=== PATIENT | female | born 1930 | race Caucasian/White ===

== ENCOUNTER → 2016-08-30 | Outpatient (CLI) | payer OTHER, BC ==
[~2016-08-30] MED LIST: ACET-1047 PO; ALPR1TAB3 PO; AMOX500C3 PO; AMPI500C9 PO; BND25X PO; CEFEPIME CONSULT ACTIVE; CHOL400C7 PO; CHOLTAB3 PO; CIPR-255 PO; CIPR1TAB11; CIPR1TAB11 PO; CYAN3INJ IM; CYCL0.052 OPB; CYNI1000 INJ; DICY10CA55 PO; DXM/4 PO; FRS/40 PO; FURO-85 PO; FURO20TA PO; KCLP20 PO; LEVO75TA5 PO; LIFI5DRO OPB; MAGN400T6 PO; METO-217 PO; METO50TA7 PO; MGNO400 PO; MTHH1 PO; MULT-190 PO; MULTTAB58 PO; NPLATE; NRV5 PO; NXM/40 PO; ONDA4TAB10 SL; ONDA4TAB46 PO; POLY3350 PO; POLY335019 PO; POTA20TA16 PO; RSTOPS OP; SYN50 PO; THIA100T11 PO; TPRSR/50 PO; TPRSR50 PO; TRAM-10 PO; TRIM100T20 PO; TYLOTC500 PO; ivig IV
[2016-08-30 13:53] LABS: URINE APPEARANCE CLOUDY (CLEAR); URINE BILIRUBIN NEG (NEG); URINE COLOR YELLOW; URINE EPITHELIAL CELL AUTO 0-5 /lpf (0-5); URINE NITRITE NEG (NEG); URINE PH 5.5 (4.5-7.5); URINE SPECIFIC GRAVITY 1.016 (1.000-1.030); UROBILINOGEN NEG (NEG)
[2016-08-30 13:57] LABS: MANUAL MICROSCOPIC REQUIRED? NO; REVIEW REQ? NO
== END | disposition home or self-care (01) ==
LOC: C.LAB 12:50
PROVIDERS: ATTEND Family Medicine
DX: N39.0 Urinary tract infection, site not specified (principal); B96.5 Pseudomonas (aeruginosa) (mallei) (pseudomallei) as the cause of diseases classified elsewhere

== ENCOUNTER → 2016-09-10 | Outpatient (CLI) | payer OTHER, BC ==
[~2016-09-10] MED LIST changes: -ACET-1047 PO; -BND25X PO; -CEFEPIME CONSULT ACTIVE; -KCLP20 PO; -METO-217 PO; -TPRSR/50 PO
[2016-09-10 19:07] LABS: URINE APPEARANCE CLEAR (CLEAR); URINE BILIRUBIN NEG (NEG); URINE COLOR YELLOW; URINE EPITHELIAL CELL AUTO 20-30 /lpf (0-5); URINE NITRITE NEG (NEG); URINE SPECIFIC GRAVITY 1.002 (1.000-1.030); UROBILINOGEN NEG (NEG)
[2016-09-10 19:12] LABS: MANUAL MICROSCOPIC REQUIRED? NO; REVIEW REQ? NO
== END | disposition home or self-care (01) ==
LOC: C.LAB 17:34
PROVIDERS: ATTEND Internal Medicine Infectious Disease
DX: R30.0 Dysuria (principal)

== ENCOUNTER → 2016-10-09 | Outpatient (CLI) | payer OTHER, BC ==
[2016-10-09 14:26] LABS: URINE APPEARANCE CLEAR (CLEAR); URINE BILIRUBIN NEG (NEG); URINE COLOR DK YELLOW; URINE EPITHELIAL CELL AUTO 20-30 /lpf (0-5); URINE NITRITE POS (NEG); URINE SPECIFIC GRAVITY 1.016 (1.000-1.030); UROBILINOGEN NEG (NEG); ZZUR CULT IF INDIC CLEAN CATCH YES
[2016-10-09 14:35] LABS: MANUAL MICROSCOPIC REQUIRED? NO; REVIEW REQ? NO
== END | disposition home or self-care (01) ==
LOC: C.LAB1850 11:52
PROVIDERS: ATTEND Internal Medicine Infectious Disease
DX: I49.3 Ventricular premature depolarization (principal); R39.9 Unspecified symptoms and signs involving the genitourinary system

== ENCOUNTER → 2016-10-28 | Outpatient (CLI) | payer OTHER, BC ==
[2016-10-28 19:29] LABS: MANUAL MICROSCOPIC REQUIRED? NO; REVIEW REQ? NO; URINE APPEARANCE TURBID (CLEAR); URINE BILIRUBIN NEG (NEG); URINE COLOR YELLOW; URINE NITRITE POS (NEG); URINE PH 5.5 (4.5-7.5); URINE SPECIFIC GRAVITY 1.009 (1.000-1.030); UROBILINOGEN NEG (NEG)
== END | disposition home or self-care (01) ==
LOC: C.LAB 16:02
PROVIDERS: ATTEND Internal Medicine Infectious Disease
DX: R39.9 Unspecified symptoms and signs involving the genitourinary system (principal)

== ENCOUNTER → 2016-11-19 | Outpatient (CLI) | payer OTHER, BC ==
[~2016-11-19] MED LIST changes: -CIPR-255 PO; +METO-217 PO; -ONDA4TAB46 PO; -RSTOPS OP; +TPRSR/50 PO
[2016-11-19 16:45] LABS: URINE APPEARANCE CLOUDY (CLEAR); URINE BILIRUBIN NEG (NEG); URINE COLOR YELLOW; URINE EPITHELIAL CELL AUTO >30 /lpf (0-5); URINE NITRITE POS (NEG); URINE SPECIFIC GRAVITY 1.012 (1.000-1.030); UROBILINOGEN NEG (NEG)
[2016-11-19 16:51] LABS: MANUAL MICROSCOPIC REQUIRED? NO; REVIEW REQ? NO
== END | disposition home or self-care (01) ==
LOC: C.LABSPEC 15:53
PROVIDERS: ATTEND Physician Assistant
DX: R30.0 Dysuria (principal)

== ENCOUNTER → 2016-12-24 | Outpatient (CLI) | payer OTHER, BC ==
[~2016-12-24] MED LIST changes: +ACET-1047 PO; +BENZ100C7 PO; +BNDL2 PO; +CEFD300C2 PO; +CEFEPIME CONSULT ACTIVE; +CLR10 PO; +CRAN1TAB PO; +DIPH25CA50 PO; +DOCU100C31 PO; +ELTR12.58 PO; +FILG300I4 SQ; +FLUT0.15 INTNAS; +KCLP20 PO; +LEVA45AE NAE; +LEVA45AE PO; +LSX20 PO; +NYSS5 PO; +SODI0.9I55 IV.; +TRIM100T PO; -TRIM100T20 PO
[2016-12-24 18:51] LABS: URINE APPEARANCE CLEAR (CLEAR); URINE BILIRUBIN NEG (NEG); URINE COLOR YELLOW; URINE EPITHELIAL CELL AUTO >30 /lpf (0-5); URINE NITRITE POS (NEG); URINE SPECIFIC GRAVITY 1.011 (1.000-1.030); UROBILINOGEN NEG (NEG)
[2016-12-24 18:55] LABS: MANUAL MICROSCOPIC REQUIRED? NO; REVIEW REQ? NO
== END | disposition home or self-care (01) ==
LOC: C.LAB 17:34
PROVIDERS: ATTEND Physician Assistant
DX: R39.9 Unspecified symptoms and signs involving the genitourinary system (principal)

== ENCOUNTER → 2017-01-02 | Outpatient (CLI) | payer OTHER, BC ==
--- NOTE | 2017-01-02 11:24 | DIAGNOSTIC IMAGING REPORT ---
CHEST 2 VIEWS ROUTINE CLINICAL HISTORY: R91.1 Solitary pulmonary [id number] nodule COMPARISON STUDY: 08/10/2016 FINDINGS: No significant parenchymal nodularity by plain film criteria. The study is negative for significant cardiac enlargement. Diaphragms smooth. Potential focal chronic atelectatic change right midlung. IMPRESSION: Chronic change. No routine film evidence for significant pulmonary nodularity Electronically signed by: Lenny Zapata M.D. 01/02/2017 11:23 AM Dictated Date/Time: 01/02/2017 11:20 AM
== END | disposition home or self-care (01) ==
LOC: C.RAD1850 11:04
PROVIDERS: ATTEND Physician Assistant
DX: R91.1 Solitary pulmonary nodule (principal)

== ENCOUNTER → 2017-02-04 | Outpatient (CLI) | payer OTHER, BC ==
[2017-02-04 19:13] LABS: URINE APPEARANCE CLEAR (CLEAR); URINE BILIRUBIN NEG (NEG); URINE COLOR YELLOW; URINE EPITHELIAL CELL AUTO 0-5 /lpf (0-5); URINE NITRITE NEG (NEG); URINE SPECIFIC GRAVITY 1.008 (1.000-1.030); UROBILINOGEN NEG (NEG)
[2017-02-04 19:14] LABS: MANUAL MICROSCOPIC REQUIRED? NO; REVIEW REQ? NO
== END | disposition home or self-care (01) ==
LOC: C.LABSPEC 17:45
PROVIDERS: ATTEND Family Medicine
DX: N39.0 Urinary tract infection, site not specified (principal)

== ENCOUNTER 2017-02-19 01:54 | Emergency (ER) | payer OTHER, BC ==
[~2017-02-19] VITALS: Ht 162.6 cm; Wt 74.0 kg
[~2017-02-19 01:54] MED LIST changes: -ACET-1047 PO; -AMPI500C9 PO; -BENZ100C7 PO; -BNDL2 PO; -CEFD300C2 PO; -CEFEPIME CONSULT ACTIVE; -CHOL400C7 PO; -CIPR1TAB11; -CIPR1TAB11 PO; -CLR10 PO; -CRAN1TAB PO; -CYCL0.052 OPB; -CYNI1000 INJ; -DICY10CA55 PO; -DIPH25CA50 PO; -DOCU100C31 PO; -ELTR12.58 PO; -FILG300I4 SQ; -FLUT0.15 INTNAS; -FRS/40 PO; -FURO20TA PO; -KCLP20 PO; -LEVA45AE NAE; -LEVA45AE PO; -LEVO75TA5 PO; -LSX20 PO; -MAGN400T6 PO; -METO-217 PO; -METO50TA7 PO; -NRV5 PO; -NYSS5 PO; -ONDA4TAB10 SL; -POLY335019 PO; -SODI0.9I55 IV.; -TPRSR/50 PO; -TYLOTC500 PO; -ivig IV
[2017-02-19 02:01] VITALS: Ht 162.6 cm; Wt 74.0 kg
--- NOTE | 2017-02-19 02:21 | EMERGENCY ROOM VISIT NOTE ---
History Report prepared by Larry: Kaleigh Taylor Under the Supervision of: Dr. Srinivasan Mayer M.D. First contact with patient: 02:09 Chief Complaint: BLEEDING Stated Complaint: EAR BLEEDING Nursing Triage Summary: Patient saw ENT yesterday and got a small lesion in her left ear after he cleaned out a large amount of wax. Patient now noting drainage since getting home. History of Present Illness The patient is a 87 year old female who presents to the Emergency Room with complaints of resolved left ear bleeding starting tonight. Yesterday, the patient's left ear was cleaned out by Dr. Jesus. A laceration was accidentally made in the ear but the patient was discharged home. She was prescribed Afrin and she was told to follow up this morning. Since then, the patient's ear has been draining all day today. A few minutes ago, the patient had some bleeding tonight. The patient also had an appointment with her PCP yesterday and her platelets were 13. She has been receiving Nplate shot for the past few weeks. She has a history of thrombocytopenia and blood transfusions. She received steroids for 4 days last week. She currently complains of a headache. She denies fevers, chills, nosebleed, rectal bleeding, or any other complaints. Source of History: patient Onset: tonight Position: ear (left) Quality: other (bleeding) Timing: resolved Associated Symptoms: + headache, No fevers, No chills Review of Systems See HPI for pertinent positives & negatives. A total of 6 systems reviewed and were otherwise negative. 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 (5) Hypertension Nos (6) Hypothyroidism Nos (7) ITP (idiopathic thrombocytopenic purpura) (8) Myalgia and myositis (9) Osteoporosis Nos (10) Premature atrial contractions (11) Pulmonary nodules Surgical Problems: (1) History of cataract surgery (2) S/P hernia repair (3) S/P hysterectomy (4) S/p repair of cystocele (5) S/P tonsillectomy and adenoidectomy Family History Asthma DAUGHTER Social History Smoking Status: Never Smoker Alcohol Use: none Drug Use: none Marital Status: single Housing Status: lives with family Occupation Status: retired Current/Historical Medications Scheduled Alprazolam (Xanax), 1 MG PO BID Amoxicillin (Amoxil), 500 MG PO UD Cholecalciferol (Vitamin D 400 Iu), 400 INTER.UNIT PO BID Cyanocobalamin (Cyanocobalamin), 1 DOSE INJ MONTHLY Dexamethasone (Decadron), 4 MG PO UD Esomeprazole Magnesium (Nexium), 40 MG PO DAILY Furosemide (Lasix), 20 MG PO DAILY Levothyroxine Sodium (Levothyroxine Sodium), 75 MG PO DAILY Lifitegrast (Xiidra), 1 DROP OPB BID Magnesium Oxide (Magnesium-Oxide), 400 MG PO BID Methenamine Hippurate (Methenamine Hippurate), 1 GM PO BID Metoprolol Succinate (Metoprolol Succinate ER), 50 MG PO BID Multiple Vitamin (Multivitamin), 1 TAB PO DAILY Ocuvite Preservision (Ocuvite Preservision), 1 TAB PO BID Polyethylene Glycol 3350 (Polyethylene Glycol 3350), 17 GM PO DAILY Potassium Ext Rel (Klor-Con), 20 MEQ PO DAILY Thiamine Hcl (Vitamin B-1), 100 MG PO DAILY Tramadol (Ultram), 50 MG PO Q6HR PRN Trimethoprim (Proloprim), 100 MG PO DAILY [Nplate], 1 WK Allergies Coded Allergies: Amoxicillin (Verified Allergy, Intermediate, RASH, 02/19/17) Clavulanic Acid (Verified Allergy, Intermediate, RASH, 02/19/17) Iodinated Diagnostic Agents (Verified Allergy, Intermediate, HIVES WITH IVP DYE, 02/19/17) Rofecoxib (Verified Allergy, Intermediate, PALPITATIONS, 02/19/17) Sulfa Antibiotics (Verified Allergy, Intermediate, RASH, 02/19/17) Codeine (Verified Adverse Reaction, Intermediate, NAUSEA/VOMITING, 02/19/17 ) Morphine (Verified Adverse Reaction, Intermediate, NAUSEA/VOMITING, ) Oxycodone (Verified Adverse Reaction, Intermediate, NAUSEA/VOMITING, ) Physical Exam Vital Signs Date Time Temp Pulse Resp B/P (MAP) Pulse Ox O2 Delivery O2 Flow Rate FiO2 02/19/17 02:31 36.6 58 19 153/59 96 02/19/17 02:01 36.6 58 19 153/59 96 Room Air Physical Exam GENERAL: Patient is well appearing and in no acute distress. HEENT: No acute trauma, normocephalic atraumatic, mucous membranes moist, no nasal congestion, no nosebleed, no scleral icterus. Left TM with blood clot in canal, no active bleeding, no oozing at this time, unable to appreciate laceration nor abrasion, no evidence of infection. No blood in mouth. NECK: No stridor, no adenopathy, no meningismus, trachea is midline. LUNGS: No dyspnea. Clear to auscultation and equal bilaterally. No wheeze, no rhonchi. HEART: Regular rate and rhythm. No murmurs, rubs, gallops appreciated. EXTREMITIES: Normal motion all extremities, no cyanosis, no edema. NEUROLOGIC: Alert and oriented, no acute motor or sensory deficits, no focal weakness, cranial nerves grossly intact. SKIN: No rash, no jaundice, no diaphoresis. Mild bruising of the left leg just below knee. Medical Decision & Procedures ED Course 0209: The patient was evaluated in room A03. A complete history and physical exam was performed. 0231: Reevaluated the patient. Discussed results and discharge instructions: She verbalized understanding and agreement. The patient is ready for discharge. Medical Decision Medication Reconciliation: I attest that I have personally reviewed the patient 's current medication list. Blood Pressure Screening: Patient was found to have a slightly elevated blood pressure due to circumstances. I do not believe that the patient requires hypertension monitoring. Pleasant 87 yr old female with known ITP and very low plts who had left cerumen impaction removed yesterday with some post procedure bleeding. Arrives as there was small amount of sero-sang fluid on pillow. Non-soaking and patient without evidence of hypovolemia at this time. Exam without further bleeding though there is clot within canal. Will continue Afrin in canal with cotton balls. Discussed likelihood of some continued oozing but no clear indication for checking labs at this time as they were just done yesterday and her PCP is aware. Already has appointment with ENT in am for recheck. Daughter and patient comfortable with this plan. Impression Primary Impression: Ear canal abrasion Additional Impression: Thrombocytopenia Scribe Attestation The scribe's documentation has been prepared under my direction and personally reviewed by me in its entirety. I confirm that the note above accurately reflects all work, treatment, procedures, and medical decision making performed by me. Departure Information Dispostion Home / Self-Care Referrals Dionisio Umana M.D. (PCP) Forms HOME CARE DOCUMENTATION FORM, IMPORTANT VISIT INFORMATION Patient Instructions [facility] Additional Instructions This will continue to ooze for the next few days possibly. Continue to follow directions per ENT. Follow up with them in the morning as planned. If heavy bleeding, passing out, other bleeding, return for further evaluation and treatment. Try to sleep on right side as this may decrease oozing some. Replace Cotton Balls if the become saturated (soaked). Problem Qualifiers
[2017-02-19 02:31] VITALS: BP 153/59; PULSE 58; TEMP 36.6; O2SAT 96
[2017-02-19] MEDS ORDERED: LEVO75TA5 PO (02:32)
[2017-02-19] MEDS ORDERED: CHOL400C7 PO (02:35)
[2017-02-19] MEDS ORDERED: CYNI1000 INJ (02:35)
[2017-04-01] MEDS ORDERED: ivig IV (09:20)
[2017-04-07] MEDS ORDERED: CIPR1TAB11 (10:49)
[2017-05-02] MEDS ORDERED: CIPR1TAB11 PO (12:06)
[2017-05-02] MEDS ORDERED: AMPI500C9 PO (12:07)
[2017-05-12] MEDS ORDERED: POLY335019 PO (23:40)
[2017-05-12] MEDS ORDERED: MULTTAB58 PO (23:40)
[2017-05-12] MEDS ORDERED: FURO20TA PO (23:41)
[2017-05-12] MEDS ORDERED: POTA20TA16 PO (23:41)
[2017-05-12] MEDS ORDERED: LEVO75TA5 PO (23:42)
[2017-05-12] MEDS ORDERED: NXM/40 PO (23:42)
[2017-05-12] MEDS ORDERED: ALPR1TAB3 PO (23:42)
[2017-05-12] MEDS ORDERED: DICY10CA55 PO (23:42)
[2017-05-12] MEDS ORDERED: THIA100T11 PO (23:43)
[2017-05-12] MEDS ORDERED: MAGN400T6 PO (23:43)
[2017-05-12] MEDS ORDERED: TRAM-10 PO (23:44)
[2017-05-12] MEDS ORDERED: METO50TA7 PO (23:44)
[2017-05-24] MEDS ORDERED: NRV5 PO (13:25)
[2017-05-24] MEDS ORDERED: FRS/40 PO (13:25)
[2017-06-01] MEDS ORDERED: DIPH25CA50 PO (11:04)
[2017-06-27] MEDS ORDERED: AMPI500C9 PO (10:31)
[2017-07-04] MEDS ORDERED: ELTR12.58 PO (14:53)
[2017-07-07] MEDS ORDERED: CLR10 PO (11:56)
[2017-07-07] MEDS ORDERED: FILG300I4 SQ (11:56)
[2017-07-11] MEDS ORDERED: CRAN1TAB PO (12:35)
[2017-07-11] MEDS ORDERED: LEVA45AE PO (12:35)
[2017-07-11] MEDS ORDERED: FLUT0.15 INTNAS (12:35)
[2017-07-14] MEDS ORDERED: CEFD300C2 PO (17:35)
[2017-07-14] MEDS ORDERED: BENZ100C7 PO (17:36)
[2017-07-14] MEDS ORDERED: NYSS5 PO (17:36)
[2017-07-14] MEDS ORDERED: LSX20 PO (17:36)
== END 2017-02-19 02:32 | disposition home or self-care (01) ==
LOC: C.EDB 01:55 → C.EDA 02:32
DX: S00.412A Abrasion of left ear, initial encounter (principal); D69.6 Thrombocytopenia, unspecified; X58.XXXA Exposure to other specified factors, initial encounter; D64.9 Anemia, unspecified; I48.91 Unspecified atrial fibrillation; J44.9 Chronic obstructive pulmonary disease, unspecified; I10 Essential (primary) hypertension; E03.9 Hypothyroidism, unspecified; D69.3 Immune thrombocytopenic purpura; M81.0 Age-related osteoporosis without current pathological fracture; M79.1 Myalgia; M60.9 Myositis, unspecified; Z82.5 Family history of asthma and other chronic lower respiratory diseases; R39.9 Unspecified symptoms and signs involving the genitourinary system; E86.0 Dehydration; D61.818 Other pancytopenia; N39.0 Urinary tract infection, site not specified

== ENCOUNTER 2017-04-21 09:45 | Emergency (ER) | payer OTHER, BC ==
[~2017-04-21] VITALS: Ht 165.1 cm; Wt 74.0 kg
[~2017-04-21 09:45] MED LIST changes: +CHOL400C7 PO; -CHOLTAB3 PO; -CYAN3INJ IM; +CYNI1000 INJ; +LEVO75TA5 PO; -SYN50 PO; -TRIM100T PO; +TRIM100T20 PO; +ivig IV
[2017-04-21 09:49] VITALS: Ht 165.1 cm; Wt 74.0 kg
[2017-04-21] MEDS ORDERED: CYCL0.052 OPB (10:35)
[2017-04-21] MEDS ORDERED: TYLOTC500 PO (10:36)
--- NOTE | 2017-04-21 11:39 | EMERGENCY ROOM VISIT NOTE ---
History First contact with patient: 09:56 Chief Complaint: NOSE BLEED (MINOR) Stated Complaint: NOSEBLEED History of Present Illness The patient is a 87 year old female who presents to the Emergency Room with complaints of nose bleed for the past 4 hours. She woke up with a sensation of runny nose but was found to be blood. Patient admits there was not enough blood to measure. She has a significant PMH of pancytopenia and ITP, for which she sees Dr. Coulter Patient was meant to be seen at Dr. Coulter's office to get bloodwork done today but was advised to come to the ED if bleeding persisted. This is the first nosebleed the patient has had. Patient also reports history of chronic bladder infections, feels an infection coming on, and requested a UA. Patient receives semi-weekly platelet infusions as needed. Most recent platelet infusion given , 04/17/17 Gets CBC every friday; most recent platelet count was 11 as of 04/17. Patient states she received PRBCs 10 days ago. Patient had Bone Marrow biopsy 3 years ago; no cancer was found but chemotherapy was tried at that time to no avail. Source of History: patient, family Position: nose Symptom Intensity: mild Timing: intermittent Review of Systems See HPI for pertinent positives and negatives. A total of ten systems were reviewed and were otherwise negative. Past Medical/Surgical History Medical Problems: (1) Anemia (2) Atrial fibrillation (3) COPD (chronic obstructive pulmonary disease) (4) Coronary Atherosclerosis Of [place]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 (5) Hypertension Nos (6) Hypothyroidism Nos (7) ITP (idiopathic thrombocytopenic purpura) (8) Myalgia and myositis (9) Osteoporosis Nos (10) Premature atrial contractions (11) Pulmonary nodules Surgical Problems: (1) History of cataract surgery (2) S/P hernia repair (3) S/P hysterectomy (4) S/p repair of cystocele (5) S/P tonsillectomy and adenoidectomy Family History Asthma DAUGHTER Social History Smoking Status: Never Smoker Alcohol Use: none Drug Use: none Marital Status: single Housing Status: lives with family Occupation Status: retired Current/Historical Medications Scheduled Acetaminophen (Tylenol), 500 MG PO TID Alprazolam (Xanax), 1 MG PO BID Cholecalciferol (Vitamin D 400 Iu), 400 INTER.UNIT PO BID Cyclosporine (Ophth) (Restasis), 1 DROP OPB DAILY Esomeprazole Magnesium (Nexium), 40 MG PO DAILY Furosemide (Lasix), 20 MG PO NEEDED Levothyroxine Sodium (Levothyroxine Sodium), 75 MG PO DAILY Magnesium Oxide (Magnesium-Oxide), 400 MG PO BID Metoprolol Succinate (Metoprolol Succinate ER), 50 MG PO BID Multiple Vitamin (Multivitamin), 1 TAB PO DAILY Ocuvite Preservision (Ocuvite Preservision), 1 TAB PO BID Polyethylene Glycol 3350 (Polyethylene Glycol 3350), 17 GM PO DAILY Potassium Ext Rel (Klor-Con), 20 MEQ PO NEEDED Thiamine Hcl (Vitamin B-1), 100 MG PO DAILY Tramadol (Ultram), 50 MG PO TID Physical Exam Vital Signs Date Time Temp Pulse Resp B/P (MAP) Pulse Ox O2 Delivery O2 Flow Rate FiO2 04/21/17 17:54 81 04/21/17 17:45 82 20 215/96 96 Room Air 04/21/17 17:32 79 20 206/89 96 04/21/17 17:30 78 20 206/85 97 Room Air 04/21/17 17:22 36.8 79 20 196/89 98 04/21/17 17:06 37.1 77 18 190/80 97 04/21/17 16:40 70 20 191/66 97 Room Air 04/21/17 16:06 36.8 64 20 177/92 97 0.0 04/21/17 15:40 78 18 197/89 98 Room Air 04/21/17 14:00 129 20 129/60 97 Room Air 04/21/17 13:00 62 20 96 Room Air 04/21/17 11:40 60 20 133/90 96 Room Air 04/21/17 09:49 36.4 52 20 145/55 96 Room Air Physical Exam GENERAL: Awake, alert, well-appearing, in no distress HENT: Crusted over lesions inside left nostril. Minimal bleeding at time of exam. Normocephalic, atraumatic. Oropharynx unremarkable. EYES: Normal conjunctiva. Sclera non-icteric. NECK: Supple. No nuchal rigidity. FROM. No JVD. RESPIRATORY: Clear to auscultation. CARDIAC: Regular rate, irregularly irregular rhythm. Extremities warm and well perfused. Pulses equal. ABDOMEN: Soft, non-distended. No tenderness to palpation. No rebound or guarding. No masses. MUSCULOSKELETAL: Chest examination reveals no tenderness. The back is symmetrical on inspection without obvious abnormality. There is no CVA tenderness to palpation. No joint edema. LOWER EXTREMITIES: Calves are equal size bilaterally and non-tender. No edema. No discoloration. NEURO: Normal sensorium. No sensory or motor deficits noted. SKIN: No rash or jaundice noted. Medical Decision & Procedures Laboratory Results 04/21/17 11:21 Red Blood Count 2.83, Mean Corpuscular Volume 92.9, Mean Corpuscular Hemoglobin 31.4, Mean Corpuscular Hemoglobin Concent 33.8, Neutrophils (%) (Auto) 7.6, Lymphocytes (%) (Auto) 85.5, Monocytes (%) (Auto) 6.2, Eosinophils (%) (Auto) 0.0, Basophils (%) (Auto) 0.0, Neutrophils # (Auto) 0.11, Lymphocytes # (Auto) 1.24, Monocytes # (Auto) 0.09, Eosinophils # (Auto) 0.00, Basophils # (Auto) 0.00 04/21/17 11:21 Test 04/21/17 11:21 04/21/17 13:05 White Blood Count 1.45 K/uL (4.8-10.8) Red Blood Count 2.83 M/uL (4.2-5.4) Hemoglobin 8.9 g/dL (12.0-16.0) Hematocrit 26.3 % (37-47) Mean Corpuscular Volume 92.9 fL (80-100) Mean Corpuscular Hemoglobin 31.4 pg (25-34) Mean Corpuscular Hemoglobin Concent 33.8 g/dl (32-36) Platelet Count 4 K/uL (130-400) Neutrophils (%) (Auto) 7.6 % Lymphocytes (%) (Auto) 85.5 % Monocytes (%) (Auto) 6.2 % Eosinophils (%) (Auto) 0.0 % Basophils (%) (Auto) 0.0 % Neutrophils # (Auto) 0.11 K/uL (1.4-6.5) Lymphocytes # (Auto) 1.24 K/uL (1.2-3.4) Monocytes # (Auto) 0.09 K/uL (0.11-0.59) Eosinophils # (Auto) 0.00 K/uL (0-0.5) Basophils # (Auto) 0.00 K/uL (0-0.2) RDW Standard Deviation 63.0 fL (36.4-46.3) RDW Coefficient of Variation 19.6 % (11.5-14.5) Immature Granulocyte % (Auto) 0.7 % Immature Granulocyte # (Auto) 0.01 K/uL (0.00-0.02) Platelet Estimate SIGNIFIC DECREASED Anisocytosis PRESENT Anion Gap 2.0 mmol/L (3-11) Est Creatinine Clear Calc Drug Dose 58.9 ml/min Estimated GFR () 91.4 Estimated GFR (Non- 78.8 BUN/Creatinine Ratio 32.3 (10-20) Calcium Level 8.3 mg/dl (8.5-10.1) Urine Color YELLOW Urine Appearance CLOUDY (CLEAR) Urine pH 7.0 (4.5-7.5) Urine Specific [place] 1.018 (1.000-1.030) Urine Protein TRACE (NEG) Urine Glucose (UA) NEG (NEG) Urine Ketones NEG (NEG) Urine Occult Blood 1+ (NEG) Urine Nitrite NEG (NEG) Urine Bilirubin NEG (NEG) Urine Urobilinogen NEG (NEG) Urine Leukocyte Esterase SMALL (NEG) Urine WBC (Auto) 10-30 /hpf (0-5) Urine RBC (Auto) 5-10 /hpf (0-4) Urine Hyaline Casts (Auto) 1-5 /lpf (0-5) Urine Epithelial Cells (Auto) 20-30 /lpf (0-5) Urine Bacteria (Auto) 4+ (NEG) Medications Administered Medications (Trade) Dose Ordered Sig/Giuseppe Route Start Time Stop Time Status Last Admin Dose Admin Diphenhydramine HCl (Benadryl Inj) 25 mg ONE PRN IV 04/21/17 13:30 05/21/17 13:29 04/21/17 16:18 25 MG Acetaminophen (Tylenol Tab) 1,000 mg NOW STAT PO 04/21/17 13:20 04/21/17 13:31 DC 04/21/17 16:18 1,000 MG Diphenhydramine HCl (Benadryl Inj) 25 mg NOW STAT IV 04/21/17 17:48 04/21/17 17:49 DC 04/21/17 17:57 25 MG ED Course 0930: patient arrives to ED, bed B03B. 0950: Obtained history and physical from patient and family 1015: Nose clamp applied 1020: Nose clamp removed by patient as it resulted in more bleeding. 1030: Ordered CBC, type and screen and UA at patient's request. 1100: blood obtained from patient 1135: Afrin with lido ordered to help if needed 1200: Nosebleed reportedly stopped 1205: labwork reviewed; platelet count severely decreased at 4 (were 11 last ) 1300: Dr. Coulter reached by phone, has advised 2 units platelets and if no rebleed, can go home with appointment planned for w/ Dr. Coulter 1330: Platelets ordered, will not be available until 1500; ordered 25 mg benadryl and 1000mg tylenol to be given concomitantly at time of infusion. 1400: Nosebleed re-commenced. Administered Afrin and 4% lidocaine spray in left nostril. 1600: Platelet transfusion commenced after obtaining consent from the patient. 1730: patient developed 3 wheals on neck after commencing 2nd bag of platelets; infusion stopped. No other symptoms or angioedema noted or reported. 1745: 2nd dose of benadryl 25 mg ordered. If BP is less than 200 systolic and hives diminish in 30 minutes; clear to DC home. Medical Decision Acute nose bleed: started roughly 3 hours prior to presenting to ED; first nosebleed patient reports ever having despite significant PMH of pancytopenia and ITP. Patient advised by special warfare operator, Dr. Durga Coulter, to present to ED if nosebleed did not stop Nasal clamp made bleeding worse; Afrin and lido application utilized due to persistent on and off epistaxis. CBC, Type and screen, and UA ordered. Platelets reviewed, found to be at level of 4. Decreased from level of [address] case [address] Dr[address] Coulter, who suggested 2 units of platelet infusion and if no rebleed, ok to go home with appointment with Dr. Coulter on . Platelets to be infused at 1500 with benadryl IV and PO tylenol. Platelet infusion started at 1600; patient tolerated 1st bag well, at 1730 during 2nd infusion; patient developed hives/3 wheals on neck without any other evidence of angioedema or other areas of hives on the body Discussed with attending; 2nd infusion of 25 mg benadryl given; ok to discharge home with daughter if systolic BP is <200 and hives are clearing. Consults Time Called: 1230 Consulting Physician: Dr. Durga Coulter Returned Call: 1300 Dr. Coulter recommends infusion of 2 units of platelets and if no rebleed, ok to go home. Follow up with Dr. Coulter on . Impression Primary Impression: Nasal bleeding Additional Impressions: Symptoms of urinary tract infection Pancytopenia Anemia Departure Information Dispostion Home / Self-Care Condition GOOD Referrals Dionisio Umana M.D. (PCP) [facility] Additional Instructions EPISTAXIS (NOSE BLEED) INSTRUCTIONS: Avoid scratching, rubbing, picking, or blowing your nose. The stretcher and drier your nasal passages the more likely they are to bleed. The following two products are available [id number] at most drug stores/pharmacies. [place] nasal spray or similar generic saline spray to keep the nose moist 3 to 4 times a day. Apply [place] gel 2-3 times daily to the nostrils to keep them moist. If bleeding recurs apply direct pressure for an uninterrupted 20 minutes. On and off pressure is much less effective because it will disturb the clots that are forming. If the bleeding is still a problem after 20 minutes or is so heavy despite the pressure return to the emergency department. Continue current medications. Follow-up with your primary care physician in 2 to 3 days for a recheck of your current condition. During this visit, your platelets were found to be at a level 4, which is lower than your level of 11 on 04/17/17. 1.5 units of platelets were infused during your stay. Continue to monitor for signs of allergic reaction such as rash over the body with wheals/hives; tongue swelling and difficulty breathing. If you notice any of these symptoms, return to the ED. Follow up with Dr. Coulter on , 04/24. Resident Tracking Resident Involvement: Resident Care Provided Care Provided: Adult ED Problem Qualifiers Additional Impressions: Anemia Anemia type: unspecified type Qualified Codes: D64.9 - Anemia, unspecified
[2017-04-21 12:08] LABS: HEMATOCRIT 26.3 % (37-47); MEAN CELL VOLUME 92.9 fL (80-100); MEAN CORPUSCULAR HEMOGLOBIN 31.4 pg (25-34); MEAN CORPUSCULAR HGB CONC 33.8 g/dl (32-36); PLATELET COUNT 4 K/uL (130-400); RED BLOOD COUNT 2.83 M/uL (4.2-5.4); WHITE BLOOD COUNT 1.45 K/uL (4.8-10.8)
[2017-04-21 12:09] LABS: ANISOCYTOSIS PRESENT; COMPLETE YES; IG% 0.7 %; LYMPH % 85.5 %; LYMPH ABS # 1.24 K/uL (1.2-3.4); MONO % 6.2 %; NEUT % 7.6 %; PLT ESTIMATE SIGNIFIC DECREASED
[2017-04-21] MEDS: LIDOCAINE 4% W/AFRIN NASAL SOLN 4ML EXT STA ×2 (12:21→14:16)
[2017-04-21 12:28] LABS: BUN/CREATININE RATIO 32.3 (10-20); CALCIUM 8.3 mg/dl (8.5-10.1); CREATININE 0.69 mg/dl (0.60-1.20); POTASSIUM 3.8 mmol/L (3.5-5.1)
[2017-04-21 13:18] LABS: URINE APPEARANCE CLOUDY (CLEAR); URINE BILIRUBIN NEG (NEG); URINE COLOR YELLOW; URINE EPITHELIAL CELL AUTO 20-30 /lpf (0-5); URINE NITRITE NEG (NEG); URINE SPECIFIC GRAVITY 1.018 (1.000-1.030); UROBILINOGEN NEG (NEG)
[2017-04-21] MEDS ORDERED: ACETAMINOPHEN 500 MG TAB PO STA (13:20)
[2017-04-21 13:24] LABS: MANUAL MICROSCOPIC REQUIRED? NO; REVIEW REQ? NO
[2017-04-21] MEDS ORDERED: DiphenhydrAMINE HCL 50 MG/ML VIAL IV PRN (13:30)
[2017-04-21] MEDS ORDERED: LIDOCAINE 4% W/AFRIN NASAL SOLN 4ML ONE ×2 (13:56→13:58)
[2017-04-21 16:06] VITALS: BP 177/92; PULSE 64; TEMP 36.8; O2SAT 97
[2017-04-21] MEDS ORDERED: ACETAMINOPHEN 500 MG TAB PO ONE (16:16)
[2017-04-21 17:06] VITALS: BP 190/80; PULSE 77; TEMP 37.1; O2SAT 97
[2017-04-21 17:22] VITALS: BP 196/89; PULSE 79; TEMP 36.8; O2SAT 98
[2017-04-21 17:32] VITALS: BP 206/89; PULSE 79; O2SAT 96
[2017-04-21] MEDS ORDERED: DiphenhydrAMINE HCL 50 MG/ML VIAL IV STA (17:48)
[2017-04-21] MEDS ORDERED: METOPROLOL SUCC 50MG EXT REL TAB PO STA (18:13)
[2017-04-21 19:09] VITALS: BP 176/86; PULSE 70; O2SAT 96
--- NOTE | 2017-04-21 19:18 | EMERGENCY ROOM VISIT NOTE ---
ED Visit Note Patient is an 87-year-old female who was signed out to me by Dr. montalvo who is being seen in conjunction with the resident. The current plan as she presented for a nosebleed with thrombocytopenia which was discussed per report with hematology/oncology was 2 units of platelets and discharge. During her second transfusion of platelets she started with a small rash on the anterior aspect of her neck which was about 2 inches in diameter. She is given an extra dose of Benadryl 25 mg IV. Symptoms completely abated. No respiratory symptoms. No trouble swallowing. She also missed her nighttime dose of blood pressure medications which were given. Following this her blood pressure trended down to 170/90. She was asymptomatic. She was discharged per her request to follow-up with her PCP.
--- NOTE | 2017-04-22 13:13 | Pharmacy Progress Note ---
ED Pharmacist Culture FollowUp Date of Service: Apr 22, 2017. Called patient regarding abnormal UA with history of multiple UTI at the request of Dr. Nolan. Patient reported a strong suspicion of bladder infection. Patient also reported that usual antibiotic is ciprofloxacin. This seems appropriate, pending culture results. Patient reports that she has a follow-up appointment with Dr. Umana tomorrow but would prefer to start antibiotics now. Prescription for ciprofloxacin 250 mg po BID x3 days, called to [facility] at the patient's request. Case discussed with Dr. Nolan, who is the prescribing provider.
[2017-05-02] MEDS ORDERED: CIPR1TAB11 PO (12:06)
[2017-05-02] MEDS ORDERED: AMPI500C9 PO (12:07)
[2017-05-12] MEDS ORDERED: MULTTAB58 PO (23:40)
[2017-05-12] MEDS ORDERED: POLY335019 PO (23:40)
[2017-05-12] MEDS ORDERED: POTA20TA16 PO (23:41)
[2017-05-12] MEDS ORDERED: FURO20TA PO (23:41)
[2017-05-12] MEDS ORDERED: LEVO75TA5 PO (23:42)
[2017-05-12] MEDS ORDERED: DICY10CA55 PO (23:42)
[2017-05-12] MEDS ORDERED: ALPR1TAB3 PO (23:42)
[2017-05-12] MEDS ORDERED: NXM/40 PO (23:42)
[2017-05-12] MEDS ORDERED: THIA100T11 PO (23:43)
[2017-05-12] MEDS ORDERED: MAGN400T6 PO (23:43)
[2017-05-12] MEDS ORDERED: TRAM-10 PO (23:44)
[2017-05-12] MEDS ORDERED: METO50TA7 PO (23:44)
[2017-05-24] MEDS ORDERED: NRV5 PO (13:25)
[2017-05-24] MEDS ORDERED: FRS/40 PO (13:25)
== END 2017-04-21 19:36 | disposition home or self-care (01) ==
LOC: C.EDB 09:48
DX: R04.0 Epistaxis (principal); D61.818 Other pancytopenia; D69.3 Immune thrombocytopenic purpura; I48.91 Unspecified atrial fibrillation; J44.9 Chronic obstructive pulmonary disease, unspecified; I25.10 Atherosclerotic heart disease of native coronary artery without angina pectoris; I10 Essential (primary) hypertension; E03.9 Hypothyroidism, unspecified; M81.0 Age-related osteoporosis without current pathological fracture; Z90.710 Acquired absence of both cervix and uterus; Z98.49 Cataract extraction status, unspecified eye; Z82.5 Family history of asthma and other chronic lower respiratory diseases; Z79.899 Other long term (current) drug therapy

== ENCOUNTER 2017-05-30 01:41 | Inpatient (IN) | payer OTHER, BC ==
[~2017-05-30] VITALS: Ht 167.6 cm; Wt 70.5 kg
[2017-05-30] VITALS (21 sets, daily range): BP systolic 104–180; BP diastolic 46–96; PULSE 68–89; TEMP 36.3–37.4; O2SAT 92–100; Ht 167.6 cm; Wt 70.5 kg
[~2017-05-30 01:41] MED LIST changes: -AMOX500C3 PO; +CYCL0.052 OPB; -CYNI1000 INJ; +DICY10CA55 PO; -DXM/4 PO; +FRS/40 PO; -FURO-85 PO; -LIFI5DRO OPB; +MAGN400T6 PO; -MTHH1 PO; -NPLATE; +NRV5 PO; +POLY335019 PO; -TRIM100T20 PO; +TYLOTC500 PO; -ivig IV
[2017-05-30] MEDS ORDERED: FRS/40 PO (02:07)
[2017-05-30] MEDS ORDERED: MAGN400T6 PO (02:08)
[2017-05-30] MEDS ORDERED: METO-217 PO (02:10)
[2017-05-30] MEDS ORDERED: METO50TA7 PO (02:11)
[2017-05-30] MEDS ORDERED: TPRSR/50 PO (02:12)
[2017-05-30] MEDS ORDERED: ONDANSETRON INJ 2 MG/ML 2 ML VIAL IV STA ×2 (02:52→07:04)
[2017-05-30] MEDS ORDERED: SODIUM CHLORIDE 0.9% 500ML 500 ML IV STA (02:52)
[2017-05-30] MEDS ORDERED: SODIUM CHLORIDE 0.9% 1000ML 1,000 ML IV STA (02:52)
[2017-05-30] MEDS ORDERED: HYDROmorphone INJ 0.5 MG/0.5 ML SYR IV STA (02:52)
[2017-05-30 03:56] LABS: BUN/CREATININE RATIO 25.4 (10-20); CALCIUM 8.3 mg/dl (8.5-10.1); CREATININE 0.74 mg/dl (0.60-1.20); POTASSIUM 4.1 mmol/L (3.5-5.1)
[2017-05-30 03:59] LABS: ALB/GLOB RATIO 0.9 (0.9-2)
[2017-05-30 04:26] LABS: HEMATOCRIT 17.7 % (37-47); MEAN CELL VOLUME 83.9 fL (80-100); MEAN CORPUSCULAR HEMOGLOBIN 30.3 pg (25-34); MEAN CORPUSCULAR HGB CONC 36.2 g/dl (32-36); MEAN PLATELET VOLUME 9.3 fL (7.4-10.4); PLATELET COUNT 6 K/uL (130-400); RED BLOOD COUNT 2.11 M/uL (4.2-5.4); WHITE BLOOD COUNT 0.82 K/uL (4.8-10.8)
[2017-05-30 04:48] LABS: URINE APPEARANCE CLOUDY (CLEAR); URINE BILIRUBIN NEG (NEG); URINE COLOR DK YELLOW; URINE EPITHELIAL CELL AUTO >30 /lpf (0-5); URINE NITRITE POS (NEG); URINE PH 7.5 (4.5-7.5); URINE SPECIFIC GRAVITY 1.017 (1.000-1.030); UROBILINOGEN NEG (NEG); ZZUR CULT IF INDIC CLEAN CATCH YES
[2017-05-30 04:59] LABS: MANUAL MICROSCOPIC REQUIRED? NO; REVIEW REQ? YES
--- NOTE | 2017-05-30 05:00 | EMERGENCY ROOM VISIT NOTE ---
History Report prepared by Larry: Bridget Bob Under the Supervision of: Dr. Soo Shore D.O. First contact with patient: 02:27 Chief Complaint: ILLNESS Stated Complaint: BACK PAIN History of Present Illness The patient is an 87 year old female who presents to the Emergency Room with complaints of worsening illness starting yesterday evening. The patient was recently in the hospital and has low platelets. She notes that she felt worse after her daughter flushed her line last night. She complains of nausea, fatigue , confusion, weakness, back pain, and abdominal pain. The patient denies vomiting and recent falls. The daughter notes that she is worried about dehydration. The daughter notes she called the nutritional services director doctor and they wanted her to try and wait till Friday. Source of History: patient, family Onset: evening Position: other (global) Quality: other (global) Timing: worsening Modifying Factors (Worsening): other (flushing her line out) Associated Symptoms: + nausea, + abdominal pain, + back pain, + fatigue, + weakness, No vomiting Note: The patient complains of confusion. The patient denies recent falls. Review of Systems See HPI for pertinent positives & negatives. A total of 10 systems reviewed and were otherwise negative. 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 (5) Hypertension Nos (6) Hypothyroidism Nos (7) ITP (idiopathic thrombocytopenic purpura) (8) Myalgia and myositis (9) Osteoporosis Nos (10) Pancytopenia (11) Premature atrial contractions (12) Pulmonary nodules (13) UTI (urinary tract infection) Surgical Problems: (1) History of cataract surgery (2) S/P hernia repair (3) S/P hysterectomy (4) S/p repair of cystocele (5) S/P tonsillectomy and adenoidectomy Family History Asthma DAUGHTER Social History Smoking Status: Unknown if Ever Smoked Alcohol Use: none Drug Use: none Marital Status: single Housing Status: lives with family Occupation Status: retired Current/Historical Medications Scheduled Acetaminophen (Tylenol), 500 MG PO TID Alprazolam (Xanax), 1 MG PO BID Cholecalciferol (Vitamin D 400 Iu), 400 INTER.UNIT PO BID Cyclosporine (Ophth) (Restasis), 1 DROP OPB DAILY Furosemide (Lasix), 40 MG PO DAILY Levothyroxine Sodium (Levothyroxine Sodium), 75 MG PO DAILY Magnesium Oxide (Mag-Ox), 400 MG PO BID Metoprolol Succinate (Metoprolol Succinate ER), 50 MG PO BID Multiple Vitamin (Multivitamin), 1 TAB PO DAILY Ocuvite Preservision (Ocuvite Preservision), 1 TAB PO BID Polyethylene Glycol 3350 (Polyethylene Glycol 3350), 17 GM PO DAILY Potassium Ext Rel (Klor-Con), 20 MEQ PO NEEDED Thiamine Hcl (Vitamin B-1), 100 MG PO DAILY Scheduled PRN Dicyclomine Hcl (Bentyl), 10 MG PO QID PRN for abdominal pain Esomeprazole Magnesium (Nexium), 40 MG PO DAILY PRN for Heartburn Tramadol (Ultram), 50 MG PO Q6 PRN for Pain Allergies Coded Allergies: Amoxicillin (Unverified Allergy, Intermediate, RASH, Zosyn tolerated [id number] ADM, 05/30/17) Clavulanic Acid (Unverified Allergy, Intermediate, RASH, Zosyn tolerated [id number] ADM, 05/30/17) Iodinated Diagnostic Agents (Verified Allergy, Intermediate, HIVES WITH IVP DYE, 05/30/17) Sulfa Antibiotics (Verified Allergy, Intermediate, RASH, 05/30/17) Codeine (Verified Adverse Reaction, Intermediate, NAUSEA/VOMITING, 05/30/17 ) Morphine (Verified Adverse Reaction, Intermediate, NAUSEA/VOMITING, ) Oxycodone (Verified Adverse Reaction, Intermediate, NAUSEA/VOMITING, ) Rofecoxib (Unverified Adverse Reaction, Intermediate, PALPITATIONS, ) Morphine and Related (Unverified Adverse Reaction, Unknown, GI SYMPTOMS, 05/30/17) Physical Exam Vital Signs Date Time Temp Pulse Resp B/P (MAP) Pulse Ox O2 Delivery O2 Flow Rate FiO2 05/30/17 05:01 98 22 149/44 92 Room Air 05/30/17 04:16 92 22 100 05/30/17 03:46 93 23 100 05/30/17 03:16 90 23 05/30/17 03:06 142/89 05/30/17 03:01 142/89 05/30/17 02:46 88 17 96 05/30/17 02:41 91 20 95 05/30/17 02:31 152/74 05/30/17 01:50 89 05/30/17 01:41 37.0 91 17 181/93 97 Room Air Physical Exam HEENT: Head - normocephalic and atraumatic Pupils are equal, round, and reactive to light. Extraocular eye muscles are intact, and sclera are anicteric. Nose - moist nasal mucosa without discharge. Mouth - moist buccal mucosa. Oropharynx is nonerythematous and there is no tonsillar exudate or edema noted. Neck: Supple; no JVD, nuchal rigidity, cervical lymphadenopathy, or auscultated bruits. Heart: Regular rate and rhythm. There is a normal S1 and S2 with no murmurs, clicks, or gallops appreciated. Lungs: Clear to auscultation bilaterally with no wheezes, rales, or rhonchi. Abdomen: Soft, slight diffuse tenderness, Nondistended, with good bowel sounds. There are no palpable pulsatile masses or hepatosplenomegaly. There is no guarding, rigidity, or rebound noted. Back: Reproducible pain over her bilateral PSIS. no obvious skin lesions. Extremities: No evidence of cyanosis, clubbing, or edema. There are easily palpable peripheral pulses. Skin: Pale, warm and dry with good turgor and no rashes. Medical Decision & Procedures Laboratory Results 05/30/17 03:22 Test 05/30/17 03:22 05/30/17 04:35 RDW Standard Deviation 44.1 fL (36.4-46.3) RDW Coefficient of Variation 15.3 % (11.5-14.5) White Blood Count 0.82 K/uL (4.8-10.8) Red Blood Count 2.11 M/uL (4.2-5.4) Hemoglobin 6.4 g/dL (12.0-16.0) Hematocrit 17.7 % (37-47) Mean Corpuscular Volume 83.9 fL (80-100) Mean Corpuscular Hemoglobin 30.3 pg (25-34) Mean Corpuscular Hemoglobin Concent 36.2 g/dl (32-36) Platelet Count 6 K/uL (130-400) Mean Platelet Volume 9.3 fL (7.4-10.4) Neutrophils (%) (Auto) 12.2 % Lymphocytes (%) (Auto) 72.0 % Monocytes (%) (Auto) 7.3 % Eosinophils (%) (Auto) 0.0 % Basophils (%) (Auto) 0.0 % Neutrophils # (Auto) 0.10 K/uL (1.4-6.5) Lymphocytes # (Auto) 0.59 K/uL (1.2-3.4) Monocytes # (Auto) 0.06 K/uL (0.11-0.59) Eosinophils # (Auto) 0.00 K/uL (0-0.5) Basophils # (Auto) 0.00 K/uL (0-0.2) Immature Granulocyte % (Auto) 8.5 % Immature Granulocyte # (Auto) 0.07 K/uL (0.00-0.02) Red Blood Cell Morphology Unremarkable Anion Gap 7.0 mmol/L (3-11) Est Creatinine Clear Calc Drug Dose 52.3 ml/min Estimated GFR () 85.0 Estimated GFR (Non- 73.4 BUN/Creatinine Ratio 25.4 (10-20) Calcium Level 8.3 mg/dl (8.5-10.1) Total Bilirubin 1.4 mg/dl (0.2-1) Aspartate Amino Transf (AST/SGOT) 28 U/L (15-37) Alanine Aminotransferase (ALT/SGPT) 37 U/L (12-78) Alkaline Phosphatase 176 U/L (45-117) Total Protein 6.6 gm/dl (6.4-8.2) Albumin 3.2 gm/dl (3.4-5.0) Globulin 3.4 gm/dl (2.5-4.0) Albumin/Globulin Ratio 0.9 (0.9-2) Urine Color DK YELLOW Urine Appearance CLOUDY (CLEAR) Urine pH 7.5 (4.5-7.5) Urine Specific [place] 1.017 (1.000-1.030) Urine Protein NEG (NEG) Urine Glucose (UA) NEG (NEG) Urine Ketones NEG (NEG) Urine Occult Blood 1+ (NEG) Urine Nitrite POS (NEG) Urine Bilirubin NEG (NEG) Urine Urobilinogen NEG (NEG) Urine Leukocyte Esterase LARGE (NEG) Urine WBC (Auto) 5-10 /hpf (0-5) Urine RBC (Auto) 0-4 /hpf (0-4) Urine Hyaline Casts (Auto) 0 /lpf (0-5) Urine Epithelial Cells (Auto) >30 /lpf (0-5) Urine Bacteria (Auto) 3+ (NEG) Laboratory results per my review. Medications Administered Medications (Trade) Dose Ordered Sig/Giuseppe Route Start Time Stop Time Status Last Admin Dose Admin Sodium Chloride 500 ml @ 999 mls/hr Q31M STAT IV 05/30/17 02:52 05/30/17 03:22 DC 05/30/17 03:05 999 MLS/HR Sodium Chloride 1,000 ml @ 250 mls/hr Q4H STAT IV 05/30/17 02:52 05/30/17 06:51 DC 05/30/17 03:05 250 MLS/HR Ondansetron HCl (Zofran Inj) 4 mg NOW STAT IV 05/30/17 02:52 05/30/17 02:53 DC 05/30/17 03:05 4 MG Hydromorphone HCl (Dilaudid Inj) 0.5 mg NOW STAT IV 05/30/17 02:52 05/30/17 02:53 DC 05/30/17 03:05 0.5 MG Procedure 0252: Ordered Dilaudid Inj 0.5 mg IV, Zofran Inj 4 mg IV, NSS 1000 ml @ 250 mls/ hr IV, NSS 500 ml @ 999 mls/hr IV. ED Course 0244: Past medical records reviewed. The patient was evaluated in room B6. A complete history and physical exam was performed. Her PICC line was accessed. Labs were drawn as above. She was observing the cardiac rehabilitation specialist and pulse oximeter. 0252: Ordered Dilaudid Inj 0.5 mg IV, Zofran Inj 4 mg IV, NSS 1000 ml @ 250 mls/ hr IV, NSS 500 ml @ 999 mls/hr IV. 0350: I reevaluated the patient and she was having much less pain. 0456: Discussed the patient's case with Dr. Zamorano. The patient will be evaluated for further management. Medical Decision This is an 87 year old female patient with a history of pancytopenia who presents to the emergency department with increased fatigue, weakness, mild abdominal pain, and severe low back pain. Differential diagnoses include UTI, lumbar strain, dehydration, anemia. LABS: White blood cell 0.8 Hemoglobin 6.4 Platelet count 6 Neutrophile count 0.10 BUN 19 Creatine 0.7 Glucose 141 Total bilirubin 1.4 Urinalysis has 1+ blood, positive nitrite, large leukocyte esterase, 3 + bacteria and 5-10 white blood cells. The patient has a history of pancytopenia and receives frequent blood transfusions and platelet transfusions. The daughter explains that her hat blocking operator wanted to allow her to rest over the weekend since she has been so fatigued. She describes a history of significant fluid overload with recent transfusions. She became more concerned about the patient's condition when the patient was complaining of such significant low back pain and generalized weakness. The patient's white blood cell count, hemoglobin, and platelet count are critically low. The urine specimen obtained appeared to be contaminated but possibly infected. It was sent for culture. The patient had moderate relief of the discomfort in her back with the above medications. I discussed the case with the [facility] Hospitalist and they will evaluate further management. Medication Reconcilliation Current Medication List: was personally reviewed by me Blood Pressure Screening Patient's blood pressure: Elevated blood pressure Will be further monitored by the hospitalist. Consults Time Called: 044 Consulting Physician: Dr. Zamorano Returned Call: [phone] Discussed the patient's case with Dr. Zamorano. The patient will be evaluated for further management. Impression Primary Impression: Pancytopenia Additional Impression: Low back pain Scribe Attestation The scribe's documentation has been prepared under my direction and personally reviewed by me in its entirety. I confirm that the note above accurately reflects all work, treatment, procedures, and medical decision making performed by me. Departure Information Dispostion Being Evaluated By Hospitalist Dionisio Key M.D. (PCP) Patient Instructions My [facility] Problem Qualifiers Additional Impression: Low back pain Chronicity: acute Back pain laterality: bilateral Sciatica presence: without sciatica Qualified Codes: M54.5 - Low back pain
[2017-05-30 05:03] LABS: SULFASALICYLIC ACID NEG (NEG)
[2017-05-30 05:44] LABS: COMPLETE YES; IG% 8.5 %; LYMPH ABS # 0.59 K/uL (1.2-3.4); MONO % 7.3 %; NEUT % 12.2 %
[2017-05-30] MEDS ORDERED: PIPERACILL/TAZOBAC CONSULT ACTIVE PRN (06:32)
[2017-05-30] MEDS ORDERED: PIPERACILLIN/TAZOBACTAM 4.5 GM/100ML D5W IV STA (06:34)
[2017-05-30] MEDS ORDERED: ACETAMINOPHEN 325 MG TAB PO STA ×2 (06:42→21:47)
[2017-05-30] MEDS ORDERED: FUROSEMIDE 40 MG/4 ML VIAL IV STA (06:43)
[2017-05-30] MEDS ORDERED: ONDANSETRON INJ 2 MG/ML 2 ML VIAL IV PRN (07:15)
[2017-05-30] MEDS ORDERED: PIPERACILL/TAZOBAC IV 4.5 GM in DEXTROSE 5% 100ML IV ONE (08:30)
[2017-05-30] MEDS ORDERED: METOCLOPRAMIDE HCL INJ 5 MG/ML 2 ML VIAL IV STA (08:56)
[2017-05-30] MEDS ORDERED: FUROSEMIDE INJ 20 MG in SYRINGE 0 ML IV SCH (09:00)
[2017-05-30] MEDS ORDERED: DiphenhydrAMINE HCL 50 MG/ML VIAL IV STA (09:15)
[2017-05-30] MEDS: MAGNESIUM OXIDE 400 MG TAB PO SCH ×2 (09:30→20:22)
[2017-05-30] MEDS: CHOLECALCIFEROL 400 INTER.UNIT TAB PO SCH ×2 (09:30→20:10)
[2017-05-30] MEDS ORDERED: ACETAMINOPHEN IV 100 ML IV ONE (09:30)
--- NOTE | 2017-05-30 09:57 | History and Physical ---
History & Physical Date & Time of Service: May 30, 2017 at 09:39 Chief Complaint: Pancytopenia Primary Care Physician: Dionisio Umana M.D. 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 She states that she hasn' t felt well since a couple of days after she was discharged about 7 days ago. She had been admitted for UTI symptoms and was subsequently transfused blood products complication by transfusion-related overload (TACO) requiring diuresis. Her UTI was initially treated with zosyn and then descalated over the 10 days she was admitted. She reports "UTI symptoms" returned but cannot qualify specifically what those are. She continues to go back to how nauseated she is. She denies back pain after receiving 0.5 IV of Dilaudid. In the ER bloodwork revealed neutropenia, severe anemia and a platelet count of 6. She denies any bleeding or bruising. She had received a platelet transfusion the Friday following her Friday discharge (5 days ago) and tolerated the transfusion well. She did receive Filgrastim on 05/12 just prior to her last admission. She otherwise denies any fevers, chills, chest pain, shortness of breath, vomiting, diarrhea or GI bleeding or other bleeding. I contacted her daughter by phone to discuss the plan, confirm code status and ensure medication regimen is accurate. Past Medical/Surgical History Medical Problems: (1) Pancytopenia Status: Chronic (2) Atrial fibrillation Status: Chronic (3) COPD (chronic obstructive pulmonary disease) Status: Chronic (4) Coronary Atherosclerosis Of [place]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 Status: Chronic (5) Hypertension Nos Status: Chronic (6) Hypothyroidism Nos Status: Chronic (7) ITP (idiopathic thrombocytopenic purpura) Status: Chronic (8) Myalgia and myositis Status: Chronic (9) Osteoporosis Nos Status: Chronic (10) Premature atrial contractions Status: Chronic (11) Pulmonary nodules Status: Chronic Surgical Problems: (1) History of cataract surgery Status: Chronic (2) S/P hernia repair Status: Chronic (3) S/P hysterectomy Status: Chronic (4) S/p repair of cystocele Status: Chronic (5) S/P tonsillectomy and adenoidectomy Status: Chronic Family History Asthma DAUGHTER Social History Smoking Status: Never Smoker Smokeless Tobacco Use: No Alcohol Use: none Drug Use: none Marital Status: single Housing status: lives with family (lives with her daughterSola) Occupational Status: retired Immunizations History of Influenza Vaccine: No Influenza Vaccine Date: Jun 04, 2016 History of Tetanus Vaccine?: Yes Tetanus Immunization Date: Feb 08, 2015 History of Pneumococcal: Yes Pneumococcal Date: Jul 20, 1996 History of Hepatitis B Vaccine: No Multi-Drug Resistant Organisms History of MDRO: Yes Type of MDRO: MRSA Allergies Coded Allergies: Amoxicillin (Unverified Allergy, Intermediate, RASH, Zosyn tolerated [id number] ADM, 05/30/17) Clavulanic Acid (Unverified Allergy, Intermediate, RASH, Zosyn tolerated [id number] ADM, 05/30/17) Iodinated Diagnostic Agents (Verified Allergy, Intermediate, HIVES WITH IVP DYE, 05/30/17) Sulfa Antibiotics (Verified Allergy, Intermediate, RASH, 05/30/17) Codeine (Verified Adverse Reaction, Intermediate, NAUSEA/VOMITING, 05/30/17 ) Morphine (Verified Adverse Reaction, Intermediate, NAUSEA/VOMITING, ) Oxycodone (Verified Adverse Reaction, Intermediate, NAUSEA/VOMITING, ) Rofecoxib (Unverified Adverse Reaction, Intermediate, PALPITATIONS, ) Morphine and Related (Unverified Adverse Reaction, Unknown, GI SYMPTOMS, 05/30/17) Home Medications Scheduled Acetaminophen (Tylenol), 500 MG PO TID Alprazolam (Xanax), 1 MG PO BID Cholecalciferol (Vitamin D 400 Iu), 400 INTER.UNIT PO BID Cyclosporine (Ophth) (Restasis), 1 DROP OPB DAILY Furosemide (Lasix), 40 MG PO DAILY Levothyroxine Sodium (Levothyroxine Sodium), 75 MG PO DAILY Magnesium Oxide (Mag-Ox), 400 MG PO BID Metoprolol Succinate (Metoprolol Succinate ER), 50 MG PO BID Multiple Vitamin (Multivitamin), 1 TAB PO DAILY Ocuvite Preservision (Ocuvite Preservision), 1 TAB PO BID Polyethylene Glycol 3350 (Polyethylene Glycol 3350), 17 GM PO DAILY Potassium Ext Rel (Klor-Con), 20 MEQ PO NEEDED Thiamine Hcl (Vitamin B-1), 100 MG PO DAILY Scheduled PRN Dicyclomine Hcl (Bentyl), 10 MG PO QID PRN for abdominal pain Esomeprazole Magnesium (Nexium), 40 MG PO DAILY PRN for Heartburn Tramadol (Ultram), 50 MG PO Q6 PRN for Pain Review of Systems At least ten systems were reviewed and negative except as indicated in HPI. Physical Exam Vital Signs Date Time Temp Pulse Resp B/P (MAP) Pulse Ox O2 Delivery O2 Flow Rate FiO2 05/30/17 08:18 36.7 18 180/53 (95) 94 Room Air 05/30/17 06:40 63 18 143/80 95 05/30/17 05:48 50 05/30/17 05:01 98 22 149/44 92 Room Air 05/30/17 04:16 92 22 100 05/30/17 03:46 93 23 100 05/30/17 03:16 90 23 05/30/17 03:06 142/89 05/30/17 03:01 142/89 05/30/17 02:46 88 17 96 05/30/17 02:41 91 20 95 05/30/17 02:31 152/74 05/30/17 01:50 89 05/30/17 01:41 37.0 91 17 181/93 97 Room Air General Appearance: + mild distress (nausea), + obese Head: normocephalic, atraumatic Eyes: normal inspection, PERRL, sclerae normal ENT: pharynx normal, + pertinent finding (hard of hearing, petechiae noted on hard palate. ) Neck: supple, trachea midline Respiratory/Chest: chest non-tender, lungs clear, normal breath sounds, no respiratory distress, no accessory muscle use Cardiovascular: regular rate, rhythm, no edema, no gallop, no JVD, no murmur, normal peripheral pulses Abdomen/GI: normal bowel sounds, non tender, soft Back: normal inspection, no CVA tenderness, + pertinent finding (no paraspinal tenderness to palpation noted. ) Extremities/Musculoskelatal: normal inspection, no pedal edema Neurologic/Psych: no motor/sensory deficits, normal mood/affect, oriented x 3 Skin: normal color, warm/dry, no rash, + pertinent finding (no notable ecchymosis or areas of bleeding noted. ) Diagnostics Laboratory Results 05/30/17 03:22 Red Blood Count 2.11, Mean Corpuscular Volume 83.9, Mean Corpuscular Hemoglobin 30.3, Mean Corpuscular Hemoglobin Concent 36.2, Mean Platelet Volume 9.3, Neutrophils (%) (Auto) 12.2, Lymphocytes (%) (Auto) 72.0, Monocytes (%) (Auto) 7.3, Eosinophils (%) (Auto) 0.0, Basophils (%) (Auto) 0.0, Neutrophils # (Auto) 0.10, Lymphocytes # (Auto) 0.59, Monocytes # (Auto) 0.06, Eosinophils # (Auto) 0.00, Basophils # (Auto) 0.00 05/30/17 03:22 Test 05/30/17 03:22 05/30/17 04:35 White Blood Count 0.82 K/uL (4.8-10.8) Red Blood Count 2.11 M/uL (4.2-5.4) Hemoglobin 6.4 g/dL (12.0-16.0) Hematocrit 17.7 % (37-47) Mean Corpuscular Volume 83.9 fL (80-100) Mean Corpuscular Hemoglobin 30.3 pg (25-34) Mean Corpuscular Hemoglobin Concent 36.2 g/dl (32-36) Platelet Count 6 K/uL (130-400) Mean Platelet Volume 9.3 fL (7.4-10.4) Neutrophils (%) (Auto) 12.2 % Lymphocytes (%) (Auto) 72.0 % Monocytes (%) (Auto) 7.3 % Eosinophils (%) (Auto) 0.0 % Basophils (%) (Auto) 0.0 % Neutrophils # (Auto) 0.10 K/uL (1.4-6.5) Lymphocytes # (Auto) 0.59 K/uL (1.2-3.4) Monocytes # (Auto) 0.06 K/uL (0.11-0.59) Eosinophils # (Auto) 0.00 K/uL (0-0.5) Basophils # (Auto) 0.00 K/uL (0-0.2) RDW Standard Deviation 44.1 fL (36.4-46.3) RDW Coefficient of Variation 15.3 % (11.5-14.5) Immature Granulocyte % (Auto) 8.5 % Immature Granulocyte # (Auto) 0.07 K/uL (0.00-0.02) Red Blood Cell Morphology Unremarkable Anion Gap 7.0 mmol/L (3-11) Est Creatinine Clear Calc Drug Dose 52.3 ml/min Estimated GFR () 85.0 Estimated GFR (Non- 73.4 BUN/Creatinine Ratio 25.4 (10-20) Calcium Level 8.3 mg/dl (8.5-10.1) Total Bilirubin 1.4 mg/dl (0.2-1) Aspartate Amino Transf (AST/SGOT) 28 U/L (15-37) Alanine Aminotransferase (ALT/SGPT) 37 U/L (12-78) Alkaline Phosphatase 176 U/L (45-117) Total Protein 6.6 gm/dl (6.4-8.2) Albumin 3.2 gm/dl (3.4-5.0) Globulin 3.4 gm/dl (2.5-4.0) Albumin/Globulin Ratio 0.9 (0.9-2) Urine Color DK YELLOW Urine Appearance CLOUDY (CLEAR) Urine pH 7.5 (4.5-7.5) Urine Specific [place] 1.017 (1.000-1.030) Urine Protein NEG (NEG) Urine Glucose (UA) NEG (NEG) Urine Ketones NEG (NEG) Urine Occult Blood 1+ (NEG) Urine Nitrite POS (NEG) Urine Bilirubin NEG (NEG) Urine Urobilinogen NEG (NEG) Urine Leukocyte Esterase LARGE (NEG) Urine WBC (Auto) 5-10 /hpf (0-5) Urine RBC (Auto) 0-4 /hpf (0-4) Urine Hyaline Casts (Auto) 0 /lpf (0-5) Urine Epithelial Cells (Auto) >30 /lpf (0-5) Urine Bacteria (Auto) 3+ (NEG) Date/Time Source Procedure Growth Status 05/30/17 04:35 Urine , Random Urine Culture Pending Received Results Past 24 Hours Test 05/30/17 03:22 05/30/17 04:35 Range/Units White Blood Count 0.82 4.8-10.8 K/uL Red Blood Count 2.11 4.2-5.4 M/uL Hemoglobin 6.4 12.0-16.0 g/dL Hematocrit 17.7 37-47 % Mean Corpuscular Volume 83.9 80-100 fL Mean Corpuscular Hemoglobin 30.3 25-34 pg Mean Corpuscular Hemoglobin Concent 36.2 32-36 g/dl Platelet Count 6 130-400 K/uL Mean Platelet Volume 9.3 7.4-10.4 fL Neutrophils (%) (Auto) 12.2 % Lymphocytes (%) (Auto) 72.0 % Monocytes (%) (Auto) 7.3 % Eosinophils (%) (Auto) 0.0 % Basophils (%) (Auto) 0.0 % Neutrophils # (Auto) 0.10 1.4-6.5 K/uL Lymphocytes # (Auto) 0.59 1.2-3.4 K/uL Monocytes # (Auto) 0.06 0.11-0.59 K/uL Eosinophils # (Auto) 0.00 0-0.5 K/uL Basophils # (Auto) 0.00 0-0.2 K/uL RDW Standard Deviation 44.1 36.4-46.3 fL RDW Coefficient of Variation 15.3 11.5-14.5 % Immature Granulocyte % (Auto) 8.5 % Immature Granulocyte # (Auto) 0.07 0.00-0.02 K/uL Red Blood Cell Morphology Unremarkable Sodium Level 131 136-145 mmol/L Potassium Level 4.1 3.5-5.1 mmol/L Chloride Level 98 98-107 mmol/L Carbon Dioxide Level 26 21-32 mmol/L Anion Gap 7.0 3-11 mmol/L Blood Urea Nitrogen 19 7-18 mg/dl Creatinine 0.74 0.60-1.20 mg/dl Est Creatinine Clear Calc Drug Dose 52.3 ml/min Estimated GFR () 85.0 Estimated GFR (Non- 73.4 BUN/Creatinine Ratio 25.4 10-20 Random Glucose 141 70-99 mg/dl Calcium Level 8.3 8.5-10.1 mg/dl Total Bilirubin 1.4 0.2-1 mg/dl Aspartate Amino Transf (AST/SGOT) 28 15-37 U/L Alanine Aminotransferase (ALT/SGPT) 37 12-78 U/L Alkaline Phosphatase 176 45-117 U/L Total Protein 6.6 6.4-8.2 gm/dl Albumin 3.2 3.4-5.0 gm/dl Globulin 3.4 2.5-4.0 gm/dl Albumin/Globulin Ratio 0.9 0.9-2 Urine Color DK YELLOW Urine Appearance CLOUDY CLEAR Urine pH 7.5 4.5-7.5 Urine Specific [place] 1.017 1.000-1.030 Urine Protein NEG NEG Urine Glucose (UA) NEG NEG Urine Ketones NEG NEG Urine Occult Blood 1+ NEG Urine Nitrite POS NEG Urine Bilirubin NEG NEG Urine Urobilinogen NEG NEG Urine Leukocyte Esterase LARGE NEG Urine WBC (Auto) 5-10 0-5 /hpf Urine RBC (Auto) 0-4 0-4 /hpf Urine Hyaline Casts (Auto) 0 0-5 /lpf Urine Epithelial Cells (Auto) >30 0-5 /lpf Urine Bacteria (Auto) 3+ NEG Microbiology Results 05/30/17 Urine Culture, Received Pending Diagnostic Radiology Abdominal series plain film with CXR -pending. EKG Admission EKG-pending. Impression Assessment and Plan 87 yo F recently admitted with UTI with a return of her symptoms and worsening pancytopenia since discharge despite outpatient platelet transfusion. . 1. Pancytopenia -chronic 2/2 ITP. scheduled to receive 2 Units of pRBCs and 1 pack platelets. Consulted Oncology who follows her closely as outpatient. At this point she is neutropenic but afebrile. Cont neutropenic precautions 2. UTI-acute symptoms with evidence of UTI on lab workup. Started Zosyn based on prior culture results/resistance and plan for deescalation after return of the urine culture. Consider pyridium for bladder spasms. 3. Atrial fibrillation-rate controlled with metoprolol. Anticoagulation is contraindicated. 4. CKD III-at baseline. Avoid nephrotoxic substances and renally dose meds. 5. Anxiety-continue Xanax BID scheduled per daughter who cares for her at home. DVT proph-contraindicated. Full Code-confirmed with daughter on admission Dispo-telemetry DO [facility]in [facility]Los [facility] Center[facility] Level of Care Telemetry Resuscitation Status FULL RESUSCITATION VTE Prophylaxis VTE Risk Assessment Done? Y/N: Yes Risk Level: Moderate Given or contraindicated: Contraindicated
--- NOTE | 2017-05-30 11:42 | DIAGNOSTIC IMAGING REPORT ---
PA CHEST RADIOGRAPH AND UPRIGHT AND SUPINE AP RADIOGRAPHS OF THE ABDOMEN CLINICAL HISTORY: Severe nausea and abdominal discomfort. Pulmonary edema. COMPARISON STUDY: Chest CT May 13, 2017, chest radiograph May 22, [address] of the abdomen and pelvis April 30, 2016. FINDINGS: A moderate right pleural effusion has slightly decreased in size since prior examination. A trace left pleural effusion has improved. There is persistent but improved pulmonary edema. IVC filter and lumbosacral fusion are noted. There is no free air. The bowel gas pattern is normal. IMPRESSION: 1. No free air or evidence of bowel obstruction. 2. Persistent, but improved, pulmonary edema. 3. Moderate right and trace left pleural effusions which have slightly decreased in size since prior exam of May 22, 2017. Electronically signed by: Hernando Frye M.D. 05/30/2017 11:41 AM Dictated Date/Time: 05/30/2017 11:39 AM
[2017-05-30] MEDS: LEVOTHYROXINE 75 MCG TAB PO SCH (13:05)
[2017-05-30] MEDS: PANTOprazole SOD 40 MG TAB PO SCH (13:05)
[2017-05-30] MEDS: METOPROLOL SUCC 50MG EXT REL TAB PO SCH ×2 (13:06→20:22)
[2017-05-30] MEDS: TRAMADOL HCL 50 MG TAB PO PRN ×2 (13:36→20:23)
[2017-05-30] MEDS: ALPRAZOLAM 0.5 MG TAB PO SCH ×2 (13:36→23:25)
[2017-05-30] MEDS: PIPERACILL/TAZOBAC IV 3.375 GM in DEXTROSE 5% 100ML IV SCH ×2 (15:14→20:22)
--- NOTE | 2017-05-30 18:33 | Medical Consult ---
Consultation Date of Consultation: May 30, 2017. Attending Physician: Ziyad Fernández M.D. History of Present Illness 87-year-old female, who is admitted at [facility] today for increasing nausea, back pain, recently she was admitted at [facility] for febrile neutropenia and she was discharged at home about 1 week back. During last hospitalization, she received 7 days of Neupogen at 480 mcg subcutaneously every day, no significant rise noted in the white blood cell count or ANC and so decided discontinue Neupogen therapy. She has pancytopenia, requiring transfusion of the blood and platelet transfusions periodically. In April, she received 17 units of platelets and 5 units of PRBC. During last hospitalization, she had volume overload following blood transfusion. Last platelet transfusion was received on 05/26/2017. She says that her back pain is well under control, she received hydromorphone in the ER, nausea present, no vomiting, no fever at present, feeling weak and tired, no bleeding from any sites, no hematemesis, no hemoptysis, no blood in the stool or urine. Background history and treatment: -She initially presented with isolated thrombocytopenia with platelet count around 7000 in 2010, she was treated with high-dose steroid and had a good response. Subsequently platelet count stayed around 40,000-50,000 for about 4 to 5 years duration. Then noticed to have progressive pancytopenia. Previous treatment: - Rituximab: 07/11/2014- 08/01/2014, no response - Decadron 40 mg daily x 3 days ( 01/2017), no response - Romiplostim weekly : 12/09/2016- 02/26/2017, no response - IVIG 1gm/kg x 2 doses ( 03/17/2017 and ), no response - B12 injections monthly Workup showed no evidence of splenomegaly on the ultrasound of the abdomen, bone marrow examination done in November, showed normal cellular bone marrow with myeloid hypoplasia, no evidence of leukemia noted. PATHOLOGY: 11/25/2016: BM biopsy BONE MARROW ASPIRATE: Bone marrow smears and touch preparations reveal progressive maturation of all lineages with M/E ratio of 0.4 to 1. There is erythroid preponderance. Megakaryocytes are present in adequate numbers. Scattered lymphocytes and plasma cells are present. There is no evidence of eosinophilia or basophilia. IRON STATUS: Iron stores are adequate per the iron stain on aspirate smear ( iron index is 2 to 3/4). BONE MARROW BIOPSY: The decalcified bone marrow biopsy sections and the aspirate clot sections show normocellular marrow with an approximate cellularity of 15% to 20%. All hematopoietic elements are present with erythroid preponderance and myeloid hypoplasia. No sheets of blasts are noted. FLOW CYTOMETRY: The flow data from bone aspirate specimen demonstrates lymphocytes composed of virtually all T cells with very few B cells and no significant extension of NK cells. There are no excess blasts. FISH for MDS: negative Karyotype: Normal Neotype: normal -CT scan of the chest, abdomen and pelvis done on 04/30/2016 showed no enlarged lymph nodes, no organomegaly, no enlarged liver or spleen noted, no mass lesion noted anywhere else -Direct Rocio test--> negative. She is having intermittent UTI, requiring antibiotic treatment, Past medical and surgical history: Hypertension, paroxysmal atrial fibrillation , left bundle-branch block, frequent UTI, chronic back pain, she takes Tramadol on p.r.n. basis, Vitamin B12 deficiency, she is on parenteral Vitamin B12, hypothyroidism. Anxiety present, she is on Xanax. S/P hysterectomy, cystocele , appendectomy in the past Social history: Nonsmoker, denies any ETOH abuse. Family history: Not significant Medications: Please review her chart for detailed list of medications. Allergies: Reported to have allergy to Augmentin, IV dye, morphine derivatives On exam: - Alert and oriented x3, well built woman, not in any distress. - HEENT: no icterus, pallor present, Throat: Normal. - Neck: No palpable cervical lymphadenopathy. - Abdomen: soft, nontender, no hepatomegaly, no splenomegaly. - No focal neuro deficit. - Extremities: no finger clubbing, no leg edema. ASSESSMENT AND PLAN: 87-year-old female, who has progressive pancytopenia for the last few years, significantly low ANC around 100-300, did not respond quite well with the Neupogen therapy given during last hospitalization for 7 days, presently she is not on Neupogen therapy, also significant thrombocytopenia, platelet count has remained less than 10,000, no bleeding complications, requiring blood and platelet transfusions, had received several units of PRBC and platelet transfusion in the last one month, also has frequent UTI, now admitted for nausea, lower back pain, once again she has significant pancytopenia, received 1 unit of PRBC and platelet today. Earlier she had failed several treatment in the form of Decadron, IVIG, Nplate, Neupogen therapy. I do not not think her blood count is likely to improve at any time and unfortunately will have to transfuse her blood and platelet as needed. Will check reticulocyte count, LDH. If she goes home in the next few days, will follow-up her in the office. Will follow up. Dr. Durga Coulter Hem/Onc (This note was completed using the dictation program Fluency Direct. As such, there may be misspellings, word substitutions, or other variations that should not change the essence of the clinical content of this encounter note. If there is need for further clarification, please direct questions to the provider listed above.) Past Medical/Surgical History Medical Problems: (1) Dehydration Status: Acute (2) Ear canal abrasion Status: Acute (3) Influenza A Status: Acute (4) Low back pain Status: Acute (5) Lumbar spine strain Status: Acute (6) Nasal bleeding Status: Acute (7) Pancytopenia Status: Acute (8) Rib contusion Status: Acute (9) Thrombocytopenia Status: Acute (10) Thrombocytopenia Status: Acute Family History Asthma DAUGHTER Social History Smoking Status: Never Smoker Smokeless Tobacco Use: No Alcohol Use: none Drug Use: none Marital Status: single Housing Status: lives with family Occupation Status: retired Allergies Coded Allergies: Amoxicillin (Unverified Allergy, Intermediate, RASH, Zosyn tolerated [id number] ADM, 05/30/17) Clavulanic Acid (Unverified Allergy, Intermediate, RASH, Zosyn tolerated [id number] ADM, 05/30/17) Iodinated Diagnostic Agents (Verified Allergy, Intermediate, HIVES WITH IVP DYE, 05/30/17) Sulfa Antibiotics (Verified Allergy, Intermediate, RASH, 05/30/17) Codeine (Verified Adverse Reaction, Intermediate, NAUSEA/VOMITING, 05/30/17 ) Morphine (Verified Adverse Reaction, Intermediate, NAUSEA/VOMITING, ) Oxycodone (Verified Adverse Reaction, Intermediate, NAUSEA/VOMITING, ) Rofecoxib (Unverified Adverse Reaction, Intermediate, PALPITATIONS, ) Morphine and Related (Unverified Adverse Reaction, Unknown, GI SYMPTOMS, 05/30/17) Current Inpatient Medications Current Inpatient Medications Medications (Trade) Dose Ordered Sig/Giuseppe Route Start Time Stop Time Status Last Admin Dose Admin Piperacillin Sod/ Tazobactam Sod (Consult) 1 ea DAILY PRN N/A 05/30/17 06:32 06/29/17 06:31 Acetaminophen (Tylenol Tab) 650 mg Q4H PRN PO 05/30/17 07:15 06/29/17 07:14 Ondansetron HCl (Zofran Inj) 4 mg Q6H PRN IV 05/30/17 07:15 06/29/17 07:14 Piperacillin Sod/ Tazobactam Sod 3.375 gm/Dextrose 115 ml @ 28.75 mls/ hr Q8H IV 05/30/17 12:00 06/09/17 11:59 05/30/17 15:14 28.75 MLS/HR Alprazolam (Xanax Tab) 1 mg BID PO 05/30/17 09:30 06/29/17 09:29 05/30/17 13:36 1 MG Cholecalciferol (Vitamin D Tab) 400 inter.unit BID PO 05/30/17 09:30 06/29/17 09:29 Levothyroxine Sodium (Synthroid Tab) 75 mcg DAILYBB PO 05/30/17 09:30 06/29/17 09:29 05/30/17 13:05 75 MCG Magnesium Oxide (Mag-Ox Tab) 400 mg BID PO 05/30/17 09:30 06/29/17 09:29 Metoprolol Succinate (Toprol Xl Tab) 50 mg BID PO 05/30/17 09:30 06/29/17 09:29 05/30/17 13:06 50 MG Tramadol HCl (Ultram Tab) 50 mg Q6 PRN PO 05/30/17 09:30 06/29/17 09:29 05/30/17 13:36 50 MG Miscellaneous Information (Order Awaiting Action) 1 ea QS N/A 05/30/17 16:00 06/29/17 15:59 Pantoprazole Sodium (Protonix Tab) 40 mg QAM PO 05/30/17 09:30 06/29/17 09:29 05/30/17 13:05 40 MG Polyethylene (Miralax Powder Packet) 17 gm DAILY PO 05/31/17 09:00 116/17 08:59 Physical Exam Date Time Temp Pulse Resp B/P (MAP) Pulse Ox O2 Delivery O2 Flow Rate FiO2 05/30/17 18:15 36.5 82 18 149/48 97 05/30/17 17:45 36.5 80 16 158/69 97 05/30/17 17:30 36.4 78 18 155/61 98 05/30/17 16:34 36.4 69 18 144/59 (87) 100 Nasal Cannula 2.0 05/30/17 16:00 Room Air 05/30/17 15:01 36.8 69 16 154/54 100 2.0 05/30/17 14:30 36.7 68 18 104/46 94 2.0 05/30/17 14:00 75 120/56 92 05/30/17 13:30 81 18 132/80 95 05/30/17 13:15 36.6 87 18 167/60 95 05/30/17 12:56 36.7 86 14 139/67 96 05/30/17 12:43 36.9 77 16 128/60 (82) 92 Room Air 05/30/17 12:00 Room Air 05/30/17 11:45 36.8 79 16 139/72 94 05/30/17 11:30 36.7 81 16 145/61 96 05/30/17 11:15 36.3 77 18 135/77 95 05/30/17 09:43 36.7 89 18 180/53 94 Room Air 05/30/17 08:18 36.7 18 180/53 (95) 94 Room Air 05/30/17 08:00 Room Air 05/30/17 06:40 63 18 143/80 95 05/30/17 05:48 50 05/30/17 05:01 98 22 149/44 92 Room Air 05/30/17 04:16 92 22 100 05/30/17 03:46 93 23 100 05/30/17 03:16 90 23 05/30/17 03:06 142/89 05/30/17 03:01 142/89 05/30/17 02:46 88 17 96 05/30/17 02:41 91 20 95 05/30/17 02:31 152/74 05/30/17 01:50 89 05/30/17 01:41 37.0 91 17 181/93 97 Room Air Laboratory Results Last 24 Hours Test 05/30/17 03:22 05/30/17 04:35 05/30/17 17:00 White Blood Count 0.82 K/uL Red Blood Count 2.11 M/uL Hemoglobin 6.4 g/dL Hematocrit 17.7 % Mean Corpuscular Volume 83.9 fL Mean Corpuscular Hemoglobin 30.3 pg Mean Corpuscular Hemoglobin Concent 36.2 g/dl Platelet Count 6 K/uL Mean Platelet Volume 9.3 fL Neutrophils (%) (Auto) 12.2 % Lymphocytes (%) (Auto) 72.0 % Monocytes (%) (Auto) 7.3 % Eosinophils (%) (Auto) 0.0 % Basophils (%) (Auto) 0.0 % Neutrophils # (Auto) 0.10 K/uL Lymphocytes # (Auto) 0.59 K/uL Monocytes # (Auto) 0.06 K/uL Eosinophils # (Auto) 0.00 K/uL Basophils # (Auto) 0.00 K/uL RDW Standard Deviation 44.1 fL RDW Coefficient of Variation 15.3 % Immature Granulocyte % (Auto) 8.5 % Immature Granulocyte # (Auto) 0.07 K/uL Red Blood Cell Morphology Unremarkable Sodium Level 131 mmol/L Potassium Level 4.1 mmol/L Chloride Level 98 mmol/L Carbon Dioxide Level 26 mmol/L Anion Gap 7.0 mmol/L Blood Urea Nitrogen 19 mg/dl Creatinine 0.74 mg/dl Est Creatinine Clear Calc Drug Dose 52.3 ml/min Estimated GFR () 85.0 Estimated GFR (Non- 73.4 BUN/Creatinine Ratio 25.4 Random Glucose 141 mg/dl Calcium Level 8.3 mg/dl Total Bilirubin 1.4 mg/dl Aspartate Amino Transf (AST/SGOT) 28 U/L Alanine Aminotransferase (ALT/SGPT) 37 U/L Alkaline Phosphatase 176 U/L Total Protein 6.6 gm/dl Albumin 3.2 gm/dl Globulin 3.4 gm/dl Albumin/Globulin Ratio 0.9 Urine Color DK YELLOW Urine Appearance CLOUDY Urine pH 7.5 Urine Specific Moon 1.017 Urine Protein NEG Urine Glucose (UA) NEG Urine Ketones NEG Urine Occult Blood 1+ Urine Nitrite POS Urine Bilirubin NEG Urine Urobilinogen NEG Urine Leukocyte Esterase LARGE Urine WBC (Auto) 5-10 /hpf Urine RBC (Auto) 0-4 /hpf Urine Hyaline Casts (Auto) 0 /lpf Urine Epithelial Cells (Auto) >30 /lpf Urine Bacteria (Auto) 3+
[2017-05-30 21:03] LABS: HEMATOCRIT 24.1 % (37-47); MEAN CELL VOLUME 84.6 fL (80-100); MEAN CORPUSCULAR HEMOGLOBIN 30.9 pg (25-34); MEAN CORPUSCULAR HGB CONC 36.5 g/dl (32-36); PLATELET COUNT 1 K/uL (130-400); RED BLOOD COUNT 2.85 M/uL (4.2-5.4); WHITE BLOOD COUNT 0.61 K/uL (4.8-10.8)
[2017-05-30 21:23] LABS: COMPLETE YES; DOHLE BODIES 2+; IPF 17.6 % (0.9-8.3); LYMPH % 80.3 %; LYMPH ABS # 0.49 K/uL (1.2-3.4); MONO % 6.6 %; NEUT % 13.1 %; PLT ESTIMATE SIGNIFIC DECREASED
[2017-05-31] VITALS (17 sets, daily range): BP systolic 117–190; BP diastolic 48–105; PULSE 54–110; TEMP 36.4–37.4; O2SAT 91–100
[2017-05-31] MEDS ORDERED: HydrALAZINE 10 MG TAB PO STA (00:34)
[2017-05-31] MEDS: PIPERACILL/TAZOBAC IV 3.375 GM in DEXTROSE 5% 100ML IV SCH ×3 (04:37→19:45)
[2017-05-31] MEDS: LEVOTHYROXINE 75 MCG TAB PO SCH (05:59)
[2017-05-31 06:29] LABS: HEMATOCRIT 23.7 % (37-47); MEAN CELL VOLUME 84.3 fL (80-100); MEAN CORPUSCULAR HEMOGLOBIN 29.9 pg (25-34); MEAN CORPUSCULAR HGB CONC 35.4 g/dl (32-36); MEAN PLATELET VOLUME 8.9 fL (7.4-10.4); PLATELET COUNT 15 K/uL (130-400); RED BLOOD COUNT 2.81 M/uL (4.2-5.4); WHITE BLOOD COUNT 0.78 K/uL (4.8-10.8)
[2017-05-31 06:34] LABS: BUN/CREATININE RATIO 22.2 (10-20); CALCIUM 8.4 mg/dl (8.5-10.1); CREATININE 0.76 mg/dl (0.60-1.20); POTASSIUM 3.7 mmol/L (3.5-5.1)
[2017-05-31 06:45] LABS: ANISOCYTOSIS PRESENT; COMPLETE YES; LYMPH % 88.5 %; LYMPH ABS # 0.69 K/uL (1.2-3.4); MONO % 6.4 %; NEUT % 5.1 %; POLYCHROMASIA 1+
[2017-05-31] MEDS: FUROSEMIDE 40 MG TAB PO SCH (08:49)
[2017-05-31] MEDS: MAGNESIUM OXIDE 400 MG TAB PO SCH ×2 (08:50→19:46)
[2017-05-31] MEDS: CHOLECALCIFEROL 400 INTER.UNIT TAB PO SCH ×2 (08:51→19:47)
[2017-05-31] MEDS: METOPROLOL SUCC 50MG EXT REL TAB PO SCH ×2 (08:51→19:46)
[2017-05-31] MEDS: PANTOprazole SOD 40 MG TAB PO SCH (08:51)
--- NOTE | 2017-05-31 08:52 | Progress Note ---
Internal Med Progress Note Date of Service: May 31, 2017. Provider Documentation: SUBJECTIVE: On this admission to date, patient has received 2 units PRBC and 3 units of platelets with moderate improvement in blood counts. Patient is hard of hearing. She denies shortness of breath from the blood transfusions. Has been urinating. Last bowel movement yesterday. Denies blood in the stool OBJECTIVE: General- comfortable, eating breakfast at the bedside Eyes- EOMI ENT: no bleeding from mouth or nose Neck - no JVD, trachea midline Lungs- generally clear to auscultation with minimally reduced lungs sound over right lung field Heart- regular rate Abdomen- nontender, + bowel sounds Extremities-no bleeding from extremities, motor strength without impairments Neuro- awake, alert, no focal deficits ASSESSMENT & PLAN: 87 yo F recently admitted with UTI with a return of her symptoms and worsening pancytopenia since discharge despite outpatient platelet transfusion. . 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 Coulter has been following patient's care as inpatient. will likely need specific recommendations on the target of an acceptable platelet count since patient already has multiple platelets transfused. -Hemoglobin stable around 8 after admission lab of 6.4 -because of neutropenia, patient has received antibiotics with concern for neutropenic infection. admitting hospitalist physician had started Zosyn based on prior culture results/resistance for potential urinary tract infection, her urine this AM is somewhat orange and patient has not received pyridium, will resend UA Atrial fibrillation-rate controlled with metoprolol. Anticoagulation is contraindicated as patient anemia CKD III-at baseline. Avoid nephrotoxic substances and renally dose meds. Anxiety-continue Xanax BID scheduled per daughter who cares for her at home. Thyroid: on Levothyroxine DVT proph-contraindicated. Full Code Dispo- telemetry. Patient Have been admitted by Dr. Zamorano with hospital follow up by Dr. Fernández. At the request of the patient's daughter, will transfer care to service of Dr. Koko Soto who has more prior experience with patient's medical history. Vital Signs: Date Time Temp Pulse Resp B/P (MAP) Pulse Ox O2 Delivery O2 Flow Rate FiO2 05/31/17 07:59 37.2 73 20 168/64 (98) 99 2.0 05/31/17 04:25 36.9 75 18 159/87 (111) 100 Nasal Cannula 2.0 05/31/17 04:00 Nasal Cannula 2.0 05/31/17 01:52 156/75 (102) 05/31/17 00:37 Room Air 05/31/17 00:21 110 180/100 (126) 05/31/17 00:04 36.8 88 18 146/71 99 2.0 05/30/17 23:59 Nasal Cannula 2.0 05/30/17 23:45 36.8 89 18 156/68 97 2.0 05/30/17 23:21 36.6 88 18 157/96 95 2.0 05/30/17 23:03 37.4 89 18 151/67 94 2.0 05/30/17 20:00 Nasal Cannula 2.0 05/30/17 19:59 37.4 77 16 142/56 (84) 96 Room Air 05/30/17 18:45 75 15 176/59 94 05/30/17 18:15 36.5 82 18 149/48 97 05/30/17 17:45 36.5 80 16 158/69 97 05/30/17 17:30 36.4 78 18 155/61 98 05/30/17 16:34 36.4 69 18 144/59 (87) 100 Nasal Cannula 2.0 05/30/17 16:00 Room Air 05/30/17 15:01 36.8 69 16 154/54 100 2.0 05/30/17 14:30 36.7 68 18 104/46 94 2.0 05/30/17 14:00 75 120/56 92 05/30/17 13:30 81 18 132/80 95 05/30/17 13:15 36.6 87 18 167/60 95 05/30/17 12:56 36.7 86 14 139/67 96 05/30/17 12:43 36.9 77 16 128/60 (82) 92 Room Air 05/30/17 12:00 Room Air 05/30/17 11:45 36.8 79 16 139/72 94 05/30/17 11:30 36.7 81 16 145/61 96 05/30/17 11:15 36.3 77 18 135/77 95 05/30/17 09:43 36.7 89 18 180/53 94 Room Air Lab Results: Results Past 24 Hours Test 05/30/17 20:11 05/31/17 05:30 Range/Units White Blood Count 0.61 0.78 4.8-10.8 K/uL Red Blood Count 2.85 2.81 4.2-5.4 M/uL Hemoglobin 8.8 8.4 12.0-16.0 g/dL Hematocrit 24.1 23.7 37-47 % Mean Corpuscular Volume 84.6 84.3 80-100 fL Mean Corpuscular Hemoglobin 30.9 29.9 25-34 pg Mean Corpuscular Hemoglobin Concent 36.5 35.4 32-36 g/dl Platelet Count 1 15 130-400 K/uL Neutrophils (%) (Auto) 13.1 5.1 % Lymphocytes (%) (Auto) 80.3 88.5 % Monocytes (%) (Auto) 6.6 6.4 % Eosinophils (%) (Auto) 0.0 0.0 % Basophils (%) (Auto) 0.0 0.0 % Neutrophils # (Auto) 0.08 0.04 1.4-6.5 K/uL Lymphocytes # (Auto) 0.49 0.69 1.2-3.4 K/uL Monocytes # (Auto) 0.04 0.05 0.11-0.59 K/uL Eosinophils # (Auto) 0.00 0.00 0-0.5 K/uL Basophils # (Auto) 0.00 0.00 0-0.2 K/uL RDW Standard Deviation 43.6 43.1 36.4-46.3 fL RDW Coefficient of Variation 14.6 14.4 11.5-14.5 % Immature Granulocyte % (Auto) 0.0 0.0 % Immature Granulocyte # (Auto) 0.00 0.00 0.00-0.02 K/uL Blood Smear Review Dohle Bodies 2+ Platelet Estimate SIGNIFIC DECREASED Immature Platelet Fraction 17.6 0.9-8.3 % Absolute Reticulocyte Count 0.02 0.02-0.10 10^6/uL Percent Reticulocyte Count 0.6 0.5-2.0 % Lactate Dehydrogenase 276 84-246 U/L Mean Platelet Volume 8.9 7.4-10.4 fL Polychromasia 1+ Anisocytosis PRESENT Sodium Level 136 136-145 mmol/L Potassium Level 3.7 3.5-5.1 mmol/L Chloride Level 98 98-107 mmol/L Carbon Dioxide Level 32 21-32 mmol/L Anion Gap 6.0 3-11 mmol/L Blood Urea Nitrogen 17 7-18 mg/dl Creatinine 0.76 0.60-1.20 mg/dl Est Creatinine Clear Calc Drug Dose 54.1 ml/min Estimated GFR () 82.3 Estimated GFR (Non- 71.0 BUN/Creatinine Ratio 22.2 10-20 Random Glucose 122 70-99 mg/dl Calcium Level 8.4 8.5-10.1 mg/dl
[2017-05-31] MEDS: ALPRAZOLAM 0.5 MG TAB PO SCH ×2 (08:56→21:36)
[2017-05-31] MEDS: TRAMADOL HCL 50 MG TAB PO PRN ×2 (09:05→19:45)
[2017-05-31] MEDS: POLYETHYLENE (MIRALAX) 17 GM PACK PO SCH (09:12)
[2017-05-31 12:13] LABS: URINE APPEARANCE CLEAR (CLEAR); URINE BILIRUBIN NEG (NEG); URINE COLOR YELLOW; URINE EPITHELIAL CELL AUTO 0-5 /lpf (0-5); URINE NITRITE POS (NEG); URINE SPECIFIC GRAVITY 1.014 (1.000-1.030); UROBILINOGEN NEG (NEG)
[2017-05-31 12:14] LABS: MANUAL MICROSCOPIC REQUIRED? NO; REVIEW REQ? NO
[2017-05-31] MEDS ORDERED: POTASSIUM CHLORIDE PWD 20 MEQ PACK PO ONE (13:05)
[2017-05-31 14:48] LABS: COMPLETE YES; LYMPH % 85.2 %; LYMPH ABS # 0.92 K/uL (1.2-3.4); MEAN CELL VOLUME 83.6 fL (80-100); MEAN CORPUSCULAR HEMOGLOBIN 30.5 pg (25-34); MEAN CORPUSCULAR HGB CONC 36.5 g/dl (32-36); MONO % 7.4 %; NEUT % 7.4 %; PLATELET COUNT 2 K/uL (130-400); PLT ESTIMATE SIGNIFIC DECREASED; RED BLOOD COUNT 2.75 M/uL (4.2-5.4); WHITE BLOOD COUNT 1.08 K/uL (4.8-10.8)
[2017-05-31] MEDS: ACETAMINOPHEN 325 MG TAB PO PRN (15:54)
[2017-05-31] MEDS ORDERED: NURSING VERBAL MED ORDER ONE (17:30)
[2017-05-31] MEDS ORDERED: FUROSEMIDE INJ 20 MG in SYRINGE 0 ML IV SCH ×2 (17:45)
--- NOTE | 2017-05-31 18:13 | Progress Note ---
Progress Note Date of Service May 31, 2017. Progress Note At the request of Dr. Metzger, hospitalist, and Dr. Coulter, hemoncology, in regards for patient to be possibly transferred to [facility] in [place] for further treatment and care. I spoke with a Dr. Lawson a hemoncology doctor at [facility] in [place] through the transfer center telephone line [phone]. Dr. Lawson is willing to accept the patient to his service. He prefers to have patient come in on 06/01/17 in the AM when there is more staff available as opposed to the middle of the night although he did also agree to take the patient at any time of the day or night if need be. He also reports that for when patient comes to his service he most likely will be able to perform bone biopsy on Friday06/02/17 in attempt to diagnose causes of patient's pancytopenia. I called Dr. Coulter on the urgency of the transfer. Dr. Coulter reports that if patient is not actively bleeding and if platelets are at 10,000 then it would be possible to hold the transfer until tomorrow morning. I spoke with Dr. Metzger in regards to the above information. He will decide when the patient requires the transfer to [place] or not.
[2017-06-01] VITALS (10 sets, daily range): BP systolic 146–164; BP diastolic 61–72; PULSE 68–83; TEMP 36.4–37.3; O2SAT 91–100
[2017-06-01] MEDS: PIPERACILL/TAZOBAC IV 3.375 GM in DEXTROSE 5% 100ML IV SCH (04:15)
[2017-06-01] MEDS: LEVOTHYROXINE 75 MCG TAB PO SCH (06:27)
[2017-06-01 06:29] LABS: BUN/CREATININE RATIO 21.9 (10-20); CALCIUM 8.6 mg/dl (8.5-10.1); CREATININE 0.78 mg/dl (0.60-1.20); POTASSIUM 3.1 mmol/L (3.5-5.1)
[2017-06-01 06:53] LABS: HEMATOCRIT 21.5 % (37-47); MEAN CELL VOLUME 83.7 fL (80-100); MEAN CORPUSCULAR HEMOGLOBIN 29.6 pg (25-34); MEAN CORPUSCULAR HGB CONC 35.3 g/dl (32-36); MEAN PLATELET VOLUME 10.1 fL (7.4-10.4); PLATELET COUNT 43 K/uL (130-400); RED BLOOD COUNT 2.57 M/uL (4.2-5.4)
[2017-06-01 06:54] LABS: BASO % 1.1 %; BASO ABS # 0.01 K/uL (0-0.2); COMPLETE YES; IG% 1.1 %; LYMPH % 86.7 %; LYMPH ABS # 0.78 K/uL (1.2-3.4); MONO % 6.7 %; NEUT % 4.4 %; PLT ESTIMATE DECREASED
[2017-06-01] MEDS ORDERED: CEFEPIME CONSULT ACTIVE PRN ×2 (07:46)
[2017-06-01] MEDS ORDERED: CEFEPIME IV 2000 MG in DEXTROSE 5% 100ML IV SCH (08:00)
[2017-06-01] MEDS ORDERED: POTASSIUM CHLORIDE PWD 20 MEQ PACK PO SCH ×2 (08:00→09:00)
[2017-06-01] MEDS: CHOLECALCIFEROL 400 INTER.UNIT TAB PO SCH (08:01)
[2017-06-01] MEDS: POLYETHYLENE (MIRALAX) 17 GM PACK PO SCH (08:01)
[2017-06-01] MEDS: FUROSEMIDE 40 MG TAB PO SCH (08:01)
[2017-06-01] MEDS: PANTOprazole SOD 40 MG TAB PO SCH (08:01)
[2017-06-01] MEDS: MAGNESIUM OXIDE 400 MG TAB PO SCH (08:01)
[2017-06-01] MEDS: METOPROLOL SUCC 50MG EXT REL TAB PO SCH (08:01)
[2017-06-01] MEDS: ALPRAZOLAM 0.5 MG TAB PO SCH (08:05)
[2017-06-01] MEDS: TRAMADOL HCL 50 MG TAB PO PRN (08:06)
[2017-06-01] MEDS: ACETAMINOPHEN 325 MG TAB PO PRN (08:59)
--- NOTE | 2017-06-01 10:25 | Progress Note ---
Medicine Progress Note Date & Time of Visit: Jun 01, 2017 at 10:06. Subjective patient seen resting in bed, comfortable, not in distress pRBC transfusion in progress states she feels fine overall denies shortness of breath, chest pain, dizziness, nausea/vomiting had some upset stomach after taking potassium supplement, no nausea denies signs of bleeding, headache no other symptoms Objective Last 8 Hrs Date Time Temp Pulse Resp B/P (MAP) Pulse Ox O2 Delivery O2 Flow Rate FiO2 06/01/17 09:46 36.9 68 21 155/61 (92) 100 06/01/17 09:31 37.0 75 22 146/72 (96) 92 06/01/17 09:22 76 23 148/70 (96) 93 06/01/17 09:15 36.4 78 18 148/70 94 06/01/17 08:00 Room Air 06/01/17 07:58 36.8 83 20 164/64 (97) 91 Room Air 06/01/17 04:00 37.3 77 18 161/61 (94) 97 Oxymask 2.0 06/01/17 04:00 Oxymask 2.0 Physical Exam: General- oriented x 3, not in distress, speaks in sentences Head- atraumatic Eyes- EOMI, anicteric ENT- oropharynx clear Neck- supple, no JVD Lungs- clear to auscultation bilaterally, no rales/wheezes Heart- regular rhythm; no murmur, normal rate Abdomen- normal bowel sounds, soft, nontender Extremities- no pretibial edema, no calf tenderness Neuro- alert, oriented x 3; no gross focal deficits Skin- warm & dry Laboratory Results: Last 24 Hours Test 05/31/17 11:35 05/31/17 13:55 06/01/17 05:27 Urine Color YELLOW Urine Appearance CLEAR Urine pH 6.0 Urine Specific [place] 1.014 Urine Protein 1+ Urine Glucose (UA) NEG Urine Ketones NEG Urine Occult Blood 3+ Urine Nitrite POS Urine Bilirubin NEG Urine Urobilinogen NEG Urine Leukocyte Esterase LARGE Urine WBC (Auto) >30 /hpf Urine RBC (Auto) >30 /hpf Urine Hyaline Casts (Auto) 0 /lpf Urine Epithelial Cells (Auto) 0-5 /lpf Urine Bacteria (Auto) NEG White Blood Count 1.08 K/uL 0.90 K/uL Red Blood Count 2.75 M/uL 2.57 M/uL Hemoglobin 8.4 g/dL 7.6 g/dL Hematocrit 23.0 % 21.5 % Mean Corpuscular Volume 83.6 fL 83.7 fL Mean Corpuscular Hemoglobin 30.5 pg 29.6 pg Mean Corpuscular Hemoglobin Concent 36.5 g/dl 35.3 g/dl Platelet Count 2 K/uL 43 K/uL Neutrophils (%) (Auto) 7.4 % 4.4 % Lymphocytes (%) (Auto) 85.2 % 86.7 % Monocytes (%) (Auto) 7.4 % 6.7 % Eosinophils (%) (Auto) 0.0 % 0.0 % Basophils (%) (Auto) 0.0 % 1.1 % Neutrophils # (Auto) 0.08 K/uL 0.04 K/uL Lymphocytes # (Auto) 0.92 K/uL 0.78 K/uL Monocytes # (Auto) 0.08 K/uL 0.06 K/uL Eosinophils # (Auto) 0.00 K/uL 0.00 K/uL Basophils # (Auto) 0.00 K/uL 0.01 K/uL RDW Standard Deviation 42.5 fL 42.6 fL RDW Coefficient of Variation 14.4 % 14.4 % Immature Granulocyte % (Auto) 0.0 % 1.1 % Immature Granulocyte # (Auto) 0.00 K/uL 0.01 K/uL Platelet Estimate SIGNIFIC DECREASED DECREASED Red Blood Cell Morphology Unremarkable Mean Platelet Volume 10.1 fL Sodium Level 134 mmol/L Potassium Level 3.1 mmol/L Chloride Level 95 mmol/L Carbon Dioxide Level 31 mmol/L Anion Gap 8.0 mmol/L Blood Urea Nitrogen 17 mg/dl Creatinine 0.78 mg/dl Est Creatinine Clear Calc Drug Dose 48.4 ml/min Estimated GFR () 79.8 Estimated GFR (Non- 68.8 BUN/Creatinine Ratio 21.9 Random Glucose 124 mg/dl Calcium Level 8.6 mg/dl Assessment & Plan 87 yo F recently admitted with UTI with a return of her symptoms and worsening pancytopenia since discharge despite outpatient platelet transfusion. . 87 year old female with history of pancytopenia, myeloid hypoplasia, HTN, A fib presenting with fever at home. 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 - admitted for 10 days last month for pancytopenia, Citrobacter UTI and possible pulmonary aspergillosis received multiple transfusions of platelets and PRBC, Neupogen x 7 days, Zosyn IV and Voriconazole during that admission complicated by pulmonary edema, resolved with additional Lasix - readmitted 05/30/17 for pancytopenia, weakness has required 5 units of plt and 2 units of PRBC so far WBC 1.09, Hg 7.6, Plt 43 1 unit of pRBC ordered today - Urine culture: (+) again for Citrobacter, resistant to Ceftri, Cipro, Levaquin , Bactrim receiving Zosyn x 2 days, changed to Cefepime - has been accepted to [facility] for further evaluation and treatment discussed with patient and her daughter at length re: medical condition and plan of care they are understanding, agreeable and comfortable with plan of care PULMONARY NODULES - found during last admission CT chest: increased pulmonary nodules, possible aspergillosis? serum studies for aspergillosis: negative - increasing compared to previous imaging - Pulm consulted during last admission, cannot do Bronch due to patient's thrombocytopenia needs to ff up with Pulm as outpatient HTN - on Metoprolol - monitor PAROXYSMAL A FIB - off anticoagulation due to bleeding - on Metoprolol, rate controlled - follows with [facility] CKD 3 - at baseline HYPOKALEMIA - likely from Lasix - PO K ordered monitor DVT Prophylaxis: SCDs only due to profound thrombocytopenia Disposition transfer to [facility] CKD III-at baseline. Avoid nephrotoxic substances and renally dose meds. Anxiety-continue Xanax BID scheduled per daughter who cares for her at home. Thyroid: on Levothyroxine DVT proph-contraindicated. Full Code Dispo- telemetry. Patient Have been admitted by Dr. Zamorano with hospital follow up by Dr. Fernández. At the request of the patient's daughter, will transfer care to service of Dr. Koko Soto who has more prior experience with patient's medical history. Current Inpatient Medications: Current Inpatient Medications Medications (Trade) Dose Ordered Sig/Giuseppe Route Start Time Stop Time Status Last Admin Dose Admin Acetaminophen (Tylenol Tab) 650 mg Q4H PRN PO 05/30/17 07:15 06/29/17 07:14 06/01/17 08:59 650 MG Ondansetron HCl (Zofran Inj) 4 mg Q6H PRN IV 10/6/17 07:15 06/29/17 07:14 06/01/17 09:02 4 MG Alprazolam (Xanax Tab) 1 mg BID PO 05/30/17 09:30 06/29/17 09:29 06/01/17 08:05 1 MG Cholecalciferol (Vitamin D Tab) 400 inter.unit BID PO 05/30/17 09:30 06/29/17 09:29 06/01/17 08:01 400 INTER.UNIT Levothyroxine Sodium (Synthroid Tab) 75 mcg DAILYBB PO 05/30/17 09:30 06/29/17 09:29 06/01/17 06:27 75 MCG Magnesium Oxide (Mag-Ox Tab) 400 mg BID PO 05/30/17 09:30 06/29/17 09:29 06/01/17 08:01 400 MG Metoprolol Succinate (Toprol Xl Tab) 50 mg BID PO 05/30/17 09:30 06/29/17 09:29 06/01/17 08:01 50 MG Tramadol HCl (Ultram Tab) 50 mg Q6 PRN PO 05/30/17 09:30 06/29/17 09:29 06/01/17 08:06 50 MG Miscellaneous Information (Order Awaiting Action) 1 ea QS N/A 05/30/17 16:00 06/29/17 15:59 Pantoprazole Sodium (Protonix Tab) 40 mg QAM PO 05/30/17 09:30 06/29/17 09:29 06/01/17 08:01 40 MG Polyethylene (Miralax Powder Packet) 17 gm DAILY PO 05/31/17 09:00 06/30/17 08:59 06/01/17 08:01 17 GM Furosemide (Lasix Tab) 40 mg DAILY PO 05/31/17 09:00 06/30/17 08:59 06/01/17 08:01 40 MG Heparin Sodium (Porcine) (Heparin 10 Unit/ ml 5 ml Flush) 5 ml PRN PRN FLUSH 05/31/17 01:15 06/30/17 01:14 Potassium Chloride (Klor-Con Pwd) 20 meq QAM PO 06/01/17 09:00 07/01/17 08:59 06/01/17 08:22 20 MEQ Diphenhydramine HCl (Benadryl Cap) 25 mg DAILY PRN PO 05/31/17 15:00 06/30/17 14:59 06/01/17 08:58 25 MG Cefepime HCl (Consult) 1 ea UD PRN N/A 06/01/17 07:46 07/01/17 07:45 Cefepime HCl 2000 mg/Dextrose 112.5 ml @ 225 mls/hr DAILY@0800 IV 06/01/17 08:00 06/11/17 07:59 06/01/17 08:22 225 MLS/HR
[2017-06-01] MEDS ORDERED: CEFEPIME CONSULT ACTIVE (11:04)
[2017-06-01] MEDS ORDERED: KCLP20 PO (11:04)
[2017-06-01] MEDS ORDERED: ACET-1047 PO (11:04)
[2017-06-01] MEDS ORDERED: BND25X PO (11:04)
--- NOTE | 2017-06-01 11:25 | Discharge Instructions ---
Discharge Instructions Date of Service Jun 01, 2017. Admission Reason for Admission: Pancytopenia Discharge Discharge Diagnosis / Problem: PANCYTOPENIA Discharge Goals Goal(s): Diagnostic testing, Therapeutic intervention Activity Recommendations Activity Level: Assistance Required . Additional Information Patient informed of condition: Yes Advance Directives: No (UNKNOWN) DNR: No (PATIENT IS FULL CODE FOR NOW- DISCUSS FURTHER WITH PATIENT AND DAUGHTER) Level of Care: Other ([facility]) Communicable Disease: No Prognosis: Other (GUARDED) Oxygen at (LPM): 2 LITERS [place] Instructions / Follow-Up Instructions / Follow-Up PLEASE REFER TO HOSPITAL DISCHARGE SUMMARY. Current Hospital Diet Patient's current hospital diet: AHA Diet (Heart Healthy) Discharge Diet Recommended Diet: AHA Diet (Heart Healthy) Procedures Procedures Performed: PLATELET AND PRBC TRANSFUSION Pending Studies Studies pending at discharge: yes List of pending studies: FURTHER EVALUATION AND MANAGEMENT PER [facility] Physician Orders On Transfer Special Precautions: NEUTROPENIC PRECAUTIONS, CONTACT ISOLATION Medical Emergencies . Who to Call and When: Medical Emergencies: If at any time you feel your situation is an emergency, please call 911 immediately. . Non-Emergent Contact Non-Emergency issues call your: Primary Care Provider Call Non-Emergent contact if: you have a fever, you have any medication questions . . "Provider Documentation" section prepared by Koko Metzger. . Core Measure Problem Core Measures: None
--- NOTE | 2017-06-01 11:25 | Discharge Summary ---
Discharge Summary Date of Service Jun 01, 2017. 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 Procedures: PA CHEST RADIOGRAPH AND UPRIGHT AND SUPINE AP RADIOGRAPHS OF THE ABDOMEN CLINICAL HISTORY: Severe nausea and abdominal discomfort. Pulmonary edema. COMPARISON STUDY: Chest CT May 13, 2017, chest radiograph May 22, [address] of the abdomen and pelvis April 30, 2016. FINDINGS: A moderate right pleural effusion has slightly decreased in size since prior examination. A trace left pleural effusion has improved. There is persistent but improved pulmonary edema. IVC filter and lumbosacral fusion are noted. There is no free air. The bowel gas pattern is normal. IMPRESSION: 1. No free air or evidence of bowel obstruction. 2. Persistent, but improved, pulmonary edema. 3. Moderate right and trace left pleural effusions which have slightly decreased in size since prior exam of May 22, 2017. Consultations: Hematology Dr. Coulter Pending Studies/Follow-Up: Please refer to hospital course below. Medication Reconciliation New Medications: Acetaminophen (Mapap) 325 Mg Tab 650 MG PO Q4H PRN for Pain or Fever for 10 Days, #80 TAB Diphenhydramine HCl (Diphenhydramine HCl) 25 Mg Cap 25 MG PO DAILY PRN for PRIOR TO PLATELET TRANSUFUSION for 10 Days, #10 CAP Potassium Chloride (Klor-Con) 20 Meq Pow 20 MEQ PO QAM for 10 Days [Cefepime Consult Active] () 1 EA MISC 1 EA N/A UD PRN for Consult for 10 Days Continued Medications: Alprazolam (Xanax) 1 Mg Tab 1 MG PO BID Cholecalciferol (Vitamin D 400 Iu) 400 Unit Cap 400 INTER.UNIT PO BID, CAP Cyclosporine (Ophth) (Restasis) 0.05 % Emu 1 DROP OPB DAILY, #60 Dicyclomine Hcl (Bentyl) 10 Mg Cap 10 MG PO QID PRN for abdominal pain, CAP Esomeprazole Magnesium (Nexium) 40 Mg Capcr 40 MG PO DAILY PRN for Heartburn Furosemide (Lasix) 40 Mg Tab 40 MG PO DAILY, TAB Levothyroxine Sodium (Levothyroxine Sodium) 75 Mcg Tab 75 MG PO DAILY Magnesium Oxide (Mag-Ox) 400 Mg Tab 400 MG PO BID, TAB Metoprolol Succinate (Metoprolol Succinate ER) 50 Mg Tabcr 50 MG PO BID Multiple Vitamin (Multivitamin) 1 Tab Tab 1 TAB PO DAILY, TAB Ocuvite Preservision (Ocuvite Preservision) 1 Tab Tab 1 TAB PO BID, 0 Refills Polyethylene Glycol 3350 (Polyethylene Glycol 3350) 1 Pow Pow 17 GM PO DAILY DISSOLVE IN 8 OZ LIQUID DAILY. 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 She states that she hasn' t felt well since a couple of days after she was discharged about 7 days ago. She had been admitted for UTI symptoms and was subsequently transfused blood products complication by transfusion-related overload (TACO) requiring diuresis. Her UTI was initially treated with zosyn and then descalated over the 10 days she was admitted. She reports "UTI symptoms" returned but cannot qualify specifically what those are. She continues to go back to how nauseated she is. She denies back pain after receiving 0.5 IV of Dilaudid. In the ER bloodwork revealed neutropenia, severe anemia and a platelet count of 6. She denies any bleeding or bruising. She had received a platelet transfusion the Friday following her Friday discharge (5 days ago) and tolerated the transfusion well. She did receive Filgrastim on 05/12 just prior to her last admission. She otherwise denies any fevers, chills, chest pain, shortness of breath, vomiting, diarrhea or GI bleeding or other bleeding. I contacted her daughter by phone to discuss the plan, confirm code status and ensure medication regimen is accurate. Physical Exam (per Admitting): General Appearance: + mild distress (nausea), + obese Head: normocephalic, atraumatic Eyes: normal inspection, PERRL, sclerae normal ENT: pharynx normal, + pertinent finding (hard of hearing, petechiae noted on hard palate. ) Neck: supple, trachea midline Respiratory/Chest: chest non-tender, lungs clear, normal breath sounds, no respiratory distress, no accessory muscle use Cardiovascular: regular rate, rhythm, no edema, no gallop, no JVD, no murmur , normal peripheral pulses Abdomen/GI: normal bowel sounds, non tender, soft Back: normal inspection, no CVA tenderness, + pertinent finding (no paraspinal tenderness to palpation noted. ) Extremities/Musculoskelatal: normal inspection, no pedal edema Neurologic/Psych: no motor/sensory deficits, normal mood/affect, oriented x 3 Skin: normal color, warm/dry, no rash, + pertinent finding (no notable ecchymosis or areas of bleeding noted. ) Hospital Course 87 yo F recently admitted with UTI with a return of her symptoms and worsening pancytopenia since discharge despite outpatient platelet transfusion. . 87 year old female with history of pancytopenia, myeloid hypoplasia, HTN, A fib presenting with fever at home. 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 - requiring frequent transfusions - admitted for 10 days last month for pancytopenia, Citrobacter UTI and possible pulmonary aspergillosis received multiple transfusions of platelets and PRBC, Neupogen x 7 days, Zosyn IV and Voriconazole during that admission complicated by pulmonary edema, resolved with additional Lasix - readmitted 05/30/17 for pancytopenia, weakness has required 5 units of plt and 2 units of PRBC so far WBC 1.09, Hg 7.6, Plt 43 1 unit of pRBC ordered today - Urine culture: (+) again for Citrobacter, resistant to Ceftri, Cipro, Levaquin , Bactrim receiving Zosyn x 2 days, changed to Cefepime - has been accepted to [facility] for further evaluation and treatment discussed with patient and her daughter at length re: medical condition and plan of care they are understanding, agreeable and comfortable with plan of care PULMONARY NODULES - found during last admission CT chest: increased pulmonary nodules, possible aspergillosis? serum studies for aspergillosis: negative - increasing compared to previous imaging - Pulm consulted during last admission, cannot do Bronch due to patient's thrombocytopenia needs to ff up with Pulm as outpatient HTN - on Metoprolol - monitor PAROXYSMAL A FIB - off anticoagulation due to bleeding - on Metoprolol, rate controlled - follows with [facility] CKD 3 - at baseline HYPOKALEMIA - likely from Lasix - PO K ordered monitor DVT Prophylaxis: SCDs only due to profound thrombocytopenia Disposition transfer to [facility] CKD III-at baseline. Avoid nephrotoxic substances and renally dose meds. Anxiety-continue Xanax BID scheduled per daughter who cares for her at home. Thyroid: on Levothyroxine DVT proph-contraindicated. Full Code Dispo- telemetry. Patient Have been admitted by Dr. Zamorano with hospital follow up by Dr. Fernández. At the request of the patient's daughter, will transfer care to service of Dr. Koko Soto who has more prior experience with patient's medical history. Total time spent on discharge = 60 MINUTES This includes examination of the patient, discharge planning, medication reconciliation, and communication with other providers. Discharge Instructions Discharge Instructions Date of Service Jun 01, 2017. Admission Reason for Admission: Pancytopenia Discharge Discharge Diagnosis / Problem: PANCYTOPENIA Discharge Goals Goal(s): Diagnostic testing, Therapeutic intervention Activity Recommendations Activity Level: Assistance Required . Additional Information Patient informed of condition: Yes Advance Directives: No (UNKNOWN) DNR: No (PATIENT IS FULL CODE FOR NOW- DISCUSS FURTHER WITH PATIENT AND DAUGHTER) Level of Care: Other ([facility]) Communicable Disease: No Prognosis: Other (GUARDED) Oxygen at (LPM): 2 LITERS [place] Instructions / Follow-Up Instructions / Follow-Up PLEASE REFER TO HOSPITAL DISCHARGE SUMMARY. Current Hospital Diet Patient's current hospital diet: AHA Diet (Heart Healthy) Discharge Diet Recommended Diet: AHA Diet (Heart Healthy) Procedures Procedures Performed: PLATELET AND PRBC TRANSFUSION Pending Studies Studies pending at discharge: yes List of pending studies: FURTHER EVALUATION AND MANAGEMENT PER [facility] Physician Orders On Transfer Special Precautions: NEUTROPENIC PRECAUTIONS, CONTACT ISOLATION
== END 2017-06-01 12:07 | disposition short-term general hospital (02) | DRG 809 ==
LOC: EDBD 01:41 → C.EDB 01:43 → C.2E 05:43 → ENRESERV 05:54
PROVIDERS: ADMIT Hospitalist; ATTEND Hospitalist
DX: D61.9 Aplastic anemia, unspecified (principal); D69.3 Immune thrombocytopenic purpura; N39.0 Urinary tract infection, site not specified; B96.89 Other specified bacterial agents as the cause of diseases classified elsewhere; E87.6 Hypokalemia; R91.8 Other nonspecific abnormal finding of lung field; G89.29 Other chronic pain; M54.9 Dorsalgia, unspecified; I12.9 Hypertensive chronic kidney disease with stage 1 through stage 4 chronic kidney disease, or unspecified chronic kidney disease; N18.3 Chronic kidney disease, stage 3 (moderate); I48.0 Paroxysmal atrial fibrillation; E53.8 Deficiency of other specified B group vitamins; E07.9 Disorder of thyroid, unspecified; F41.9 Anxiety disorder, unspecified; Z79.891 Long term (current) use of opiate analgesic; Z79.899 Other long term (current) drug therapy; Z86.14 Personal history of Methicillin resistant Staphylococcus aureus infection

== ENCOUNTER 2017-07-11 21:24 | Inpatient (IN) | payer OTHER, BC ==
[~2017-07-11] VITALS: Ht 162.6 cm; Wt 70.7 kg
[~2017-07-11 21:24] MED LIST changes: +ACET-1047 PO; +CEFEPIME CONSULT ACTIVE; +CLR10 PO; +CRAN1TAB PO; +DIPH25CA50 PO; +ELTR12.58 PO; +FILG300I4 SQ; +FLUT0.15 INTNAS; +KCLP20 PO; +LEVA45AE PO; -MGNO400 PO; -NRV5 PO; -POLY335019 PO; -POTA20TA16 PO; +TPRSR/50 PO; -TPRSR50 PO; -TYLOTC500 PO
[2017-07-11] MEDS ORDERED: POTA20TA16 PO (21:52)
--- NOTE | 2017-07-11 22:11 | DIAGNOSTIC IMAGING REPORT ---
CHEST ONE VIEW PORTABLE CLINICAL HISTORY: Sepsis. COMPARISON STUDY: Chest CT May 13, 2017 and chest radiograph May 30, 2017. FINDINGS: There is no pneumothorax. Pulmonary vascularity is normal. Cardiomediastinal silhouette is stable. A moderate size right pleural effusion with associated airspace opacity is similar to exam of May 30, 2017. A left sided PICC is in place. IMPRESSION: 1. No significant change in a moderate size right pleural effusion with associated right basilar opacity. 2. No evidence of pulmonary edema. Electronically signed by: Hernando Frye M.D. 07/11/2017 10:10 PM Dictated Date/Time: 07/11/2017 10:04 PM
[2017-07-11 22:28] LABS: INR 1.1 (0.9-1.1)
[2017-07-11 22:37] LABS: HEMATOCRIT 23.5 % (37-47); MEAN CORPUSCULAR HEMOGLOBIN 27.9 pg (25-34); MEAN CORPUSCULAR HGB CONC 34.5 g/dl (32-36); MEAN PLATELET VOLUME 7.9 fL (7.4-10.4); PLATELET COUNT 32 K/uL (130-400); WHITE BLOOD COUNT 0.68 K/uL (4.8-10.8)
[2017-07-11 22:41] LABS: BUN/CREATININE RATIO 36.7 (10-20); CALCIUM 8.5 mg/dl (8.5-10.1); CREATININE 0.68 mg/dl (0.60-1.20); POTASSIUM 3.4 mmol/L (3.5-5.1)
[2017-07-11 22:44] LABS: ALB/GLOB RATIO 0.8 (0.9-2)
[2017-07-11] MEDS ORDERED: CEFEPIME IV 2,000 MG in DEXTROSE 5% 100ML 100 ML IV STA (23:05)
[2017-07-11] MEDS ORDERED: POTASSIUM CHLORIDE 10 MEQ TABCR PO STA (23:25)
[2017-07-11 23:40] LABS: COMPLETE YES; LYMPH ABS # 0.57 K/uL (1.2-3.4); LYMPHOCYTE % 84.4 %; META ABS # 0.01 K/uL (0-0); METAMYELOCYTE % 0.9 %; NEUTROPHILS % 10.4 %
[2017-07-12 00:03] LABS: MAGNESIUM 1.7 mg/dl (1.8-2.4)
--- NOTE | 2017-07-12 00:35 | EMERGENCY ROOM VISIT NOTE ---
History Report prepared by Larry: Sapna Ocasio Under the Supervision of: Dr. Bebeto Self M.D. First contact with patient: 21:33 Chief Complaint: ILLNESS Stated Complaint: NAUSEA, CHILLS, FEVER History of Present Illness The patient is an 87 year old female who presents to the Emergency Room with complaints of persistent illness starting earlier today. The patient presents to the ED by EMS. She received packed red blood cells and platelets this afternoon as an outpatient. Upon arriving home, she started feeling sick. She has had chills and nausea. She has been dry heaving. She had a temperature of 100. She currently complains of nausea, stomachache, headache, and scratchy throat. Her daughter states that the patient lost a lot of fluid today. She was given 40 mg of Lasix at 1200 before the transfusions. She has not been drinking a lot of fluids. The patient has a history of aplastic anemia and neutropenia. She recently started Promacta. The patient has a bladder infection for which she was started on Cipro today. She has not had a reaction to transfusion before. She has chronic body aches due to her arthritis. Source of History: patient, family Onset: earlier today Position: other (global) Quality: other (illness) Timing: other (persistent) Associated Symptoms: + fevers, + chills, + headache, + sorethroat, + nausea , + abdominal pain Review of Systems See HPI for pertinent positives & negatives. A total of 10 systems reviewed and were otherwise negative. Past Medical & Surgical Medical Problems: (1) Anemia (2) Atrial fibrillation (3) Complicated UTI (urinary tract infection) (4) COPD (chronic obstructive pulmonary disease) (5) Coronary Atherosclerosis Of [place]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 (6) Hypertension Nos (7) Hypothyroidism Nos (8) ITP (idiopathic thrombocytopenic purpura) (9) Myalgia and myositis (10) Osteoporosis Nos (11) Pancytopenia (12) Premature atrial contractions (13) Pulmonary nodules (14) UTI (urinary tract infection) Surgical Problems: (1) History of cataract surgery (2) S/P hernia repair (3) S/P hysterectomy (4) S/p repair of cystocele (5) S/P tonsillectomy and adenoidectomy Family History Asthma DAUGHTER Social History Smoking Status: Never Smoker Alcohol Use: none Drug Use: none Marital Status: single Housing Status: lives with family Occupation Status: retired Current/Historical Medications Scheduled Alprazolam (Xanax), 1 MG PO BID Cholecalciferol (Vitamin D 400 Iu), 400 INTER.UNIT PO BID Cranberry (Vaccinium Macrocarp (Cranberry), 1 TAB PO DAILY Cyclosporine (Ophth) (Restasis), 1 DROP OPB DAILY Eltrombopag Olamine (Promacta), 75 MG PO DAILY Filgrastim (Neupogen), 400 MCG SQ 2XWK Fluticasone Propionate (Nasal) (Flonase Allergy Relief), 2 SPRAYS INTNAS DAILY Furosemide (Lasix), 40 MG PO DAILY Levalbuterol Tartrate (Levalbuterol Tartrate Hfa), 1 PUFF PO BID Levothyroxine Sodium (Levothyroxine Sodium), 75 MCG PO DAILY Loratadine (Claritin), 10 MG PO 2XWK Magnesium Oxide (Mag-Ox), 400 MG PO DAILY Metoprolol Succinate (Metoprolol Succinate ER), 50 MG PO BID Multiple Vitamin (Multivitamin), 1 TAB PO DAILY Ocuvite Preservision (Ocuvite Preservision), 1 TAB PO BID Polyethylene Glycol 3350 (Polyethylene Glycol 3350), 17 GM PO DAILY Potassium Ext Rel (Klor-Con), 20 MEQ PO DAILY Thiamine Hcl (Vitamin B-1), 100 MG PO DAILY Scheduled PRN Acetaminophen (Mapap), 650 MG PO Q4H PRN for Pain or Fever Dicyclomine Hcl (Bentyl), 10 MG PO QID PRN for abdominal pain Diphenhydramine HCl (Diphenhydramine HCl), 25 MG PO DAILY PRN for PRIOR TO PLATELET TRANSUFUSION Esomeprazole Magnesium (Nexium), 40 MG PO DAILY PRN for Heartburn Tramadol (Ultram), 50 MG PO Q6 PRN for Pain [Cefepime Consult Active], 1 EA N/A UD PRN for Consult Allergies Coded Allergies: Iodinated Diagnostic Agents (Verified Allergy, Intermediate, HIVES WITH IVP DYE, 07/11/17) Sulfa Antibiotics (Verified Allergy, Intermediate, RASH, 07/11/17) Amoxicillin (Verified Allergy, Mild, RASH, Zosyn tolerated [id number] ADM, 07/11/17) Clavulanic Acid (Verified Allergy, Mild, RASH, Zosyn tolerated [id number] ADM, 07/11/17) Codeine (Verified Adverse Reaction, Intermediate, NAUSEA/VOMITING, ) Morphine (Verified Adverse Reaction, Intermediate, NAUSEA/VOMITING, ) Oxycodone (Verified Adverse Reaction, Intermediate, NAUSEA/VOMITING, 07/11) Rofecoxib (Verified Adverse Reaction, Intermediate, PALPITATIONS, 07/11/17 ) Morphine and Related (Verified Adverse Reaction, Mild, GI SYMPTOMS, ) Physical Exam Vital Signs Date Time Temp Pulse Resp B/P (MAP) Pulse Ox O2 Delivery O2 Flow Rate FiO2 07/11/17 23:38 86 16 155/60 93 Room Air 07/11/17 22:29 87 16 163/82 89 Room Air 07/11/17 21:54 93 Room Air 07/11/17 21:45 92 07/11/17 21:24 37.1 96 26 174/67 93 Room Air Physical Exam Constitutional: Vital signs reviewed. Eyes: Pupils are equal round reactive to light. Conjunctiva are noninjected. ENT: Pharynx is clear without erythema or exudate. Mucous membranes are moist. Neck supple without meningeal signs. Respiratory: Clear to auscultation bilaterally. Breath sounds are equal bilaterally. Cardiovascular: Regular rate and rhythm. No rubs or gallops. GI: Soft, nondistended and nontender. Bowel sounds are present. Musculoskeletal: No peripheral edema. No lower extremity tenderness. Integumentary: Pale. No cyanosis. Neurological: The patient is awake and alert. No focal deficits. Psychiatric: Normal affect. Medical Decision & Procedures ER Provider Diagnostic Interpretation: X-ray results as stated below per interpretation by me and the radiologist: CHEST ONE VIEW PORTABLE CLINICAL HISTORY: Sepsis. COMPARISON STUDY: Chest CT May 13, 2017 and chest radiograph May 30, 2017. FINDINGS: There is no pneumothorax. Pulmonary vascularity is normal. Cardiomediastinal silhouette is stable. A moderate size right pleural effusion with associated airspace opacity is similar to exam of May 30, 2017. A left sided PICC is in place. IMPRESSION: 1. No significant change in a moderate size right pleural effusion with associated right basilar opacity. 2. No evidence of pulmonary edema. Electronically signed by: Hernando Frye M.D. 07/11/2017 10:10 PM Dictated Date/Time: 07/11/2017 10:04 PM Laboratory Results 07/11/17 21:45 Red Blood Count 2.90, Mean Corpuscular Volume 81.0, Mean Corpuscular Hemoglobin 27.9, Mean Corpuscular Hemoglobin Concent 34.5, Mean Platelet Volume 7.9 07/11/17 21:45 Test 07/11/17 21:45 07/11/17 21:55 White Blood Count 0.68 K/uL (4.8-10.8) Red Blood Count 2.90 M/uL (4.2-5.4) Hemoglobin 8.1 g/dL (12.0-16.0) Hematocrit 23.5 % (37-47) Mean Corpuscular Volume 81.0 fL (80-100) Mean Corpuscular Hemoglobin 27.9 pg (25-34) Mean Corpuscular Hemoglobin Concent 34.5 g/dl (32-36) Platelet Count 32 K/uL (130-400) Mean Platelet Volume 7.9 fL (7.4-10.4) RDW Standard Deviation 38.8 fL (36.4-46.3) RDW Coefficient of Variation 13.3 % (11.5-14.5) Neutrophils % (Manual) 10.4 % Lymphocytes % (Manual) 84.4 % Monocytes % (Manual) 4.3 % Metamyelocytes % 0.9 % Neutrophils # (Manual) 0.07 K/uL (1.4-6.5) Total Absolute Neutrophils 0.07 K/uL (1.4-6.5) Lymphocytes # (Manual) 0.57 K/uL (1.2-3.4) Total Absolute Lymphocytes 0.57 K/uL (1.2-3.4) Monocytes # (Manual) 0.03 K/uL (0.11-0.59) Metamyelocytes # 0.01 K/uL (0-0) Red Blood Cell Morphology Unremarkable Prothrombin Time 12.0 SECONDS (9.0-12.0) Prothromb Time International Ratio 1.1 (0.9-1.1) Activated Partial Thromboplast Time 26.3 SECONDS (21.0-31.0) Partial Thromboplastin Ratio 1.0 Anion Gap 8.0 mmol/L (3-11) Est Creatinine Clear Calc Drug Dose 57.3 ml/min Estimated GFR () 91.8 Estimated GFR (Non- 79.2 BUN/Creatinine Ratio 36.7 (10-20) Calcium Level 8.5 mg/dl (8.5-10.1) Magnesium Level 1.7 mg/dl (1.8-2.4) Total Bilirubin 2.4 mg/dl (0.2-1) Aspartate Amino Transf (AST/SGOT) 40 U/L (15-37) Alanine Aminotransferase (ALT/SGPT) 58 U/L (12-78) Alkaline Phosphatase 330 U/L (45-117) Total Protein 7.4 gm/dl (6.4-8.2) Albumin 3.2 gm/dl (3.4-5.0) Globulin 4.2 gm/dl (2.5-4.0) Albumin/Globulin Ratio 0.8 (0.9-2) Lipase 110 U/L (73-393) Bedside Lactic Acid Venous 0.95 mmol/L (0.90-1.70) Laboratory results as reviewed by me. Medications Administered Medications (Trade) Dose Ordered Sig/Giuseppe Route Start Time Stop Time Status Last Admin Dose Admin Cefepime HCl 2000 mg/Dextrose 122 ml @ 200 mls/hr NOW STAT IV 07/11/17 23:05 07/11/17 23:41 DC 07/11/17 23:39 200 MLS/HR Potassium Chloride (Klor-Con M10) 40 meq NOW STAT PO 07/11/17 23:25 07/11/17 23:37 DC 07/12/17 00:02 40 MEQ ECG Indication: weakness Rate (beats per minute): 93 Rhythm: normal sinus Findings: LBBB, no ectopy ED Course 7: The patient was evaluated in room C10. A complete history and physical exam was performed. 2218: The patient is refusing a catheter because they are concerned about bleeding since her platelets are low. 2305: Cefepime HCl 2000 mg/Dextrose 122 ml @ 200 mls/hr IV. 2312: [facility] We discussed the patient and her results. The patient will be further evaluated by him. 2313: I reevaluated the patient. She is stable. I discussed the results with her and her daughter. They verbalized agreement of the treatment plan. She will be evaluated for further management. Medical Decision This is an 87-year-old female who presents with illness. Differential diagnosis includes neutropenic fever, pneumonia, UTI, sepsis, transfusion reaction, bacteremia. I did perform a limited focused review of portions of the patient's old chart on the electronic medical record. The patient was admitted in May for pancytopenia. She was transferred to [place]. Urine culture was positive for Citrobacter, resistant to Cipro among other drugs. I did evaluate the patient as noted above. Patient is presenting with a fever and generalized illness. She just received the transfusion. She also was recently diagnosed with a UTI. It is unclear whether she has neutropenic fever or a transfusion reaction. She has never had a transfusion reaction in the past. IV access was established. The patient was placed on a continuous wash driller. I did order and personally review the patient's chest x-ray as described above. She has a persistent effusion and basilar opacity. She was unable to urinate for us and refused a catheter. They did state that the [facility] people that just check her urine and it did show an infection. I did order and review the patient's blood work as noted in the electronic medical record. She is neutropenic. Direct Rocio testing is negative. I did treat her with cefepime IV. I did discuss case with the hospitalist and case technician. I did discuss the test results with the patient and her daughter. Medication Reconcilliation Current Medication List: was personally reviewed by me Blood Pressure Screening Patient's blood pressure: Elevated blood pressure Blood pressure disposition: Referred to PCP Consults Time Called: 2303 Consulting Physician: Dr. Carrera, [facility] Returned Call: [phone] [facility] We discussed the patient and her results. The patient will be further evaluated by him. Impression Primary Impression: Neutropenic fever Additional Impressions: UTI (urinary tract infection) Pancytopenia Scribe Attestation The scribe's documentation has been prepared under my direct and personally reviewed by me in its entirety. I confirm that the note above accurately reflects all work, treatment, procedures, and medical decision making performed by me. Departure Information Dispostion Being Evaluated By Hospitalist Referrals Dionisio Umana M.D. (PCP) Patient Instructions My [facility] Problem Qualifiers Additional Impressions: UTI (urinary tract infection) Urinary tract infection type: site unspecified Hematuria presence: without hematuria Qualified Codes: N39.0 - Urinary tract infection, site not specified
[2017-07-12] MEDS ORDERED: PANTOprazole SOD 40 MG TAB PO PRN (00:45)
[2017-07-12] MEDS ORDERED: PROCHLORPERAZINE INJ 5 MG in SYRINGE 4 ML IV PRN (00:45)
[2017-07-12] MEDS ORDERED: TRAMADOL HCL 50 MG TAB PO PRN ×2 (00:45→01:15)
[2017-07-12] MEDS ORDERED: ALBUT/IPRATROP 3MG/0.5MG NEB 3 ML VIAL INH PRN (00:45)
[2017-07-12 01:41] VITALS: BP 183/76; PULSE 94; TEMP 36.7; O2SAT 94; Ht 162.6 cm; Wt 70.7 kg
[2017-07-12] MEDS ORDERED: MAGNESIUM SULFATE 1GM / D5W 1 GM in PREMIXED IN D5W 100 ML IV STA (01:44)
[2017-07-12] MEDS ORDERED: CEFEPIME IV 2,000 MG in SYRINGE 7.5 ML IV SCH ×2 (02:00→11:00)
--- NOTE | 2017-07-12 03:30 | HISTORY & PHYSICAL EXAMINATION ---
DATE OF ADMISSION: 07/12/2017 PRIMARY CARE DOCTOR: Dionisio Umana MD. CHIEF COMPLAINT: Chills. HISTORY OF PRESENT ILLNESS: History obtained from patient, patient's daughter, and records. Medical history significant for chronic pancytopenia secondary to aplastic anemia, hypertension, PAF off anticoagulation, chronic left bundle block, history IBS, peripheral vascular disease, history of MRSA, hx incomplete bladder emptying as per records. Recent [facility] confinement from 05/30/2017 to 06/01/2017 for pancytopenia. Patient subsequently transferred to [facility]. Admitted at [facility] [place] [place] from 06/01/2017 to 06/11/2017. Citrobacter UTI treated with Ertapenem. She had a bone marrow biopsy consistent with aplastic anemia. Outpatient followup with her [facility] [place] [place] Intertype Operator about 2 weeks ago. Started on Promacta daily for aplastic anemia. As per note, she may be candidate for antithymocyte globulin, chemotherapy - Promacta to be done first in consideration off patient age, comorbidities, and frailty. Twice weekly CBC and as needed transfusions as per local instructional developer's office. Last few days, patient noted bladder discomfort. No hematuria. No flank pain. Seen at PCP's office. She started on Cipro. Initial urine growing gram negative rods, lactose fermenting, Patient compliant with antibiotic prescription. A few hours ago around dinnertime last night, patient noted to have chills, scratchy throat, temperature was 100.2 at home, minimal abdominal discomfort, achy. Some nausea. No vomiting. No chest pain, no shortness of breath, no cough symptoms. Patient sent by [facility] instructional developer program consultant to the ER for further evaluation. Patient brought to the Emergency Room. Given IV cefepime in the ER. MEDICAL HISTORY: As above. SURGERIES: She has had cataract surgery, hernia surgery, hysterectomy, cystocele, tonsillectomy, adenectomy, appendectomy, pilonidal cyst removal. HOME MEDICATIONS: Include Xanax, vitamin D, cranberry, Bentyl, Promacta, Nexium, Neupogen, Flonase, Lasix, levothyroxine, Claritin, multivitamins, mag oxide, metoprolol, Ocuvite, Klor-Con, tramadol, vitamin B1. ALLERGIES: AMOXICILLIN, CODEINE, MORPHINE, OXYCODONE, CLAVULANIC ACID, SULFA, DYE, MORPHINE. FAMILY HISTORY: Asthma. PERSONAL AND SOCIAL HISTORY: Nonsmoker. No chronic intake of alcohol. 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 REVIEW OF SYSTEMS: As per HPI. All 10 were reviewed, all other ROS negative. PHYSICAL EXAMINATION: VITAL SIGNS: Blood pressure noted to be 140/67, pulse rate 92, RR 16, temperature 37.1, sats 98 on room air. GENERAL: Noted to be slightly anxious, no respiratory distress. SKIN: Pallor, warm. HEENT: Pale palpebral conjunctivae. No ptosis. Dry buccal mucosa. NECK: Short neck. No tenderness. LUNGS: Decreased breath sounds. No tenderness. CV: Regular rate and rhythm. Palpable LE pulses. ABDOMEN: Some distention, nontender. EXTREMITIES: Minimal LE edema, no tenderness. No gross deformities. NEUROLOGIC: Coherent. No gross focality. LABORATORY DATA: Hemoglobin was noted to be 8.1, hematocrit 30.5, white cells 8.68, platelets 232. Sodium 133, potassium 3.4, chloride 96, CO2 29, BUN 25, creatinine 0.6, glucose 148. Chest x-ray showed moderate sized right pleural effusion with opacity. No pulmonary edema. EKG, left bundle branch block. ASSESSMENT: 1. Complicated urinary tract infection Lactose fermenting GNR on preliminary outpatient CS results hx of quinolone resistant Citrobacter Failed outpatient treatment no sepsis 2. Aplastic anemia, currently on Promacta. 3. Hypertension, slightly elevated. 4. Hypokalemia secondary to diuretics . 5. PAF, px NSR off anticoagulation because of thrombocytopenia 6. Chronic left bundle branch block. 7. Peripheral vascular disease as per records. 8. Hx MRSA. PLAN: GMF Follow final outpatient urine CS results IV Cefepime for now. Replace potassium. Check mag. Hold home diuretics for now Hematology consult RE neutropenia in the setting of infection. ? need for Neupogen. DVT prophylaxis, SCDs. RE Thrombocytopenia, Code status : Level 3. (Okay with CPR. No intubation.) Patient's daughter requesting for updates from providers, Ms. Sola Hammer at [phone]. Case discussed with Dr. Louis (instructional developer program consultant). Hold off on Neupogen for now. MTDD
[2017-07-12] MEDS: PROMACTA PO SCH ×2 (05:00→22:55)
[2017-07-12 07:20] VITALS: BP 160/77; PULSE 72; TEMP 36.8; O2SAT 92
[2017-07-12] MEDS ORDERED: THIAMINE HCL 100 MG TAB PO SCH (08:00)
[2017-07-12] MEDS ORDERED: CEROVITE ADV FORMULA TAB PO SCH (08:00)
[2017-07-12] MEDS: RESTASIS~ORDER AWAITING ACTION SCH ×3 (08:00→23:11)
[2017-07-12] MEDS: LEValbuterol HFA 15GM INHALER INH SCH ×2 (08:00→19:36)
[2017-07-12] MEDS: FLUTICASONE PROPIONATE NA SPR 16 GM BTL SCH (08:00)
[2017-07-12] MEDS ORDERED: CEFEPIME CONSULT ACTIVE PRN ×2 (08:00)
[2017-07-12] MEDS ORDERED: MULTIVITAMIN TAB PO SCH (08:00)
[2017-07-12 08:10] LABS: HEMATOCRIT 21.7 % (37-47); MEAN CORPUSCULAR HEMOGLOBIN 28.4 pg (25-34); PLATELET COUNT 26 K/uL (130-400); RED BLOOD COUNT 2.68 M/uL (4.2-5.4); WHITE BLOOD COUNT 1.06 K/uL (4.8-10.8)
[2017-07-12 08:17] LABS: BUN/CREATININE RATIO 44.9 (10-20); CALCIUM 8.4 mg/dl (8.5-10.1); CREATININE 0.54 mg/dl (0.60-1.20); MAGNESIUM 2.3 mg/dl (1.8-2.4); POTASSIUM 4.2 mmol/L (3.5-5.1)
[2017-07-12] MEDS: POLYETHYLENE (MIRALAX) 17 GM PACK PO SCH (08:36)
[2017-07-12] MEDS: POTASSIUM CHLORIDE 20 MEQ TABCR PO SCH (08:36)
[2017-07-12] MEDS: METOPROLOL SUCC 50MG EXT REL TAB PO SCH ×2 (08:36→19:38)
[2017-07-12] MEDS: ALPRAZOLAM 0.5 MG TAB PO SCH ×2 (08:46→19:37)
[2017-07-12 09:14] LABS: DOHLE BODIES 1+; MICROCYTOSIS PRESENT; PLT ESTIMATE SIGNIFIC DECREASED
[2017-07-12 09:19] LABS: COMPLETE YES; VARIANT LYM ABS # 0.13 K/uL
[2017-07-12 10:04] VITALS: O2SAT 92
[2017-07-12] MEDS ORDERED: FUROSEMIDE 40 MG TAB PO ONE (10:52)
--- NOTE | 2017-07-12 11:39 | Progress Note ---
Medicine Progress Note Date & Time of Visit: Jul 12, 2017 at 11:33. Subjective patient seen resting in bed, comfortable states she feels improved compared to yesterday has some abdominal discomfort, attributes to having no BM yet denies urinary symptoms, fever/chills, nausea denies headache, dizziness, dyspnea, palpitations no other symptoms Objective Last 8 Hrs Date Time Temp Pulse Resp B/P (MAP) Pulse Ox O2 Delivery O2 Flow Rate FiO2 07/12/17 10:04 92 Room Air 07/12/17 07:20 36.8 72 18 160/77 (104) 92 Room Air Physical Exam: General- oriented x 3, not in distress, speaks in sentences with no effort Head- atraumatic Eyes- PERRL, EOMI, anicteric ENT- oropharynx clear Neck- supple, no JVD, no adenopathy, no thyromegaly Lungs- clear to auscultation b/l Heart- regular rhythm; no murmur, normal rate Abdomen- normal bowel sounds, soft, nontender Extremities- no pretibial edema, no calf tenderness; peripheral pulses intact Neuro- alert, oriented x 3; hard of hearing, otherwise , no gross focal deficits Skin- warm & dry Laboratory Results: Last 24 Hours Test 07/11/17 21:45 07/11/17 21:55 07/12/17 06:59 White Blood Count 0.68 K/uL 1.06 K/uL Red Blood Count 2.90 M/uL 2.68 M/uL Hemoglobin 8.1 g/dL 7.6 g/dL Hematocrit 23.5 % 21.7 % Mean Corpuscular Volume 81.0 fL 81.0 fL Mean Corpuscular Hemoglobin 27.9 pg 28.4 pg Mean Corpuscular Hemoglobin Concent 34.5 g/dl 35.0 g/dl Platelet Count 32 K/uL 26 K/uL Mean Platelet Volume 7.9 fL 8.0 fL RDW Standard Deviation 38.8 fL 39.1 fL RDW Coefficient of Variation 13.3 % 13.4 % Neutrophils % (Manual) 10.4 % 21.0 % Lymphocytes % (Manual) 84.4 % 66.0 % Monocytes % (Manual) 4.3 % 1.0 % Metamyelocytes % 0.9 % Neutrophils # (Manual) 0.07 K/uL 0.22 K/uL Total Absolute Neutrophils 0.07 K/uL 0.22 K/uL Lymphocytes # (Manual) 0.57 K/uL 0.70 K/uL Total Absolute Lymphocytes 0.57 K/uL 0.83 K/uL Monocytes # (Manual) 0.03 K/uL 0.01 K/uL Metamyelocytes # 0.01 K/uL Red Blood Cell Morphology Unremarkable Prothrombin Time 12.0 SECONDS Prothromb Time International Ratio 1.1 Activated Partial Thromboplast Time 26.3 SECONDS Partial Thromboplastin Ratio 1.0 Sodium Level 133 mmol/L 136 mmol/L Potassium Level 3.4 mmol/L 4.2 mmol/L Chloride Level 96 mmol/L 100 mmol/L Carbon Dioxide Level 29 mmol/L 29 mmol/L Anion Gap 8.0 mmol/L 7.0 mmol/L Blood Urea Nitrogen 25 mg/dl 24 mg/dl Creatinine 0.68 mg/dl 0.54 mg/dl Est Creatinine Clear Calc Drug Dose 57.3 ml/min 72.2 ml/min Estimated GFR () 91.8 99.0 Estimated GFR (Non- 79.2 85.4 BUN/Creatinine Ratio 36.7 44.9 Random Glucose 148 mg/dl 125 mg/dl Calcium Level 8.5 mg/dl 8.4 mg/dl Magnesium Level 1.7 mg/dl 2.3 mg/dl Total Bilirubin 2.4 mg/dl Aspartate Amino Transf (AST/SGOT) 40 U/L Alanine Aminotransferase (ALT/SGPT) 58 U/L Alkaline Phosphatase 330 U/L Total Protein 7.4 gm/dl Albumin 3.2 gm/dl Globulin 4.2 gm/dl Albumin/Globulin Ratio 0.8 Lipase 110 U/L Bedside Lactic Acid Venous 0.95 mmol/L Variant Lymphocytes % (manual) 12.0 % Absolute Variant Lymphocytes 0.13 K/uL Dohle Bodies 1+ Platelet Estimate SIGNIFIC DECREASED Microcytosis PRESENT Date/Time Source Procedure Growth Status 07/11/17 22:10 Blood Blood Culture Pending Received 07/11/17 21:45 Blood Blood Culture Pending Received Assessment & Plan ASSESSMENT: 1. Complicated urinary tract infection History of Recurrent UTI- Citrobacter -- Lactose fermenting GNR on preliminary outpatient CS results -- Failed outpatient treatment with Cipro no sepsis -- afebrile WBC increased to 1.06 -- clinically improving -- outpatient urine culture: pending blood cultures:pending -- on Cefepime Day 2 monitor 2. Aplastic anemia, currently on Promacta. -- discussed with Dr. Louis recommend to continue Promacta -- WBC 1.06 Hg 7.6 Plt 26 -- asymptomatic per Dr. Louis, hold off on Neupogen, pRBC, Plt 3. Hypertension, slightly elevated. -- continue Metoprolol -- monitor 5. Hypokalemia secondary to diuretics . -- resolved 6. PAF, px NSR off anticoagulation because of thrombocytopenia continue Metoprolol 7. History of CHF Diastolic Hold off on Lasix as patient seems to be on the dry side DVT prophylaxis, SCDs. RE Thrombocytopenia, Code status : Level 3. (Okay with CPR. No intubation.) Dispo: anticipate d/c home when medically stable Current Inpatient Medications: Current Inpatient Medications Medications (Trade) Dose Ordered Sig/Giuseppe Route Start Time Stop Time Status Last Admin Dose Admin Acetaminophen (Tylenol Tab) 650 mg Q4H PRN PO 07/12/17 00:45 08/11/17 00:44 Prochlorperazine Edisylate 5 mg/ Syringe 5 ml @ 5 mls/min Q6H PRN IV 07/12/17 00:45 08/11/17 00:44 Alprazolam (Xanax Tab) 1 mg BID PO 07/12/17 08:00 08/11/17 08:59 07/12/17 08:46 1 MG Diphenhydramine HCl (Benadryl Cap) 25 mg DAILY PRN PO 07/12/17 00:45 08/11/17 00:44 Fluticasone Propionate (Flonase Nasal [place]) 2 sprays DAILY NA 07/12/17 08:00 08/11/17 08:59 Levalbuterol (Xopenex Hfa Inhaler) 1 puffs BID INH 07/12/17 08:00 08/11/17 08:59 Levothyroxine Sodium (Synthroid Tab) 75 mcg QD@16 PO 07/12/17 16:00 08/11/17 15:59 Metoprolol Succinate (Toprol Xl Tab) 50 mg BID PO 07/12/17 08:00 08/11/17 08:59 07/12/17 08:36 50 MG Potassium Chloride (Klor-Con Tab) 20 meq DAILY PO 07/12/17 08:00 12/18/17 08:59 07/12/17 08:36 20 MEQ Miscellaneous Information (Order Awaiting Action) 1 ea QS N/A 07/12/17 08:00 08/11/17 07:59 Pantoprazole Sodium (Protonix Tab) 40 mg DAILY PRN PO 07/12/17 00:45 08/11/17 00:44 Polyethylene (Miralax Powder Packet) 17 gm DAILY PO 07/12/17 08:00 08/11/17 08:59 07/12/17 08:36 17 GM Non-Formulary Medication (Non-Formulary Patient'S Own Med) 1 ea DAILY@0500 PO 07/12/17 05:00 08/11/17 04:59 07/12/17 05:00 1 EA Cefepime HCl (Consult) 1 ea DAILY PRN N/A 07/12/17 08:00 08/11/17 08:59 Albuterol/ Ipratropium (Duoneb) 3 ml Q2H PRN INH 07/12/17 00:45 08/11/17 00:44 Tramadol HCl (Ultram Tab) not relieved by tylenol @ Q6H PRN PO 07/12/17 01:15 08/11/17 00:44 07/12/17 08:46 50 MG Cefepime HCl 2000 mg/Syringe 20 ml @ 5 mls/min UD IV 07/12/17 02:00 07/20/17 02:03 Multivitamins (Multivitamin Tab) 1 tab TODAY@1200 PO 07/12/17 12:00 08/11/17 07:59 Multivitamins/ Minerals (Multivitamin W/ Minerals Tab) 1 tab TODAY@1200,2000 PO 07/12/17 12:00 08/11/17 07:59 Thiamine HCl (Vitamin B-1 Tab) 100 mg TODAY@1200 PO 07/12/17 12:00 08/11/17 07:59 Dicyclomine HCl (Bentyl Cap) 10 mg QID PRN PO 07/12/17 11:00 08/11/17 10:59 Furosemide (Lasix Tab) 40 mg DAILY PO 07/13/17 08:00 08/12/17 07:59 Magnesium Oxide (Mag-Ox Tab) 400 mg DAILY PO 07/13/17 08:00 08/12/17 07:59
[2017-07-12] MEDS: MULTIVITAMIN TAB PO SCH (12:00)
[2017-07-12] MEDS: CEROVITE ADV FORMULA TAB PO SCH ×2 (12:00→19:38)
[2017-07-12] MEDS: THIAMINE HCL 100 MG TAB PO SCH (12:00)
[2017-07-12] MEDS: DICYCLOMINE HCL 10 MG CAP PO PRN ×2 (12:33→17:13)
[2017-07-12 15:15] VITALS: BP 136/55; PULSE 70; TEMP 36.5; O2SAT 94
[2017-07-12 16:00] VITALS: O2SAT 94
[2017-07-12] MEDS: LEVOTHYROXINE 75 MCG TAB PO SCH (16:09)
--- NOTE | 2017-07-12 16:53 | Progress Note ---
Progress Note Date of Service Jul 12, 2017. Progress Note Urine culture report from [facility] noted (07/09/17) (+) Citrobacter > 100k Sens: Cefepime Ceftri Nitrofurantoin I: Levofloxacin R: Cipro, Genta, Tobra, Bactrim (+) Klebsiella Sens: Cefepime, Ceftri, Cipro, Genta Nitrofurantoin Bactrim I: Ampi/Sul R: Ampicillin, Will consult ID Koko Metzger MD
[2017-07-12] MEDS: ACETAMINOPHEN 325 MG TAB PO PRN (17:13)
[2017-07-12] MEDS: SODIUM CHLORIDE 0.9% 1000ML 1,000 ML IV SCH (19:34)
[2017-07-12 20:14] LABS: URINE APPEARANCE CLOUDY (CLEAR); URINE BILIRUBIN NEG (NEG); URINE COLOR YELLOW; URINE EPITHELIAL CELL AUTO >30 /lpf (0-5); URINE NITRITE POS (NEG); URINE PH 6.5 (4.5-7.5); URINE SPECIFIC GRAVITY 1.015 (1.000-1.030); UROBILINOGEN NEG (NEG); ZZUR CULT IF INDIC CLEAN CATCH YES
[2017-07-12 20:15] LABS: MANUAL MICROSCOPIC REQUIRED? NO; REVIEW REQ? YES
[2017-07-12] MEDS: CEFEPIME IV 2,000 MG in SYRINGE 7.5 ML IV SCH (21:34)
[2017-07-13] VITALS (12 sets, daily range): BP systolic 112–186; BP diastolic 60–95; PULSE 64–82; TEMP 36.4–37; O2SAT 92–98
[2017-07-13] MEDS: PROMACTA PO SCH (04:59)
[2017-07-13 06:35] LABS: HEMATOCRIT 20.3 % (37-47); MEAN CELL VOLUME 81.9 fL (80-100); MEAN CORPUSCULAR HEMOGLOBIN 28.6 pg (25-34); MEAN PLATELET VOLUME 7.6 fL (7.4-10.4); PLATELET COUNT 14 K/uL (130-400); RED BLOOD COUNT 2.48 M/uL (4.2-5.4); WHITE BLOOD COUNT 0.81 K/uL (4.8-10.8)
[2017-07-13] MEDS ORDERED: MAGNESIUM OXIDE 400 MG TAB PO SCH (08:00)
[2017-07-13] MEDS ORDERED: FUROSEMIDE 40 MG TAB PO SCH (08:00)
[2017-07-13] MEDS: RESTASIS~ORDER AWAITING ACTION SCH ×3 (08:00→23:35)
[2017-07-13] MEDS: FLUTICASONE PROPIONATE NA SPR 16 GM BTL SCH (08:00)
[2017-07-13 08:01] LABS: COMPLETE YES; LYMPH % 82.7 %; LYMPH ABS # 0.67 K/uL (1.2-3.4); MONO % 2.5 %; NEUT % 14.8 %
[2017-07-13] MEDS: METOPROLOL SUCC 50MG EXT REL TAB PO SCH ×2 (09:03→19:39)
[2017-07-13] MEDS: LEValbuterol HFA 15GM INHALER INH SCH ×2 (09:04→19:38)
[2017-07-13] MEDS: POTASSIUM CHLORIDE 20 MEQ TABCR PO SCH (09:04)
[2017-07-13] MEDS: POLYETHYLENE (MIRALAX) 17 GM PACK PO SCH (09:04)
[2017-07-13] MEDS: ALPRAZOLAM 0.5 MG TAB PO SCH ×2 (09:07→19:39)
--- NOTE | 2017-07-13 10:12 | Progress Note ---
Medicine Progress Note Date & Time of Visit: Jul 13, 2017 at 10:06. Subjective seen resting in bed, comfortable states abdominal discomfort has resolved, tolerated diet well this AM denies fever/chills, nausea no bleeding no weakness, dyspnea, chest pain ,palpitations, dizziness no other symptoms Objective Last 8 Hrs Date Time Temp Pulse Resp B/P (MAP) Pulse Ox O2 Delivery O2 Flow Rate FiO2 07/13/17 09:52 98 Room Air 07/13/17 06:51 36.6 77 18 186/77 (113) 92 Room Air Physical Exam: General- oriented x 3, not in distress, speaks in sentences with no effort Eyes- EOMI, anicteric ENT- oropharynx clear Neck- supple, no JVD Lungs- clear breath sounds bilaterally, no rales/wheezes Heart- regular rhythm; no murmur, normal rate Abdomen- normal bowel sounds, non distended, soft, nontender Extremities- no pretibial edema, no calf tenderness; peripheral pulses intact Neuro- alert, oriented x 3; hard of hearing, otherwise , no gross focal deficits Skin- warm & dry Laboratory Results: Last 24 Hours Test 07/13/17 06:01 White Blood Count 0.81 K/uL Red Blood Count 2.48 M/uL Hemoglobin 7.1 g/dL Hematocrit 20.3 % Mean Corpuscular Volume 81.9 fL Mean Corpuscular Hemoglobin 28.6 pg Mean Corpuscular Hemoglobin Concent 35.0 g/dl Platelet Count 14 K/uL Mean Platelet Volume 7.6 fL Neutrophils (%) (Auto) 14.8 % Lymphocytes (%) (Auto) 82.7 % Monocytes (%) (Auto) 2.5 % Eosinophils (%) (Auto) 0.0 % Basophils (%) (Auto) 0.0 % Neutrophils # (Auto) 0.12 K/uL Lymphocytes # (Auto) 0.67 K/uL Monocytes # (Auto) 0.02 K/uL Eosinophils # (Auto) 0.00 K/uL Basophils # (Auto) 0.00 K/uL RDW Standard Deviation 40.0 fL RDW Coefficient of Variation 13.5 % Immature Granulocyte % (Auto) 0.0 % Immature Granulocyte # (Auto) 0.00 K/uL Assessment & Plan 1. Recurrent UTIs Neutropenia -- History of Recurrent UTI- Citrobacter -- Outpatient Urine Cx: Urine culture from [facility] (07/09/17) (+) Citrobacter > 100k Sens: Cefepime Ceftri Nitrofurantoin I: Levofloxacin R: Cipro, Genta, Tobra, Bactrim (+) Klebsiella > 100k Sens: Cefepime, Ceftri, Cipro, Genta Nitrofurantoin Bactrim I: Ampi/Sul R: Ampicillin, -- Failed outpatient treatment with Cipro no sepsis -- afebrile WBC 1.06--> 0.8 -- clinically improving -- repeat urine culture: pending blood cultures: no growth so far -- on Cefepime Day [address] Hill 2. 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 -- discussed with Dr. Louis recommend to continue Promacta -- WBC 1.06 --> 0.8 Hg 7.6 --> 7.1 Plt 26 --> 14 -- will transfuse 1 unit pRBC today repeat CBC tomorrow continue Promacyta discussed with Dr. Louis 3. Hypertension, slightly elevated. -- continue Metoprolol -- monitor 5. Hypokalemia secondary to diuretics . -- resolved 6. PAF, px NSR off anticoagulation because of thrombocytopenia continue Metoprolol 7. History of CHF Diastolic Hold off on Lasix as patient seems to be on the dry side -- gentle IV fluids today monitor DVT prophylaxis, SCDs. RE Thrombocytopenia, Code status : Level 3. (Okay with CPR. No intubation.) Dispo: anticipate d/c home when medically stable Current Inpatient Medications: Current Inpatient Medications Medications (Trade) Dose Ordered Sig/Giuseppe Route Start Time Stop Time Status Last Admin Dose Admin Acetaminophen (Tylenol Tab) 650 mg Q4H PRN PO 07/12/17 00:45 08/11/17 00:44 07/12/17 17:13 650 MG Prochlorperazine Edisylate 5 mg/ Syringe 5 ml @ 5 mls/min Q6H PRN IV 07/12/17 00:45 08/11/17 00:44 07/12/17 17:06 5 MLS/MIN Alprazolam (Xanax Tab) 1 mg BID PO 07/12/17 08:00 08/11/17 08:59 07/13/17 09:07 1 MG Diphenhydramine HCl (Benadryl Cap) 25 mg DAILY PRN PO 07/12/17 00:45 08/11/17 00:44 Fluticasone Propionate (Flonase Nasal [place]) 2 sprays DAILY NA 07/12/17 08:00 08/11/17 08:59 Levalbuterol (Xopenex Hfa Inhaler) 1 puffs BID INH 07/12/17 08:00 08/11/17 08:59 07/13/17 09:04 1 PUFFS Levothyroxine Sodium (Synthroid Tab) 75 mcg QD@16 PO 07/12/17 16:00 08/11/17 15:59 07/12/17 16:09 75 MCG Metoprolol Succinate (Toprol Xl Tab) 50 mg BID PO 07/12/17 08:00 08/11/17 08:59 07/13/17 09:03 50 MG Potassium Chloride (Klor-Con Tab) 20 meq DAILY PO 07/12/17 08:00 08/11/17 08:59 07/13/17 09:04 20 MEQ Miscellaneous Information (Order Awaiting Action) 1 ea QS N/A 07/12/17 08:00 08/11/17 07:59 Pantoprazole Sodium (Protonix Tab) 40 mg DAILY PRN PO 07/12/17 00:45 08/11/17 00:44 Polyethylene (Miralax Powder Packet) 17 gm DAILY PO 07/12/17 08:00 08/11/17 08:59 07/13/17 09:04 17 GM Non-Formulary Medication (Non-Formulary Patient'S Own Med) 1 ea DAILY@0500 PO 07/12/17 05:00 08/11/17 04:59 07/13/17 04:59 1 EA Cefepime HCl (Consult) 1 ea DAILY PRN N/A 07/12/17 08:00 08/11/17 08:59 Albuterol/ Ipratropium (Duoneb) 3 ml Q2H PRN INH 07/12/17 00:45 08/11/17 00:44 Tramadol HCl (Ultram Tab) not relieved by tylenol @ Q6H PRN PO 07/12/17 01:15 08/11/17 00:44 07/12/17 08:46 50 MG Multivitamins (Multivitamin Tab) 1 tab TODAY@1200 PO 07/12/17 12:00 08/11/17 07:59 Multivitamins/ Minerals (Multivitamin W/ Minerals Tab) 1 tab TODAY@1200,2000 PO 07/12/17 12:00 08/11/17 07:59 07/12/17 19:38 1 TAB Thiamine HCl (Vitamin B-1 Tab) 100 mg TODAY@1200 PO 07/12/17 12:00 08/11/17 07:59 Dicyclomine HCl (Bentyl Cap) 10 mg QID PRN PO 07/12/17 11:00 08/11/17 10:59 07/12/17 17:13 10 MG Cefepime HCl 2000 mg/Syringe 20 ml @ 5 mls/min Q24H IV 07/12/17 22:00 07/20/17 22:03 07/12/17 21:34 5 MLS/MIN Sodium Chloride 1,000 ml @ 60 mls/hr [id number] IV 07/12/17 18:45 08/11/17 18:44 07/12/17 19:34 60 MLS/HR Heparin Sodium (Porcine) (Heparin 10 Unit/ ml 5 ml Flush) 5 ml PRN PRN FLUSH 07/12/17 23:45 08/11/17 23:44 07/13/17 05:57 5 ML
[2017-07-13] MEDS: SODIUM CHLORIDE 0.9% 1000ML 1,000 ML IV SCH (11:25)
[2017-07-13 11:29] LABS: CALCIUM 8.3 mg/dl (8.5-10.1); CREATININE 0.4 mg/dl (0.60-1.20); POTASSIUM 4.4 mmol/L (3.5-5.1)
[2017-07-13] MEDS: DiphenhydrAMINE HCL 12.5MG/5 ML UDC PO PRN (12:40)
[2017-07-13] MEDS: ACETAMINOPHEN 325 MG TAB PO PRN (12:40)
[2017-07-13] MEDS: MULTIVITAMIN TAB PO SCH (12:43)
[2017-07-13] MEDS: THIAMINE HCL 100 MG TAB PO SCH (12:43)
[2017-07-13] MEDS: CEROVITE ADV FORMULA TAB PO SCH ×2 (12:43→19:39)
[2017-07-13] MEDS ORDERED: NURSING VERBAL MED ORDER ONE (14:30)
[2017-07-13] MEDS: LEVOTHYROXINE 75 MCG TAB PO SCH (16:06)
--- NOTE | 2017-07-13 16:46 | Medical Consult ---
Consultation Date of Consultation: Jul 13, 2017. 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 Patient with chronic neutropenia. Now found to have positive cultures for Citrobacter and Klebsiella. Currently being treated with IV cefepime with decrease in temperature and improvement in mental status. Denies any flank or abdominal pain currently. Tolerating antibiotic without apparent difficulty. follow-up blood and urine cultures are pending. Past Medical/Surgical History Medical Problems: (1) Dehydration Status: Acute (2) Ear canal abrasion Status: Acute (3) Influenza A Status: Acute (4) Low back pain Status: Acute (5) Lumbar spine strain Status: Acute (6) Nasal bleeding Status: Acute (7) Neutropenic fever Status: Acute (8) Pancytopenia Status: Acute (9) Rib contusion Status: Acute (10) Thrombocytopenia Status: Acute (11) Thrombocytopenia Status: Acute Medical Problems: (1) Anemia (2) Atrial fibrillation (3) Complicated UTI (urinary tract infection) (4) COPD (chronic obstructive pulmonary disease) (5) Coronary Atherosclerosis Of [place]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 (6) Hypertension Nos (7) Hypothyroidism Nos (8) ITP (idiopathic thrombocytopenic purpura) (9) Myalgia and myositis (10) Osteoporosis Nos (11) Pancytopenia (12) Premature atrial contractions (13) Pulmonary nodules (14) UTI (urinary tract infection) Surgical Problems: (1) History of cataract surgery (2) S/P hernia repair (3) S/P hysterectomy (4) S/p repair of cystocele (5) S/P tonsillectomy and adenoidectomy Family History Asthma DAUGHTER Social History Smoking Status: Never Smoker Drug Use: none Marital Status: single Housing Status: lives with family Occupation Status: retired Allergies Coded Allergies: Iodinated Diagnostic Agents (Verified Allergy, Intermediate, HIVES WITH IVP DYE, 07/11/17) Sulfa Antibiotics (Verified Allergy, Intermediate, RASH, 07/11/17) Amoxicillin (Verified Allergy, Mild, RASH, Zosyn tolerated [id number] ADM, 07/11/17) Clavulanic Acid (Verified Allergy, Mild, RASH, Zosyn tolerated [id number] ADM, 07/11/17) Codeine (Verified Adverse Reaction, Intermediate, NAUSEA/VOMITING, ) Morphine (Verified Adverse Reaction, Intermediate, NAUSEA/VOMITING, ) Oxycodone (Verified Adverse Reaction, Intermediate, NAUSEA/VOMITING, 07/11) Rofecoxib (Verified Adverse Reaction, Intermediate, PALPITATIONS, 07/11/17 ) Morphine and Related (Verified Adverse Reaction, Mild, GI SYMPTOMS, ) Current Inpatient Medications Current Inpatient Medications Medications (Trade) Dose Ordered Sig/Giuseppe Route Start Time Stop Time Status Last Admin Dose Admin Acetaminophen (Tylenol Tab) 650 mg Q4H PRN PO 07/12/17 00:45 08/11/17 00:44 07/13/17 12:40 650 MG Prochlorperazine Edisylate 5 mg/ Syringe 5 ml @ 5 mls/min Q6H PRN IV 07/12/17 00:45 08/11/17 00:44 07/12/17 17:06 5 MLS/MIN Alprazolam (Xanax Tab) 1 mg BID PO 07/12/17 08:00 08/11/17 08:59 07/13/17 09:07 1 MG Fluticasone Propionate (Flonase Nasal [place]) 2 sprays DAILY NA 07/12/17 08:00 08/11/17 08:59 Levalbuterol (Xopenex Hfa Inhaler) 1 puffs BID INH 07/12/17 08:00 08/11/17 08:59 07/13/17 09:04 1 PUFFS Levothyroxine Sodium (Synthroid Tab) 75 mcg QD@16 PO 07/12/17 16:00 08/11/17 15:59 07/13/17 16:06 75 MCG Metoprolol Succinate (Toprol Xl Tab) 50 mg BID PO 07/12/17 08:00 08/11/17 08:59 07/13/17 09:03 50 MG Potassium Chloride (Klor-Con Tab) 20 meq DAILY PO 07/12/17 08:00 08/11/17 08:59 07/13/17 09:04 20 MEQ Miscellaneous Information (Order Awaiting Action) 1 ea QS N/A 07/12/17 08:00 08/11/17 07:59 Pantoprazole Sodium (Protonix Tab) 40 mg DAILY PRN PO 07/12/17 00:45 08/11/17 00:44 Polyethylene (Miralax Powder Packet) 17 gm DAILY PO 07/12/17 08:00 08/11/17 08:59 07/13/17 09:04 17 GM Non-Formulary Medication (Non-Formulary Patient'S Own Med) 1 ea DAILY@0500 PO 07/12/17 05:00 08/11/17 04:59 07/13/17 04:59 1 EA Cefepime HCl (Consult) 1 ea DAILY PRN N/A 07/12/17 08:00 08/11/17 08:59 Albuterol/ Ipratropium (Duoneb) 3 ml Q2H PRN INH 07/12/17 00:45 08/11/17 00:44 Tramadol HCl (Ultram Tab) not relieved by tylenol @ Q6H PRN PO 07/12/17 01:15 08/11/17 00:44 07/12/17 08:46 50 MG Multivitamins (Multivitamin Tab) 1 tab TODAY@1200 PO 07/12/17 12:00 08/11/17 07:59 07/13/17 12:43 1 TAB Multivitamins/ Minerals (Multivitamin W/ Minerals Tab) 1 tab TODAY@1200,2000 PO 07/12/17 12:00 08/11/17 07:59 07/13/17 12:43 1 TAB Thiamine HCl (Vitamin B-1 Tab) 100 mg TODAY@1200 PO 07/12/17 12:00 08/11/17 07:59 07/13/17 12:43 100 MG Dicyclomine HCl (Bentyl Cap) 10 mg QID PRN PO 07/12/17 11:00 08/11/17 10:59 07/12/17 17:13 10 MG Cefepime HCl 2000 mg/Syringe 20 ml @ 5 mls/min Q24H IV 07/12/17 22:00 07/20/17 22:03 07/12/17 21:34 5 MLS/MIN Heparin Sodium (Porcine) (Heparin 10 Unit/ ml 5 ml Flush) 5 ml PRN PRN FLUSH 07/12/17 23:45 08/11/17 23:44 07/13/17 05:57 5 ML Diphenhydramine HCl (Benadryl Syrup) 12.5 mg DAILY PRN PO 07/13/17 11:00 08/12/17 10:59 07/13/17 12:40 12.5 MG Review of Systems Systems were reviewed and are negative except as per HPI Physical Exam Date Time Temp Pulse Resp B/P (MAP) Pulse Ox O2 Delivery O2 Flow Rate FiO2 07/13/17 16:00 95 Room Air 07/13/17 15:18 36.6 74 18 153/71 (98) 95 Room Air 07/13/17 14:15 36.7 75 18 145/70 07/13/17 13:44 37.0 73 20 146/72 07/13/17 13:15 36.7 77 20 157/83 07/13/17 13:01 36.6 76 20 145/74 07/13/17 13:00 36.6 76 20 145/74 07/13/17 12:46 36.8 82 20 161/95 07/13/17 09:52 98 Room Air 07/13/17 06:51 36.6 77 18 186/77 (113) 92 Room Air 07/13/17 00:15 Room Air 07/13/17 00:11 36.4 64 18 112/60 (77) 93 Room Air General Appearance: WD/WN, no apparent distress Head: normocephalic, atraumatic Eyes: normal inspection, EOMI, sclerae normal ENT: normal ENT inspection, pharynx normal Neck: supple, no adenopathy, thyroid normal, trachea midline Respiratory/Chest: chest non-tender, lungs clear, normal breath sounds, no respiratory distress Cardiovascular: regular rate, rhythm, no gallop, no murmur Abdomen/GI: normal bowel sounds, non tender, soft, no organomegaly Back: normal inspection, no CVA tenderness Extremities/Musculoskelatal: no calf tenderness, non-tender Neurologic/Psych: alert, oriented x 3 Skin: normal color, warm/dry, no rash Lymphatic: no adenopathy Laboratory Results RUN DATE: 07/13/17 [facility] LAB PAGE 1 RUN TIME: 1252 Specimen Inquiry PATIENT: KARAN BARBER LOC: [id number] U # : [id number] AGE/SX: 87/F ROOM: [facility] REG : 07/12/[address]: Koko Metzger MD : [id number] BED: 2 DIS : STATUS: ADM IN TLOC: SPEC #: [id number] LIZBETH: 07/12/17-UNK STATUS: RES REQ #: [id number] RECD: 07/12/17-[address]: Archie Carrera M.D. SOURCE: UR, CC ENTR: 07/12/17-[address]: Shashank Hill MD [facility] [place]: Harvey Louis MD Oesterling, Brett, M.D. Panlilio, Robin A., MD Pathak, Priyanka M.D. ORDERED: CULTURE URCLEAN Procedure Result Verified Site URINE CULTURE Preliminary 07/13/17-1252 PIN-POINT GROWTH PRESENT, REINCUBATING. Last 24 Hours Test 07/13/17 06:01 07/13/17 10:42 White Blood Count 0.81 K/uL Red Blood Count 2.48 M/uL Hemoglobin 7.1 g/dL Hematocrit 20.3 % Mean Corpuscular Volume 81.9 fL Mean Corpuscular Hemoglobin 28.6 pg Mean Corpuscular Hemoglobin Concent 35.0 g/dl Platelet Count 14 K/uL Mean Platelet Volume 7.6 fL Neutrophils (%) (Auto) 14.8 % Lymphocytes (%) (Auto) 82.7 % Monocytes (%) (Auto) 2.5 % Eosinophils (%) (Auto) 0.0 % Basophils (%) (Auto) 0.0 % Neutrophils # (Auto) 0.12 K/uL Lymphocytes # (Auto) 0.67 K/uL Monocytes # (Auto) 0.02 K/uL Eosinophils # (Auto) 0.00 K/uL Basophils # (Auto) 0.00 K/uL RDW Standard Deviation 40.0 fL RDW Coefficient of Variation 13.5 % Immature Granulocyte % (Auto) 0.0 % Immature Granulocyte # (Auto) 0.00 K/uL Sodium Level 134 mmol/L Potassium Level 4.4 mmol/L Chloride Level 101 mmol/L Carbon Dioxide Level 29 mmol/L Anion Gap 4.0 mmol/L Blood Urea Nitrogen 18 mg/dl Creatinine 0.40 mg/dl Est Creatinine Clear Calc Drug Dose 97.4 ml/min Estimated GFR () 109.3 Estimated GFR (Non- 94.3 BUN/Creatinine Ratio 46.0 Random Glucose 139 mg/dl Calcium Level 8.3 mg/dl Magnesium Level 2.0 mg/dl [~ rep ct add3]] CHEST ONE VIEW PORTABLE CLINICAL HISTORY: Sepsis. COMPARISON STUDY: Chest CT May 13, 2017 and chest radiograph May 30, 2017. FINDINGS: There is no pneumothorax. Pulmonary vascularity is normal. Cardiomediastinal silhouette is stable. A moderate size right pleural effusion with associated airspace opacity is similar to exam of May 30, 2017. A left sided PICC is in place. IMPRESSION: 1. No significant change in a moderate size right pleural effusion with associated right basilar opacity. 2. No evidence of pulmonary edema. Electronically signed by: Hernando Frye M.D. 07/11/2017 10:10 PM Dictated Date/Time: 07/11/2017 10:04 PM Assessment & Plan 87-year-old female with aplastic anemia, significant neutropenia, on chemotherapy, now presents with recurrent urinary tract infection with Klebsiella and Citrobacter. Current treatment with IV cefepime should provide adequate coverage, hopefully can transition to oral antibiotic therapy, likely was cefdinir, in near future depending on clinical response. Will follow.
[2017-07-13 18:20] LABS: HEMATOCRIT 26.5 % (37-47); MEAN CORPUSCULAR HEMOGLOBIN 28.8 pg (25-34); MEAN CORPUSCULAR HGB CONC 35.1 g/dl (32-36); MEAN PLATELET VOLUME 8.5 fL (7.4-10.4); PLATELET COUNT 13 K/uL (130-400); RED BLOOD COUNT 3.23 M/uL (4.2-5.4); WHITE BLOOD COUNT 0.93 K/uL (4.8-10.8)
[2017-07-13 19:07] LABS: TOXIC GRANULATION 1+
[2017-07-13 19:08] LABS: COMPLETE YES; LYMPH ABS # 0.81 K/uL (1.2-3.4); LYMPHOCYTE % 87.2 %; METAMYELOCYTE % 0.4 %
[2017-07-13] MEDS: CEFEPIME IV 2,000 MG in SYRINGE 7.5 ML IV SCH (21:32)
[2017-07-14] VITALS (9 sets, daily range): BP systolic 150–190; BP diastolic 60–96; PULSE 65–90; TEMP 36.4–37.1; O2SAT 93–97
[2017-07-14] MEDS: PROMACTA PO SCH (05:00)
[2017-07-14] MEDS: RESTASIS~ORDER AWAITING ACTION SCH ×2 (08:00→15:36)
[2017-07-14 08:32] LABS: HEMATOCRIT 24.8 % (37-47); MEAN CELL VOLUME 81.3 fL (80-100); MEAN CORPUSCULAR HEMOGLOBIN 28.5 pg (25-34); MEAN CORPUSCULAR HGB CONC 35.1 g/dl (32-36); MEAN PLATELET VOLUME 7.5 fL (7.4-10.4); PLATELET COUNT 7 K/uL (130-400); RED BLOOD COUNT 3.05 M/uL (4.2-5.4); WHITE BLOOD COUNT 0.85 K/uL (4.8-10.8)
[2017-07-14 08:33] LABS: BUN/CREATININE RATIO 36.9 (10-20); CALCIUM 8.7 mg/dl (8.5-10.1); CREATININE 0.4 mg/dl (0.60-1.20); MAGNESIUM 1.9 mg/dl (1.8-2.4)
[2017-07-14 08:38] LABS: DOHLE BODIES 1+; PLT ESTIMATE SIGNIFIC DECREASED
[2017-07-14 08:40] LABS: COMPLETE YES; LYMPHOCYTE % 59.3 %; NEUTROPHILS % 12.4 %; VARIANT LYM ABS # 0.24 K/uL; VARIANT LYMPHOCYTE % 28.3 %
[2017-07-14] MEDS: METOPROLOL SUCC 50MG EXT REL TAB PO SCH (08:54)
[2017-07-14] MEDS: LEValbuterol HFA 15GM INHALER INH SCH (08:55)
[2017-07-14] MEDS: FLUTICASONE PROPIONATE NA SPR 16 GM BTL SCH (08:57)
[2017-07-14] MEDS: POTASSIUM CHLORIDE 20 MEQ TABCR PO SCH (08:58)
[2017-07-14] MEDS: POLYETHYLENE (MIRALAX) 17 GM PACK PO SCH (08:59)
[2017-07-14] MEDS: ALPRAZOLAM 0.5 MG TAB PO SCH (09:01)
[2017-07-14] MEDS: DiphenhydrAMINE HCL 12.5MG/5 ML UDC PO PRN (09:03)
[2017-07-14] MEDS: ACETAMINOPHEN 325 MG TAB PO PRN (09:05)
[2017-07-14] MEDS ORDERED: CEFEPIME IV 2,000 MG in SYRINGE 7.5 ML IV SCH (11:30)
[2017-07-14] MEDS: CEROVITE ADV FORMULA TAB PO SCH (12:19)
[2017-07-14] MEDS: MULTIVITAMIN TAB PO SCH (12:19)
[2017-07-14] MEDS ORDERED: BENZONATATE 100MG CAP PO ONE (12:44)
[2017-07-14] MEDS ORDERED: FUROSEMIDE 20 MG TAB PO SCH (12:45)
[2017-07-14] MEDS ORDERED: BENZONATATE 100MG CAP PO PRN (12:45)
[2017-07-14] MEDS ORDERED: NYSTATIN SUSP 500,000 U/5 ML UDC PO SCH (13:00)
[2017-07-14] MEDS: THIAMINE HCL 100 MG TAB PO SCH (13:23)
[2017-07-14] MEDS: NYSTATIN SUSP 500,000 U/5 ML UDC PO SCH ×2 (14:39→17:18)
[2017-07-14] MEDS: LEVOTHYROXINE 75 MCG TAB PO SCH (16:05)
--- NOTE | 2017-07-14 17:23 | Progress Note ---
Medicine Progress Note Date & Time of Visit: Jul 14, 2017 at 17:15. Subjective patient seen sitting up in bed, comfortable states she feels much better denies abdominal pain, nausea, problems with urination, fever/chills denies shortness of breath, chest pain, dizziness ambulating with no problems no bleeding has dry cough, occasional no other symptoms states she is ready and would like to be discharged today Objective Last 8 Hrs Date Time Temp Pulse Resp B/P (MAP) Pulse Ox O2 Delivery O2 Flow Rate FiO2 07/14/17 17:02 36.6 86 18 97 Room Air 07/14/17 10:47 36.6 86 168/81 07/14/17 10:34 37.0 65 18 160/60 07/14/17 10:15 37.1 73 20 162/73 07/14/17 09:50 36.4 81 20 159/68 07/14/17 09:35 36.5 90 18 187/96 97 Physical Exam: General- oriented x 3, not in distress, speaks in sentences with no effort Eyes- anicteric ENT- (+) oral thrush Neck- no JVD Lungs- clear breath sounds bilaterally, no rales, no wheezing Heart- regular rhythm; no murmur, normal rate Abdomen- normal bowel sounds, non distended, soft, nontender Extremities- no pretibial edema, no calf tenderness Neuro- alert, oriented x 3; hard of hearing, otherwise , no gross focal deficits Skin- warm & dry Laboratory Results: Last 24 Hours Test 07/13/17 17:36 07/14/17 07:57 White Blood Count 0.93 K/uL 0.85 K/uL Red Blood Count 3.23 M/uL 3.05 M/uL Hemoglobin 9.3 g/dL 8.7 g/dL Hematocrit 26.5 % 24.8 % Mean Corpuscular Volume 82.0 fL 81.3 fL Mean Corpuscular Hemoglobin 28.8 pg 28.5 pg Mean Corpuscular Hemoglobin Concent 35.1 g/dl 35.1 g/dl Platelet Count 13 K/uL 7 K/uL Mean Platelet Volume 8.5 fL 7.5 fL RDW Standard Deviation 39.8 fL 39.2 fL RDW Coefficient of Variation 13.2 % 13.3 % Neutrophils % (Manual) 8.0 % 12.4 % Lymphocytes % (Manual) 87.2 % 59.3 % Monocytes % (Manual) 4.4 % Metamyelocytes % 0.4 % Neutrophils # (Manual) 0.07 K/uL 0.11 K/uL Total Absolute Neutrophils 0.07 K/uL 0.11 K/uL Lymphocytes # (Manual) 0.81 K/uL 0.50 K/uL Total Absolute Lymphocytes 0.81 K/uL 0.74 K/uL Monocytes # (Manual) 0.04 K/uL Metamyelocytes # 0.00 K/uL Toxic Granulation 1+ Variant Lymphocytes % (manual) 28.3 % Absolute Variant Lymphocytes 0.24 K/uL Dohle Bodies 1+ Platelet Estimate SIGNIFIC DECREASED Sodium Level 136 mmol/L Potassium Level 4.0 mmol/L Chloride Level 101 mmol/L Carbon Dioxide Level 28 mmol/L Anion Gap 7.0 mmol/L Blood Urea Nitrogen 15 mg/dl Creatinine 0.40 mg/dl Est Creatinine Clear Calc Drug Dose 97.4 ml/min Estimated GFR () 109.3 Estimated GFR (Non- 94.3 BUN/Creatinine Ratio 36.9 Random Glucose 134 mg/dl Calcium Level 8.7 mg/dl Magnesium Level 1.9 mg/dl Assessment & Plan Recurrent UTI Neutropenia -- History of Recurrent UTI- Citrobacter -- Outpatient Urine Cx: Urine culture from [facility] (07/09/17) (+) Citrobacter > 100k Sens: Cefepime Ceftri Nitrofurantoin I: Levofloxacin R: Cipro, Genta, Tobra, Bactrim (+) Klebsiella > 100k Sens: Cefepime, Ceftri, Cipro, Genta Nitrofurantoin Bactrim I: Ampi/Sul R: Ampicillin, -- Failed outpatient treatment with Cipro no sepsis -- afebrile WBC 1.06--> 0.8 -- clinically improving -- repeat urine culture: no growth blood cultures: no growth so far -- given Cefepime x [address] Hill- recommend to transition to Cefnidir BID x 10 more days, then daily ff up with Dr. Hill in 1-2 weeks 2. 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 -- discussed with Dr. Louis recommend to continue Promacta -- WBC 1.06 --> 0.8 Hg 7.6 --> 7.1--> given 1 unit pRBC --> 0.87 Plt 26 --> 14--> 7--> given 2 units plt -- repeat CBC on Friday c/o Hem/Onc Clinic continue Promacta, Neupogen 3. Hypertension -- continue Metoprolol -- monitor 5. Hypokalemia secondary to diuretics . -- resolved 6. PAF, px NSR off anticoagulation because of thrombocytopenia continue Metoprolol 7. History of CHF Diastolic -- Held off on Lasix as patient seemed to be on the dry side -- decrease Lasix to 20mg every other day monitor as outpatient 8. Oral Thrush -- Nystatin DVT prophylaxis, SCDs. RE Thrombocytopenia, Code status : Level 3. (Okay with CPR. No intubation.) Dispo: d/c home ff up with PCP in 1 week ff up with ID Dr. Hill in 1-2 weeks ff up with Hem/Onc as scheduled Current Inpatient Medications: Current Inpatient Medications Medications (Trade) Dose Ordered Sig/Giuseppe Route Start Time Stop Time Status Last Admin Dose Admin Acetaminophen (Tylenol Tab) 650 mg Q4H PRN PO 07/12/17 00:45 08/11/17 00:44 07/14/17 09:05 650 MG Prochlorperazine Edisylate 5 mg/ Syringe 5 ml @ 5 mls/min Q6H PRN IV 07/12/17 00:45 08/11/17 00:44 07/12/17 17:06 5 MLS/MIN Alprazolam (Xanax Tab) 1 mg BID PO 07/12/17 08:00 08/11/17 08:59 07/14/17 09:01 1 MG Fluticasone Propionate (Flonase Nasal [place]) 2 sprays DAILY NA 07/12/17 08:00 08/11/17 08:59 07/14/17 08:57 2 SPRAYS Levalbuterol (Xopenex Hfa Inhaler) 1 puffs BID INH 07/12/17 08:00 08/11/17 08:59 07/14/17 08:55 1 PUFFS Levothyroxine Sodium (Synthroid Tab) 75 mcg QD@16 PO 07/12/17 16:00 08/11/17 15:59 07/14/17 16:05 75 MCG Metoprolol Succinate (Toprol Xl Tab) 50 mg BID PO 07/12/17 08:00 08/11/17 08:59 07/14/17 08:54 50 MG Potassium Chloride (Klor-Con Tab) 20 meq DAILY PO 07/12/17 08:00 08/11/17 08:59 07/14/17 08:58 20 MEQ Miscellaneous Information (Order Awaiting Action) 1 ea QS N/A 07/12/17 08:00 08/11/17 07:59 Pantoprazole Sodium (Protonix Tab) 40 mg DAILY PRN PO 07/12/17 00:45 08/11/17 00:44 07/13/17 17:14 40 MG Polyethylene (Miralax Powder Packet) 17 gm DAILY PO 07/12/17 08:00 08/11/17 08:59 07/14/17 08:59 17 GM Non-Formulary Medication (Non-Formulary Patient'S Own Med) 1 ea DAILY@0500 PO 07/12/17 05:00 08/11/17 04:59 07/14/17 05:00 1 EA Cefepime HCl (Consult) 1 ea DAILY PRN N/A 07/12/17 08:00 08/11/17 08:59 Albuterol/ Ipratropium (Duoneb) 3 ml Q2H PRN INH 07/12/17 00:45 08/11/17 00:44 Tramadol HCl (Ultram Tab) not relieved by tylenol @ Q6H PRN PO 07/12/17 01:15 08/11/17 00:44 07/12/17 08:46 50 MG Multivitamins (Multivitamin Tab) 1 tab TODAY@1200 PO 07/12/17 12:00 08/11/17 07:59 07/14/17 12:19 1 TAB Multivitamins/ Minerals (Multivitamin W/ Minerals Tab) 1 tab TODAY@1200,2000 PO 07/12/17 12:00 08/11/17 07:59 07/14/17 12:19 1 TAB Thiamine HCl (Vitamin B-1 Tab) 100 mg TODAY@1200 PO 07/12/17 12:00 08/11/17 07:59 07/14/17 13:23 100 MG Dicyclomine HCl (Bentyl Cap) 10 mg QID PRN PO 07/12/17 11:00 12/18/17 10:59 07/12/17 17:13 10 MG Heparin Sodium (Porcine) (Heparin 10 Unit/ ml 5 ml Flush) 5 ml PRN PRN FLUSH 07/12/17 23:45 08/11/17 23:44 07/14/17 07:58 5 ML Diphenhydramine HCl (Benadryl Syrup) 12.5 mg DAILY PRN PO 07/13/17 11:00 08/12/17 10:59 07/14/17 09:03 12.5 MG Cefepime HCl 2000 mg/Syringe 20 ml @ 5 mls/min Q12@1000,2200 IV 07/14/17 11:30 07/20/17 11:29 07/14/17 12:19 5 MLS/MIN Benzonatate (Tessalon Perles Cap) 100 mg TID PRN PO 07/14/17 12:45 08/13/17 12:44 Furosemide (Lasix Tab) 20 mg Q2D@0900 PO 07/14/17 12:45 08/13/17 12:44 07/14/17 14:40 20 MG Nystatin (Mycostatin Susp) 5 ml QID PO 07/14/17 13:00 07/24/17 12:59 07/14/17 14:39 5 ML Non-Formulary Medication (Filgrastim (Neupogen)) 400 mcg 2XWK SQ 07/14/17 16:45 08/13/17 16:44 UNV
[2017-07-14] MEDS ORDERED: FILGRASTIM 480 MCG/1.6 ML VIAL SQ SCH (17:30)
[2017-07-14] MEDS ORDERED: FILGRASTIM SQ SCH (17:30)
[2017-07-14] MEDS ORDERED: CEFD300C2 PO (17:35)
[2017-07-14] MEDS ORDERED: BENZ100C7 PO (17:36)
[2017-07-14] MEDS ORDERED: LSX20 PO (17:36)
[2017-07-14] MEDS ORDERED: NYSS5 PO (17:36)
--- NOTE | 2017-07-14 17:45 | Discharge Instructions ---
Discharge Instructions Date of Service Jul 14, 2017. Admission Reason for Admission: Complicated [place] Discharge Discharge Diagnosis / Problem: RECURRENT URINARY TRACT INFECTION Discharge Goals Goal(s): Diagnostic testing, Therapeutic intervention Activity Recommendations Activity Limitations: as noted below (RESUME ACTIVITY GRADUALLY TOLERATED) . Instructions / Follow-Up Instructions / Follow-Up PLEASE REVIEW YOUR NEW MEDICATION LIST AND FOLLOW INSTRUCTIONS CAREFULLY. TAKE YOGURT OR A PROBIOTIC DAILY TO PREVENT DIARRHEA WHILE ON ANTIBIOTICS. CALL YOUR PRIMARY CARE PHYSICIAN OR RETURN TO THE ER IMMEDIATELY IF WITH RECURRENCE OF SYMPTOMS, FEVER/CHILLS, WEAKNESS, NAUSEA, ABDOMINAL PAIN, SHORTNESS OF BREATH, INCREASING COUGH, LEG SWELLING. FOLLOW UP WITH DR. AGUILERA IN 1 WEEK (CLINIC TO CALL PATIENT WITH APPOINTMENT ). FOLLOW UP WITH INFECTIOUS DISEASE SPECIALIST DR. SPEAR IN 1-2 WEEKS.TEL. NO. [phone] BLANCAS SCHEDULED. Current Hospital Diet Patient's current hospital diet: AHA Diet (Heart Healthy) Discharge Diet Recommended Diet: AHA Diet (Heart Healthy) Fluid Restriction: 2000 ml (8 cups) Procedures Procedures Performed: CHES XRAY Pending Studies Studies pending at discharge: no Medical Emergencies . Who to Call and When: Medical Emergencies: If at any time you feel your situation is an emergency, please call 911 immediately. . Non-Emergent Contact Non-Emergency issues call your: Primary Care Provider, Specialist (SHORE WORKING SUPERVISOR ) Call Non-Emergent contact if: you have a fever, you have any medication questions . . "Provider Documentation" section prepared by Koko Metzger. . VTE Core Measure Inpt VTE Proph given/why not?: SCD's
--- NOTE | 2017-07-14 17:52 | Discharge Summary ---
Discharge Summary Date of Service Jul 14, 2017. Discharge Summary Admission Date: Jul 12, 2017 at 00:19 Discharge Date: Jul 14, 2017 Discharge Disposition: Home Principal Diagnosis: Recurrent UTI in the setting of Neutropenia Secondary Diagnoses/Problems: Please refer to hospital course below. Procedures: pRBC transfusion x 1; platelet transfusion x 2 Consultations: Hem/Onc Dr. Louis; ID Pending Studies/Follow-Up: Please refer to hospital course below. Medication Reconciliation New Medications: Cefdinir (Omnicef) 300 Mg Cap 1 CAP PO UD for 20 Days, #30 CAP 1 Refill take 1 cap po BID x 10 days, then take 1 cap po daily Benzonatate (Benzonatate) 100 Mg Cap 100 MG PO TID PRN for Cough for 7 Days, #21 CAP 0 Refills Furosemide (Furosemide) 20 Mg Tab 20 MG PO Q2D@0900 for 30 Days, #15 TAB 1 Refill Nystatin (Nystatin) 5 Ml Susp 5 ML PO QID for 7 Days, #140 ML 1 Refill Continued Medications: Acetaminophen (Mapap) 325 Mg Tab 650 MG PO Q4H PRN for Pain or Fever for 10 Days, #80 TAB Alprazolam (Xanax) 1 Mg Tab 1 MG PO BID Cholecalciferol (Vitamin D 400 Iu) 400 Unit Cap 400 INTER.UNIT PO BID, CAP Cranberry (Vaccinium Macrocarp (Cranberry) 125 Mg Tab 1 TAB PO DAILY Cyclosporine (Ophth) (Restasis) 0.05 % Emu 1 DROP OPB DAILY, #60 Dicyclomine Hcl (Bentyl) 10 Mg Cap 10 MG PO QID PRN for abdominal pain, CAP Diphenhydramine HCl (Diphenhydramine HCl) 25 Mg Cap 25 MG PO DAILY PRN for PRIOR TO PLATELET TRANSUFUSION for 10 Days, #10 CAP Eltrombopag Olamine (Promacta) 12.5 Mg Tab 75 MG PO DAILY Esomeprazole Magnesium (Nexium) 40 Mg Capcr 40 MG PO DAILY PRN for Heartburn Filgrastim (Neupogen) Unknown Strength Inj 400 MCG SQ 2XWK Levalbuterol Tartrate (Levalbuterol Tartrate Hfa) 45 Mcg/Act Aer 1 PUFF PO BID Levothyroxine Sodium (Levothyroxine Sodium) 75 Mcg Tab 75 MCG PO DAILY Loratadine (Claritin) 10 Mg Tab 10 MG PO 2XWK, TAB Magnesium Oxide (Mag-Ox) 400 Mg Tab 400 MG PO DAILY, TAB Metoprolol Succinate (Metoprolol Succinate ER) 50 Mg Tabcr 50 MG PO BID Multiple Vitamin (Multivitamin) 1 Tab Tab 1 TAB PO DAILY, TAB Ocuvite Preservision (Ocuvite Preservision) 1 Tab Tab 1 TAB PO BID, 0 Refills Polyethylene Glycol 3350 (Polyethylene Glycol 3350) 1 Pow Pow 17 GM PO DAILY DISSOLVE IN 8 OZ LIQUID DAILY. Potassium Ext Rel (Klor-Con) 20 Meq Tabcr 20 MEQ PO DAILY, TAB Thiamine Hcl (Vitamin B-1) 100 Mg Tab 100 MG PO DAILY, TAB Tramadol (Ultram) 50 Mg Tab 50 MG PO Q6 PRN for Pain, TAB Discontinued Medications: Fluticasone Propionate (Nasal) (Flonase Allergy Relief) 50 Mcg/Act Spr 2 SPRAYS INTNAS DAILY Furosemide (Lasix) 40 Mg Tab 40 MG PO DAILY, TAB [Cefepime Consult Active] () 1 EA MISC 1 EA N/A UD PRN for Consult for 10 Days Admission Information HPI (per Admitting provider): CHIEF COMPLAINT: Chills. HISTORY OF PRESENT ILLNESS: History obtained from patient, patient's daughter, and records. Medical history significant for chronic pancytopenia secondary to aplastic anemia, hypertension, PAF off anticoagulation, chronic left bundle block, history IBS, peripheral vascular disease, history of MRSA, hx incomplete bladder emptying as per records. Recent [facility] confinement from 05/30/2017 to 06/01/2017 for pancytopenia. Patient subsequently transferred to [facility]. Admitted at [facility] from 06/01/2017 to 06/11/2017. Citrobacter UTI treated with Ertapenem. She had a bone marrow biopsy consistent with aplastic anemia. Outpatient followup with her [facility] Plate Take Out Worker about 2 weeks ago. Started on Promacta daily for aplastic anemia. As per note, she may be candidate for antithymocyte globulin, chemotherapy - Promacta to be done first in consideration off patient age, comorbidities, and frailty. Twice weekly CBC and as needed transfusions as per local keypunch operators supervisor's office. Last few days, patient noted bladder discomfort. No hematuria. No flank pain. Seen at PCP's office. She started on Cipro. Initial urine growing gram negative rods, lactose fermenting, Patient compliant with antibiotic prescription. A few hours ago around dinnertime last night, patient noted to have chills, scratchy throat, temperature was 100.2 at home, minimal abdominal discomfort, achy. Some nausea. No vomiting. No chest pain, no shortness of breath, no cough symptoms. Patient sent [place] [facility] keypunch operators supervisor staff weapons officer to the ER for further evaluation. Patient brought to the Emergency Room. Given IV cefepime in the ER. Physical Exam (per Admitting): VITAL SIGNS: Blood pressure noted to be 140/67, pulse rate 92, RR 16, temperature 37.1, sats 98 on room air. GENERAL: Noted to be slightly anxious, no respiratory distress. SKIN: Pallor, warm. HEENT: Pale palpebral conjunctivae. No ptosis. Dry buccal mucosa. NECK: Short neck. No tenderness. LUNGS: Decreased breath sounds. No tenderness. CV: Regular rate and rhythm. Palpable LE pulses. ABDOMEN: Some distention, nontender. EXTREMITIES: Minimal LE edema, no tenderness. No gross deformities. NEUROLOGIC: Coherent. No gross focality. Hospital Course Recurrent UTI Neutropenia -- History of Recurrent UTI- Citrobacter -- Outpatient Urine Cx: Urine culture from [facility] (07/09/17) (+) Citrobacter > 100k Sens: Cefepime Ceftri Nitrofurantoin I: Levofloxacin R: Cipro, Genta, Tobra, Bactrim (+) Klebsiella > 100k Sens: Cefepime, Ceftri, Cipro, Genta Nitrofurantoin Bactrim I: Ampi/Sul R: Ampicillin, -- Failed outpatient treatment with Cipro no sepsis -- afebrile WBC 1.06--> 0.8 -- clinically improved overall -- repeat urine culture: no growth blood cultures: no growth so far -- given Cefepime x [address] Hill- recommend to transition to Cefnidir BID x 10 more days, then daily for suppressive therapy ff up with Dr. Hill in 1-2 weeks 2. 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 -- discussed with Dr. Louis recommend to continue Promacta -- WBC 1.06 --> 0.8 Hg 7.6 --> 7.1--> given 1 unit pRBC --> 8.7 Plt 26 --> 14--> 7--> given 2 units plt -- repeat CBC on Friday c/o Hem/Onc Clinic continue Promacta, Neupogen 3. Hypertension -- continue Metoprolol -- monitor 5. Hypokalemia secondary to diuretics . -- resolved 6. PAF, px NSR off anticoagulation because of thrombocytopenia continue Metoprolol 7. History of CHF Diastolic -- Held off on Lasix as patient seemed to be on the dry side -- decrease Lasix to 20mg every other day monitor as outpatient 8. Oral Thrush -- Nystatin DVT prophylaxis, SCDs. RE Thrombocytopenia, Code status : Level 3. (Okay with CPR. No intubation.) Dispo: d/c home ff up with PCP in 1 week ff up with ID Dr. Hill in 1-2 weeks ff up with Hem/Onc as scheduled Total time spent on discharge = 50 minutes This includes examination of the patient, discharge planning, medication reconciliation, and communication with other providers. Discharge Instructions Discharge Instructions Date of Service Jul 14, 2017. Admission Reason for Admission: Complicated Utui Discharge Discharge Diagnosis / Problem: RECURRENT URINARY TRACT INFECTION Discharge Goals Goal(s): Diagnostic testing, Therapeutic intervention Activity Recommendations Activity Limitations: as noted below (RESUME ACTIVITY GRADUALLY TOLERATED) . Instructions / Follow-Up Instructions / Follow-Up PLEASE REVIEW YOUR NEW MEDICATION LIST AND FOLLOW INSTRUCTIONS CAREFULLY. TAKE YOGURT OR A PROBIOTIC DAILY TO PREVENT DIARRHEA WHILE ON ANTIBIOTICS. CALL YOUR PRIMARY CARE PHYSICIAN OR RETURN TO THE ER IMMEDIATELY IF WITH RECURRENCE OF SYMPTOMS, FEVER/CHILLS, WEAKNESS, NAUSEA, ABDOMINAL PAIN, SHORTNESS OF BREATH, INCREASING COUGH, LEG SWELLING. FOLLOW UP WITH DR. AGUILERA IN 1 WEEK (CLINIC TO CALL PATIENT WITH APPOINTMENT ). FOLLOW UP WITH INFECTIOUS DISEASE SPECIALIST DR. HILL IN 1-2 WEEKS.TEL. NO. [phone] BLANCAS SCHEDULED. Current Hospital Diet Patient's current hospital diet: AHA Diet (Heart Healthy) Discharge Diet Recommended Diet: AHA Diet (Heart Healthy) Fluid Restriction: 2000 ml (8 cups) Procedures Procedures Performed: [facility] XRAY Pending Studies Studies pending at discharge: no Medical Emergencies . Who to Call and When: Medical Emergencies: If at any time you feel your situation is an emergency, please call 911 immediately. . Non-Emergent Contact Non-Emergency issues call your: Primary Care Provider, Specialist (SILK SCREEN PAINTER ) Call Non-Emergent contact if: you have a fever, you have any medication questions . . "Provider Documentation" section prepared by Koko Metzger. . VTE Core Measure Inpt VTE Proph given/why not?: SCD's
== END 2017-07-14 18:22 | disposition home or self-care (01) | DRG 690 ==
LOC: EDBD 21:24 → C.EDC 21:27 → C.MS4W 07-12 00:19 → ENRESERV 07-12 00:56
PROVIDERS: ADMIT Internal Medicine; ATTEND Internal Medicine
DX: N39.0 Urinary tract infection, site not specified (principal); D61.9 Aplastic anemia, unspecified; I50.32 Chronic diastolic (congestive) heart failure; B37.0 Candidal stomatitis; I25.10 Atherosclerotic heart disease of native coronary artery without angina pectoris; I11.0 Hypertensive heart disease with heart failure; E03.9 Hypothyroidism, unspecified; M81.0 Age-related osteoporosis without current pathological fracture; D70.9 Neutropenia, unspecified; E87.6 Hypokalemia; T50.2X5A Adverse effect of carbonic-anhydrase inhibitors, benzothiadiazides and other diuretics, initial encounter; I48.0 Paroxysmal atrial fibrillation; I44.7 Left bundle-branch block, unspecified; I73.9 Peripheral vascular disease, unspecified; Z90.710 Acquired absence of both cervix and uterus

== ENCOUNTER 2017-07-24 20:18 | Inpatient (IN) | payer OTHER, BC ==
[~2017-07-24] VITALS: Ht 162.6 cm; Wt 67.8 kg
[~2017-07-24 20:18] MED LIST changes: +BENZ100C7 PO; +CEFD300C2 PO; -CEFEPIME CONSULT ACTIVE; -FLUT0.15 INTNAS; -FRS/40 PO; -KCLP20 PO; +LSX20 PO; +NYSS5 PO; +POTA-639 PO; +THIA100T10 PO; -THIA100T11 PO
[2017-07-24] MEDS ORDERED: TYLOTC500 PO (20:44)
[2017-07-24] MEDS ORDERED: DOCU100C31 PO (20:50)
[2017-07-24] MEDS ORDERED: LEVA45AE NAE (20:56)
[2017-07-24] MEDS ORDERED: BNDL2 PO (21:02)
[2017-07-24] MEDS ORDERED: CEFEPIME IV 2,000 MG in DEXTROSE 5% 100ML 100 ML IV STA (21:08)
[2017-07-24] MEDS ORDERED: ONDANSETRON INJ 2 MG/ML 2 ML VIAL ONE (21:32)
[2017-07-24 21:33] LABS: PLATELET COUNT 24 K/uL (130-400)
[2017-07-24] MEDS ORDERED: CEFEPIME IV 2,000 MG in SYRINGE 7.5 ML IV STA (21:35)
[2017-07-24 21:38] LABS: ALBUMIN 3.5 gm/dl (3.4-5.0); ALT/SGPT 149 U/L (12-78); AST/SGOT 118 U/L (15-37); BLOOD UREA NITROGEN 16 mg/dl (7-18); CALCIUM 8.8 mg/dl (8.5-10.1); CARBON DIOXIDE 26 mmol/L (21-32); CREATININE 0.65 mg/dl (0.60-1.20); GLUCOSE 147 mg/dl (70-99); POTASSIUM 4.5 mmol/L (3.5-5.1); SODIUM 132 mmol/L (136-145)
[2017-07-24 21:40] LABS: ALKALINE PHOSPHATASE 400 U/L (45-117); TOTAL PROTEIN 7.6 gm/dl (6.4-8.2)
[2017-07-24] MEDS ORDERED: SODI0.9I55 IV. (21:40)
--- NOTE | 2017-07-24 21:54 | DIAGNOSTIC IMAGING REPORT ---
CHEST ONE VIEW PORTABLE HISTORY: Fever. Short of breath. COMPARISON: Chest 07/11/2017. FINDINGS: No change in the moderate right pleural effusion and right basilar densities. The heart is stable in size. No pneumothorax. Left PICC terminates in the SVC. Mild interstitial thickening at the left lung base also persists. IMPRESSION: No change in the moderate right pleural effusion with associated right basilar opacity. Electronically signed by: Kyree Simmons M.D. 07/24/2017 9:53 PM Dictated Date/Time: 07/24/2017 9:51 PM
[2017-07-24 22:30] LABS: HEMATOCRIT 19.3 % (37-47); HEMOGLOBIN 6.7 g/dL (12.0-16.0); MEAN CELL VOLUME 81.1 fL (80-100); MEAN CORPUSCULAR HEMOGLOBIN 28.2 pg (25-34); MEAN CORPUSCULAR HGB CONC 34.7 g/dl (32-36); MEAN PLATELET VOLUME 10.2 fL (7.4-10.4); RED CELL DISTRIBUTION WIDTH CV 13.5 % (11.5-14.5); RED CELL DISTRIBUTION WIDTH SD 39.9 fL (36.4-46.3)
[2017-07-24 22:34] LABS: LYMPH % 78.9 %; LYMPH ABS # 0.71 K/uL (1.2-3.4); MONO % 8.9 %; MONO ABS # 0.08 K/uL (0.11-0.59); NEUT % 12.2 %; NEUT ABS # 0.11 K/uL (1.4-6.5)
[2017-07-24 23:40] VITALS: BP 147/74; PULSE 81; TEMP 36.7; O2SAT 98; Ht 162.6 cm; Wt 67.8 kg
[2017-07-24] MEDS ORDERED: PANTOprazole SOD 40 MG TAB PO PRN (23:45)
[2017-07-24] MEDS ORDERED: TRAMADOL HCL 50 MG TAB PO PRN (23:45)
[2017-07-24] MEDS ORDERED: HYDROmorphone INJ 0.5 MG/0.5 ML SYR IV PRN (23:45)
[2017-07-24] MEDS ORDERED: ALPRAZOLAM 0.5 MG TAB PO STA (23:51)
[2017-07-25] VITALS (14 sets, daily range): BP systolic 101–189; BP diastolic 58–88; PULSE 65–81; TEMP 36.5–37.2; O2SAT 89–100
[2017-07-25] MEDS ORDERED: FLUCONAZOLE 100 MG TAB PO STA
[2017-07-25] MEDS ORDERED: LORATADINE 10 MG TAB PO SCH
--- NOTE | 2017-07-25 | NUR ---
Admission: Pt. admitted from ED to W453-2 at approx. 23:35. Daughter, Sherry, accompanied patient. Pt. A+Ox4. Ambulated with minimal assistance and walker from stretcher to bedside. VSS on 3 L NC. Lungs clear and diminished. Reports 3/10 pain to lower abdomen, declines pain medication at this time. No edema noted. Double lumen PICC line intact to RUE. Daughter reported to RN that patient had taken HS xanax at home previously. Daughter gave home medication Promacta to RN, RN tubed to pharmacy for labeling. Per daughter, patient to take Promacta at 0500. Pt. arrived with glasses and walker. Pt. oriented to room, call alas, and fall risk agreement. Code word and fall risk agreement paperwork signed with daughter and patient. Pt. currently resting in bed. Pt. to receive 2 units pRBCs per MD order. Will continue to monitor.
--- NOTE | 2017-07-25 00:28 | EMERGENCY ROOM VISIT NOTE ---
History Report prepared by Larry: Jeancarlos Contreras Under the Supervision of: Dr. Bebeto Self M.D. First contact with patient: 20:59 Chief Complaint: FEVER Stated Complaint: FEVER History of Present Illness The patient is a 87 year old female who presents to the Emergency Room with complaints of a constant fever that started at 1600. She rates her discomfort as a 4/10 in severity. The patient states that she has a history of aplastic anemia and had a platelet transfusion today with no problems after. She states that she started to experience a fever around 1600, which she took Tylenol for around 1745. The patient also states that she has been experiencing generalized achiness, weakness, and fatigue. She states that she has also been experiencing abdominal pain and nausea. The patient states that she currently has a headache. She admits that she was recently put on Omnicef for her history of a UTI and neutropenia. The patient is accompanied by her daughter who states that the patient had low potassium this morning, which caused her to give the patient potassium. The patient reports that she is supposed to have a red blood cell transfusion tomorrow morning. Source of History: patient, family Onset: 1600 Position: other (global) Symptom Intensity: 4/10 Quality: other (global) Timing: constant Modifying Factors (Relieving): tylenol Associated Symptoms: + headache, + nausea, + abdominal pain, + fatigue, + weakness Review of Systems See HPI for pertinent positives & negatives. A total of 10 systems reviewed and were otherwise negative. Past Medical & Surgical Medical Problems: (1) Anemia (2) Atrial fibrillation (3) Complicated UTI (urinary tract infection) (4) COPD (chronic obstructive pulmonary disease) (5) Coronary Atherosclerosis Of [place]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 (6) Hypertension Nos (7) Hypothyroidism Nos (8) ITP (idiopathic thrombocytopenic purpura) (9) Myalgia and myositis (10) Osteoporosis Nos (11) Pancytopenia (12) Premature atrial contractions (13) Pulmonary nodules (14) Sepsis (15) UTI (urinary tract infection) Surgical Problems: (1) History of cataract surgery (2) S/P hernia repair (3) S/P hysterectomy (4) S/p repair of cystocele (5) S/P tonsillectomy and adenoidectomy Family History Asthma DAUGHTER Social History Smoking Status: Never Smoker Alcohol Use: none Drug Use: none Marital Status: single Housing Status: lives with family Occupation Status: retired Current/Historical Medications Scheduled Alprazolam (Xanax), 1 MG PO BID Cefdinir (Omnicef), 1 CAP PO UD Cholecalciferol (Vitamin D 400 Iu), 400 INTER.UNIT PO DAILY Cranberry (Vaccinium Macrocarp (Cranberry), 1 TAB PO DAILY Cyclosporine (Ophth) (Restasis), 1 DROP OPB DAILY Docusate Sodium (Docusate Sodium), 100 MG PO BID Eltrombopag Olamine (Promacta), 75 MG PO DAILY Filgrastim (Neupogen), 400 MCG SQ 2XWK Furosemide (Furosemide), 20 MG PO Q2D@0900 Levalbuterol Tartrate (Levalbuterol Tartrate Hfa), 1 PUFF PO BID Levothyroxine Sodium (Levothyroxine Sodium), 75 MCG PO QPM Loratadine (Claritin), 10 MG PO 2XWK Magnesium Oxide (Mag-Ox), 400 MG PO DAILY Metoprolol Succinate (Metoprolol Succinate ER), 50 MG PO BID Multiple Vitamin (Multivitamin), 1 TAB PO DAILY Nystatin (Nystatin), 5 ML PO QID Ocuvite Preservision (Ocuvite Preservision), 1 TAB PO BID Polyethylene Glycol 3350 (Polyethylene Glycol 3350), 17 GM PO DAILY Potassium Ext Rel (Klor-Con), 20 MEQ PO DAILY Sodium Chloride Flush (Normal Saline Flush), 10 ML IV. TID Thiamine Hcl (Vitamin B-1), 100 MG PO DAILY Tramadol (Ultram), 50 MG PO TID Scheduled PRN Acetaminophen (Tylenol), 500-1,000 MG PO DAILY PRN for Pain or Fever Dicyclomine Hcl (Bentyl), 10 MG PO QID PRN for abdominal pain Diphenhydramine Hcl (Benadryl Syrup), 15 ML PO DAILY PRN for PRN Esomeprazole Magnesium (Nexium), 40 MG PO DAILY PRN for Heartburn Allergies Coded Allergies: Iodinated Diagnostic Agents (Verified Allergy, Intermediate, HIVES WITH IVP DYE, 07/24/17) Sulfa Antibiotics (Verified Allergy, Intermediate, RASH, 07/24/17) Amoxicillin (Verified Allergy, Mild, RASH, Zosyn tolerated [id number] ADM, 07/24/17) Clavulanic Acid (Verified Allergy, Mild, RASH, Zosyn tolerated [id number] ADM, 07/24/17) Codeine (Verified Adverse Reaction, Intermediate, NAUSEA/VOMITING, ) Morphine (Verified Adverse Reaction, Intermediate, NAUSEA/VOMITING, ) Oxycodone (Verified Adverse Reaction, Intermediate, NAUSEA/VOMITING, 07/24) Rofecoxib (Verified Adverse Reaction, Intermediate, PALPITATIONS, 07/24/17 ) Morphine and Related (Verified Adverse Reaction, Mild, GI SYMPTOMS, ) Physical Exam Vital Signs Date Time Temp Pulse Resp B/P (MAP) Pulse Ox O2 Delivery O2 Flow Rate FiO2 07/24/17 22:10 98 22 147/65 96 Nasal Cannula 2.0 07/24/17 20:39 109 07/24/17 20:30 98 Nasal Cannula 2.0 07/24/17 20:20 38.0 108 22 196/93 91 Room Air Physical Exam Constitutional: Vital signs reviewed. Eyes: Pupils are equal round reactive to light. Conjunctiva are noninjected. ENT: Pharynx is clear without erythema or exudate. Mucous membranes are moist. Neck supple without meningeal signs. Respiratory: Clear to auscultation bilaterally. Breath sounds are equal bilaterally. Cardiovascular: Tachycardic with a heart rate of 108. Regular rhythm. No rubs or gallops. GI: Soft, nondistended and nontender. Bowel sounds are present. Musculoskeletal: No lower extremity tenderness. Integumentary: No cyanosis. Neurological: The patient is awake and alert. No focal deficits. Psychiatric: Normal affect. Medical Decision & Procedures ER Provider Diagnostic Interpretation: X-ray results as stated below per interpretation by me and the radiologist: CHEST ONE VIEW PORTABLE HISTORY: Fever. Short of breath. COMPARISON: Chest 07/11/2017. FINDINGS: No change in the moderate right pleural effusion and right basilar densities. The heart is stable in size. No pneumothorax. Left PICC terminates in the SVC. Mild interstitial thickening at the left lung base also persists. IMPRESSION: No change in the moderate right pleural effusion with associated right basilar opacity. Electronically signed by: Kyree Simmons M.D. 07/24/2017 9:53 PM Dictated Date/Time: 07/24/2017 9:51 PM Laboratory Results 07/24/17 20:30 Red Blood Count 2.38, Mean Corpuscular Volume 81.1, Mean Corpuscular Hemoglobin 28.2, Mean Corpuscular Hemoglobin Concent 34.7, Mean Platelet Volume 10.2, Neutrophils (%) (Auto) 12.2, Lymphocytes (%) (Auto) 78.9, Monocytes (%) (Auto) 8.9, Eosinophils (%) (Auto) 0.0, Basophils (%) (Auto) 0.0, Neutrophils # (Auto) 0.11, Lymphocytes # (Auto) 0.71, Monocytes # (Auto) 0.08, Eosinophils # (Auto) 0.00, Basophils # (Auto) 0.00 Test 07/24/17 20:30 07/24/17 20:41 07/24/17 22:05 White Blood Count 0.90 K/uL (4.8-10.8) Red Blood Count 2.38 M/uL (4.2-5.4) Hemoglobin 6.7 g/dL (12.0-16.0) Hematocrit 19.3 % (37-47) Mean Corpuscular Volume 81.1 fL (80-100) Mean Corpuscular Hemoglobin 28.2 pg (25-34) Mean Corpuscular Hemoglobin Concent 34.7 g/dl (32-36) Platelet Count 24 K/uL (130-400) Mean Platelet Volume 10.2 fL (7.4-10.4) Neutrophils (%) (Auto) 12.2 % Lymphocytes (%) (Auto) 78.9 % Monocytes (%) (Auto) 8.9 % Eosinophils (%) (Auto) 0.0 % Basophils (%) (Auto) 0.0 % Neutrophils # (Auto) 0.11 K/uL (1.4-6.5) Lymphocytes # (Auto) 0.71 K/uL (1.2-3.4) Monocytes # (Auto) 0.08 K/uL (0.11-0.59) Eosinophils # (Auto) 0.00 K/uL (0-0.5) Basophils # (Auto) 0.00 K/uL (0-0.2) RDW Standard Deviation 39.9 fL (36.4-46.3) RDW Coefficient of Variation 13.5 % (11.5-14.5) Immature Granulocyte % (Auto) 0.0 % Immature Granulocyte # (Auto) 0.00 K/uL (0.00-0.02) Dohle Bodies 1+ Est Creatinine Clear Calc Drug Dose 59.7 ml/min Magnesium Level 1.8 mg/dl (1.8-2.4) Total Bilirubin 1.9 mg/dl (0.2-1) Aspartate Amino Transf (AST/SGOT) 118 U/L (15-37) Alanine Aminotransferase (ALT/SGPT) 149 U/L (12-78) Alkaline Phosphatase 400 U/L (45-117) Troponin I < 0.015 ng/ml (0-0.045) Total Protein 7.6 gm/dl (6.4-8.2) Albumin 3.5 gm/dl (3.4-5.0) Globulin 4.1 gm/dl (2.5-4.0) Albumin/Globulin Ratio 0.9 (0.9-2) Bedside Lactic Acid Venous 1.25 mmol/L (0.90-1.70) Urine Color YELLOW Urine Appearance CLEAR (CLEAR) Urine pH 6.0 (4.5-7.5) Urine Specific [place] 1.015 (1.000-1.030) Urine Protein 1+ (NEG) Urine Glucose (UA) NEG (NEG) Urine Ketones NEG (NEG) Urine Occult Blood TRACE (NEG) Urine Nitrite NEG (NEG) Urine Bilirubin NEG (NEG) Urine Urobilinogen NEG (NEG) Urine Leukocyte Esterase LARGE (NEG) Urine WBC (Auto) >30 /hpf (0-5) Urine RBC (Auto) 0-4 /hpf (0-4) Urine Hyaline Casts (Auto) 5-10 /lpf (0-5) Urine Epithelial Cells (Auto) 5-10 /lpf (0-5) Urine Bacteria (Auto) 4+ (NEG) Laboratory results as reviewed by me. Medications Administered Medications (Trade) Dose Ordered Sig/Giuseppe Route Start Time Stop Time Status Last Admin Dose Admin Ondansetron HCl (Zofran Inj) 4 mg STK-MED ONCE .ROUTE 07/24/17 21:32 07/24/17 21:33 DC 07/24/17 21:34 4 MG Cefepime HCl 2000 mg/Syringe 20 ml @ 5 mls/min NOW STAT IV 07/24/17 21:35 07/24/17 21:38 DC 07/24/17 22:08 5 MLS/MIN ECG Indication: weakness Rate (beats per minute): 108 Rhythm: sinus tachycardia Findings: LBBB, no ectopy ED Course 2101: The patient was evaluated in room B04B. A complete history and physical exam was performed. 2131: Ordered Zofran Injection 4 mg IV. 2134: Ordered Cefepime HCl 2000 mg/ Syringe 20 ml @ 5 mls/min IV. 2157: I discussed the patient's case with Dr. Carrera [facility] Hospitalist. He understands the patient's condition and agrees to accept the patient. The patient will be further evaluated. Medical Decision This is an 87-year-old female presents with generalized malaise and fever. Differential diagnosis includes neutropenia fever, sepsis, SIRS, UTI, pneumonia. I did perform a limited focused review of portions of the patient's old chart on the electronic medical record. The patient was admitted July 12 with a recurrent UTI in the setting of neutropenia. Her last urine culture was negative. I did evaluate the patient as noted above. Gladys michael is currently on Omnicef for a UTI. She is presenting with fever and neutropenia. Neutropenic precautions were observed. IV access was established. The patient was placed on a continuous cloth sponger. I did order and personally review the patient's urine analysis and chest x-ray as described above. Cultures were obtained. I did order and review the patient's blood work as noted in the electronic medical record. She does have severe neutropenia. She has pancytopenia. Lactic acid was not elevated. I did treat patient with IV cefepime. I did discuss case with the hospitalist and porter sample case. Medication Reconcilliation Current Medication List: was personally reviewed by me Blood Pressure Screening Patient's blood pressure: Elevated blood pressure Blood pressure disposition: Referred to PCP Consults Time Called: 2157 Consulting Physician: Dr. Carrera [facility] Hospitalist Returned Call: [phone] I discussed the patient's case with Dr. Carrera [facility] Hospitalist. He understands the patient's condition and agrees to accept the patient. The patient will be further evaluated. Impression Primary Impression: Neutropenic fever Additional Impressions: Pancytopenia Abnormal LFTs UTI (urinary tract infection) Hyponatremia Scribe Attestation The scribe's documentation has been prepared under my direct and personally reviewed by me in its entirety. I confirm that the note above accurately reflects all work, treatment, procedures, and medical decision making performed by me. Departure Information Dispostion Being Evaluated By Hospitalist Dionisio Key M.D. (PCP) Patient Instructions My [facility] Problem Qualifiers Additional Impressions: UTI (urinary tract infection) Urinary tract infection type: site unspecified Hematuria presence: without hematuria Qualified Codes: N39.0 - Urinary tract infection, site not specified
[2017-07-25 01:12] LABS: CALCIUM 8.1 mg/dl (8.5-10.1); CREATININE 0.52 mg/dl (0.60-1.20); POTASSIUM 4.9 mmol/L (3.5-5.1)
[2017-07-25] MEDS ORDERED: FUROSEMIDE INJ 20 MG in SYRINGE 0 ML IV ONE (02:30)
[2017-07-25] MEDS ORDERED: PROMACTA PO SCH (05:00)
[2017-07-25] MEDS ORDERED: CEFEPIME IV 2,000 MG in SYRINGE 7.5 ML IV SCH (06:00)
[2017-07-25] MEDS: TRAMADOL HCL 50 MG TAB PO PRN (06:05)
[2017-07-25] MEDS: METOPROLOL SUCC 50MG EXT REL TAB PO SCH ×2 (06:31→19:32)
--- NOTE | 2017-07-25 06:37 | NUR ---
A: Pt. tolerated 1st unit of pRBCs well, VSS on 3 L NC. Denies any pain, SOB, or symptoms of transfusion reaction. IV lasix administered following end of 1st unit per MD order. Prior to administration of 2nd unit of pRBCs, pt's BP noted to be elevated at 189/75 and 182/84 manually. pRBCs returned to blood bank. Notified MD Debi. Received telephone verbal order to hold 2nd unit of pRBCs until BP stabilizes and administer AM metoprolol early. Administered 0800 metoprolol per orders. Pt. currently resting in bed, call alas within reach, and bed exit alarm on. Report to be given to oncoming shift.
--- NOTE | 2017-07-25 06:42 | DIAGNOSTIC IMAGING REPORT ---
ABD/PELVIS NO IV OR ORAL CONT CT DOSE: 420.46 mGy.cm HISTORY: Pain abd pain TECHNIQUE: Multiaxial CT images of the abdomen and pelvis were performed without contrast. A dose lowering technique was utilized adhering to the principles of ALARA. COMPARISON STUDY: [id number] FINDINGS: Development of a large right pleural effusion. Atelectasis right lower lobe. Minimal atelectasis left base. Several gallstones within the gallbladder lumen. Fatty replacement of the pancreas. Liver spleen and kidneys are unremarkable. Kidneys are specifically negative for hydronephrosis. Inferior vena caval filter is in position. Stable postoperative changes to the lower lumbar spine. Bowel pattern overall is nonobstructive. Mild bladder wall thickening. Trace amount of pericardial pericystic infiltrative change suggesting potential cystitis. Small air bubble transaxial image 64 most likely representing an air bubble within a small diverticulum. No free fluid within the pelvic cul-de-sac. Small fat-containing ventral hernia. Bowel pattern again is nonobstructive. IMPRESSION: 1. Gallstones. 2. Interval development of a large right pleural effusion and right lower lobe atelectatic change. 3. Nonobstructive bowel pattern. 4. Probable mild cystitis. 5. Osteopenia, degenerative change of the osseous structures, stable postoperative changes low lumbar spine. The above report was generated using voice recognition software. It may contain grammatical, syntax or spelling errors. Electronically signed by: Lenny Zapata M.D. 07/25/2017 6:41 AM Dictated Date/Time: 07/25/2017 6:37 AM
[2017-07-25] MEDS: POLYETHYLENE (MIRALAX) 17 GM PACK PO SCH (07:50)
[2017-07-25] MEDS: DOCUSATE SODIUM 100 MG CAP PO SCH ×2 (07:51→19:32)
[2017-07-25] MEDS: MULTIVITAMIN TAB PO SCH (07:51)
[2017-07-25] MEDS: LEValbuterol HFA 15GM INHALER INH SCH ×2 (07:51→19:32)
[2017-07-25] MEDS: CEROVITE ADV FORMULA TAB PO SCH ×2 (07:52→19:32)
[2017-07-25] MEDS: ALPRAZOLAM 0.5 MG TAB PO SCH ×2 (07:52→19:32)
[2017-07-25] MEDS: NYSTATIN SUSP 500,000 U/5 ML UDC PO SCH ×4 (07:52→19:32)
[2017-07-25] MEDS: THIAMINE HCL 100 MG TAB PO SCH (07:52)
[2017-07-25] MEDS ORDERED: NON-FORMULARY MEDICATION (Cranberry (Vaccinium Macrocarp (Cranberry) 1 TAB) PO SCH (08:00)
[2017-07-25] MEDS ORDERED: CEFEPIME CONSULT ACTIVE PRN (08:00)
--- NOTE | 2017-07-25 08:33 | NUR ---
ID: PT A&OX3;FORGETFULNESS NOTED. FALL/NEUTROPENIC/CONTACT PRECAUTIONS. DENIED PAIN. LEFT DOUBLE PICC INTACT. 2L N.C. BLOOD PRESSURE CONTINUES TO BE HIGH;WAITING FOR STABILIZATION BEFORE GIVING SECOND UNIT OF BLOOD;MD BEING PAGED. STRESS INCONTINENCES NOTED. PT OOB WITH SUPERVISION WITH WALKER. D/C UNCERTAIN AT THIS TIME. PT ENCOURAGED TO RING FOR ASSISTANCE. WILL CONTINUE TO MONITOR.
[2017-07-25 09:28] LABS: ALBUMIN 3.4 gm/dl (3.4-5.0); CALCIUM 8.8 mg/dl (8.5-10.1); CREATININE 0.69 mg/dl (0.60-1.20); POTASSIUM 4.1 mmol/L (3.5-5.1)
[2017-07-25 09:29] LABS: HEMATOCRIT 24.8 % (37-47); HEMOGLOBIN 8.7 g/dL (12.0-16.0); MEAN CELL VOLUME 82.1 fL (80-100); MEAN CORPUSCULAR HEMOGLOBIN 28.8 pg (25-34); MEAN CORPUSCULAR HGB CONC 35.1 g/dl (32-36); MEAN PLATELET VOLUME 9.9 fL (7.4-10.4); PLATELET COUNT 16 K/uL (130-400); RED CELL DISTRIBUTION WIDTH CV 13.2 % (11.5-14.5); RED CELL DISTRIBUTION WIDTH SD 39.7 fL (36.4-46.3); WHITE BLOOD COUNT 1.17 K/uL (4.8-10.8)
[2017-07-25 09:31] LABS: TOTAL PROTEIN 7.9 gm/dl (6.4-8.2)
[2017-07-25 09:32] LABS: HEMOGLOBIN A1C 6.2 % (4.5-5.6)
[2017-07-25 09:57] LABS: IG# 0.03 K/uL (0.00-0.02); LYMPH % 80.3 %; LYMPH ABS # 0.94 K/uL (1.2-3.4); MONO % 7.7 %; MONO ABS # 0.09 K/uL (0.11-0.59); NEUT % 9.4 %; NEUT ABS # 0.11 K/uL (1.4-6.5)
[2017-07-25] MEDS: CLONIDINE HCL 0.1 MG TAB PO PRN (09:57)
[2017-07-25] MEDS: ACETAMINOPHEN 325 MG TAB PO PRN (09:58)
--- NOTE | 2017-07-25 10:02 | HISTORY & PHYSICAL EXAMINATION ---
DATE OF ADMISSION: 07/24/2017 PRIMARY CARE DOCTOR: Dr. Umana CHIEF COMPLAINT: Fever, dysuria. HISTORY OF PRESENT ILLNESS: History obtained from patient, daughter, and records. Medical history significant for a aplastic anemia on Promacta, Chronic anemia ( baseline 8), hypertension, chronic diastolic heart failure, hx CAD/PVD, HTN, MRSA, recurrent UTIs, Chronic right pleural effusion, history of incomplete bladder emptying as per records. Recent confinement 2 weeks ago for neutropenic fever secondary to complicated UTI. Outpatient cultures had grown Klebsiella and citrobacter. Repeat inpatient cultures, multiple ben. Initial Cefepime use during confinement later switch to Cefdinir, as per ID recommendation. Patient went home, was comfortable initially. In the last few days, patient noted dysuria, fever, chills, central achy abdominal pain, some nausea, poor appetite. Patient brought to the Emergency Room. Given cefepime for UTI. Patient getting sicker, especially with Benadryl given prior to outpatient transfusions. Developed oral thrush and vaginal thrush. Has not been able to get outpatient Fluconazole Rx prescribed by PCP. Patient complaining of shortness of breath on exertion, weakness, poor appetite. Denies black bloody stools. MEDICAL HISTORY: As above. SURGERIES: Cataracts, hernia, hysterectomy, cystocele, tonsillectomy and adenoidectomy, appendectomy, pilonidal cyst removal. HOME MEDICATIONS: Include Claritin, multivitamins, mag oxide, metoprolol, Ocuvite, polyethylene glycol, Klor-Con, normal saline, vitamin and Ultram. ALLERGIES: AMOXICILLIN, CODEINE, MORPHINE, OXYCODONE, SULFA MORPHINE. FAMILY HISTORY: Asthma. PERSONAL SOCIAL HISTORY: Nonsmoker, no chronic intake of alcoholic beverages. 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 Lives with daughter. REVIEW OF SYSTEMS: As per HPI. All 10 systems, all other ROS negative. PHYSICAL EXAMINATION: VITAL SIGNS: Blood pressure was noted to be 169/90, pulse rate 108 , RR 22, temperature 38, sats 91% on room air. GENERAL: Noted to be slightly uncomfortable, anxious, no respiratory distress. HEENT: Pale palpebral conjuctivae. Dry mucosa. No ptosis. SKIN: Pallor. Warm. NECK: Short. No tenderness. CHEST: Decreased effort. No tenderness. HEART: Tachycardic, palpable LE pulses. ABDOMEN: Soft, minimal hypogastric tenderness. EXTREMITIES: Minimal LE edema, no tenderness. No gross deformities NEUROLOGIC: Coherent. No gross focality hard of hearing. LABS: Hemoglobin was noted to be 6.7, hematocrit 19.3, white cell count is 0.9, platelets 25 Sodium 131, potassium 4.9, chloride 101, CO2 28, BUN 70, creatinine 0.5, glucose was noted to be 154. AST 118, ALT 149, alkaline phosphatase 400. UA - trace occult blood, wbc esterase positive. IMAGING DATA: Chest x-ray showed no change in moderate right pleural effusion with right basilar opacity. CT abdomen and pelvis - gallstones, cystitis, osteopenia. ASSESSMENT: 1. Sepsis secondary to complicated urinary tract infection History of Citrobacter on outpatient urine cultures Repeat urine cultures during recent confinement showed multiple ben failed outpatient Cefdinir treatment. 2. Aplastic anemia, currently on Promacta. 3. Symptomatic anemia hemoglobin drop from baseline 4. Hypertension. slightly elevated 5. PAF, off anticoagulation because of thrombocytopenia, 6. Abnormal LFTs ? secondary to Promacta 7. Chronic diastolic heart failure as per records Patient on the dry side 8. hx CAD/PVD as per records 9. Chronic R pleural effusion 10. Hyperglycemia rule out DM 11. hx MRSA 12. Oral/vaginal candidiasis PLAN: GMF. Follow cultures. ID consult. RE recurrent UT (Patient known to Dr. Hill.) May need inpatient Hematology consult for pancytopenia. (RE transfusion parameters for thrombocytopenia, timing of Neupogen injections) Transfuse packed RBC to maintain hemoglobin greater than 8. (hx CAD, PVD as per records) follow LFTs. 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 PT, OT eval. DVT prophylaxis, SCDs RE thrombocytopenia Code status level 3 (OK with CPR/no intubation) MTDD
--- NOTE | 2017-07-25 12:00 | NUR ---
Case Management- Consult for discharge planning, pt is also a 30 day readmission. Pt was discharged to home 07/14 with [facility]. Pt lives with her daughter Sola in a home with 1st floor set up, 3 stairs to enter. She uses a rollator to ambulate and daughter reports pt is otherwise independent with ADLs. Sola denies any issues or barriers at home after last discharge, they would like for pt to return home with [facility] services once medically stable. Referral information provided to [facility] liaison. Will continue to follow.
--- NOTE | 2017-07-25 13:41 | Progress Note ---
Medicine Progress Note Date & Time of Visit: Jul 25, 2017 at 13:41. Subjective seen resting in bed, appears weak but alert states she feels about the same as yesterday abdominal pain improving, no problems with urination denies chest pain, dyspnea, palpitations, dizziness no other symptoms Objective Last 8 Hrs Date Time Temp Pulse Resp B/P (MAP) Pulse Ox O2 Delivery O2 Flow Rate FiO2 07/25/17 13:00 91 07/25/17 11:15 130/70 (90) 07/25/17 09:20 177/71 (106) 07/25/17 08:00 Nasal Cannula 2.0 07/25/17 07:20 37.0 73 16 160/76 (104) 100 2.0 07/25/17 06:26 76 182/84 (116) 98 Nasal Cannula 2.0 07/25/17 06:07 37.0 81 16 189/75 89 Physical Exam: General- oriented x 2, Head- atraumatic Eyes- PERRL, EOMI, anicteric ENT- oropharynx clear Neck- supple, no JVD, no adenopathy, no thyromegaly; carotids +2/2, no bruits appreciated Lungs- clear to auscultation and percussion Heart- regular rhythm; no murmur, no gallop, no rub appreciated Abdomen- normal bowel sounds, soft, mild suprapubic tenderness Extremities- no pretibial edema, no calf tenderness; peripheral pulses intact Neuro- alert, oriented x 3; PERRL, EOMI; no facial palsy; no dysarthria; motor 5 /5 bilaterally; no cogwheel rigidity; sensation 100% Skin- warm & dry Laboratory Results: Last 24 Hours Test 07/24/17 20:30 07/24/17 20:41 07/24/17 22:05 07/25/17 00:27 White Blood Count 0.90 K/uL Red Blood Count 2.38 M/uL Hemoglobin 6.7 g/dL Hematocrit 19.3 % Mean Corpuscular Volume 81.1 fL Mean Corpuscular Hemoglobin 28.2 pg Mean Corpuscular Hemoglobin Concent 34.7 g/dl Platelet Count 24 K/uL Mean Platelet Volume 10.2 fL Neutrophils (%) (Auto) 12.2 % Lymphocytes (%) (Auto) 78.9 % Monocytes (%) (Auto) 8.9 % Eosinophils (%) (Auto) 0.0 % Basophils (%) (Auto) 0.0 % Neutrophils # (Auto) 0.11 K/uL Lymphocytes # (Auto) 0.71 K/uL Monocytes # (Auto) 0.08 K/uL Eosinophils # (Auto) 0.00 K/uL Basophils # (Auto) 0.00 K/uL RDW Standard Deviation 39.9 fL RDW Coefficient of Variation 13.5 % Immature Granulocyte % (Auto) 0.0 % Immature Granulocyte # (Auto) 0.00 K/uL Dohle Bodies 1+ Sodium Level 132 mmol/L 131 mmol/L Potassium Level 4.5 mmol/L 4.9 mmol/L Chloride Level 98 mmol/L 101 mmol/L Carbon Dioxide Level 26 mmol/L 28 mmol/L Anion Gap 9.0 mmol/L 2.0 mmol/L Blood Urea Nitrogen 16 mg/dl 17 mg/dl Creatinine 0.65 mg/dl 0.52 mg/dl Est Creatinine Clear Calc Drug Dose 59.7 ml/min 74.6 ml/min Estimated GFR () 93.2 100.3 Estimated GFR (Non- 80.4 86.5 BUN/Creatinine Ratio 24.4 33.7 Random Glucose 147 mg/dl 154 mg/dl Calcium Level 8.8 mg/dl 8.1 mg/dl Magnesium Level 1.8 mg/dl Total Bilirubin 1.9 mg/dl Aspartate Amino Transf (AST/SGOT) 118 U/L Alanine Aminotransferase (ALT/SGPT) 149 U/L Alkaline Phosphatase 400 U/L Troponin I < 0.015 ng/ml Total Protein 7.6 gm/dl Albumin 3.5 gm/dl Globulin 4.1 gm/dl Albumin/Globulin Ratio 0.9 Bedside Lactic Acid Venous 1.25 mmol/L Urine Color YELLOW Urine Appearance CLEAR Urine pH 6.0 Urine Specific Watts 1.015 Urine Protein 1+ Urine Glucose (UA) NEG Urine Ketones NEG Urine Occult Blood TRACE Urine Nitrite NEG Urine Bilirubin NEG Urine Urobilinogen NEG Urine Leukocyte Esterase LARGE Urine WBC (Auto) >30 /hpf Urine RBC (Auto) 0-4 /hpf Urine Hyaline Casts (Auto) 5-10 /lpf Urine Epithelial Cells (Auto) 5-10 /lpf Urine Bacteria (Auto) 4+ Test 07/25/17 07:59 White Blood Count 1.17 K/uL Red Blood Count 3.02 M/uL Hemoglobin 8.7 g/dL Hematocrit 24.8 % Mean Corpuscular Volume 82.1 fL Mean Corpuscular Hemoglobin 28.8 pg Mean Corpuscular Hemoglobin Concent 35.1 g/dl Platelet Count 16 K/uL Mean Platelet Volume 9.9 fL Neutrophils (%) (Auto) 9.4 % Lymphocytes (%) (Auto) 80.3 % Monocytes (%) (Auto) 7.7 % Eosinophils (%) (Auto) 0.0 % Basophils (%) (Auto) 0.0 % Neutrophils # (Auto) 0.11 K/uL Lymphocytes # (Auto) 0.94 K/uL Monocytes # (Auto) 0.09 K/uL Eosinophils # (Auto) 0.00 K/uL Basophils # (Auto) 0.00 K/uL RDW Standard Deviation 39.7 fL RDW Coefficient of Variation 13.2 % Immature Granulocyte % (Auto) 2.6 % Immature Granulocyte # (Auto) 0.03 K/uL Hypogranular Neutrophils 1+ Dohle Bodies 1+ Sodium Level 130 mmol/L Potassium Level 4.1 mmol/L Chloride Level 95 mmol/L Carbon Dioxide Level 27 mmol/L Anion Gap 8.0 mmol/L Blood Urea Nitrogen 17 mg/dl Creatinine 0.69 mg/dl Est Creatinine Clear Calc Drug Dose 55.4 ml/min Estimated GFR () 91.4 Estimated GFR (Non- 78.8 BUN/Creatinine Ratio 25.0 Random Glucose 141 mg/dl Estimated Average Glucose 131 mg/dl Hemoglobin A1c 6.2 % Calcium Level 8.8 mg/dl Total Bilirubin 2.5 mg/dl Direct Bilirubin 0.7 mg/dl Aspartate Amino Transf (AST/SGOT) 72 U/L Alanine Aminotransferase (ALT/SGPT) 128 U/L Alkaline Phosphatase 378 U/L Total Protein 7.9 gm/dl Albumin 3.4 gm/dl Date/Time Source Procedure Growth Status 07/24/17 20:30 Blood Blood Culture Pending Received 07/24/17 20:30 Blood Blood Culture Pending Received 07/24/17 22:05 Urine , Clean Catch Urine Culture Pending Received Assessment & Plan Fever, possible Recurrence of UTI Neutropenia -- History of Recurrent UTI- Citrobacter -- cultures pending -- on Cefepime IV ID consulted -- monitor 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 Miles, [employer] in [place] advised to hold Promacta Hypertension -- continue Metoprolol -- monitor PAF, px NSR off anticoagulation because of thrombocytopenia continue Metoprolol History of CHF Diastolic -- received IV Lasix 20mg -- monitor DVT prophylaxis, SCDs. RE Thrombocytopenia, Code status : Level 3. (Okay with CPR. No intubation.) Current Inpatient Medications: Current Inpatient Medications Medications (Trade) Dose Ordered Sig/Giuseppe Route Start Time Stop Time Status Last Admin Dose Admin Acetaminophen (Tylenol Tab) 325 mg Q6H PRN PO 07/24/17 23:45 08/23/17 23:44 07/25/17 09:58 325 MG Cefepime HCl (Consult) 1 ea DAILY PRN N/A 07/25/17 08:00 08/24/17 08:59 Hydromorphone HCl (Dilaudid Inj) 0.5 mg Q3H PRN IV 07/24/17 23:45 08/07/17 23:44 Prochlorperazine Edisylate 5 mg/ Syringe 5 ml @ 5 mls/min Q6H PRN IV 07/24/17 23:45 08/23/17 23:44 Alprazolam (Xanax Tab) 1 mg BID PO 07/25/17 08:00 08/24/17 08:59 07/25/17 07:52 1 MG Dicyclomine HCl (Bentyl Cap) 10 mg QID PRN PO 07/24/17 23:45 08/23/17 23:44 Docusate Sodium (coLACE CAP) 100 mg BID PO 07/25/17 08:00 08/24/17 08:59 07/25/17 07:51 100 MG Levalbuterol (Xopenex Hfa Inhaler) 1 puffs BID INH 07/25/17 08:00 08/24/17 08:59 07/25/17 07:51 1 PUFFS Levothyroxine Sodium (Synthroid Tab) 75 mcg QD@16 PO 07/25/17 16:00 08/24/17 15:59 Metoprolol Succinate (Toprol Xl Tab) 50 mg BID PO 07/25/17 08:00 08/24/17 08:59 07/25/17 06:31 50 MG Multivitamins (Multivitamin Tab) 1 tab DAILY PO 07/25/17 08:00 08/24/17 08:59 07/25/17 07:51 1 TAB Nystatin (Mycostatin Susp) 5 ml QID PO 07/25/17 08:00 08/04/17 08:59 07/25/17 12:27 5 ML Multivitamins/ Minerals (Multivitamin W/ Minerals Tab) 1 tab BID PO 07/25/17 08:00 08/24/17 08:59 07/25/17 07:52 1 TAB Thiamine HCl (Vitamin B-1 Tab) 100 mg DAILY PO 07/25/17 08:00 08/24/17 08:59 07/25/17 07:52 100 MG Pantoprazole Sodium (Protonix Tab) 40 mg DAILY PRN PO 07/24/17 23:45 08/23/17 23:44 Polyethylene (Miralax Powder Packet) 17 gm DAILY PO 07/25/17 08:00 08/24/17 08:59 Non-Formulary Medication (Non-Formulary Patient'S Own Med) 1 ea DAILY@0500 PO 07/25/17 05:00 08/24/17 04:59 Future Hold Tramadol HCl (Ultram Tab) not relieved by tylenol @ Q6H PRN PO 07/25/17 02:15 08/23/17 23:44 07/25/17 06:05 25 MG Clonidine HCl (Catapres Tab) 0.1 mg Q6H PRN PO 07/25/17 09:30 08/24/17 09:29 07/25/17 09:57 0.1 MG Cefepime HCl 2000 mg/Syringe 20 ml @ 5 mls/min Q12H IV 07/25/17 18:00 08/04/17 17:59
--- NOTE | 2017-07-25 14:23 | Progress Note ---
Progress Note Date of Service Jul 25, 2017. Progress Note ID Consult Dictated #[id number] A/P: 1. UTI -continue cefepime, follow cultures -thank you
--- NOTE | 2017-07-25 14:59 | INFECT. DISEASE CONSULTATION ---
DATE OF CONSULTATION: 07/25/2017 REQUESTING PHYSICIAN: Dr. Metzger. HISTORY OF PRESENT ILLNESS: This is an 87-year-old female who was recently admitted to the hospital and was receiving antibiotics with Omnicef for cultures growing Klebsiella and citrobacter. She did have increased dysuria prior to admission along with subjective fevers and chills and abdominal pain. For this reason, she was brought to the Emergency Room and was started initially on cefepime. On my examination today, she is comfortable and does not offer any complaints. She was started on empiric antibiotics and appears to be tolerating these well. She has been afebrile since admission to the hospital with the exception of an elevated temperature of 38 degrees in the Emergency Room. She currently is on cefepime and appears to be tolerating this well. Her white blood cell count was low yesterday at 0.9 and is somewhat increased today at 1.1. She is also found to be anemic on arrival to the hospital with a hemoglobin of 6.7, which has improved to 8.7. Her urinalysis in the ER had large leukocyte esterase and 4+ bacteria. Her creatinine has been stable. Her glucose has been elevated. Her LFTs are also elevated with an AST of 72 and an ALT of 128, today these have improved from admission when her AST was 118 and ALT was 149. Blood and urine cultures have been obtained and are pending. She did have a chest x-ray in the Emergency Room which showed a right pleural effusion. CAT scan of the abdomen and pelvis showed probable mild cystitis and again showed effusion. Review of old micro reveals a urine culture dated May 30 with citrobacter. This was sensitive to amikacin, cefepime, ertapenem, imipenem, and nitrofurantoin only. Her most recent urine culture from the was considered a contaminated specimen. She has been pancytopenic recently. However, her most recent LFTs on the 05 of July revealed an AST of 40 and an ALT of 58. Her alkaline phosphatase was elevated as well at that time. PAST MEDICAL HISTORY: Significant for hypertension, irritable bowel syndrome, peripheral vascular disease, neutropenic fever, and history of recurrent urinary tract infection. PAST SURGICAL HISTORY: Significant for cataract surgery, hernia repair, hysterectomy, cystocele repair, tonsillectomy, adenoidectomy, appendectomy, and bilateral cyst removal. FAMILY HISTORY: Noncontributory. ALLERGIES: SHE HAS A STATED ALLERGY TO AMOXICILLIN, CODEINE, MORPHINE, OXYCODONE, SULFA AND MORPHINE. SOCIAL HISTORY: Negative for tobacco use, alcohol use or drug use. CURRENT MEDICATIONS: Include cefepime, Synthroid, clonidine, Xanax, Colace, Xopenex, Toprol-XL, multivitamins, nystatin, thiamine, MiraLax, Ultram, Tylenol, Dilaudid, Bentyl and Protonix. PHYSICAL EXAMINATION: VITAL SIGNS: She is afebrile, pulse 73, respiratory rate 16, blood pressure 130/70, oxygen saturation is 100% on 2 liters. GENERAL: She is comfortable but lethargic on my examination. HEENT: Mucous membranes are dry. HEART: Regular. LUNGS: Clear with decreased breath sounds. ABDOMEN: Soft. SKIN: Without rash. LABORATORY STUDIES: Chemistry panel reveals sodium of 132, potassium 4.5, chloride 98, bicarbonate 26, BUN 16, creatinine 0.6, glucose is 147. LFTs are as above. CBC reveals a white blood cell count of 11.1, hemoglobin 8.7 and platelets are 16. Urinalysis again had large leukocyte esterase and +4 bacteria. Cultures are pending. IMAGING DATA: As above. ASSESSMENT AND PLAN: Urinary tract infection. I would continue her empirically on cefepime pending the results of her blood and urine cultures. Thank you for this consultation.
[2017-07-25] MEDS: LEVOTHYROXINE 75 MCG TAB PO SCH (15:31)
[2017-07-25] MEDS: CEFEPIME IV 2,000 MG in SYRINGE 7.5 ML IV SCH (17:16)
[2017-07-26] VITALS (13 sets, daily range): BP systolic 95–159; BP diastolic 50–79; PULSE 71–89; TEMP 36.2–37; O2SAT 90–95
[2017-07-26] MEDS: CEFEPIME IV 2,000 MG in SYRINGE 7.5 ML IV SCH ×2 (05:32→18:25)
[2017-07-26 06:36] LABS: HEMATOCRIT 21.5 % (37-47); HEMOGLOBIN 7.4 g/dL (12.0-16.0); MEAN CELL VOLUME 81.4 fL (80-100); MEAN CORPUSCULAR HGB CONC 34.4 g/dl (32-36); MEAN PLATELET VOLUME 9.7 fL (7.4-10.4); PLATELET COUNT 10 K/uL (130-400); RED CELL DISTRIBUTION WIDTH CV 13.2 % (11.5-14.5); RED CELL DISTRIBUTION WIDTH SD 39.1 fL (36.4-46.3); WHITE BLOOD COUNT 0.75 K/uL (4.8-10.8)
[2017-07-26 06:55] LABS: ALBUMIN 2.7 gm/dl (3.4-5.0); CALCIUM 8.3 mg/dl (8.5-10.1); CREATININE 0.72 mg/dl (0.60-1.20); POTASSIUM 4.1 mmol/L (3.5-5.1); TOTAL PROTEIN 6.9 gm/dl (6.4-8.2)
[2017-07-26 07:09] LABS: IG# 0.04 K/uL (0.00-0.02); LYMPH % 85.3 %; LYMPH ABS # 0.64 K/uL (1.2-3.4); MONO % 5.3 %; MONO ABS # 0.04 K/uL (0.11-0.59); NEUT % 4.1 %; NEUT ABS # 0.03 K/uL (1.4-6.5)
[2017-07-26] MEDS: POLYETHYLENE (MIRALAX) 17 GM PACK PO SCH (07:42)
[2017-07-26] MEDS: LEValbuterol HFA 15GM INHALER INH SCH ×2 (07:42→21:09)
[2017-07-26] MEDS: METOPROLOL SUCC 50MG EXT REL TAB PO SCH ×2 (07:43→21:11)
[2017-07-26] MEDS: THIAMINE HCL 100 MG TAB PO SCH (07:44)
[2017-07-26] MEDS: MULTIVITAMIN TAB PO SCH (07:44)
[2017-07-26] MEDS: DOCUSATE SODIUM 100 MG CAP PO SCH ×2 (07:44→21:10)
[2017-07-26] MEDS: NYSTATIN SUSP 500,000 U/5 ML UDC PO SCH ×4 (07:44→21:12)
[2017-07-26] MEDS: ALPRAZOLAM 0.5 MG TAB PO SCH ×2 (07:44→21:12)
[2017-07-26] MEDS: CEROVITE ADV FORMULA TAB PO SCH ×2 (07:44→21:11)
--- NOTE | 2017-07-26 09:21 | NUR ---
ID: PT A&OX4;HARD OF HEARING NOTED. FALL/NEUTROPENIC/CONTACT PRECAUTIONS. DENIED PAIN. LEFT DOUBLE PICC INTACT. R.A. H&H AND PLATES LOW; WROTE ORDERS TO TRANSFUSE. STRESS INCONTINENCES NOTED. PT OOB WITH SUPERVISION WITH WALKER. D/C UNCERTAIN AT THIS TIME. PT ENCOURAGED TO RING FOR ASSISTANCE. WILL CONTINUE TO MONITOR.
[2017-07-26] MEDS: LORATADINE 10 MG TAB PO PRN (09:39)
[2017-07-26] MEDS: ACETAMINOPHEN 325 MG TAB PO PRN (09:39)
--- NOTE | 2017-07-26 12:45 | NUR ---
A: BLOOD TRANSFUSIONS STARTED AT 1145 WITH BLOOD PRESSURE 113/61. THE 1245 BLOOD PRESSURE WENT UP TO 159/79. DAUGHTER STATES "THIS HAPPENS EVERY TIME MOM GETS BLOOD". PAGED AND RECEIVED ORDERS TO CONTINUE BLOOD TRANSFUSION LONG PT TO BE ASYMPTOMATIC. 1315 BLOOD PRESSURE 126/68;PT RESTING IN CHAIR COMFORTABLY. WILL CONTINUE TO MONITOR.
[2017-07-26] MEDS ORDERED: FUROSEMIDE 20 MG TAB PO ONE (13:30)
--- NOTE | 2017-07-26 16:53 | Progress Note ---
Medicine Progress Note Date & Time of Visit: Jul 26, 2017 at 16:48. Subjective seen resting in bedside chair more alert, bright, not in distress seems anxious states she feels slightly better denies abdominal pain, urinary symptoms denies chest pain, dyspnea, palpitations, dizziness no other symptoms Objective Last 8 Hrs Date Time Temp Pulse Resp B/P (MAP) Pulse Ox O2 Delivery O2 Flow Rate FiO2 07/26/17 15:57 36.3 83 18 151/69 (96) 95 Room Air 07/26/17 14:15 36.5 84 16 134/62 07/26/17 13:15 36.2 89 16 126/68 95 07/26/17 12:45 36.4 72 18 159/79 07/26/17 12:17 36.5 72 16 120/62 93 07/26/17 12:00 36.6 73 16 126/67 92 07/26/17 11:48 36.7 77 18 113/61 07/26/17 11:25 36.6 72 16 113/61 93 07/26/17 10:55 37.0 71 16 108/60 92 07/26/17 10:42 36.6 71 16 107/61 93 07/26/17 10:27 36.5 73 18 106/50 Physical Exam: General- oriented x 2, Eyes- EOMI, anicteric Neck- supple, no JVD Lungs- clear breath sounds bilaterally, decreased at the right base Heart- regular rhythm; no murmur, normal rate Abdomen- normal bowel sounds, soft,no tenderness Extremities- no pretibial edema, no calf tenderness Neuro- alert, oriented x 3; no gross focal deficits Skin- warm & dry Laboratory Results: Last 24 Hours Test 07/26/17 05:41 07/26/17 05:44 Sodium Level 129 mmol/L Potassium Level 4.1 mmol/L Chloride Level 97 mmol/L Carbon Dioxide Level 28 mmol/L Anion Gap 4.0 mmol/L Blood Urea Nitrogen 26 mg/dl Creatinine 0.72 mg/dl Est Creatinine Clear Calc Drug Dose 53.1 ml/min Estimated GFR () 87.9 Estimated GFR (Non- 75.8 BUN/Creatinine Ratio 35.7 Random Glucose 134 mg/dl Calcium Level 8.3 mg/dl Total Bilirubin 1.7 mg/dl Direct Bilirubin 0.4 mg/dl Aspartate Amino Transf (AST/SGOT) 46 U/L Alanine Aminotransferase (ALT/SGPT) 103 U/L Alkaline Phosphatase 314 U/L Total Protein 6.9 gm/dl Albumin 2.7 gm/dl White Blood Count 0.75 K/uL Red Blood Count 2.64 M/uL Hemoglobin 7.4 g/dL Hematocrit 21.5 % Mean Corpuscular Volume 81.4 fL Mean Corpuscular Hemoglobin 28.0 pg Mean Corpuscular Hemoglobin Concent 34.4 g/dl Platelet Count 10 K/uL Mean Platelet Volume 9.7 fL Neutrophils (%) (Auto) 4.1 % Lymphocytes (%) (Auto) 85.3 % Monocytes (%) (Auto) 5.3 % Eosinophils (%) (Auto) 0.0 % Basophils (%) (Auto) 0.0 % Neutrophils # (Auto) 0.03 K/uL Lymphocytes # (Auto) 0.64 K/uL Monocytes # (Auto) 0.04 K/uL Eosinophils # (Auto) 0.00 K/uL Basophils # (Auto) 0.00 K/uL RDW Standard Deviation 39.1 fL RDW Coefficient of Variation 13.2 % Immature Granulocyte % (Auto) 5.3 % Immature Granulocyte # (Auto) 0.04 K/uL Red Blood Cell Morphology Unremarkable Assessment & Plan Fever, possible Recurrence of UTI Neutropenia -- History of Recurrent UTI- Citrobacter -- culture: Urine: (+) Pseudomonas, Strep Blood: pending -- on Cefepime IV Day 2 ID consulted, appreciate the input -- afebrile, clinically improved today but will monitor closely 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 Miles from [facility], recommend Neupogen 480mcg daily -- LFTs elevated discussed with Dr. Miles, Parts Salesman in [place] advised to hold Promacta LFTs improving Hypertension -- continue Metoprolol PRN Clonidine -- monitor PAF, px NSR off anticoagulation because of thrombocytopenia continue Metoprolol History of CHF Diastolic -- Lasix 20mg po ordered today with blood transfusion DVT prophylaxis SCDs. RE Thrombocytopenia, Code status : Level 3. (Okay with CPR. No intubation.) Current Inpatient Medications: Current Inpatient Medications Medications (Trade) Dose Ordered Sig/Giuseppe Route Start Time Stop Time Status Last Admin Dose Admin Acetaminophen (Tylenol Tab) 325 mg Q6H PRN PO 07/24/17 23:45 08/23/17 23:44 07/26/17 09:39 325 MG Cefepime HCl (Consult) 1 ea DAILY PRN N/A 07/25/17 08:00 08/24/17 08:59 Hydromorphone HCl (Dilaudid Inj) 0.5 mg Q3H PRN IV 07/24/17 23:45 08/07/17 23:44 Prochlorperazine Edisylate 5 mg/ Syringe 5 ml @ 5 mls/min Q6H PRN IV 07/24/17 23:45 08/23/17 23:44 Alprazolam (Xanax Tab) 1 mg BID PO 07/25/17 08:00 08/24/17 08:59 07/26/17 07:44 1 MG Dicyclomine HCl (Bentyl Cap) 10 mg QID PRN PO 07/24/17 23:45 08/23/17 23:44 Docusate Sodium (coLACE CAP) 100 mg BID PO 07/25/17 08:00 08/24/17 08:59 07/26/17 07:44 100 MG Levalbuterol (Xopenex Hfa Inhaler) 1 puffs BID INH 07/25/17 08:00 08/24/17 08:59 07/25/17 19:32 1 PUFFS Levothyroxine Sodium (Synthroid Tab) 75 mcg QD@16 PO 07/25/17 16:00 08/24/17 15:59 07/25/17 15:31 75 MCG Metoprolol Succinate (Toprol Xl Tab) 50 mg BID PO 07/25/17 08:00 08/24/17 08:59 07/25/17 19:32 50 MG Multivitamins (Multivitamin Tab) 1 tab DAILY PO 07/25/17 08:00 08/24/17 08:59 07/26/17 07:44 1 TAB Nystatin (Mycostatin Susp) 5 ml QID PO 07/25/17 08:00 08/04/17 08:59 07/26/17 11:32 5 ML Multivitamins/ Minerals (Multivitamin W/ Minerals Tab) 1 tab BID PO 07/25/17 08:00 08/24/17 08:59 07/26/17 07:44 1 TAB Thiamine HCl (Vitamin B-1 Tab) 100 mg DAILY PO 07/25/17 08:00 08/24/17 08:59 07/26/17 07:44 100 MG Pantoprazole Sodium (Protonix Tab) 40 mg DAILY PRN PO 07/24/17 23:45 08/23/17 23:44 Polyethylene (Miralax Powder Packet) 17 gm DAILY PO 07/25/17 08:00 08/24/17 08:59 Non-Formulary Medication (Non-Formulary Patient'S Own Med) 1 ea DAILY@0500 PO 07/25/17 05:00 08/24/17 04:59 Future Hold Tramadol HCl (Ultram Tab) not relieved by tylenol @ Q6H PRN PO 07/25/17 02:15 08/23/17 23:44 07/25/17 06:05 25 MG Clonidine HCl (Catapres Tab) 0.1 mg Q6H PRN PO 07/25/17 09:30 08/24/17 09:29 07/25/17 09:57 0.1 MG Cefepime HCl 2000 mg/Syringe 20 ml @ 5 mls/min Q12H IV 07/25/17 18:00 08/04/17 17:59 07/26/17 05:32 5 MLS/MIN Loratadine (Claritin Tab) 5 mg DAILY PRN PO 07/26/17 09:15 08/25/17 09:14 07/26/17 09:39 5 MG
[2017-07-26] MEDS: LEVOTHYROXINE 75 MCG TAB PO SCH (17:15)
[2017-07-26] MEDS: TRAMADOL HCL 50 MG TAB PO PRN (17:17)
[2017-07-26] MEDS ORDERED: FILGRASTIM 480 MCG/1.6 ML VIAL SC ONE (17:30)
[2017-07-27] MEDS: CEFEPIME IV 2,000 MG in SYRINGE 7.5 ML IV SCH ×2 (05:25→18:27)
[2017-07-27 05:28] VITALS: O2SAT 91
[2017-07-27 07:01] LABS: HEMATOCRIT 23.5 % (37-47); HEMOGLOBIN 8.4 g/dL (12.0-16.0); MEAN CELL VOLUME 82.5 fL (80-100); MEAN CORPUSCULAR HEMOGLOBIN 29.5 pg (25-34); MEAN CORPUSCULAR HGB CONC 35.7 g/dl (32-36); MEAN PLATELET VOLUME 8.5 fL (7.4-10.4); PLATELET COUNT 22 K/uL (130-400); RED CELL DISTRIBUTION WIDTH CV 13.2 % (11.5-14.5); RED CELL DISTRIBUTION WIDTH SD 40.3 fL (36.4-46.3); WHITE BLOOD COUNT 0.93 K/uL (4.8-10.8)
[2017-07-27 07:16] VITALS: BP 131/62; PULSE 72; TEMP 37; O2SAT 92
[2017-07-27 07:18] LABS: ALBUMIN 2.7 gm/dl (3.4-5.0); CALCIUM 8.6 mg/dl (8.5-10.1); CREATININE 0.43 mg/dl (0.60-1.20); POTASSIUM 4.2 mmol/L (3.5-5.1); TOTAL PROTEIN 6.9 gm/dl (6.4-8.2)
[2017-07-27 07:55] LABS: LYMPH % 78.5 %; LYMPH ABS # 0.73 K/uL (1.2-3.4); MONO % 5.4 %; MONO ABS # 0.05 K/uL (0.11-0.59); NEUT % 16.1 %; NEUT ABS # 0.15 K/uL (1.4-6.5)
[2017-07-27] MEDS: LEValbuterol HFA 15GM INHALER INH SCH ×2 (07:58→20:04)
[2017-07-27] MEDS: POLYETHYLENE (MIRALAX) 17 GM PACK PO SCH (07:58)
[2017-07-27] MEDS: CEROVITE ADV FORMULA TAB PO SCH ×2 (08:00→20:46)
[2017-07-27] MEDS: METOPROLOL SUCC 50MG EXT REL TAB PO SCH ×2 (08:00→20:47)
[2017-07-27] MEDS: MULTIVITAMIN TAB PO SCH (08:00)
[2017-07-27] MEDS: NYSTATIN SUSP 500,000 U/5 ML UDC PO SCH ×4 (08:00→20:47)
[2017-07-27] MEDS: THIAMINE HCL 100 MG TAB PO SCH (08:00)
[2017-07-27] MEDS: DOCUSATE SODIUM 100 MG CAP PO SCH ×2 (08:00→20:46)
[2017-07-27] MEDS: ALPRAZOLAM 0.5 MG TAB PO SCH ×2 (08:00→20:47)
[2017-07-27] MEDS: FILGRASTIM 480 MCG/1.6 ML VIAL SC SCH (08:01)
--- NOTE | 2017-07-27 08:49 | NUR ---
ID: PT A&OX4;HARD OF HEARING NOTED. FALL/NEUTROPENIC/CONTACT PRECAUTIONS. DENIED PAIN. LEFT DOUBLE PICC INTACT. R.A. WBC, PLATES AND NEUTROPHILS LOW;MD AWARE. STRESS INCONTINENCES NOTED. PT OOB WITH SUPERVISION WITH WALKER. D/C UNCERTAIN AT THIS TIME. PT ENCOURAGED TO RING FOR ASSISTANCE. WILL CONTINUE TO MONITOR.
[2017-07-27 15:49] VITALS: BP 152/74; PULSE 83; TEMP 36.4; O2SAT 96
[2017-07-27] MEDS: LEVOTHYROXINE 75 MCG TAB PO SCH (16:26)
[2017-07-27] MEDS: TRAMADOL HCL 50 MG TAB PO PRN (16:30)
--- NOTE | 2017-07-27 19:24 | Progress Note ---
Medicine Progress Note Date & Time of Visit: Jul 27, 2017 at 19:21. Subjective resting in chair, comfortable states she feels improved today less tired no dyspnea, chest pain, abdominal pain denies problems urinating no bleeding no other symptoms Objective Last 8 Hrs Date Time Temp Pulse Resp B/P (MAP) Pulse Ox O2 Delivery O2 Flow Rate FiO2 07/27/17 16:00 Room Air 07/27/17 15:49 36.4 83 16 152/74 (100) 96 Room Air Physical Exam: General- oriented x 2, Eyes- anicteric Neck- supple, no JVD Lungs- clear breath sounds bilaterally, no rales/wheezes Heart- regular rhythm; no murmur, normal rate Abdomen- normal bowel sounds, soft,no tenderness Extremities- no pretibial edema, no calf tenderness Neuro- alert, oriented x 3; no gross focal deficits Skin- warm & dry Laboratory Results: Last 24 Hours Test 07/27/17 05:46 White Blood Count 0.93 K/uL Red Blood Count 2.85 M/uL Hemoglobin 8.4 g/dL Hematocrit 23.5 % Mean Corpuscular Volume 82.5 fL Mean Corpuscular Hemoglobin 29.5 pg Mean Corpuscular Hemoglobin Concent 35.7 g/dl Platelet Count 22 K/uL Mean Platelet Volume 8.5 fL Neutrophils (%) (Auto) 16.1 % Lymphocytes (%) (Auto) 78.5 % Monocytes (%) (Auto) 5.4 % Eosinophils (%) (Auto) 0.0 % Basophils (%) (Auto) 0.0 % Neutrophils # (Auto) 0.15 K/uL Lymphocytes # (Auto) 0.73 K/uL Monocytes # (Auto) 0.05 K/uL Eosinophils # (Auto) 0.00 K/uL Basophils # (Auto) 0.00 K/uL RDW Standard Deviation 40.3 fL RDW Coefficient of Variation 13.2 % Immature Granulocyte % (Auto) 0.0 % Immature Granulocyte # (Auto) 0.00 K/uL Red Blood Cell Morphology Unremarkable Sodium Level 131 mmol/L Potassium Level 4.2 mmol/L Chloride Level 98 mmol/L Carbon Dioxide Level 30 mmol/L Anion Gap 3.0 mmol/L Blood Urea Nitrogen 22 mg/dl Creatinine 0.43 mg/dl Est Creatinine Clear Calc Drug Dose 88.9 ml/min Estimated GFR () 106.7 Estimated GFR (Non- 92.1 BUN/Creatinine Ratio 50.9 Random Glucose 128 mg/dl Calcium Level 8.6 mg/dl Total Bilirubin 1.7 mg/dl Direct Bilirubin 0.4 mg/dl Aspartate Amino Transf (AST/SGOT) 34 U/L Alanine Aminotransferase (ALT/SGPT) 84 U/L Alkaline Phosphatase 294 U/L Total Protein 6.9 gm/dl Albumin 2.7 gm/dl Assessment & Plan Fever, Pseudomonas and Enterococcus faecium UTI Neutropenia -- History of Recurrent UTI- Citrobacter -- culture: Urine: (+) Pseudomonas, Enterococcus faecium Blood: negative -- on Cefepime IV Day 3 ID consulted, appreciate the input -- afebrile, clinically improving awaiting ID recommendations re: antibiotics on discharge 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 Miles from [facility], recommend Neupogen 480mcg daily--> 0.8 -- LFTs elevated discussed with Dr. Miles, Hotel Operations Manager in [place] advised to hold Promacta LFTs improving Hypertension -- continue Metoprolol PRN Clonidine -- monitor PAF, px NSR off anticoagulation because of thrombocytopenia continue Metoprolol History of CHF Diastolic -- Lasix 20mg po q2d on hold will monitor in AM DVT prophylaxis SCDs. RE Thrombocytopenia, Code status : Level 3. (Okay with CPR. No intubation.) Disposition possible d/c tomorrow may need IV or PO antibiotics per ID no other symptoms Current Inpatient Medications: Current Inpatient Medications Medications (Trade) Dose Ordered Sig/Giuseppe Route Start Time Stop Time Status Last Admin Dose Admin Acetaminophen (Tylenol Tab) 325 mg Q6H PRN PO 07/24/17 23:45 08/23/17 23:44 07/26/17 09:39 325 MG Cefepime HCl (Consult) 1 ea DAILY PRN N/A 07/25/17 08:00 08/24/17 08:59 Hydromorphone HCl (Dilaudid Inj) 0.5 mg Q3H PRN IV 07/24/17 23:45 08/07/17 23:44 Prochlorperazine Edisylate 5 mg/ Syringe 5 ml @ 5 mls/min Q6H PRN IV 07/24/17 23:45 08/23/17 23:44 Alprazolam (Xanax Tab) 1 mg BID PO 07/25/17 08:00 08/24/17 08:59 07/27/17 08:00 1 MG Dicyclomine HCl (Bentyl Cap) 10 mg QID PRN PO 07/24/17 23:45 08/23/17 23:44 Docusate Sodium (coLACE CAP) 100 mg BID PO 07/25/17 08:00 08/24/17 08:59 07/27/17 08:00 100 MG Levalbuterol (Xopenex Hfa Inhaler) 1 puffs BID INH 07/25/17 08:00 08/24/17 08:59 07/26/17 21:09 1 PUFFS Levothyroxine Sodium (Synthroid Tab) 75 mcg QD@16 PO 07/25/17 16:00 08/24/17 15:59 07/27/17 16:26 75 MCG Metoprolol Succinate (Toprol Xl Tab) 50 mg BID PO 07/25/17 08:00 08/24/17 08:59 07/27/17 08:00 50 MG Multivitamins (Multivitamin Tab) 1 tab DAILY PO 07/25/17 08:00 08/24/17 08:59 07/27/17 08:00 1 TAB Nystatin (Mycostatin Susp) 5 ml QID PO 07/25/17 08:00 08/04/17 08:59 07/27/17 16:26 5 ML Multivitamins/ Minerals (Multivitamin W/ Minerals Tab) 1 tab BID PO 07/25/17 08:00 08/24/17 08:59 07/27/17 08:00 1 TAB Thiamine HCl (Vitamin B-1 Tab) 100 mg DAILY PO 07/25/17 08:00 08/24/17 08:59 07/27/17 08:00 100 MG Pantoprazole Sodium (Protonix Tab) 40 mg DAILY PRN PO 07/24/17 23:45 08/23/17 23:44 Polyethylene (Miralax Powder Packet) 17 gm DAILY PO 07/25/17 08:00 08/24/17 08:59 Non-Formulary Medication (Non-Formulary Patient'S Own Med) 1 ea DAILY@0500 PO 07/25/17 05:00 08/24/17 04:59 Future Hold Tramadol HCl (Ultram Tab) not relieved by tylenol @ Q6H PRN PO 07/25/17 02:15 08/23/17 23:44 07/27/17 16:30 50 MG Clonidine HCl (Catapres Tab) 0.1 mg Q6H PRN PO 07/25/17 09:30 08/24/17 09:29 07/25/17 09:57 0.1 MG Cefepime HCl 2000 mg/Syringe 20 ml @ 5 mls/min Q12H IV 07/25/17 18:00 08/04/17 17:59 07/27/17 18:27 5 MLS/MIN Loratadine (Claritin Tab) 5 mg DAILY PRN PO 07/26/17 09:15 08/25/17 09:14 07/26/17 09:39 5 MG Filgrastim (Neupogen Sq) 480 mcg DAILY SC 07/27/17 08:00 08/26/17 07:59 07/27/17 08:01 480 MCG
[2017-07-27 22:40] VITALS: BP 130/71; PULSE 88; TEMP 36.7; O2SAT 92
[2017-07-28] MEDS: CEFEPIME IV 2,000 MG in SYRINGE 7.5 ML IV SCH ×2 (05:21→19:24)
[2017-07-28 06:13] LABS: HEMATOCRIT 23.4 % (37-47); HEMOGLOBIN 8.3 g/dL (12.0-16.0); MEAN CELL VOLUME 82.4 fL (80-100); MEAN CORPUSCULAR HEMOGLOBIN 29.2 pg (25-34); MEAN CORPUSCULAR HGB CONC 35.5 g/dl (32-36); MEAN PLATELET VOLUME 8.8 fL (7.4-10.4); PLATELET COUNT 11 K/uL (130-400); RED CELL DISTRIBUTION WIDTH CV 13.4 % (11.5-14.5); RED CELL DISTRIBUTION WIDTH SD 40.7 fL (36.4-46.3); WHITE BLOOD COUNT 0.93 K/uL (4.8-10.8)
[2017-07-28 06:15] LABS: ALBUMIN 2.8 gm/dl (3.4-5.0); CALCIUM 8.3 mg/dl (8.5-10.1); CREATININE 0.47 mg/dl (0.60-1.20)
--- NOTE | 2017-07-28 06:31 | Clinical Documentation Query ---
CLINICAL DOCUMENTATION QUERY H&P states patient presented with Sepsis 2/2 complicated UTI. Since that time this documentation has fallen from the record. On presentation patient was febrile, leukopenic, tachycardic, and hypoxic. In your clinical opinion is this patient being managed for: ( ) Sepsis treated and resolved due to UTI ( ) Not Agree Please clarify and document your clinical opinion in the progress notes and discharge summary. Terms such as "probable", "suspected", "likely", "questionable", "possible", or "still to be ruled out" are acceptable. IF IN AGREEMENT, YOU MUST DOCUMENT ABOVE DIAGNOSTIC STATEMENT IN DAILY PROGRESS NOTES AND DISCHARGE SUMMARY. This document is not part of the patient's record. Thank You, Gentry Larsen RN [phone]
[2017-07-28 07:16] VITALS: BP 147/72; PULSE 73; TEMP 36.8; O2SAT 95
[2017-07-28] MEDS: ACETAMINOPHEN 325 MG TAB PO PRN ×2 (07:44→23:29)
[2017-07-28] MEDS: LORATADINE 10 MG TAB PO PRN (07:45)
[2017-07-28 07:48] VITALS: BP 151/82; PULSE 78; TEMP 36.2
[2017-07-28 07:51] LABS: IG# 0.02 K/uL (0.00-0.02); LYMPH % 83.9 %; LYMPH ABS # 0.78 K/uL (1.2-3.4); MONO % 7.5 %; MONO ABS # 0.07 K/uL (0.11-0.59); NEUT % 6.4 %; NEUT ABS # 0.06 K/uL (1.4-6.5)
[2017-07-28] MEDS: LEValbuterol HFA 15GM INHALER INH SCH ×2 (08:00→20:36)
[2017-07-28] MEDS: POLYETHYLENE (MIRALAX) 17 GM PACK PO SCH (08:00)
[2017-07-28] MEDS: METOPROLOL SUCC 50MG EXT REL TAB PO SCH ×2 (08:04→20:37)
[2017-07-28] MEDS: ALPRAZOLAM 0.5 MG TAB PO SCH ×2 (08:04→20:37)
[2017-07-28] MEDS: THIAMINE HCL 100 MG TAB PO SCH (08:04)
[2017-07-28] MEDS: CEROVITE ADV FORMULA TAB PO SCH ×2 (08:04→20:37)
[2017-07-28] MEDS: FILGRASTIM 480 MCG/1.6 ML VIAL SC SCH (08:04)
[2017-07-28] MEDS: DOCUSATE SODIUM 100 MG CAP PO SCH ×2 (08:04→20:37)
[2017-07-28] MEDS: MULTIVITAMIN TAB PO SCH (08:04)
[2017-07-28] MEDS: NYSTATIN SUSP 500,000 U/5 ML UDC PO SCH ×4 (08:04→20:37)
[2017-07-28 08:09] VITALS: BP 167/75; PULSE 78; TEMP 36.8; O2SAT 95
[2017-07-28 08:25] VITALS: BP 161/67; PULSE 80; TEMP 36.2
[2017-07-28 08:50] VITALS: BP 137/75; PULSE 80; TEMP 36.6
--- NOTE | 2017-07-28 09:17 | NUR ---
ID: PT A&OX4;HARD OF HEARING NOTED. FALL/NEUTROPENIC/CONTACT PRECAUTIONS. DENIED PAIN. LEFT DOUBLE PICC INTACT. R.A. WBC, PLT AND NEUTROPHILS LOW; AWARE;1 UNIT OF PLTS BEING INFUSED. STRESS INCONTINENCES NOTED. PT OOB WITH SUPERVISION WITH WALKER. D/C UNCERTAIN AT THIS TIME. PT ENCOURAGED TO RING FOR ASSISTANCE. WILL CONTINUE TO MONITOR.
--- NOTE | 2017-07-28 10:43 | NUR ---
Case Management- Pt plans to return home with daughter and [facility] at time of discharge. Will continue to follow.
--- NOTE | 2017-07-28 11:04 | Progress Note ---
Subjective Date of Service: Jul 28, 2017. Subjective Pt evaluation today including: conversation w/ patient, physical exam, chart review, lab review much improved, up in chair, states some abd pain, episode of diarrhea this am. no n/v. tolerating abx. culture with pseudomonas nad E. faecium. remains on cefepime, now on g csf as well. blood cultures negative, afebrile. LFTS improved. remains pancytopenic. all remaining ros reviewed and are negative. Problem List Medical Problems: (1) Abnormal LFTs Status: Acute (2) Dehydration Status: Acute (3) Ear canal abrasion Status: Acute (4) Hyponatremia Status: Acute (5) Influenza A Status: Acute (6) Low back pain Status: Acute (7) Lumbar spine strain Status: Acute (8) Nasal bleeding Status: Acute (9) Neutropenic fever Status: Acute (10) Neutropenic fever Status: Acute (11) Pancytopenia Status: Acute (12) Rib contusion Status: Acute (13) Thrombocytopenia Status: Acute (14) Thrombocytopenia Status: Acute Objective Vital Signs Date Time Temp Pulse Resp B/P (MAP) Pulse Ox O2 Delivery O2 Flow Rate FiO2 07/28/17 08:50 36.6 80 18 137/75 07/28/17 08:25 36.2 80 18 161/67 07/28/17 08:09 36.8 78 16 167/75 95 07/28/17 08:00 Room Air 07/28/17 07:48 36.2 78 17 151/82 07/28/17 07:16 36.8 73 16 147/72 (97) 95 07/27/17 23:38 Room Air 07/27/17 22:40 36.7 88 18 130/71 (90) 92 Room Air 07/27/17 16:00 Room Air 07/27/17 15:49 36.4 83 16 152/74 (100) 96 Room Air Physical Exam General Appearance: WD/WN, no apparent distress Eyes: normal inspection, EOMI Neck: supple Respiratory/Chest: lungs clear, normal breath sounds, no respiratory distress, + decreased breath sounds Cardiovascular: regular rate, rhythm, no edema Abdomen: non tender, soft Extremities: non-tender, no pedal edema Neurologic/Psychiatric: alert, oriented x 3 Skin: normal color, no rash Laboratory Results Item Value Date Time Urine Culture - Final Complete 07/24/172204 Urine , Clean Catch Pseudomonas Aeruginosa Blood Culture - Preliminary Resulted 07/24/172029 Blood NO GROWTH TO DATE. Blood Culture - Preliminary Resulted 07/24/172029 Blood NO GROWTH TO DATE. Last 24 Hours Test 07/28/17 05:32 White Blood Count 0.93 K/uL Red Blood Count 2.84 M/uL Hemoglobin 8.3 g/dL Hematocrit 23.4 % Mean Corpuscular Volume 82.4 fL Mean Corpuscular Hemoglobin 29.2 pg Mean Corpuscular Hemoglobin Concent 35.5 g/dl Platelet Count 11 K/uL Mean Platelet Volume 8.8 fL Neutrophils (%) (Auto) 6.4 % Lymphocytes (%) (Auto) 83.9 % Monocytes (%) (Auto) 7.5 % Eosinophils (%) (Auto) 0.0 % Basophils (%) (Auto) 0.0 % Neutrophils # (Auto) 0.06 K/uL Lymphocytes # (Auto) 0.78 K/uL Monocytes # (Auto) 0.07 K/uL Eosinophils # (Auto) 0.00 K/uL Basophils # (Auto) 0.00 K/uL RDW Standard Deviation 40.7 fL RDW Coefficient of Variation 13.4 % Immature Granulocyte % (Auto) 2.2 % Immature Granulocyte # (Auto) 0.02 K/uL Dohle Bodies 1+ Platelet Estimate SIGNIFIC DECREASED Sodium Level 133 mmol/L Potassium Level 4.0 mmol/L Chloride Level 99 mmol/L Carbon Dioxide Level 30 mmol/L Anion Gap 4.0 mmol/L Blood Urea Nitrogen 19 mg/dl Creatinine 0.47 mg/dl Est Creatinine Clear Calc Drug Dose 81.3 ml/min Estimated GFR () 103.7 Estimated GFR (Non- 89.4 BUN/Creatinine Ratio 40.5 Random Glucose 143 mg/dl Calcium Level 8.3 mg/dl Total Bilirubin 1.5 mg/dl Direct Bilirubin 0.4 mg/dl Aspartate Amino Transf (AST/SGOT) 32 U/L Alanine Aminotransferase (ALT/SGPT) 77 U/L Alkaline Phosphatase 292 U/L Total Protein 7.0 gm/dl Albumin 2.8 gm/dl Assessment and Plan (1) UTI (urinary tract infection) Assessment & Plan: will add vanco for E. faecium and continue cefepime (day 4/7 ), would avoid zyvox as platelets low. Problem Qualifiers (1) UTI (urinary tract infection): Urinary tract infection type: site unspecified Hematuria presence: without hematuria Qualified Codes: N39.0 - Urinary tract infection, site not specified
[2017-07-28] MEDS ORDERED: VANCOMYCIN CONSULT ACTIVE PRN (11:30)
[2017-07-28] MEDS ORDERED: VANCOMYCIN IV 1,500 MG in SODIUM CHLORIDE 0.9% 500ML 500 ML IV SCH (11:45)
--- NOTE | 2017-07-28 12:48 | Pharmacy Progress Note ---
Pharmacy Antibiotic Consult Date of Service: Jul 28, 2017. Pharmacy Dosing Scope Pharmacy is consulted to initiate Vancomycin and Cefepime IV dosing therapy, order appropriate labs and adjust drug dose/frequency. Subjective The patient is a 87 year old female admitted on Jul 24, 2017 at 22:29. Objective Height (Feet): 5 Height (Inches): 4.00 Weight (Kilograms): 67.800 Lab Results (24hrs): Test 07/28/17 05:32 White Blood Count 0.93 K/uL (4.8-10.8) Red Blood Count 2.84 M/uL (4.2-5.4) Hemoglobin 8.3 g/dL (12.0-16.0) Hematocrit 23.4 % (37-47) Mean Corpuscular Volume 82.4 fL (80-100) Mean Corpuscular Hemoglobin 29.2 pg (25-34) Mean Corpuscular Hemoglobin Concent 35.5 g/dl (32-36) Platelet Count 11 K/uL (130-400) Mean Platelet Volume 8.8 fL (7.4-10.4) Neutrophils (%) (Auto) 6.4 % Lymphocytes (%) (Auto) 83.9 % Monocytes (%) (Auto) 7.5 % Eosinophils (%) (Auto) 0.0 % Basophils (%) (Auto) 0.0 % Neutrophils # (Auto) 0.06 K/uL (1.4-6.5) Lymphocytes # (Auto) 0.78 K/uL (1.2-3.4) Monocytes # (Auto) 0.07 K/uL (0.11-0.59) Eosinophils # (Auto) 0.00 K/uL (0-0.5) Basophils # (Auto) 0.00 K/uL (0-0.2) RDW Standard Deviation 40.7 fL (36.4-46.3) RDW Coefficient of Variation 13.4 % (11.5-14.5) Immature Granulocyte % (Auto) 2.2 % Immature Granulocyte # (Auto) 0.02 K/uL (0.00-0.02) Dohle Bodies 1+ Platelet Estimate SIGNIFIC DECREASED Sodium Level 133 mmol/L (136-145) Potassium Level 4.0 mmol/L (3.5-5.1) Chloride Level 99 mmol/L (98-107) Carbon Dioxide Level 30 mmol/L (21-32) Anion Gap 4.0 mmol/L (3-11) Blood Urea Nitrogen 19 mg/dl (7-18) Creatinine 0.47 mg/dl (0.60-1.20) Est Creatinine Clear Calc Drug Dose 81.3 ml/min Estimated GFR () 103.7 Estimated GFR (Non- 89.4 BUN/Creatinine Ratio 40.5 (10-20) Random Glucose 143 mg/dl (70-99) Calcium Level 8.3 mg/dl (8.5-10.1) Total Bilirubin 1.5 mg/dl (0.2-1) Direct Bilirubin 0.4 mg/dl (0-0.2) Aspartate Amino Transf (AST/SGOT) 32 U/L (15-37) Alanine Aminotransferase (ALT/SGPT) 77 U/L (12-78) Alkaline Phosphatase 292 U/L (45-117) Total Protein 7.0 gm/dl (6.4-8.2) Albumin 2.8 gm/dl (3.4-5.0) Assessment & Plan Assessment 87 year old female being treated for UTI with Vancomycin and Cefepime. Cefepime was initiated 07/24. 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 Item Value Date Time Urine Culture - Final Complete 07/24/17 2205 Urine , Clean Catch Pseudomonas Aeruginosa E faecium Estimated pk parameters: ke=0.072 Vd=0.7 T1/2=9.6hrs Vancomycin Sensitivity for E faecium: vanco LE=1 Will aim for a higher Goal trough of 15-20 mcg/mL as le=1. Pseudomonas is sensitive to Cefepime. Plan Vancomycin * Loading dose: 1500 mg (22mg/kg) IV X 1 dose then 750mg ( 11mg/kg) IV every 12 hours. * Trough level has been ordered for: 07/30 @0730 prior to the fourth maintenance dose. Cefepime * Continue 2 gm IV q 12 hours Pharmacy will continue to follow and will adjust dose/frequency as necessary. Thank you
[2017-07-28 15:18] VITALS: BP 156/71; PULSE 87; TEMP 36.6; O2SAT 96
[2017-07-28] MEDS: LEVOTHYROXINE 75 MCG TAB PO SCH (16:53)
[2017-07-28] MEDS: TRAMADOL HCL 50 MG TAB PO PRN (17:17)
[2017-07-28] MEDS: PROCHLORPERAZINE INJ 5 MG in SYRINGE 4 ML IV PRN (19:23)
--- NOTE | 2017-07-28 19:24 | DIAGNOSTIC IMAGING REPORT ---
KUB CLINICAL HISTORY: Nausea. COMPARISON STUDY: 05/30/2017 FINDINGS: There are postsurgical changes present within the lumbar spine. Spinal electrodes are again evident. There is an IVC filter present. There is a right pleural effusion. There are gas-filled small bowel loops the upper limits of normal in size. There is no evidence of a high-grade bowel obstruction. IMPRESSION: 1. No conventional radiographic evidence of a high-grade bowel obstruction 2. Right pleural effusion Electronically signed by: Claudio Carreon M.D. 07/28/2017 7:23 PM Dictated Date/Time: 07/28/2017 7:22 PM
[2017-07-28] MEDS ORDERED: VANCOMYCIN IV 750 MG in SODIUM CHLORIDE 0.9% 250ML 250 ML IV SCH (20:00)
--- NOTE | 2017-07-28 20:13 | Progress Note ---
Medicine Progress Note Date & Time of Visit: Jul 28, 2017 at 20:02. Subjective patient seen resting states she has some vague abdominal discomfort, dyspepsia otherwise feels ok today denies chest pain, dyspnea, dizziness, palpitations no bleeding no other symptoms Objective Last 8 Hrs Date Time Temp Pulse Resp B/P (MAP) Pulse Ox O2 Delivery O2 Flow Rate FiO2 07/28/17 15:18 36.6 87 16 156/71 (99) 96 Physical Exam: General- oriented x 2, not in distress Eyes- anicteric Neck- no JVD Lungs- clear BS bilaterally, no rales/wheezes Heart- regular rhythm; no murmur, normal rate Abdomen- normal bowel sounds, non distended, soft,no tenderness Extremities- no pretibial edema, no calf tenderness Neuro- alert, oriented x 3; no gross focal deficits Skin- warm & dry Laboratory Results: Last 24 Hours Test 07/28/17 05:32 White Blood Count 0.93 K/uL Red Blood Count 2.84 M/uL Hemoglobin 8.3 g/dL Hematocrit 23.4 % Mean Corpuscular Volume 82.4 fL Mean Corpuscular Hemoglobin 29.2 pg Mean Corpuscular Hemoglobin Concent 35.5 g/dl Platelet Count 11 K/uL Mean Platelet Volume 8.8 fL Neutrophils (%) (Auto) 6.4 % Lymphocytes (%) (Auto) 83.9 % Monocytes (%) (Auto) 7.5 % Eosinophils (%) (Auto) 0.0 % Basophils (%) (Auto) 0.0 % Neutrophils # (Auto) 0.06 K/uL Lymphocytes # (Auto) 0.78 K/uL Monocytes # (Auto) 0.07 K/uL Eosinophils # (Auto) 0.00 K/uL Basophils # (Auto) 0.00 K/uL RDW Standard Deviation 40.7 fL RDW Coefficient of Variation 13.4 % Immature Granulocyte % (Auto) 2.2 % Immature Granulocyte # (Auto) 0.02 K/uL Dohle Bodies 1+ Platelet Estimate SIGNIFIC DECREASED Sodium Level 133 mmol/L Potassium Level 4.0 mmol/L Chloride Level 99 mmol/L Carbon Dioxide Level 30 mmol/L Anion Gap 4.0 mmol/L Blood Urea Nitrogen 19 mg/dl Creatinine 0.47 mg/dl Est Creatinine Clear Calc Drug Dose 81.3 ml/min Estimated GFR () 103.7 Estimated GFR (Non- 89.4 BUN/Creatinine Ratio 40.5 Random Glucose 143 mg/dl Calcium Level 8.3 mg/dl Total Bilirubin 1.5 mg/dl Direct Bilirubin 0.4 mg/dl Aspartate Amino Transf (AST/SGOT) 32 U/L Alanine Aminotransferase (ALT/SGPT) 77 U/L Alkaline Phosphatase 292 U/L Total Protein 7.0 gm/dl Albumin 2.8 gm/dl Assessment & Plan Fever, Pseudomonas and Enterococcus faecium UTI Neutropenia -- History of Recurrent UTI- Citrobacter -- culture: Urine: (+) Pseudomonas, Enterococcus faecium Blood: negative -- on Cefepime IV Day 4 Vancomycin added today in the evening, patient reports nausea and feeling ill after the Vancomycin Vancomycin held for now, will discuss with ID ID consulted, appreciate the input awaiting ID recommendations re: antibiotics on discharge 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 Miles from [facility], recommend Neupogen 480mcg daily--> 0.8--> 0.8 (patient need pre treatment with tylenol and claritin prior to transfusion, and Lasix 20mg po after) -- LFTs elevated discussed with Dr. Miles, [employer] in [place] advised to hold Promacta for now and restart Neupogen LFTs improving daily Hypertension -- continue Metoprolol PRN Clonidine -- monitor PAF, px NSR off anticoagulation because of thrombocytopenia continue Metoprolol History of CHF Diastolic -- Lasix 20mg po q2d on hold patient on the dry side, monitor only being given lasix 20mg po on transfusions DVT prophylaxis SCDs. RE Thrombocytopenia, Code status : Level 3. (Okay with CPR. No intubation.) Disposition d/c when medically stable- cleared by ID, may need IV or PO antibiotics per ID lives at home with daughter follows with Dr. Miles [employer] in [place] cell no. [phone] Current Inpatient Medications: Current Inpatient Medications Medications (Trade) Dose Ordered Sig/Giuseppe Route Start Time Stop Time Status Last Admin Dose Admin Acetaminophen (Tylenol Tab) 325 mg Q6H PRN PO 07/24/17 23:45 08/23/17 23:44 07/28/17 07:44 325 MG Cefepime HCl (Consult) 1 ea DAILY PRN N/A 07/25/17 08:00 08/24/17 08:59 Hydromorphone HCl (Dilaudid Inj) 0.5 mg Q3H PRN IV 07/24/17 23:45 08/07/17 23:44 Prochlorperazine Edisylate 5 mg/ Syringe 5 ml @ 5 mls/min Q6H PRN IV 07/24/17 23:45 08/23/17 23:44 07/28/17 19:23 5 MLS/MIN Alprazolam (Xanax Tab) 1 mg BID PO 07/25/17 08:00 08/24/17 08:59 07/28/17 08:04 1 MG Dicyclomine HCl (Bentyl Cap) 10 mg QID PRN PO 07/24/17 23:45 08/23/17 23:44 Docusate Sodium (coLACE CAP) 100 mg BID PO 07/25/17 08:00 08/24/17 08:59 07/28/17 08:04 100 MG Levalbuterol (Xopenex Hfa Inhaler) 1 puffs BID INH 07/25/17 08:00 08/24/17 08:59 07/27/17 20:04 1 PUFFS Levothyroxine Sodium (Synthroid Tab) 75 mcg QD@16 PO 07/25/17 16:00 08/24/17 15:59 07/28/17 16:53 75 MCG Metoprolol Succinate (Toprol Xl Tab) 50 mg BID PO 07/25/17 08:00 08/24/17 08:59 07/28/17 08:04 50 MG Multivitamins (Multivitamin Tab) 1 tab DAILY PO 07/25/17 08:00 08/24/17 08:59 07/28/17 08:04 1 TAB Nystatin (Mycostatin Susp) 5 ml QID PO 07/25/17 08:00 08/04/17 08:59 07/28/17 17:17 5 ML Multivitamins/ Minerals (Multivitamin W/ Minerals Tab) 1 tab BID PO 07/25/17 08:00 08/24/17 08:59 07/28/17 08:04 1 TAB Thiamine HCl (Vitamin B-1 Tab) 100 mg DAILY PO 07/25/17 08:00 08/24/17 08:59 07/28/17 08:04 100 MG Pantoprazole Sodium (Protonix Tab) 40 mg DAILY PRN PO 07/24/17 23:45 08/23/17 23:44 Polyethylene (Miralax Powder Packet) 17 gm DAILY PO 07/25/17 08:00 08/24/17 08:59 Non-Formulary Medication (Non-Formulary Patient'S Own Med) 1 ea DAILY@0500 PO 07/25/17 05:00 08/24/17 04:59 Future Hold Tramadol HCl (Ultram Tab) not relieved by tylenol @ Q6H PRN PO 07/25/17 02:15 08/23/17 23:44 07/28/17 17:17 50 MG Clonidine HCl (Catapres Tab) 0.1 mg Q6H PRN PO 07/25/17 09:30 08/24/17 09:29 07/25/17 09:57 0.1 MG Cefepime HCl 2000 mg/Syringe 20 ml @ 5 mls/min Q12H IV 07/25/17 18:00 08/04/17 17:59 07/28/17 19:24 5 MLS/MIN Loratadine (Claritin Tab) 5 mg DAILY PRN PO 07/26/17 09:15 08/25/17 09:14 07/28/17 07:45 5 MG Filgrastim (Neupogen Sq) 480 mcg DAILY SC 07/27/17 08:00 08/26/17 07:59 07/28/17 08:04 480 MCG Vancomycin HCl (Consult) 1 ea UD PRN N/A 07/28/17 11:30 08/27/17 11:29 Vancomycin HCl 750 mg/Sodium Chloride 265 ml @ 125 mls/hr Q12H IV 07/28/17 20:00 08/07/17 11:59
[2017-07-28] MEDS ORDERED: ALUMINUM/MAGNESIUM SUSP 30 ML UDC PO PRN (21:00)
[2017-07-29 00:01] VITALS: BP 150/71; PULSE 88; TEMP 37.9; O2SAT 92
[2017-07-29 00:57] VITALS: TEMP 37.3
[2017-07-29 04:46] VITALS: TEMP 36.2
[2017-07-29 05:34] LABS: ALBUMIN 2.7 gm/dl (3.4-5.0); CALCIUM 8.4 mg/dl (8.5-10.1); CREATININE 0.37 mg/dl (0.60-1.20); POTASSIUM 4.1 mmol/L (3.5-5.1)
[2017-07-29 05:36] LABS: TOTAL PROTEIN 6.5 gm/dl (6.4-8.2)
[2017-07-29] MEDS: CEFEPIME IV 2,000 MG in SYRINGE 7.5 ML IV SCH ×2 (06:06→18:30)
[2017-07-29 06:08] LABS: HEMATOCRIT 22.3 % (37-47); HEMOGLOBIN 7.9 g/dL (12.0-16.0); MEAN CELL VOLUME 82.3 fL (80-100); MEAN CORPUSCULAR HEMOGLOBIN 29.2 pg (25-34); MEAN CORPUSCULAR HGB CONC 35.4 g/dl (32-36); MEAN PLATELET VOLUME 10.3 fL (7.4-10.4); PLATELET COUNT 25 K/uL (130-400); RED CELL DISTRIBUTION WIDTH CV 13.5 % (11.5-14.5); RED CELL DISTRIBUTION WIDTH SD 40.6 fL (36.4-46.3); WHITE BLOOD COUNT 0.96 K/uL (4.8-10.8)
[2017-07-29 06:11] LABS: LYMPH % 82.3 %; LYMPH ABS # 0.79 K/uL (1.2-3.4); MONO % 4.2 %; MONO ABS # 0.04 K/uL (0.11-0.59); NEUT % 13.5 %
[2017-07-29 08:16] VITALS: BP 157/78; PULSE 74; TEMP 36.8; O2SAT 92
[2017-07-29] MEDS: LEValbuterol HFA 15GM INHALER INH SCH ×2 (08:24→21:24)
[2017-07-29] MEDS: ALPRAZOLAM 0.5 MG TAB PO SCH ×2 (08:24→21:26)
[2017-07-29] MEDS: CEROVITE ADV FORMULA TAB PO SCH ×2 (08:24→21:25)
[2017-07-29] MEDS: DOCUSATE SODIUM 100 MG CAP PO SCH ×2 (08:25→21:24)
[2017-07-29] MEDS: METOPROLOL SUCC 50MG EXT REL TAB PO SCH ×2 (08:25→21:25)
[2017-07-29] MEDS: THIAMINE HCL 100 MG TAB PO SCH (08:25)
[2017-07-29] MEDS: NYSTATIN SUSP 500,000 U/5 ML UDC PO SCH ×4 (08:25→21:25)
[2017-07-29] MEDS: MULTIVITAMIN TAB PO SCH (08:25)
[2017-07-29] MEDS: POLYETHYLENE (MIRALAX) 17 GM PACK PO SCH (08:26)
[2017-07-29] MEDS: FILGRASTIM 480 MCG/1.6 ML VIAL SC SCH (08:42)
[2017-07-29] MEDS: TRAMADOL HCL 50 MG TAB PO PRN (11:19)
--- NOTE | 2017-07-29 14:29 | Pharmacy Progress Note ---
Pharmacy Abx Dose Short Note Date of Service Jul 29, 2017. Assessment & Plan Assessment 87 year old female receiving Vancomycin and Cefepime for treatment of UTI. Pt has E. faecium in the urine. Vanc FERNY=1 Day # 2 of antimicrobial therapy. Pt received loading dose of vanc yesterday, then subsequent doses were held due to nausea. Spoke with Dr. Kunz who re-started vanco today. Plan Vancomycin * Re-ordered loading dose of vanco 1.5gm x 1, then vanco 750mg iv q 12 hours. * Trough level ordered for 07/31 @0930 * Goal trough 15 mcg/mL Cefepime * Continue 2 gm iv q 12 hours Pharmacy will continue to follow and will adjust dose/frequency as necessary. Thank you.
[2017-07-29] MEDS ORDERED: VANCOMYCIN IV 1,500 MG in SODIUM CHLORIDE 0.9% 500ML 500 ML IV ONE (14:30)
--- NOTE | 2017-07-29 14:47 | Progress Note ---
Subjective Date of Service: Jul 29, 2017. Subjective Pt evaluation today including: conversation w/ patient, physical exam, chart review, lab review pt with gi upset yesterday, nailao held. remains on pseudomonas 12/29. no f/c no overnight events. denies abd pain. no n/v/d today. all remaining ros reviewed and are negative. Problem List Medical Problems: (1) Abnormal LFTs Status: Acute (2) Dehydration Status: Acute (3) Ear canal abrasion Status: Acute (4) Hyponatremia Status: Acute (5) Influenza A Status: Acute (6) Low back pain Status: Acute (7) Lumbar spine strain Status: Acute (8) Nasal bleeding Status: Acute (9) Neutropenic fever Status: Acute (10) Neutropenic fever Status: Acute (11) Pancytopenia Status: Acute (12) Rib contusion Status: Acute (13) Thrombocytopenia Status: Acute (14) Thrombocytopenia Status: Acute Objective Vital Signs Date Time Temp Pulse Resp B/P (MAP) Pulse Ox O2 Delivery O2 Flow Rate FiO2 07/29/17 08:20 Room Air 07/29/17 08:16 36.8 74 20 157/78 (104) 92 Room Air 07/29/17 04:46 36.2 07/29/17 00:57 37.3 07/29/17 00:01 37.9 88 20 150/71 (97) 92 Room Air 07/28/17 23:25 Room Air 07/28/17 16:00 Room Air 07/28/17 15:18 36.6 87 16 156/71 (99) 96 Physical Exam General Appearance: WD/WN, no apparent distress Eyes: normal inspection, EOMI Neck: supple Respiratory/Chest: lungs clear, normal breath sounds, no respiratory distress Cardiovascular: regular rate, rhythm, no edema Abdomen: non tender, soft Extremities: non-tender, no pedal edema Neurologic/Psychiatric: alert, oriented x 3 Skin: normal color, no rash Laboratory Results Item Value Date Time Urine Culture - Final Complete 07/24/172204 Urine , Clean Catch Pseudomonas Aeruginosa Blood Culture - Preliminary Resulted 07/24/172029 Blood NO GROWTH TO DATE. Blood Culture - Preliminary Resulted 07/24/172029 Blood NO GROWTH TO DATE. Last 24 Hours Test 07/29/17 04:40 White Blood Count 0.96 K/uL Red Blood Count 2.71 M/uL Hemoglobin 7.9 g/dL Hematocrit 22.3 % Mean Corpuscular Volume 82.3 fL Mean Corpuscular Hemoglobin 29.2 pg Mean Corpuscular Hemoglobin Concent 35.4 g/dl Platelet Count 25 K/uL Mean Platelet Volume 10.3 fL Neutrophils (%) (Auto) 13.5 % Lymphocytes (%) (Auto) 82.3 % Monocytes (%) (Auto) 4.2 % Eosinophils (%) (Auto) 0.0 % Basophils (%) (Auto) 0.0 % Neutrophils # (Auto) 0.13 K/uL Lymphocytes # (Auto) 0.79 K/uL Monocytes # (Auto) 0.04 K/uL Eosinophils # (Auto) 0.00 K/uL Basophils # (Auto) 0.00 K/uL RDW Standard Deviation 40.6 fL RDW Coefficient of Variation 13.5 % Immature Granulocyte % (Auto) 0.0 % Immature Granulocyte # (Auto) 0.00 K/uL Dohle Bodies 1+ Sodium Level 132 mmol/L Potassium Level 4.1 mmol/L Chloride Level 100 mmol/L Carbon Dioxide Level 32 mmol/L Anion Gap 0.0 mmol/L Blood Urea Nitrogen 16 mg/dl Creatinine 0.37 mg/dl Est Creatinine Clear Calc Drug Dose 103.3 ml/min Estimated GFR () 112.2 Estimated GFR (Non- 96.8 BUN/Creatinine Ratio 44.2 Random Glucose 121 mg/dl Calcium Level 8.4 mg/dl Total Bilirubin 1.3 mg/dl Direct Bilirubin 0.4 mg/dl Aspartate Amino Transf (AST/SGOT) 28 U/L Alanine Aminotransferase (ALT/SGPT) 63 U/L Alkaline Phosphatase 285 U/L Total Protein 6.5 gm/dl Albumin 2.7 gm/dl Assessment and Plan (1) UTI (urinary tract infection) Assessment & Plan: vanco stopped, can begin dapto for E. faecium alternative would be zyvox po but with has low platelets, will need 3 days. and continue cefepime (day 5/7), Problem Qualifiers (1) UTI (urinary tract infection): Urinary tract infection type: site unspecified Hematuria presence: without hematuria Qualified Codes: N39.0 - Urinary tract infection, site not specified
[2017-07-29 15:06] LABS: NEUT ABS # 0.13 K/uL (1.4-6.5)
--- NOTE | 2017-07-29 15:14 | Progress Note ---
Medicine Progress Note Date & Time of Visit: Jul 29, 2017 at 14:40. Subjective Pt was seen and examined Sitting in bed with no distress Pt said that she feeling much better today She said that she had nausea yesterday few hours after she had nausea She said that she walked today in the hallway with her daughter Denies any chest pain, palpitation, dizziness and SOB Objective Last 8 Hrs Date Time Temp Pulse Resp B/P (MAP) Pulse Ox O2 Delivery O2 Flow Rate FiO2 07/29/17 08:20 Room Air 07/29/17 08:16 36.8 74 20 157/78 (104) 92 Room Air Physical Exam: General- no acute distress Head- atraumatic Eyes- PERRL, EOMI ENT- oropharynx clear Neck- supple, no JVD Lungs- clear to auscultation Heart- regular rhythm Abdomen- normal bowel sounds, soft Extremities- no pretibial edema, no calf tenderness Neuro- alert, oriented x 3; PERRL, EOMI; no facial palsy Skin- warm & dry Laboratory Results: Last 24 Hours Test 07/29/17 04:40 White Blood Count 0.96 K/uL Red Blood Count 2.71 M/uL Hemoglobin 7.9 g/dL Hematocrit 22.3 % Mean Corpuscular Volume 82.3 fL Mean Corpuscular Hemoglobin 29.2 pg Mean Corpuscular Hemoglobin Concent 35.4 g/dl Platelet Count 25 K/uL Mean Platelet Volume 10.3 fL Neutrophils (%) (Auto) 13.5 % Lymphocytes (%) (Auto) 82.3 % Monocytes (%) (Auto) 4.2 % Eosinophils (%) (Auto) 0.0 % Basophils (%) (Auto) 0.0 % Neutrophils # (Auto) 0.13 K/uL Lymphocytes # (Auto) 0.79 K/uL Monocytes # (Auto) 0.04 K/uL Eosinophils # (Auto) 0.00 K/uL Basophils # (Auto) 0.00 K/uL RDW Standard Deviation 40.6 fL RDW Coefficient of Variation 13.5 % Immature Granulocyte % (Auto) 0.0 % Immature Granulocyte # (Auto) 0.00 K/uL Dohle Bodies 1+ Sodium Level 132 mmol/L Potassium Level 4.1 mmol/L Chloride Level 100 mmol/L Carbon Dioxide Level 32 mmol/L Anion Gap 0.0 mmol/L Blood Urea Nitrogen 16 mg/dl Creatinine 0.37 mg/dl Est Creatinine Clear Calc Drug Dose 103.3 ml/min Estimated GFR () 112.2 Estimated GFR (Non- 96.8 BUN/Creatinine Ratio 44.2 Random Glucose 121 mg/dl Calcium Level 8.4 mg/dl Total Bilirubin 1.3 mg/dl Direct Bilirubin 0.4 mg/dl Aspartate Amino Transf (AST/SGOT) 28 U/L Alanine Aminotransferase (ALT/SGPT) 63 U/L Alkaline Phosphatase 285 U/L Total Protein 6.5 gm/dl Albumin 2.7 gm/dl Assessment & Plan UTI Present on admission with fever and neutropenia Hx of recurrent UTI Urine cx growth pseudomonas and Enterococcus faecium Blood cx no growth On Cefepime day 4 Vanco added yesterday, developed Nausea few hours after the vanco that resolved with Zofran Will try the vanco again with zofran ID on board Will discussed with ID about abx on discharge 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 Miles from [facility] by the previous hospitalist Recommended Neupogen 480mcg daily I tried to call Dr. Miles today with no answer (Patient need pre treatment with tylenol and claritin prior to transfusion, and Lasix 20mg po after) Will monitor Hbg and transfuse if drops further Elevated liver enzymes Promacta has been on hold Liver enzymes wnl Stable Hypertension BP elevated Continue Metoprolol and PRN Clonidine Continue monitor BP P AFIB Rate control Normal sinus rhythm No anticoagulation due to thrombocytopenia continue Metoprolol History of CHF Diastolic On Lasix 20mg po q2d on hold Lasix 20mg given after transfusion Large Pleural Effusion CT abd/pelvis showed Interval development of a large right pleural effusion CXR showed No change in the moderate right pleural effusion with associated right basilar opacity. Saturated well Clinically stable DVT px SCDs. RE Thrombocytopenia, Code status : Level 3. (Okay with CPR. No intubation.) Disposition Follows with Dr. Miles [employer] in [place] cell no. [phone] Consultants: ID Current Inpatient Medications: Current Inpatient Medications Medications (Trade) Dose Ordered Sig/Giuseppe Route Start Time Stop Time Status Last Admin Dose Admin Acetaminophen (Tylenol Tab) 325 mg Q6H PRN PO 07/24/17 23:45 08/23/17 23:44 07/28/17 23:29 325 MG Cefepime HCl (Consult) 1 ea DAILY PRN N/A 07/25/17 08:00 08/24/17 08:59 Hydromorphone HCl (Dilaudid Inj) 0.5 mg Q3H PRN IV 07/24/17 23:45 08/07/17 23:44 Prochlorperazine Edisylate 5 mg/ Syringe 5 ml @ 5 mls/min Q6H PRN IV 07/24/17 23:45 08/23/17 23:44 07/28/17 19:23 5 MLS/MIN Alprazolam (Xanax Tab) 1 mg BID PO 07/25/17 08:00 08/24/17 08:59 07/29/17 08:24 1 MG Dicyclomine HCl (Bentyl Cap) 10 mg QID PRN PO 07/24/17 23:45 08/23/17 23:44 Docusate Sodium (coLACE CAP) 100 mg BID PO 07/25/17 08:00 08/24/17 08:59 07/29/17 08:25 100 MG Levalbuterol (Xopenex Hfa Inhaler) 1 puffs BID INH 07/25/17 08:00 08/24/17 08:59 07/29/17 08:24 1 PUFFS Levothyroxine Sodium (Synthroid Tab) 75 mcg QD@16 PO 07/25/17 16:00 08/24/17 15:59 07/28/17 16:53 75 MCG Metoprolol Succinate (Toprol Xl Tab) 50 mg BID PO 07/25/17 08:00 08/24/17 08:59 07/29/17 08:25 50 MG Multivitamins (Multivitamin Tab) 1 tab DAILY PO 07/25/17 08:00 08/24/17 08:59 07/29/17 08:25 1 TAB Nystatin (Mycostatin Susp) 5 ml QID PO 07/25/17 08:00 08/04/17 08:59 07/29/17 11:48 5 ML Multivitamins/ Minerals (Multivitamin W/ Minerals Tab) 1 tab BID PO 07/25/17 08:00 08/24/17 08:59 07/29/17 08:24 1 TAB Thiamine HCl (Vitamin B-1 Tab) 100 mg DAILY PO 07/25/17 08:00 08/24/17 08:59 07/29/17 08:25 100 MG Pantoprazole Sodium (Protonix Tab) 40 mg DAILY PRN PO 07/24/17 23:45 08/23/17 23:44 Polyethylene (Miralax Powder Packet) 17 gm DAILY PO 07/25/17 08:00 08/24/17 08:59 07/29/17 08:26 17 GM Non-Formulary Medication (Non-Formulary Patient'S Own Med) 1 ea DAILY@0500 PO 07/25/17 05:00 08/24/17 04:59 Future Hold Tramadol HCl (Ultram Tab) not relieved by tylenol @ Q6H PRN PO 07/25/17 02:15 08/23/17 23:44 07/29/17 11:19 50 MG Clonidine HCl (Catapres Tab) 0.1 mg Q6H PRN PO 07/25/17 09:30 08/24/17 09:29 07/25/17 09:57 0.1 MG Cefepime HCl 2000 mg/Syringe 20 ml @ 5 mls/min Q12H IV 07/25/17 18:00 08/04/17 17:59 07/29/17 06:06 5 MLS/MIN Loratadine (Claritin Tab) 5 mg DAILY PRN PO 07/26/17 09:15 08/25/17 09:14 07/28/17 07:45 5 MG Filgrastim (Neupogen Sq) 480 mcg DAILY SC 07/27/17 08:00 08/26/17 07:59 07/29/17 08:42 480 MCG Vancomycin HCl (Consult) 1 ea UD PRN N/A 07/28/17 11:30 08/27/17 11:29 Future hold Al Hydroxide/Mg Hydroxide (Maalox Susp) 30 ml Q6H PRN PO 07/28/17 21:00 08/27/17 20:59 Vancomycin HCl 1500 mg/Sodium Chloride 530 ml @ 200 mls/hr TODAY@1430 ONCE IV 07/29/17 14:30 07/29/17 17:08 Vancomycin HCl 750 mg/Sodium Chloride 265 ml @ 125 mls/hr Q12H IV 07/29/17 22:00 08/08/17 14:29
[2017-07-29 15:54] VITALS: BP 152/83; PULSE 89; TEMP 36.5; O2SAT 96
[2017-07-29] MEDS: PROCHLORPERAZINE INJ 5 MG in SYRINGE 4 ML IV PRN (15:55)
[2017-07-29 16:00] VITALS: O2SAT 96
[2017-07-29] MEDS: LEVOTHYROXINE 75 MCG TAB PO SCH (16:01)
[2017-07-29] MEDS ORDERED: NURSING DECISION MEDICATION ORDER SCH (20:00)
[2017-07-29] MEDS ORDERED: NURSING VERBAL MED ORDER ONE (20:45)
[2017-07-29] MEDS ORDERED: WATER, STERILE FOR INJ 10 ML VIAL IV ONE (21:00)
[2017-07-29] MEDS ORDERED: ALTEPLASE, RECOMBINANT 1 MG/ML 2 ML VIAL IV ONE (21:00)
--- NOTE | 2017-07-29 21:00 | NUR ---
A: Cath Kings on Purple PICC given give IV team.
[2017-07-29] MEDS: DICYCLOMINE HCL 10 MG CAP PO PRN (22:05)
[2017-07-29] MEDS: VANCOMYCIN IV 750 MG in SODIUM CHLORIDE 0.9% 250ML 250 ML IV SCH (22:15)
[2017-07-30] VITALS (16 sets, daily range): BP systolic 132–189; BP diastolic 58–89; PULSE 81–95; TEMP 36.3–36.7; O2SAT 91–96
[2017-07-30] MEDS: CEFEPIME IV 2,000 MG in SYRINGE 7.5 ML IV SCH ×2 (05:06→18:26)
[2017-07-30 06:30] LABS: ALBUMIN 2.7 gm/dl (3.4-5.0); CALCIUM 8.3 mg/dl (8.5-10.1); CREATININE 0.36 mg/dl (0.60-1.20)
[2017-07-30 06:32] LABS: TOTAL PROTEIN 6.7 gm/dl (6.4-8.2)
[2017-07-30] MEDS ORDERED: VANCOMYCIN TROUGH ONE (07:30)
[2017-07-30] MEDS: DOCUSATE SODIUM 100 MG CAP PO SCH ×2 (07:43→20:42)
[2017-07-30] MEDS: ALPRAZOLAM 0.5 MG TAB PO SCH ×2 (07:43→20:42)
[2017-07-30] MEDS: METOPROLOL SUCC 50MG EXT REL TAB PO SCH ×2 (07:43→20:43)
[2017-07-30] MEDS: POLYETHYLENE (MIRALAX) 17 GM PACK PO SCH (07:44)
[2017-07-30] MEDS: TRAMADOL HCL 50 MG TAB PO PRN (07:45)
[2017-07-30 08:18] LABS: HEMATOCRIT 21.2 % (37-47); HEMOGLOBIN 7.6 g/dL (12.0-16.0); MEAN CELL VOLUME 82.5 fL (80-100); MEAN CORPUSCULAR HEMOGLOBIN 29.6 pg (25-34); MEAN CORPUSCULAR HGB CONC 35.8 g/dl (32-36); MEAN PLATELET VOLUME 10.3 fL (7.4-10.4); PLATELET COUNT 14 K/uL (130-400); RED CELL DISTRIBUTION WIDTH CV 13.7 % (11.5-14.5); RED CELL DISTRIBUTION WIDTH SD 41.7 fL (36.4-46.3); WHITE BLOOD COUNT 0.86 K/uL (4.8-10.8)
[2017-07-30 08:19] LABS: LYMPH % 81.4 %; MONO % 8.1 %; MONO ABS # 0.07 K/uL (0.11-0.59); NEUT % 10.5 %; NEUT ABS # 0.09 K/uL (1.4-6.5)
[2017-07-30] MEDS: VANCOMYCIN IV 750 MG in SODIUM CHLORIDE 0.9% 250ML 250 ML IV SCH ×3 (09:50→22:02)
[2017-07-30] MEDS: THIAMINE HCL 100 MG TAB PO SCH (10:53)
[2017-07-30] MEDS: FILGRASTIM 480 MCG/1.6 ML VIAL SC SCH (10:53)
[2017-07-30] MEDS: PROCHLORPERAZINE INJ 5 MG in SYRINGE 4 ML IV PRN ×2 (10:53→22:24)
[2017-07-30] MEDS: NYSTATIN SUSP 500,000 U/5 ML UDC PO SCH ×4 (10:53→20:42)
[2017-07-30] MEDS: LEValbuterol HFA 15GM INHALER INH SCH ×2 (10:54→20:43)
[2017-07-30] MEDS: CEROVITE ADV FORMULA TAB PO SCH ×2 (10:54→20:42)
[2017-07-30] MEDS: MULTIVITAMIN TAB PO SCH (10:54)
--- NOTE | 2017-07-30 13:18 | NUR ---
JYOTHI screened pt for length of stay, at risk nutrition screen completed. Addendum: 07/30/17 at [address] Amended: Links added.
--- NOTE | 2017-07-30 14:19 | Progress Note ---
Subjective Date of Service: Jul 30, 2017. Subjective Pt evaluation today including: conversation w/ patient, physical exam, chart review, lab review pt resting comfortably, has been ambulating in halls, tolerating abx. vanco restarted with zofran, tolerating. afebrile overnight. counts remain low. remaining negative. Problem List Medical Problems: (1) Abnormal LFTs Status: Acute (2) Dehydration Status: Acute (3) Ear canal abrasion Status: Acute (4) Hyponatremia Status: Acute (5) Influenza A Status: Acute (6) Low back pain Status: Acute (7) Lumbar spine strain Status: Acute (8) Nasal bleeding Status: Acute (9) Neutropenic fever Status: Acute (10) Neutropenic fever Status: Acute (11) Pancytopenia Status: Acute (12) Rib contusion Status: Acute (13) Thrombocytopenia Status: Acute (14) Thrombocytopenia Status: Acute Objective Vital Signs Date Time Temp Pulse Resp B/P (MAP) Pulse Ox O2 Delivery O2 Flow Rate FiO2 07/30/17 11:15 84 142/78 (99) 07/30/17 08:23 36.6 85 18 189/73 (111) 93 Room Air 07/30/17 08:00 Room Air 07/30/17 00:04 36.6 88 20 149/72 (97) 93 Room Air 07/29/17 23:45 Room Air 07/29/17 16:00 96 Room Air 07/29/17 15:54 36.5 89 20 152/83 (106) 96 Room Air Physical Exam General Appearance: WD/WN, no apparent distress Eyes: normal inspection Neck: supple Respiratory/Chest: lungs clear, normal breath sounds, no respiratory distress Cardiovascular: regular rate, rhythm, no edema Extremities: non-tender, no pedal edema Neurologic/Psychiatric: alert Skin: normal color, no rash Laboratory Results Item Value Date Time Urine Culture - Final Complete 07/24/172204 Urine , Clean Catch Pseudomonas Aeruginosa Blood Culture - Final Complete 07/24/172029 Blood NO GROWTH Blood Culture - Final Complete 07/24/17 2030 Blood NO GROWTH Last 24 Hours Test 07/30/17 05:31 White Blood Count 0.86 K/uL Red Blood Count 2.57 M/uL Hemoglobin 7.6 g/dL Hematocrit 21.2 % Mean Corpuscular Volume 82.5 fL Mean Corpuscular Hemoglobin 29.6 pg Mean Corpuscular Hemoglobin Concent 35.8 g/dl Platelet Count 14 K/uL Mean Platelet Volume 10.3 fL Neutrophils (%) (Auto) 10.5 % Lymphocytes (%) (Auto) 81.4 % Monocytes (%) (Auto) 8.1 % Eosinophils (%) (Auto) 0.0 % Basophils (%) (Auto) 0.0 % Neutrophils # (Auto) 0.09 K/uL Lymphocytes # (Auto) 0.70 K/uL Monocytes # (Auto) 0.07 K/uL Eosinophils # (Auto) 0.00 K/uL Basophils # (Auto) 0.00 K/uL RDW Standard Deviation 41.7 fL RDW Coefficient of Variation 13.7 % Immature Granulocyte % (Auto) 0.0 % Immature Granulocyte # (Auto) 0.00 K/uL Platelet Estimate SIGNIFIC DECREASED Hypochromasia PRESENT Sodium Level 132 mmol/L Potassium Level 4.0 mmol/L Chloride Level 100 mmol/L Carbon Dioxide Level 30 mmol/L Anion Gap 2.0 mmol/L Blood Urea Nitrogen 16 mg/dl Creatinine 0.36 mg/dl Est Creatinine Clear Calc Drug Dose 106.2 ml/min Estimated GFR () 113.2 Estimated GFR (Non- 97.6 BUN/Creatinine Ratio 43.6 Random Glucose 133 mg/dl Calcium Level 8.3 mg/dl Total Bilirubin 1.3 mg/dl Direct Bilirubin 0.4 mg/dl Aspartate Amino Transf (AST/SGOT) 32 U/L Alanine Aminotransferase (ALT/SGPT) 64 U/L Alkaline Phosphatase 298 U/L Total Protein 6.7 gm/dl Albumin 2.7 gm/dl Assessment and Plan (1) UTI (urinary tract infection) Assessment & Plan: vanco restarted, tolerating with zofran, day 2/3 and continue cefepime (day 6/7), can stop all abx after dose tomorrow, no new ID recs. Problem Qualifiers (1) UTI (urinary tract infection): Urinary tract infection type: site unspecified Hematuria presence: without hematuria Qualified Codes: N39.0 - Urinary tract infection, site not specified
--- NOTE | 2017-07-30 14:42 | NUR ---
Case Management- Pt plans to return home with support from [facility] and [facility] services. Will continue to follow.
[2017-07-30] MEDS: ACETAMINOPHEN 325 MG TAB PO PRN (15:19)
[2017-07-30] MEDS: CLONIDINE HCL 0.1 MG TAB PO PRN (16:12)
[2017-07-30] MEDS: LEVOTHYROXINE 75 MCG TAB PO SCH (16:16)
[2017-07-30] MEDS: LORATADINE 10 MG TAB PO PRN (17:00)
--- NOTE | 2017-07-30 18:43 | Progress Note ---
Medicine Progress Note Date & Time of Visit: Jul 30, 2017 at 18:36. Subjective Pt was seen and examined Lying in bed with no distress Denies any chest pain, palpitation, dizziness, nausea and SOB Objective Last 8 Hrs Date Time Temp Pulse Resp B/P (MAP) Pulse Ox O2 Delivery O2 Flow Rate FiO2 07/30/17 18:15 36.7 82 18 145/71 (95) 95 Room Air 07/30/17 17:52 36.6 85 18 161/89 (113) 95 Room Air 07/30/17 17:20 36.7 81 18 145/81 91 07/30/17 17:05 36.5 90 18 167/68 07/30/17 16:00 96 Room Air 07/30/17 15:22 89 18 180/69 (106) 96 Room Air 07/30/17 15:10 36.3 95 18 183/84 (117) 95 Room Air 07/30/17 11:15 84 142/78 (99) Physical Exam: General- no acute distress Head- atraumatic Eyes- PERRL, EOMI ENT- oropharynx clear Neck- supple, no JVD Lungs- clear to auscultation Heart- regular rhythm Abdomen- normal bowel sounds, soft Extremities- no pretibial edema, no calf tenderness Neuro- alert, oriented x 3; PERRL, EOMI; no facial palsy Skin- warm & dry Laboratory Results: Last 24 Hours Test 07/30/17 05:31 White Blood Count 0.86 K/uL Red Blood Count 2.57 M/uL Hemoglobin 7.6 g/dL Hematocrit 21.2 % Mean Corpuscular Volume 82.5 fL Mean Corpuscular Hemoglobin 29.6 pg Mean Corpuscular Hemoglobin Concent 35.8 g/dl Platelet Count 14 K/uL Mean Platelet Volume 10.3 fL Neutrophils (%) (Auto) 10.5 % Lymphocytes (%) (Auto) 81.4 % Monocytes (%) (Auto) 8.1 % Eosinophils (%) (Auto) 0.0 % Basophils (%) (Auto) 0.0 % Neutrophils # (Auto) 0.09 K/uL Lymphocytes # (Auto) 0.70 K/uL Monocytes # (Auto) 0.07 K/uL Eosinophils # (Auto) 0.00 K/uL Basophils # (Auto) 0.00 K/uL RDW Standard Deviation 41.7 fL RDW Coefficient of Variation 13.7 % Immature Granulocyte % (Auto) 0.0 % Immature Granulocyte # (Auto) 0.00 K/uL Platelet Estimate SIGNIFIC DECREASED Hypochromasia PRESENT Sodium Level 132 mmol/L Potassium Level 4.0 mmol/L Chloride Level 100 mmol/L Carbon Dioxide Level 30 mmol/L Anion Gap 2.0 mmol/L Blood Urea Nitrogen 16 mg/dl Creatinine 0.36 mg/dl Est Creatinine Clear Calc Drug Dose 106.2 ml/min Estimated GFR () 113.2 Estimated GFR (Non- 97.6 BUN/Creatinine Ratio 43.6 Random Glucose 133 mg/dl Calcium Level 8.3 mg/dl Total Bilirubin 1.3 mg/dl Direct Bilirubin 0.4 mg/dl Aspartate Amino Transf (AST/SGOT) 32 U/L Alanine Aminotransferase (ALT/SGPT) 64 U/L Alkaline Phosphatase 298 U/L Total Protein 6.7 gm/dl Albumin 2.7 gm/dl Assessment & Plan UTI Present on admission with fever and neutropenia Hx of recurrent UTI Urine cx growth pseudomonas and Enterococcus faecium Blood cx no growth On Cefepime day 6/7 On Vanco IV 2/3 seems to tolerated with the Zofran ID on board Recommended no further abx treatment after tomorrow dose Will stop abx after tomorrow dose 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 Miles from [facility] today Recommended to D/C Neupogen Will give 1 unit PRBC and 1 unit Platelet (received 3 units platelet and PRBC during this admission (Patient need pre treatment with tylenol and claritin prior to transfusion, and Lasix 20mg po after) Will monitor Hbg and transfuse if drops further Elevated liver enzymes Promacta has been on hold Liver enzymes wnl Stable Hypertension Continue Metoprolol and PRN Clonidine Continue monitor BP P AFIB Rate control Normal sinus rhythm No anticoagulation due to thrombocytopenia continue Metoprolol History of CHF Diastolic On Lasix 20mg po q2d on hold Lasix 20mg given after transfusion Large Pleural Effusion CT abd/pelvis showed Interval development of a large right pleural effusion CXR showed No change in the moderate right pleural effusion with associated right basilar opacity. Saturated well Clinically stable DVT px SCDs. RE Thrombocytopenia, Code status : Level 3. (Okay with CPR. No intubation.) Disposition Follows with Dr. 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 [phone] Will discharge tomorrow Consultants: ID Current Inpatient Medications: Current Inpatient Medications Medications (Trade) Dose Ordered Sig/Giuseppe Route Start Time Stop Time Status Last Admin Dose Admin Acetaminophen (Tylenol Tab) 325 mg Q6H PRN PO 07/24/17 23:45 08/23/17 23:44 07/30/17 15:19 325 MG Cefepime HCl (Consult) 1 ea DAILY PRN N/A 07/25/17 08:00 08/24/17 08:59 Hydromorphone HCl (Dilaudid Inj) 0.5 mg Q3H PRN IV 07/24/17 23:45 08/07/17 23:44 Prochlorperazine Edisylate 5 mg/ Syringe 5 ml @ 5 mls/min Q6H PRN IV 07/24/17 23:45 08/23/17 23:44 07/30/17 10:53 5 MLS/MIN Alprazolam (Xanax Tab) 1 mg BID PO 07/25/17 08:00 08/24/17 08:59 07/30/17 07:43 1 MG Dicyclomine HCl (Bentyl Cap) 10 mg QID PRN PO 07/24/17 23:45 08/23/17 23:44 07/29/17 22:05 10 MG Docusate Sodium (coLACE CAP) 100 mg BID PO 07/25/17 08:00 08/24/17 08:59 07/29/17 21:24 100 MG Levalbuterol (Xopenex Hfa Inhaler) 1 puffs BID INH 07/25/17 08:00 08/24/17 08:59 07/30/17 10:54 1 PUFFS Levothyroxine Sodium (Synthroid Tab) 75 mcg QD@16 PO 07/25/17 16:00 08/24/17 15:59 07/30/17 16:16 75 MCG Metoprolol Succinate (Toprol Xl Tab) 50 mg BID PO 07/25/17 08:00 08/24/17 08:59 07/30/17 07:43 50 MG Multivitamins (Multivitamin Tab) 1 tab DAILY PO 07/25/17 08:00 08/24/17 08:59 07/29/17 08:25 1 TAB Nystatin (Mycostatin Susp) 5 ml QID PO 07/25/17 08:00 08/04/17 08:59 07/30/17 17:30 5 ML Multivitamins/ Minerals (Multivitamin W/ Minerals Tab) 1 tab BID PO 07/25/17 08:00 08/24/17 08:59 07/29/17 21:25 1 TAB Thiamine HCl (Vitamin B-1 Tab) 100 mg DAILY PO 07/25/17 08:00 08/24/17 08:59 07/29/17 08:25 100 MG Pantoprazole Sodium (Protonix Tab) 40 mg DAILY PRN PO 07/24/17 23:45 08/23/17 23:44 07/30/17 07:42 40 MG Polyethylene (Miralax Powder Packet) 17 gm DAILY PO 07/25/17 08:00 08/24/17 08:59 07/29/17 08:26 17 GM Non-Formulary Medication (Non-Formulary Patient'S Own Med) 1 ea DAILY@0500 PO 07/25/17 05:00 08/24/17 04:59 Future Hold Tramadol HCl (Ultram Tab) not relieved by tylenol @ Q6H PRN PO 07/25/17 02:15 08/23/17 23:44 07/30/17 07:45 50 MG Clonidine HCl (Catapres Tab) 0.1 mg Q6H PRN PO 07/25/17 09:30 08/24/17 09:29 07/30/17 16:12 0.1 MG Cefepime HCl 2000 mg/Syringe 20 ml @ 5 mls/min Q12H IV 07/25/17 18:00 08/04/17 17:59 07/30/17 18:26 5 MLS/MIN Loratadine (Claritin Tab) 5 mg DAILY PRN PO 07/26/17 09:15 08/25/17 09:14 07/30/17 17:00 5 MG Vancomycin HCl (Consult) 1 ea UD PRN N/A 07/28/17 11:30 08/27/17 11:29 Future hold Al Hydroxide/Mg Hydroxide (Maalox Susp) 30 ml Q6H PRN PO 07/28/17 21:00 08/27/17 20:59 Vancomycin HCl 750 mg/Sodium Chloride 265 ml @ 125 mls/hr Q12H IV 07/29/17 22:00 08/08/17 14:29 07/30/17 10:54 125 MLS/HR
[2017-07-30] MEDS ORDERED: FUROSEMIDE 20 MG TAB PO SCH (19:00)
--- NOTE | 2017-07-30 22:32 | NUR ---
RN refused to clear the IV pump and record results when asked. Addendum: 07/30/17 at 2233 by Aishwarya DUNN Amended: Links added.
[2017-07-31] VITALS (7 sets, daily range): BP systolic 146–174; BP diastolic 69–85; PULSE 74–80; TEMP 36.2–36.8; O2SAT 93–94
[2017-07-31] MEDS: CLONIDINE HCL 0.1 MG TAB PO PRN (01:23)
[2017-07-31] MEDS: PROCHLORPERAZINE INJ 5 MG in SYRINGE 4 ML IV PRN (05:41)
[2017-07-31] MEDS: CEFEPIME IV 2,000 MG in SYRINGE 7.5 ML IV SCH (05:43)
[2017-07-31 06:10] LABS: HEMATOCRIT 24.3 % (37-47); HEMOGLOBIN 8.6 g/dL (12.0-16.0); MEAN CELL VOLUME 81.3 fL (80-100); MEAN CORPUSCULAR HEMOGLOBIN 28.8 pg (25-34); MEAN CORPUSCULAR HGB CONC 35.4 g/dl (32-36); PLATELET COUNT 24 K/uL (130-400); RED CELL DISTRIBUTION WIDTH SD 41.5 fL (36.4-46.3); WHITE BLOOD COUNT 0.85 K/uL (4.8-10.8)
[2017-07-31 06:32] LABS: CALCIUM 8.6 mg/dl (8.5-10.1); CREATININE 0.44 mg/dl (0.60-1.20); POTASSIUM 3.7 mmol/L (3.5-5.1)
[2017-07-31 06:43] LABS: IG# 0.01 K/uL (0.00-0.02); LYMPH % 78.8 %; LYMPH ABS # 0.67 K/uL (1.2-3.4); MONO % 8.2 %; MONO ABS # 0.07 K/uL (0.11-0.59); NEUT % 11.8 %
[2017-07-31] MEDS: METOPROLOL SUCC 50MG EXT REL TAB PO SCH (08:49)
[2017-07-31] MEDS: DOCUSATE SODIUM 100 MG CAP PO SCH (08:49)
[2017-07-31] MEDS: THIAMINE HCL 100 MG TAB PO SCH (08:50)
[2017-07-31] MEDS: CEROVITE ADV FORMULA TAB PO SCH (08:50)
[2017-07-31] MEDS: MULTIVITAMIN TAB PO SCH (08:50)
[2017-07-31] MEDS: NYSTATIN SUSP 500,000 U/5 ML UDC PO SCH ×2 (08:50→11:33)
[2017-07-31] MEDS: POLYETHYLENE (MIRALAX) 17 GM PACK PO SCH (08:51)
[2017-07-31] MEDS: ALPRAZOLAM 0.5 MG TAB PO SCH (08:51)
[2017-07-31] MEDS: LEValbuterol HFA 15GM INHALER INH SCH (08:51)
[2017-07-31] MEDS: TRAMADOL HCL 50 MG TAB PO PRN (08:52)
[2017-07-31] MEDS: DICYCLOMINE HCL 10 MG CAP PO PRN (09:27)
--- NOTE | 2017-07-31 10:36 | Pharmacy Progress Note ---
Pharmacy Abx Dose Short Note Date of Service Jul 31, 2017. Assessment & Plan Assessment 87 year old female receiving vanc/cefepime for treatment of UTI. Per ID's note yesterday, will expect vanc and cefepime to be discontinued after last doses today. Day # 4 of antimicrobial therapy. Plan Vancomycin * Trough level of 17.4 mcg/mL is therapeutic * Continue dose of 750 mg IV every 12 hours * Trough or random level ordered as clinically indicated if therapy continues Pharmacy will continue to follow and will adjust dose/frequency as necessary. Thank you.
[2017-07-31] MEDS: VANCOMYCIN IV 750 MG in SODIUM CHLORIDE 0.9% 250ML 250 ML IV SCH (11:33)
--- NOTE | 2017-07-31 14:00 | Progress Note ---
Subjective Date of Service: Jul 31, 2017. Subjective pt tolerating abx, for d/c after dose today, blood cultures negative and final, remains afebrile. no overnight events. remains pancytopenic. Problem List Medical Problems: (1) Abnormal LFTs Status: Acute (2) Dehydration Status: Acute (3) Ear canal abrasion Status: Acute (4) Hyponatremia Status: Acute (5) Influenza A Status: Acute (6) Low back pain Status: Acute (7) Lumbar spine strain Status: Acute (8) Nasal bleeding Status: Acute (9) Neutropenic fever Status: Acute (10) Neutropenic fever Status: Acute (11) Pancytopenia Status: Acute (12) Rib contusion Status: Acute (13) Thrombocytopenia Status: Acute (14) Thrombocytopenia Status: Acute Objective Vital Signs Date Time Temp Pulse Resp B/P (MAP) Pulse Ox O2 Delivery O2 Flow Rate FiO2 07/31/17 13:50 78 146/72 (96) 07/31/17 13:17 36.5 74 20 93 Room Air 07/31/17 06:54 36.5 74 20 174/85 (114) 93 Room Air 07/31/17 05:46 161/72 (101) 07/31/17 04:42 36.8 07/31/17 00:53 79 170/69 (102) 07/31/17 00:15 36.2 80 18 165/77 (106) 94 Room Air 07/30/17 20:56 36.4 87 17 152/66 (94) 95 Room Air 07/30/17 20:07 36.5 87 19 151/67 (95) 95 Room Air 07/30/17 19:35 36.4 83 17 138/74 (95) 94 Room Air 07/30/17 19:09 36.5 87 18 132/71 (91) 96 Room Air 07/30/17 18:51 36.7 89 18 147/73 (97) 95 Room Air 07/30/17 18:31 36.3 88 18 141/58 95 07/30/17 18:15 36.7 82 18 145/71 (95) 95 Room Air 07/30/17 17:52 36.6 85 18 161/89 (113) 95 Room Air 07/30/17 17:20 36.7 81 18 145/81 91 12/6/17 17:05 36.5 90 18 167/68 07/30/17 16:00 96 Room Air 07/30/17 15:22 89 18 180/69 (106) 96 Room Air 07/30/17 15:10 36.3 95 18 183/84 (117) 95 Room Air Laboratory Results Item Value Date Time Urine Culture - Final Complete 07/24/175 Urine , Clean Catch Pseudomonas Aeruginosa Blood Culture - Final Complete 07/24/172029 Blood NO GROWTH Blood Culture - Final Complete 07/24/172029 Blood NO GROWTH Last 24 Hours Test 07/31/17 05:34 07/31/17 09:38 White Blood Count 0.85 K/uL Red Blood Count 2.99 M/uL Hemoglobin 8.6 g/dL Hematocrit 24.3 % Mean Corpuscular Volume 81.3 fL Mean Corpuscular Hemoglobin 28.8 pg Mean Corpuscular Hemoglobin Concent 35.4 g/dl Platelet Count 24 K/uL Mean Platelet Volume 9.0 fL Neutrophils (%) (Auto) 11.8 % Lymphocytes (%) (Auto) 78.8 % Monocytes (%) (Auto) 8.2 % Eosinophils (%) (Auto) 0.0 % Basophils (%) (Auto) 0.0 % Neutrophils # (Auto) 0.10 K/uL Lymphocytes # (Auto) 0.67 K/uL Monocytes # (Auto) 0.07 K/uL Eosinophils # (Auto) 0.00 K/uL Basophils # (Auto) 0.00 K/uL RDW Standard Deviation 41.5 fL RDW Coefficient of Variation 14.0 % Immature Granulocyte % (Auto) 1.2 % Immature Granulocyte # (Auto) 0.01 K/uL Anisocytosis PRESENT Sodium Level 135 mmol/L Potassium Level 3.7 mmol/L Chloride Level 101 mmol/L Carbon Dioxide Level 29 mmol/L Anion Gap 5.0 mmol/L Blood Urea Nitrogen 16 mg/dl Creatinine 0.44 mg/dl Est Creatinine Clear Calc Drug Dose 86.9 ml/min Estimated GFR () 105.9 Estimated GFR (Non- 91.4 BUN/Creatinine Ratio 36.6 Random Glucose 151 mg/dl Calcium Level 8.6 mg/dl Vancomycin Level Trough 17.4 mcg/ml Assessment and Plan (1) UTI (urinary tract infection) Assessment & Plan: vanco restarted, tolerating with zofran, day 3/3 and continue cefepime (day 7/7), can stop all abx after dose no new ID recs. Problem Qualifiers (1) UTI (urinary tract infection): Urinary tract infection type: site unspecified Hematuria presence: without hematuria Qualified Codes: N39.0 - Urinary tract infection, site not specified
--- NOTE | 2017-07-31 14:01 | Progress Note ---
Medicine Progress Note Date & Time of Visit: Jul 31, 2017 at 13:40. Subjective Pt was seen and examined Sitting in chair with no distress with daughter present Pt said that she feels ok Denies any chest pain, palpitation, dizziness and SOB Objective Last 8 Hrs Date Time Temp Pulse Resp B/P (MAP) Pulse Ox O2 Delivery O2 Flow Rate FiO2 07/31/17 13:17 36.5 74 20 93 Room Air 07/31/17 06:54 36.5 74 20 174/85 (114) 93 Room Air 07/31/17 05:46 161/72 (101) Physical Exam: General- no acute distress Head- atraumatic Eyes- PERRL, EOMI ENT- oropharynx clear Neck- supple, no JVD Lungs- clear to auscultation Heart- regular rhythm Abdomen- normal bowel sounds, soft Extremities- no pretibial edema, no calf tenderness Neuro- alert, oriented x 3; PERRL, EOMI; no facial palsy Skin- warm & dry Laboratory Results: Last 24 Hours Test 07/31/17 05:34 07/31/17 09:38 White Blood Count 0.85 K/uL Red Blood Count 2.99 M/uL Hemoglobin 8.6 g/dL Hematocrit 24.3 % Mean Corpuscular Volume 81.3 fL Mean Corpuscular Hemoglobin 28.8 pg Mean Corpuscular Hemoglobin Concent 35.4 g/dl Platelet Count 24 K/uL Mean Platelet Volume 9.0 fL Neutrophils (%) (Auto) 11.8 % Lymphocytes (%) (Auto) 78.8 % Monocytes (%) (Auto) 8.2 % Eosinophils (%) (Auto) 0.0 % Basophils (%) (Auto) 0.0 % Neutrophils # (Auto) 0.10 K/uL Lymphocytes # (Auto) 0.67 K/uL Monocytes # (Auto) 0.07 K/uL Eosinophils # (Auto) 0.00 K/uL Basophils # (Auto) 0.00 K/uL RDW Standard Deviation 41.5 fL RDW Coefficient of Variation 14.0 % Immature Granulocyte % (Auto) 1.2 % Immature Granulocyte # (Auto) 0.01 K/uL Anisocytosis PRESENT Sodium Level 135 mmol/L Potassium Level 3.7 mmol/L Chloride Level 101 mmol/L Carbon Dioxide Level 29 mmol/L Anion Gap 5.0 mmol/L Blood Urea Nitrogen 16 mg/dl Creatinine 0.44 mg/dl Est Creatinine Clear Calc Drug Dose 86.9 ml/min Estimated GFR () 105.9 Estimated GFR (Non- 91.4 BUN/Creatinine Ratio 36.6 Random Glucose 151 mg/dl Calcium Level 8.6 mg/dl Vancomycin Level Trough 17.4 mcg/ml Date/Time Source Procedure Growth Status 07/31/17 09:15 Nasal MRSA DNA Surveillance Screen - Final Specimen Negative for MRSA by DNA Probe Complete Assessment & Plan UTI Present on admission with fever and neutropenia Hx of recurrent UTI Urine cx growth pseudomonas and Enterococcus faecium Blood cx no growth Completed 7 days course of Cefepime and received 3 days of IV Vanco ID on board Recommended no further abx treatment after today dose Denies any urinary symptoms 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 Miles from [facility] yesterday Recommended to D/C Neupogen Received 1 unit PRBC and 1 unit Platelet yesterday (received 3 units platelet and PRBC during this admission) (Patient need pre treatment with tylenol and claritin prior to transfusion, and Lasix 20mg po after) Continue monitor CBC as an outpatient Elevated liver enzymes Promacta has been on hold Liver enzymes back to normal Will let Dr. Miles to decide if she wants her to restart it after the next lab result for this coming Friday Stable Hypertension BP elevated Continue Metoprolol and PRN Clonidine Consider to add a low dose amlodipine if BP stays elevated Continue monitor BP P AFIB Rate control Normal sinus rhythm No anticoagulation due to thrombocytopenia continue Metoprolol History of CHF Diastolic On Lasix 20mg po q2d on hold Lasix 20mg given after transfusion No signs of fluid overload Large Pleural Effusion CT abd/pelvis showed Interval development of a large right pleural effusion CXR showed No change in the moderate right pleural effusion with associated right basilar opacity. unable to do thoracentesis due to very low platelet Saturated well Clinically stable DVT px SCDs. RE Thrombocytopenia, Code status : Level 3. (Okay with CPR. No intubation.) Disposition Follows with Dr. Miles Respiratory Coordinator in [place] cell no. [phone] Follow up with your primary care provider Dr. Umana on 08/04 @ 1:45 PM Continue monitor CBC Consultants: ID Current Inpatient Medications: Current Inpatient Medications Medications (Trade) Dose Ordered Sig/Giuseppe Route Start Time Stop Time Status Last Admin Dose Admin Acetaminophen (Tylenol Tab) 325 mg Q6H PRN PO 07/24/17 23:45 08/23/17 23:44 07/30/17 15:19 325 MG Cefepime HCl (Consult) 1 ea DAILY PRN N/A 07/25/17 08:00 08/24/17 08:59 Hydromorphone HCl (Dilaudid Inj) 0.5 mg Q3H PRN IV 07/24/17 23:45 08/07/17 23:44 Prochlorperazine Edisylate 5 mg/ Syringe 5 ml @ 5 mls/min Q6H PRN IV 07/24/17 23:45 08/23/17 23:44 07/31/17 05:41 5 MLS/MIN Alprazolam (Xanax Tab) 1 mg BID PO 07/25/17 08:00 08/24/17 08:59 07/31/17 08:51 1 MG Dicyclomine HCl (Bentyl Cap) 10 mg QID PRN PO 07/24/17 23:45 08/23/17 23:44 07/31/17 09:27 10 MG Docusate Sodium (coLACE CAP) 100 mg BID PO 07/25/17 08:00 08/24/17 08:59 07/31/17 08:49 100 MG Levalbuterol (Xopenex Hfa Inhaler) 1 puffs BID INH 07/25/17 08:00 08/24/17 08:59 07/31/17 08:51 1 PUFFS Levothyroxine Sodium (Synthroid Tab) 75 mcg QD@16 PO 07/25/17 16:00 08/24/17 15:59 07/30/17 16:16 75 MCG Metoprolol Succinate (Toprol Xl Tab) 50 mg BID PO 07/25/17 08:00 08/24/17 08:59 07/31/17 08:49 50 MG Multivitamins (Multivitamin Tab) 1 tab DAILY PO 07/25/17 08:00 08/24/17 08:59 07/31/17 08:50 1 TAB Nystatin (Mycostatin Susp) 5 ml QID PO 07/25/17 08:00 08/04/17 08:59 07/31/17 11:33 5 ML Multivitamins/ Minerals (Multivitamin W/ Minerals Tab) 1 tab BID PO 07/25/17 08:00 08/24/17 08:59 07/31/17 08:50 1 TAB Thiamine HCl (Vitamin B-1 Tab) 100 mg DAILY PO 07/25/17 08:00 08/24/17 08:59 07/31/17 08:50 100 MG Pantoprazole Sodium (Protonix Tab) 40 mg DAILY PRN PO 07/24/17 23:45 08/23/17 23:44 07/30/17 07:42 40 MG Polyethylene (Miralax Powder Packet) 17 gm DAILY PO 07/25/17 08:00 08/24/17 08:59 07/31/17 08:51 17 GM Non-Formulary Medication (Non-Formulary Patient'S Own Med) 1 ea DAILY@0500 PO 07/25/17 05:00 08/24/17 04:59 Future Hold Tramadol HCl (Ultram Tab) not relieved by tylenol @ Q6H PRN PO 07/25/17 02:15 08/23/17 23:44 07/31/17 08:52 50 MG Clonidine HCl (Catapres Tab) 0.1 mg Q6H PRN PO 07/25/17 09:30 08/24/17 09:29 07/31/17 01:23 0.1 MG Cefepime HCl 2000 mg/Syringe 20 ml @ 5 mls/min Q12H IV 07/25/17 18:00 08/04/17 17:59 07/31/17 05:43 5 MLS/MIN Loratadine (Claritin Tab) 5 mg DAILY PRN PO 07/26/17 09:15 08/25/17 09:14 07/30/17 17:00 5 MG Vancomycin HCl (Consult) 1 ea UD PRN N/A 07/28/17 11:30 08/27/17 11:29 Future hold Al Hydroxide/Mg Hydroxide (Maalox Susp) 30 ml Q6H PRN PO 07/28/17 21:00 08/27/17 20:59 Vancomycin HCl 750 mg/Sodium Chloride 265 ml @ 125 mls/hr Q12H IV 07/29/17 22:00 08/08/17 14:29 07/31/17 11:33 125 MLS/HR
--- NOTE | 2017-07-31 14:21 | Discharge Instructions ---
Discharge Instructions Date of Service Jul 31, 2017. Admission Reason for Admission: Sepsis Discharge Discharge Diagnosis / Problem: Recurrent UTI, Pancytopenia, Elevated liver enzymes, P. Afib Discharge Goals Goal(s): Decrease discomfort, Improve function, Improve disease control Activity Recommendations Activity Limitations: resume your previous activity (as tolerated) . Instructions / Follow-Up Instructions / Follow-Up Follows with Dr. Miles Instrument Maker Apprentice in [place] Follow up with your primary care provider Dr. Umana on 08/04 @ 1:45 PM Avoid any NSAIDs such as Motrin, Naproxen, Aleve, Ibuprofen, Aspirin due to risk of bleeding Current Hospital Diet Patient's current hospital diet: AHA Diet (Heart Healthy) Discharge Diet Recommended Diet: AHA Diet (Heart Healthy) Pending Studies Studies pending at discharge: no Laboratory Results Hemoglobin A1c Test 07/25/17 07:59 Range/Units Estimated Average Glucose 131 mg/dl Hemoglobin A1c 6.2 H 4.5-5.6 % Medical Emergencies . Who to Call and When: Medical Emergencies: If at any time you feel your situation is an emergency, please call 911 immediately. . Non-Emergent Contact Non-Emergency issues call your: Primary Care Provider Call Non-Emergent contact if: temperature is above 100.5, you have any medication questions . . "Provider Documentation" section prepared by Citlalli Kunz. . VTE Core Measure Inpt VTE Proph given/why not?: SCD's
--- NOTE | 2017-07-31 15:13 | NUR ---
a: discussed in length the discharge instructions with Ghada and her daughter Sherry. both verbalize understanding. Double PICC line will remain intact. volunteer called to transport pt to exit.
--- NOTE | 2017-07-31 15:18 | NUR ---
Case Management- Discharge instructions provided to PREETI Angel.
--- NOTE | 2017-08-02 07:58 | Discharge Summary ---
Discharge Summary Date of Service Aug 02, 2017. Discharge Summary Admission Date: Jul 24, 2017 at 22:29 Discharge Date: Jul 31, 2017 Discharge Disposition: Home with services Principal Diagnosis: Recurrent UTI Secondary Diagnoses/Problems: Pancytopenia Elevated liver enzymes P. Afib Procedures: ABD/PELVIS NO IV OR ORAL CONT CT DOSE: 420.46 mGy.cm HISTORY: Pain abd pain TECHNIQUE: Multiaxial CT images of the abdomen and pelvis were performed without contrast. A dose lowering technique was utilized adhering to the principles of ALARA. COMPARISON STUDY: [id number] FINDINGS: Development of a large right pleural effusion. Atelectasis right lower lobe. Minimal atelectasis left base. Several gallstones within the gallbladder lumen. Fatty replacement of the pancreas. Liver spleen and kidneys are unremarkable. Kidneys are specifically negative for hydronephrosis. Inferior vena caval filter is in position. Stable postoperative changes to the lower lumbar spine. Bowel pattern overall is nonobstructive. Mild bladder wall thickening. Trace amount of pericardial pericystic infiltrative change suggesting potential cystitis. Small air bubble transaxial image 64 most likely representing an air bubble within a small diverticulum. No free fluid within the pelvic cul-de-sac. Small fat-containing ventral hernia. Bowel pattern again is nonobstructive. IMPRESSION: 1. Gallstones. 2. Interval development of a large right pleural effusion and right lower lobe atelectatic change. 3. Nonobstructive bowel pattern. 4. Probable mild cystitis. 5. Osteopenia, degenerative change of the osseous structures, stable postoperative changes low lumbar spine. The above report was generated using voice recognition software. It may contain grammatical, syntax or spelling errors. Electronically signed by: Lenny Zapata M.D. 07/25/2017 6:41 AM Dictated Date/Time: 07/25/2017 6:37 AM [~ rep ct add3]] KUB CLINICAL HISTORY: Nausea. COMPARISON STUDY: 05/30/2017 FINDINGS: There are postsurgical changes present within the lumbar spine. Spinal electrodes are again evident. There is an IVC filter present. There is a right pleural effusion. There are gas-filled small bowel loops the upper limits of normal in size. There is no evidence of a high-grade bowel obstruction. IMPRESSION: 1. No conventional radiographic evidence of a high-grade bowel obstruction 2. Right pleural effusion Electronically signed by: Claudio Carreon M.D. 07/28/2017 7:23 PM Dictated Date/Time: 07/28/2017 7:22 PM Consultations: ID Medication Reconciliation Continued Medications: Acetaminophen (Tylenol) 500 Mg Tab 500-1000 MG PO DAILY PRN for Pain or Fever, TAB Alprazolam (Xanax) 1 Mg Tab 1 MG PO BID Cefdinir (Omnicef) 300 Mg Cap 1 CAP PO UD for 20 Days, #30 CAP 1 Refill take 1 cap po BID x 10 days, then take 1 cap po daily Cholecalciferol (Vitamin D 400 Iu) 400 Unit Cap 400 INTER.UNIT PO DAILY, CAP Cranberry (Vaccinium Macrocarp (Cranberry) 125 Mg Tab 1 TAB PO DAILY Cyclosporine (Ophth) (Restasis) 0.05 % Emu 1 DROP OPB DAILY, #60 Dicyclomine Hcl (Bentyl) 10 Mg Cap 10 MG PO QID PRN for abdominal pain, CAP Diphenhydramine Hcl (Benadryl Syrup) 2.5 Mg/1 Ml Syrp 15 ML PO DAILY PRN for PRN, ML TAKE 15ML DAILY NEEDED BEFORE PLATELET TRANSFUSION Docusate Sodium (Docusate Sodium) 100 Mg Cap 100 MG PO BID for 7 Days, #14 CAP Esomeprazole Magnesium (Nexium) 40 Mg Capcr 40 MG PO DAILY PRN for Heartburn TAKE 40MG DAILY ONE HOUR BEFORE FIRST MEAL OF THE DAY Filgrastim (Neupogen) Unknown Strength Inj 400 MCG SQ 2XWK Furosemide (Furosemide) 20 Mg Tab 20 MG PO Q2D@0900 for 30 Days, #15 TAB 1 Refill Levalbuterol Tartrate (Levalbuterol Tartrate Hfa) 45 Mcg/Act Aer 1 PUFF PO BID Levothyroxine Sodium (Levothyroxine Sodium) 75 Mcg Tab 75 MCG PO QPM Loratadine (Claritin) 10 Mg Tab 10 MG PO 2XWK, TAB TAKE 10MG WITH HER NEUPOGEN 2 TIMES A WEEK ON MONDAYS AND THURSDAYS Magnesium Oxide (Mag-Ox) 400 Mg Tab 400 MG PO DAILY, TAB TAKE 400MG DAILY AT LUNCH TIME Metoprolol Succinate (Metoprolol Succinate ER) 50 Mg Tabcr 50 MG PO BID Multiple Vitamin (Multivitamin) 1 Tab Tab 1 TAB PO DAILY, TAB Nystatin (Nystatin) 5 Ml Susp 5 ML PO QID for 7 Days, #140 ML 1 Refill Ocuvite Preservision (Ocuvite Preservision) 1 Tab Tab 1 TAB PO BID, 0 Refills Polyethylene Glycol 3350 (Polyethylene Glycol 3350) 1 Pow Pow 17 GM PO DAILY DISSOLVE IN 8 OZ LIQUID DAILY. Potassium Ext Rel (Klor-Con) 20 Meq Tabcr 20 MEQ PO DAILY, TAB Sodium Chloride Flush (Normal Saline Flush) 0.9 % Inj 10 ML IV. TID Thiamine Hcl (Vitamin B-1) 100 Mg Tab 100 MG PO DAILY, TAB Tramadol (Ultram) 50 Mg Tab 50 MG PO TID, TAB Discontinued Medications: Eltrombopag Olamine (Promacta) 12.5 Mg Tab 75 MG PO DAILY Admission Information HPI (per Admitting provider): CHIEF COMPLAINT: Fever, dysuria. HISTORY OF PRESENT ILLNESS: History obtained from patient, daughter, and records. Medical history significant for a aplastic anemia on Promacta, Chronic anemia ( baseline 8), hypertension, chronic diastolic heart failure, hx CAD/PVD, HTN, MRSA, recurrent UTIs, Chronic right pleural effusion, history of incomplete bladder emptying as per records. Recent confinement 2 weeks ago for neutropenic fever secondary to complicated UTI. Outpatient cultures had grown Klebsiella and citrobacter. Repeat inpatient cultures, multiple ben. Initial Cefepime use during confinement later switch to Cefdinir, as per ID recommendation. Patient went home, was comfortable initially. In the last few days, patient noted dysuria, fever, chills, central achy abdominal pain, some nausea, poor appetite. Patient brought to the Emergency Room. Given cefepime for UTI. Patient getting sicker, especially with Benadryl given prior to outpatient transfusions. Developed oral thrush and vaginal thrush. Has not been able to get outpatient Fluconazole Rx prescribed by PCP. Patient complaining of shortness of breath on exertion, weakness, poor appetite. Denies black bloody stools. Physical Exam (per Admitting): PHYSICAL EXAMINATION: VITAL SIGNS: Blood pressure was noted to be 169/90, pulse rate 108 , RR 22, temperature 38, sats 91% on room air. GENERAL: Noted to be slightly uncomfortable, anxious, no respiratory distress. HEENT: Pale palpebral conjuctivae. Dry mucosa. No ptosis. SKIN: Pallor. Warm. NECK: Short. No tenderness. CHEST: Decreased effort. No tenderness. HEART: Tachycardic, palpable LE pulses. ABDOMEN: Soft, minimal hypogastric tenderness. EXTREMITIES: Minimal LE edema, no tenderness. No gross deformities NEUROLOGIC: Coherent. No gross focality hard of hearing. 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 Miles from [facility] yesterday Recommended to D/C Neupogen Received 1 unit PRBC and 1 unit Platelet yesterday (received 3 units platelet and PRBC during this admission) (Patient need pre treatment with tylenol and claritin prior to transfusion, and Lasix 20mg po after) Continue monitor CBC as an outpatient Elevated liver enzymes Promacta has been on hold Liver enzymes back to normal Will let Dr. Miles to decide if she wants her to restart it after the next lab result for this coming Friday Stable Hypertension BP elevated Continue Metoprolol and PRN Clonidine Consider to add a low dose amlodipine if BP stays elevated Continue monitor BP P AFIB Rate control Normal sinus rhythm No anticoagulation due to thrombocytopenia continue Metoprolol History of CHF Diastolic On Lasix 20mg po q2d on hold Lasix 20mg given after transfusion No signs of fluid overload Large Pleural Effusion CT abd/pelvis showed Interval development of a large right pleural effusion CXR showed No change in the moderate right pleural effusion with associated right basilar opacity. unable to do thoracentesis due to very low platelet Saturated well Clinically stable DVT px SCDs. RE Thrombocytopenia, Code status : Level 3. (Okay with CPR. No intubation.) Disposition Follows with Dr. Miles Clinical [facility] in [place] cell no. [phone] Follow up with your primary care provider Dr. Umana on 08/04 @ 1:45 PM Continue monitor CBC Total time spent on discharge = 35 minutes This includes examination of the patient, discharge planning, medication reconciliation, and communication with other providers. Discharge Instructions Discharge Instructions Date of Service Jul 31, 2017. Admission Reason for Admission: Sepsis Discharge Discharge Diagnosis / Problem: Recurrent UTI, Pancytopenia, Elevated liver enzymes, P. Afib Discharge Goals Goal(s): Decrease discomfort, Improve function, Improve disease control Activity Recommendations Activity Limitations: resume your previous activity (as tolerated) . Instructions / Follow-Up Instructions / Follow-Up Follows with Dr. Miles Clinical [facility] in [place] Follow up with your primary care provider Dr. Umana on 08/04 @ 1:45 PM Avoid any NSAIDs such as Motrin, Naproxen, Aleve, Ibuprofen, Aspirin due to risk of bleeding Current Hospital Diet Patient's current hospital diet: AHA Diet (Heart Healthy) Pending Studies Studies pending at discharge: no Laboratory Results Hemoglobin A1c Test 07/25/17 07:59 Range/Units Estimated Average Glucose 131 mg/dl Hemoglobin A1c 6.2 H 4.5-5.6 % Medical Emergencies . Who to Call and When: Medical Emergencies: If at any time you feel your situation is an emergency, please call 911 immediately. . Non-Emergent Contact Non-Emergency issues call your: Primary Care Provider Call Non-Emergent contact if: temperature is above 100.5, you have any medication questions . . "Provider Documentation" section prepared by Citlalli Kunz. . VTE Core Measure Inpt VTE Proph given/why not?: SCD's Additional Copies To Dionisio Umana M.D.
--- NOTE | 2017-08-08 06:43 | EDITING REQUIRED CODING QUERY ---
SEPSIS (Sepsis is documented on the H&P) To promote full compliance with coding requirements relating to patient care, physician participation is requested in all cases of graduate student uncertainty. Please assist us with the question(s) below: In responding to this query, please exercise your independent professional judgement. The fact that a question is asked does not imply that any particular answer is desired or expected. We appreciate your clarification on this issue. Throughout the medical record, you have clearly documented a localized infection and your patient has clinical evidence of a generalized sepsis or severe sepsis. The term urosepsis is a nonspecific entity and is coded as an UTI. If the patient has sepsis, severe sepsis, from an urinary source or some other source, please clarify in your response below. The medical record reflects the following clinical findings: (With dates as appropriate) (Body temperature of >38.3 C(101 F) or <36 C(96.8F), pulse >90/minute, respirations >20/minute, WBC count >12,000 or <4,000, altered mental status, significant edema or positive fluid balance, hyperglycemia without diabetes, hypotension, metabolic acidosis (elev. lactate level, anion gap or reduced blood pH), shock, positive blood culture (enter organism) ()Bacteremia (Nonspecific laboratory finding of bacteria in the blood) Specify Organism () Present on Admission () Not present on admission () Unable to clinically determine () Septicemia (Systemic disease associated with the presence of pathogenic microorganisms in the blood): Specify Organism () Present on Admission () Not present on admission () Unable to clinically determine (x) Sepsis Specify Organism Specify Associated Condition/Diagnosis (x) Present on Admission () Not present on admission () Unable to clinically determine () Severe Sepsis (Sepsis associated with acute organ dysfunction) Specify Organism Specify Associated Condition/Diagnosis () Present on Admission () Not present on admission () Unable to clinically determine () Septic Shock (Severe sepsis with acute circulatory failure, unexplained by other causes) () Present on Admission () Not present on admission () Unable to clinically determine (x) Other, patient has:
[2017-08-17] MEDS ORDERED: CARB1SOL9 OT (16:26)
[2017-08-22] MEDS ORDERED: CEFD1CAP14 PO (09:24)
== END 2017-07-31 15:14 | disposition home health service (06) | DRG 872 ==
LOC: EDBD 20:18 → C.EDB 20:19 → C.MS4W 22:29 → EDBEDREQ 22:35 → ENRESERV 22:43
PROVIDERS: ADMIT Internal Medicine; ATTEND Internal Medicine
DX: A41.9 Sepsis, unspecified organism (principal); N39.0 Urinary tract infection, site not specified; D61.9 Aplastic anemia, unspecified; I50.32 Chronic diastolic (congestive) heart failure; E87.1 Hypo-osmolality and hyponatremia; B37.0 Candidal stomatitis; B96.5 Pseudomonas (aeruginosa) (mallei) (pseudomallei) as the cause of diseases classified elsewhere; B95.2 Enterococcus as the cause of diseases classified elsewhere; D46.9 Myelodysplastic syndrome, unspecified; R74.8 Abnormal levels of other serum enzymes; B37.3 Candidiasis of vulva and vagina; I48.0 Paroxysmal atrial fibrillation; I11.0 Hypertensive heart disease with heart failure; K58.9 Irritable bowel syndrome, unspecified; J44.9 Chronic obstructive pulmonary disease, unspecified; E03.9 Hypothyroidism, unspecified; I73.9 Peripheral vascular disease, unspecified; M81.0 Age-related osteoporosis without current pathological fracture; Z79.899 Other long term (current) drug therapy; Z87.440 Personal history of urinary (tract) infections; Z82.5 Family history of asthma and other chronic lower respiratory diseases; D69.3 Immune thrombocytopenic purpura; D61.818 Other pancytopenia

== ENCOUNTER 2017-08-08 09:12 | Inpatient (IN) | payer OTHER, BC ==
[~2017-08-08] VITALS: Ht 162.6 cm; Wt 66.5 kg
[2017-08-08] VITALS (8 sets, daily range): BP systolic 102–185; BP diastolic 46–75; PULSE 64–81; TEMP 36.3–36.8; O2SAT 96–98; Ht 162.6 cm; Wt 66.5 kg
[~2017-08-08 09:12] MED LIST changes: -ACET-1047 PO; -BENZ100C7 PO; -CEFD300C2 PO; -CLR10 PO; -DIPH25CA50 PO; +DOCU100C31 PO; -ELTR12.58 PO; -FILG300I4 SQ; +SODI0.9I55 IV.; +TYLOTC500 PO
[2017-08-08] MEDS ORDERED: SODIUM CHLORIDE 0.9% 1000ML 1,000 ML IV STA (09:46)
[2017-08-08] MEDS ORDERED: ONDANSETRON INJ 2 MG/ML 2 ML VIAL IV STA (09:46)
[2017-08-08] MEDS ORDERED: SODIUM CHLORIDE 0.9% 500ML 500 ML IV STA (09:51)
--- NOTE | 2017-08-08 09:55 | NUR ---
A: Platelets ended at this time Addendum: 08/08/17 at 2209 by Priscilla Tate RN Error: Platelets completed at 4205
--- NOTE | 2017-08-08 09:55 | EMERGENCY ROOM VISIT NOTE ---
History Report prepared by Larry: Sarahi Dodge Under the Supervision of: Dr. Thaddeus Mabry M.D. First contact with patient: 09:43 Chief Complaint: ILLNESS Stated Complaint: FEVER History of Present Illness The patient is an 87 year old female who presents to the Emergency Room with complaints of a persistent fever. She is accompanied by her daughter. Her daughter states the patient received a blood transfusion yesterday for a history of aplastic anemia as her most recent blood work showed a platelet count of 15. She has an appointment later today at [facility] to see an anemia specialist. The patient complains of a cough, shortness of breath, increased urination, dysuria and dizziness. She is a non-smoker and uses inhalers at home for her breathing. She denies any back pain. Her daughter notes she has a history of bladder infections and when she noticed the patient complaining of dysuria, she was concerned for another infection. 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 A total of ten systems were reviewed and were otherwise negative. 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 (6) Hypertension Nos (7) Hypothyroidism Nos (8) ITP (idiopathic thrombocytopenic purpura) (9) Myalgia and myositis (10) Osteoporosis Nos (11) Pancytopenia (12) Premature atrial contractions (13) Pulmonary nodules (14) Sepsis (15) UTI (urinary tract infection) Surgical Problems: (1) History of cataract surgery (2) S/P hernia repair (3) S/P hysterectomy (4) S/p repair of cystocele (5) S/P tonsillectomy and adenoidectomy Family History Asthma DAUGHTER Social History Smoking Status: Never Smoker Alcohol Use: none Drug Use: none Marital Status: single Housing Status: lives with family Occupation Status: retired Current/Historical Medications Scheduled Alprazolam (Xanax), 1 MG PO BID Cholecalciferol (Vitamin D 400 Iu), 400 INTER.UNIT PO DAILY Clotrimazole (Mycelex), 10 MG MT UD Cranberry (Vaccinium Macrocarp (Cranberry), 1 TAB PO DAILY Cyclosporine (Ophth) (Restasis), 1 DROP OPB DAILY Furosemide (Furosemide), 20 MG PO Q2D@0900 Levalbuterol Tartrate (Levalbuterol Tartrate Hfa), 1 PUFF PO BID Levothyroxine Sodium (Levothyroxine Sodium), 75 MCG PO QPM Magnesium Oxide (Mag-Ox), 400 MG PO BID Metoprolol Succinate (Metoprolol Succinate ER), 50 MG PO BID Multivitamins/Minerals (Mvi With Minerals), 1 TAB PO DAILY Polyethylene Glycol 3350 (Polyethylene Glycol 3350), 17 GM PO DAILY Potassium Ext Rel (Klor-Con), 20 MEQ PO DAILY Sodium Chloride Flush (Normal Saline Flush), 10 ML IV. TID Thiamine Hcl (Vitamin B-1), 100 MG PO DAILY Tramadol (Ultram), 50 MG PO Q6 [Multivital], 1 TAB PO DAILY Scheduled PRN Acetaminophen (Tylenol), 500 MG PO Q6 PRN for Pain Dicyclomine Hcl (Bentyl), 10 MG PO QID PRN for abdominal pain Docusate Sodium (Docusate Sodium), 100 MG PO BID PRN for Constipation Esomeprazole Magnesium (Nexium), 40 MG PO DAILY PRN for Heartburn Allergies Coded Allergies: Iodinated Diagnostic Agents (Verified Allergy, Intermediate, HIVES WITH IVP DYE, 07/24/17) Sulfa Antibiotics (Verified Allergy, Intermediate, RASH, 07/24/17) Amoxicillin (Verified Allergy, Mild, RASH, Zosyn tolerated [id number] ADM, 07/24/17) Clavulanic Acid (Verified Allergy, Mild, RASH, Zosyn tolerated [id number] ADM, 07/24/17) Diphenhydramine (Verified Allergy, Unknown, 0, 07/25/17) sick Codeine (Verified Adverse Reaction, Intermediate, NAUSEA/VOMITING, ) Morphine (Verified Adverse Reaction, Intermediate, NAUSEA/VOMITING, ) Oxycodone (Verified Adverse Reaction, Intermediate, NAUSEA/VOMITING, 07/24) Rofecoxib (Verified Adverse Reaction, Intermediate, PALPITATIONS, 07/24/17 ) Morphine and Related (Verified Adverse Reaction, Mild, GI SYMPTOMS, ) Physical Exam Vital Signs Date Time Temp Pulse Resp B/P (MAP) Pulse Ox O2 Delivery O2 Flow Rate FiO2 08/08/17 13:59 79 26 138/83 96 Nasal Cannula 3.0 08/08/17 13:16 82 20 142/71 98 Nasal Cannula 08/08/17 12:43 83 08/08/17 11:55 81 24 180/94 98 Nasal Cannula 3.0 08/08/17 10:18 91 27 196/91 98 Nasal Cannula 3.0 08/08/17 09:43 36.6 96 26 197/96 89 Room Air 08/08/17 09:21 101 Physical Exam GENERAL: Awake, alert, chronically ill-appearing, in no distress HENT: Normocephalic, atraumatic. Oropharynx unremarkable. Dry cracked mucous membranes. EYES: Normal conjunctiva. Sclera non-icteric. NECK: Supple. No nuchal rigidity. FROM. No JVD. RESPIRATORY: Clear to auscultation. CARDIAC: Regular rate, normal rhythm. Extremities warm and well perfused. Pulses equal. ABDOMEN: Soft, non-distended. No tenderness to palpation. No rebound or guarding. No masses. RECTAL: Deferred. MUSCULOSKELETAL: Chest examination reveals no tenderness. The back is symmetrical on inspection without obvious abnormality. There is no CVA tenderness to palpation. No joint edema. LOWER EXTREMITIES: Calves are equal size bilaterally and non-tender. No edema. No discoloration. NEURO: Normal sensorium. No sensory or motor deficits noted. SKIN: No rash or jaundice noted. Medical Decision & Procedures ER Provider Diagnostic Interpretation: Radiology results as stated below per my review and radiologist interpretation: CHEST ONE VIEW PORTABLE CLINICAL HISTORY: sob dyspnea COMPARISON STUDY: 07/24/2017 FINDINGS: Mild increase in volume of right effusion. Central catheter remains in the superior vena cava. Developing interstitial infiltrate left base. IMPRESSION: 1. Mild increase in volume of a right pleural effusion. 2. Developing interstitial infiltrate left base The above report was generated using voice recognition software. It may contain grammatical, syntax or spelling errors. Electronically signed by: Lenny Zapata M.D. 08/08/2017 10:11 AM ABD/PELVIS NO IV OR ORAL CONT CT DOSE: 450.72 mGy.cm HISTORY: Pain. [place] does. painless jaundice TECHNIQUE: Multiaxial CT images of the abdomen and pelvis were performed without contrast. A dose lowering technique was utilized adhering to the principles of ALARA. COMPARISON STUDY: 07/24/2017 FINDINGS: No change in the appearance of a larger right sided pleural effusion as well as atelectatic change right lower lobe. This is similar as compared to the prior study. Trace pleural fluid and atelectasis left base also unchanged. Liver is uniform. Gallstones though the gallbladder. This is unchanged. Pancreas shows a near complete atrophy. Filter in the inferior vena cava unchanged. Kidneys negative for hydronephrosis or calcification. Bowel pattern overall is nonobstructive. No significant abdominal pelvic or inguinal adenopathy. Postoperative changes consistent with a right inguinal hernia repair. Moderate bladder wall thickening similar as compared to the prior study. No significant acute process of the osseous structures. Unchanged postoperative change of the lumbar spine. Unaltered component of osteopenia. IMPRESSION: 1. Right pleural effusion and right lower lobe atelectasis unchanged from the prior exam. 2. Nonobstructive bowel pattern. 3. Gallstones in the gallbladder unchanged. 4. Near complete atrophy and substance loss of the pancreas. 5. Stable postoperative changes lumbar spine with evidence for generalized osteopenia. 6. Moderate thickening of the bladder wall unchanged from the prior exam. The above report was generated using voice recognition software. It may contain grammatical, syntax or spelling errors. Electronically signed by: Lenny Zapata M.D. 08/08/2017 12:25 PM Laboratory Results 08/08/17 09:30 Red Blood Count 3.07, Mean Corpuscular Volume 80.1, Mean Corpuscular Hemoglobin 29.3, Mean Corpuscular Hemoglobin Concent 36.6, Neutrophils (%) (Auto) 12.4, Lymphocytes (%) (Auto) 81.4, Monocytes (%) (Auto) 4.1, Eosinophils (%) (Auto) 0.0, Basophils (%) (Auto) 0.0, Neutrophils # (Auto) 0.12, Lymphocytes # (Auto) 0.79, Monocytes # (Auto) 0.04, Eosinophils # (Auto) 0.00, Basophils # (Auto) 0.00 08/08/17 09:30 Test 08/08/17 09:30 08/08/17 10:02 08/08/17 10:10 08/08/17 11:35 White Blood Count 0.97 K/uL (4.8-10.8) Red Blood Count 3.07 M/uL (4.2-5.4) Hemoglobin 9.0 g/dL (12.0-16.0) Hematocrit 24.6 % (37-47) Mean Corpuscular Volume 80.1 fL (80-100) Mean Corpuscular Hemoglobin 29.3 pg (25-34) Mean Corpuscular Hemoglobin Concent 36.6 g/dl (32-36) Platelet Count 3 K/uL (130-400) Neutrophils (%) (Auto) 12.4 % Lymphocytes (%) (Auto) 81.4 % Monocytes (%) (Auto) 4.1 % Eosinophils (%) (Auto) 0.0 % Basophils (%) (Auto) 0.0 % Neutrophils # (Auto) 0.12 K/uL (1.4-6.5) Lymphocytes # (Auto) 0.79 K/uL (1.2-3.4) Monocytes # (Auto) 0.04 K/uL (0.11-0.59) Eosinophils # (Auto) 0.00 K/uL (0-0.5) Basophils # (Auto) 0.00 K/uL (0-0.2) RDW Standard Deviation 38.6 fL (36.4-46.3) RDW Coefficient of Variation 13.3 % (11.5-14.5) Immature Granulocyte % (Auto) 2.1 % Immature Granulocyte # (Auto) 0.02 K/uL (0.00-0.02) Hypogranular Neutrophils 2+ Absolute Reticulocyte Count < 0.02 10^6/uL (0.02-0.10) Percent Reticulocyte Count < 0.5 % (0.5-2.0) Prothrombin Time 13.3 SECONDS (9.0-12.0) Prothromb Time International Ratio 1.3 (0.9-1.1) Anion Gap 6.0 mmol/L (3-11) Est Creatinine Clear Calc Drug Dose 65.7 ml/min Estimated GFR () 96.2 Estimated GFR (Non- 83.0 BUN/Creatinine Ratio 31.6 (10-20) Calcium Level 8.6 mg/dl (8.5-10.1) Phosphorus Level 3.1 mg/dl (2.5-4.9) Magnesium Level 1.7 mg/dl (1.8-2.4) Total Bilirubin 2.6 mg/dl (0.2-1) Direct Bilirubin 1.3 mg/dl (0-0.2) Aspartate Amino Transf (AST/SGOT) 64 U/L (15-37) Alanine Aminotransferase (ALT/SGPT) 98 U/L (12-78) Alkaline Phosphatase 347 U/L (45-117) Troponin I 0.021 ng/ml (0-0.045) Pro-B-Type Natriuretic Peptide 2913 pg/ml (0-1800) Total Protein 7.6 gm/dl (6.4-8.2) Albumin 3.3 gm/dl (3.4-5.0) Lipase 99 U/L (73-393) Thyroid Stimulating Hormone (TSH) 0.931 uIu/ml (0.300-4.500) Lactate Dehydrogenase 195 U/L (84-246) Lactic Acid Level 0.7 mmol/L (0.4-2.0) Urine Color DK YELLOW Urine Appearance CLEAR (CLEAR) Urine pH 5.5 (4.5-7.5) Urine Specific [place] 1.020 (1.000-1.030) Urine Protein 3+ (NEG) Urine Glucose (UA) NEG (NEG) Urine Ketones NEG (NEG) Urine Occult Blood 2+ (NEG) Urine Nitrite POS (NEG) Urine Bilirubin 1+ (NEG) Urine Urobilinogen NEG (NEG) Urine Leukocyte Esterase MODERATE (NEG) Urine WBC (Auto) >30 /hpf (0-5) Urine RBC (Auto) 10-30 /hpf (0-4) Urine Hyaline Casts (Auto) 5-10 /lpf (0-5) Urine Epithelial Cells (Auto) 10-20 /lpf (0-5) Urine Bacteria (Auto) 1+ (NEG) Laboratory results reviewed by me Medications Administered Medications (Trade) Dose Ordered Sig/Giuseppe Route Start Time Stop Time Status Last Admin Dose Admin Ondansetron HCl (Zofran Inj) 4 mg NOW STAT IV 08/08/17 09:46 08/08/17 10:09 DC 08/08/17 10:15 4 MG Sodium Chloride 500 ml @ 999 mls/hr Q31M STAT IV 08/08/17 09:51 08/08/17 10:21 DC 08/08/17 10:17 999 MLS/HR Vancomycin HCl 1500 mg/Sodium Chloride 530 ml @ 200 mls/hr ONE STAT IV 08/08/17 12:36 08/08/17 15:14 DC 08/08/17 14:00 200 MLS/HR Cefepime HCl 2000 mg/Dextrose 122 ml @ 200 mls/hr NOW STAT IV 08/08/17 12:36 08/08/17 13:12 DC 08/08/17 14:00 200 MLS/HR Magnesium Sulfate (Magnesium Sulfate) 2 gm NOW STAT IV 08/08/17 12:51 08/08/17 12:52 DC 08/08/17 13:14 2 GM ECG Indication: weakness Rate (beats per minute): 96 Rhythm: atrial fibrillation Findings: LBBB, no acute ischemic change, other (normal axis, no Sgarbossa criteria) Comparison ECG Date: Atrial fibrillation is new when compared to EKG from 07/24 ED Course 0945: The patient was evaluated in room B12. A complete history and physical exam was performed. 1246: I discussed the patients case with Allison Lynch PA-C, [facility] Hospitalist. The patient will be further evaluated. 1255: I reevaluated the patient. She is resting comfortably. I discussed my recommendation she remain in the hospital for further evaluation and management and she and her daughter verbalized complete understanding and agreement. Medical Decision I reviewed the patient's past medical history, medications, and the nursing notes as described above. Differential Diagnoses: Pneumonia, bronchitis, ACS, CHF, UTI, dehydration, electrolyte abnormality and transfusion reaction. The patient is an 87-year-old woman with a past medical history of aplastic anemia who presents emergency Department with worsening malaise, shortness of breath, chills after having a transfusion yesterday per history of present illness. The patient is chronically ill-appearing but in no acute distress, afebrile with stable vital signs. Workup notable for neutropenia wbc 0.97 and anc 0.12 and thrombocytopenia to 3. LDH within normal limits. However direct and total bili elevated. Heptoglobin pending with question delayed transfusion reaction. Chest x-ray with question of a new infiltrate in left base. CT abdomen and pelvis with stable gallstones but no other acute findings. The patient's neutropenia will treat with broad-spectrum antibiotics for pneumonia. The patient's history of thrombocytopenia will defer management pending likely inpatient hematology consultation. Does appear also to have a new A. fib however given the patient's profound thrombocytopenia and associated bleeding risk we'll defer anticoagulation for now pending further evaluation by admitting team. Case d/w Matthew Lange PAc who will admit the patient for further management. Medication Reconcilliation Current Medication List: was personally reviewed by me Blood Pressure Screening Patient's blood pressure: Elevated blood pressure The patients elevated blood pressure will be further addressed by the inpatient hospital medicine team. Consults Time Called: 1244 Consulting Physician: Allison Lynch PA-C, [facility] Hospitalist Returned Call: 1246 I discussed the patients case with Allison Lynch PA-C, [facility] Hospitalist. The patient will be further evaluated. Impression Primary Impression: Neutropenia Additional Impressions: Pneumonia Thrombocytopenia Critical Care I have personally spent greater than 35 minutes of critical care time in the direct management of this patient. This includes bedside care, interpretation of diagnostic studies, and testing, discussion with consultants, patient, and family members, and other required patient management activities. This 35 minutes is in excess of all separately billable procedures. Scribe Attestation The scribe's documentation has been prepared under my direction and personally reviewed by me in its entirety. I confirm that the note above accurately reflects all work, treatment, procedures, and medical decision making performed by me. Departure Information Dispostion Being Evaluated By Hospitalist Dionisio Key M.D. (PCP) Patient Instructions [facility] Problem Qualifiers
[2017-08-08] MEDS ORDERED: MULTIVITAL PO (10:04)
[2017-08-08] MEDS ORDERED: CLOT10TR2 MT (10:04)
[2017-08-08] MEDS ORDERED: MULT-513 PO (10:04)
--- NOTE | 2017-08-08 10:12 | DIAGNOSTIC IMAGING REPORT ---
CHEST ONE VIEW PORTABLE CLINICAL HISTORY: sob dyspnea COMPARISON STUDY: 07/24/2017 FINDINGS: Mild increase in volume of right effusion. Central catheter remains in the superior vena cava. Developing interstitial infiltrate left base. IMPRESSION: 1. Mild increase in volume of a right pleural effusion. 2. Developing interstitial infiltrate left base The above report was generated using voice recognition software. It may contain grammatical, syntax or spelling errors. Electronically signed by: Lenny Zapata M.D. 08/08/2017 10:11 AM Dictated Date/Time: 08/08/2017 10:09 AM
[2017-08-08 10:23] LABS: ALBUMIN 3.3 gm/dl (3.4-5.0); CALCIUM 8.6 mg/dl (8.5-10.1); CREATININE 0.59 mg/dl (0.60-1.20); POTASSIUM 3.9 mmol/L (3.5-5.1)
[2017-08-08 10:26] LABS: PHOSPHORUS 3.1 mg/dl (2.5-4.9); TOTAL PROTEIN 7.6 gm/dl (6.4-8.2)
[2017-08-08 10:37] LABS: HEMATOCRIT 24.6 % (37-47); MEAN CELL VOLUME 80.1 fL (80-100); MEAN CORPUSCULAR HEMOGLOBIN 29.3 pg (25-34); RED CELL DISTRIBUTION WIDTH CV 13.3 % (11.5-14.5); RED CELL DISTRIBUTION WIDTH SD 38.6 fL (36.4-46.3); WHITE BLOOD COUNT 0.97 K/uL (4.8-10.8)
[2017-08-08 11:25] LABS: MEAN CORPUSCULAR HGB CONC 36.6 g/dl (32-36); PLATELET COUNT 3 K/uL (130-400)
[2017-08-08 11:27] LABS: INR 1.3 (0.9-1.1)
[2017-08-08 11:52] LABS: IG# 0.02 K/uL (0.00-0.02); LYMPH % 81.4 %; LYMPH ABS # 0.79 K/uL (1.2-3.4); MONO % 4.1 %; MONO ABS # 0.04 K/uL (0.11-0.59); NEUT % 12.4 %; NEUT ABS # 0.12 K/uL (1.4-6.5)
--- NOTE | 2017-08-08 12:27 | DIAGNOSTIC IMAGING REPORT ---
ABD/PELVIS NO IV OR ORAL CONT CT DOSE: 450.72 mGy.cm HISTORY: Pain. [place] does. painless jaundice TECHNIQUE: Multiaxial CT images of the abdomen and pelvis were performed without contrast. A dose lowering technique was utilized adhering to the principles of ALARA. COMPARISON STUDY: 07/24/2017 FINDINGS: No change in the appearance of a larger right sided pleural effusion as well as atelectatic change right lower lobe. This is similar as compared to the prior study. Trace pleural fluid and atelectasis left base also unchanged. Liver is uniform. Gallstones though the gallbladder. This is unchanged. Pancreas shows a near complete atrophy. Filter in the inferior vena cava unchanged. Kidneys negative for hydronephrosis or calcification. Bowel pattern overall is nonobstructive. No significant abdominal pelvic or inguinal adenopathy. Postoperative changes consistent with a right inguinal hernia repair. Moderate bladder wall thickening similar as compared to the prior study. No significant acute process of the osseous structures. Unchanged postoperative change of the lumbar spine. Unaltered component of osteopenia. IMPRESSION: 1. Right pleural effusion and right lower lobe atelectasis unchanged from the prior exam. 2. Nonobstructive bowel pattern. 3. Gallstones in the gallbladder unchanged. 4. Near complete atrophy and substance loss of the pancreas. 5. Stable postoperative changes lumbar spine with evidence for generalized osteopenia. 6. Moderate thickening of the bladder wall unchanged from the prior exam. The above report was generated using voice recognition software. It may contain grammatical, syntax or spelling errors. Electronically signed by: Lenny Zapata M.D. 08/08/2017 12:25 PM Dictated Date/Time: 08/08/2017 12:21 PM
[2017-08-08] MEDS ORDERED: CEFEPIME IV 2,000 MG in DEXTROSE 5% 100ML 100 ML IV STA (12:36)
[2017-08-08] MEDS ORDERED: VANCOMYCIN IV 1,500 MG in SODIUM CHLORIDE 0.9% 500ML 500 ML IV STA (12:36)
[2017-08-08] MEDS ORDERED: MAGNESIUM SULFATE 1GM / D5W 1 GM BAG IV STA (12:51)
[2017-08-08 13:48] LABS: RETIC COUNT % < 0.5 % (0.5-2.0)
--- NOTE | 2017-08-08 14:09 | History and Physical ---
History & Physical Date & Time of Service: Aug 08, 2017 at 14:09 Chief Complaint: FEVER Primary Care Physician: Dionisio Umana M.D. 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 Earlier this week, patient was seen by Dr. Umana for most recent hospital follow and labwork was obtained. Patient was given 1 unit prbcs yesterday in the hope that she would feel well enough to go to hematology appt in [place] today for a second opinion (already followed closely by Dr. Miles in [place]). Unfortunately, patient started to experience worsening fatigue, dizziness and urinary symptoms yesterday so daughter brought her to [facility] ED for further evaluation. States that patient had a low grade fever yesterday. Patient has been admitted multiple times this fall for neutropenic fever and recurrent UTIs, most recently from 07/24-07/31. Most recent urine culture grew pseudomonas and enterococcus and was treated with 7 days of cefepime and 3 days of vancomycin. Blood culture was negative. Course was complicated by significant pancytopenia with severe thrombocytopenia. Received transfusions of prbcs and platelets during admission. The hospitalist discussed the case [place] architect (Dr. Miles), who recommended discontinuing Neupogen due to lack of response. Additionally, it was recommended to hold Promacta in the setting of elevated LFTs. Currently endorses nasal congestion, SOB, dizziness and fatigue. Denies chills, sore throat, sinus pain, chest pain, abd pain, nausea, vomiting, LE swelling. No evidence of active bleeding. Past Medical/Surgical History Medical Problems: (1) Anemia Status: Chronic (2) Atrial fibrillation Status: Chronic (3) COPD (chronic obstructive pulmonary disease) Status: Chronic (4) Coronary Atherosclerosis Of [place]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 Status: Chronic (5) Hypertension Nos Status: Chronic (6) Hypothyroidism Nos Status: Chronic (7) ITP (idiopathic thrombocytopenic purpura) Status: Chronic (8) Myalgia and myositis Status: Chronic (9) Osteoporosis Nos Status: Chronic (10) Premature atrial contractions Status: Chronic (11) Pulmonary nodules Status: Chronic Surgical Problems: (1) History of cataract surgery Status: Chronic (2) S/P hernia repair Status: Chronic (3) S/P hysterectomy Status: Chronic (4) S/p repair of cystocele Status: Chronic (5) S/P tonsillectomy and adenoidectomy Status: Chronic Family History Asthma DAUGHTER Social History Smoking Status: Never Smoker Drug Use: none Marital Status: single Housing status: lives with family Occupational Status: retired Immunizations History of Influenza Vaccine: No Influenza Vaccine Date: Jun 04, 2016 History of Tetanus Vaccine?: Yes Tetanus Immunization Date: Feb 08, 2015 History of Pneumococcal: Yes Pneumococcal Date: Jul 20, 1996 History of Hepatitis B Vaccine: No Multi-Drug Resistant Organisms History of MDRO: Yes Type of MDRO: MRSA Allergies Coded Allergies: Iodinated Diagnostic Agents (Verified Allergy, Intermediate, HIVES WITH IVP DYE, 07/24/17) Sulfa Antibiotics (Verified Allergy, Intermediate, RASH, 07/24/17) Amoxicillin (Verified Allergy, Mild, RASH, Zosyn tolerated [id number] ADM, 07/24/17) Clavulanic Acid (Verified Allergy, Mild, RASH, Zosyn tolerated [id number] ADM, 07/24/17) Diphenhydramine (Verified Allergy, Unknown, 0, 07/25/17) sick Codeine (Verified Adverse Reaction, Intermediate, NAUSEA/VOMITING, ) Morphine (Verified Adverse Reaction, Intermediate, NAUSEA/VOMITING, ) Oxycodone (Verified Adverse Reaction, Intermediate, NAUSEA/VOMITING, 07/24) Rofecoxib (Verified Adverse Reaction, Intermediate, PALPITATIONS, 07/24/17 ) Morphine and Related (Verified Adverse Reaction, Mild, GI SYMPTOMS, ) Home Medications Scheduled Alprazolam (Xanax), 1 MG PO BID Cholecalciferol (Vitamin D 400 Iu), 400 INTER.UNIT PO DAILY Clotrimazole (Mycelex), 10 MG MT UD Cranberry (Vaccinium Macrocarp (Cranberry), 1 TAB PO DAILY Cyclosporine (Ophth) (Restasis), 1 DROP OPB DAILY Furosemide (Furosemide), 20 MG PO Q2D@0900 Levalbuterol Tartrate (Levalbuterol Tartrate Hfa), 1 PUFF PO BID Levothyroxine Sodium (Levothyroxine Sodium), 75 MCG PO QPM Magnesium Oxide (Mag-Ox), 400 MG PO BID Metoprolol Succinate (Metoprolol Succinate ER), 50 MG PO BID Multivitamins/Minerals (Mvi With Minerals), 1 TAB PO DAILY Polyethylene Glycol 3350 (Polyethylene Glycol 3350), 17 GM PO DAILY Potassium Ext Rel (Klor-Con), 20 MEQ PO DAILY Sodium Chloride Flush (Normal Saline Flush), 10 ML IV. TID Thiamine Hcl (Vitamin B-1), 100 MG PO DAILY Tramadol (Ultram), 50 MG PO Q6 [Multivital], 1 TAB PO DAILY Scheduled PRN Acetaminophen (Tylenol), 500 MG PO Q6 PRN for Pain Dicyclomine Hcl (Bentyl), 10 MG PO QID PRN for abdominal pain Docusate Sodium (Docusate Sodium), 100 MG PO BID PRN for Constipation Esomeprazole Magnesium (Nexium), 40 MG PO DAILY PRN for Heartburn Review of Systems Ten systems reviewed and negative except as noted in the HPI. Physical Exam Vital Signs Date Time Temp Pulse Resp B/P (MAP) Pulse Ox O2 Delivery O2 Flow Rate FiO2 08/08/17 13:59 79 26 138/83 96 Nasal Cannula 3.0 08/08/17 13:16 82 20 142/71 98 Nasal Cannula 08/08/17 12:43 83 08/08/17 11:55 81 24 180/94 98 Nasal Cannula 3.0 08/08/17 10:18 91 27 196/91 98 Nasal Cannula 3.0 08/08/17 09:43 36.6 96 26 197/96 89 Room Air 08/08/17 09:21 101 General Appearance: + mild distress, + pertinent finding (Chronically ill appearing, pale, breathing comfortably on NC O2) Head: normocephalic, atraumatic Eyes: normal inspection, PERRL, sclerae normal ENT: hearing grossly normal, pharynx normal (dry mucous membranes ), + nasal congestion Neck: supple, no JVD, trachea midline Respiratory/Chest: chest non-tender, normal breath sounds, no respiratory distress, no accessory muscle use, + crackles (Bibasilar crackles. Otherwise clear) Cardiovascular: no murmur, normal peripheral pulses, + irregularly irregular, + pertinent finding (no LE edema) Abdomen/GI: non tender, soft, no organomegaly Back: normal inspection Extremities/Musculoskelatal: normal inspection, no calf tenderness, no pedal edema Neurologic/Psych: no motor/sensory deficits, alert, normal mood/affect, oriented x 3 Skin: normal color, warm/dry Diagnostics Laboratory Results Results Past 24 Hours Test 08/08/17 09:30 08/08/17 10:02 08/08/17 10:10 08/08/17 11:35 Range/Units White Blood Count 0.97 4.8-10.8 K/uL Red Blood Count 3.07 4.2-5.4 M/uL Hemoglobin 9.0 12.0-16.0 g/dL Hematocrit 24.6 37-47 % Mean Corpuscular Volume 80.1 80-100 fL Mean Corpuscular Hemoglobin 29.3 25-34 pg Mean Corpuscular Hemoglobin Concent 36.6 32-36 g/dl Platelet Count 3 130-400 K/uL Neutrophils (%) (Auto) 12.4 % Lymphocytes (%) (Auto) 81.4 % Monocytes (%) (Auto) 4.1 % Eosinophils (%) (Auto) 0.0 % Basophils (%) (Auto) 0.0 % Neutrophils # (Auto) 0.12 1.4-6.5 K/uL Lymphocytes # (Auto) 0.79 1.2-3.4 K/uL Monocytes # (Auto) 0.04 0.11-0.59 K/uL Eosinophils # (Auto) 0.00 0-0.5 K/uL Basophils # (Auto) 0.00 0-0.2 K/uL RDW Standard Deviation 38.6 36.4-46.3 fL RDW Coefficient of Variation 13.3 11.5-14.5 % Immature Granulocyte % (Auto) 2.1 % Immature Granulocyte # (Auto) 0.02 0.00-0.02 K/uL Hypogranular Neutrophils 2+ Absolute Reticulocyte Count < 0.02 0.02-0.10 10^6/uL Percent Reticulocyte Count < 0.5 0.5-2.0 % Prothrombin Time 13.3 9.0-12.0 SECONDS Prothromb Time International Ratio 1.3 0.9-1.1 Sodium Level 129 136-145 mmol/L Potassium Level 3.9 3.5-5.1 mmol/L Chloride Level 94 98-107 mmol/L Carbon Dioxide Level 29 21-32 mmol/L Anion Gap 6.0 3-11 mmol/L Blood Urea Nitrogen 19 7-18 mg/dl Creatinine 0.59 0.60-1.20 mg/dl Est Creatinine Clear Calc Drug Dose 65.7 ml/min Estimated GFR () 96.2 Estimated GFR (Non- 83.0 BUN/Creatinine Ratio 31.6 10-20 Random Glucose 143 70-99 mg/dl Calcium Level 8.6 8.5-10.1 mg/dl Phosphorus Level 3.1 2.5-4.9 mg/dl Magnesium Level 1.7 1.8-2.4 mg/dl Total Bilirubin 2.6 0.2-1 mg/dl Direct Bilirubin 1.3 0-0.2 mg/dl Aspartate Amino Transf (AST/SGOT) 64 15-37 U/L Alanine Aminotransferase (ALT/SGPT) 98 12-78 U/L Alkaline Phosphatase 347 45-117 U/L Troponin I 0.021 0-0.045 ng/ml Pro-B-Type Natriuretic Peptide 2913 0-1800 pg/ml Total Protein 7.6 6.4-8.2 gm/dl Albumin 3.3 3.4-5.0 gm/dl Lipase 99 73-393 U/L Lactate Dehydrogenase 195 84-246 U/L Lactic Acid Level 0.7 0.4-2.0 mmol/L Urine Color DK YELLOW Urine Appearance CLEAR CLEAR Urine pH 5.5 4.5-7.5 Urine Specific [place] 1.020 1.000-1.030 Urine Protein 3+ NEG Urine Glucose (UA) NEG NEG Urine Ketones NEG NEG Urine Occult Blood 2+ NEG Urine Nitrite POS NEG Urine Bilirubin 1+ NEG Urine Urobilinogen NEG NEG Urine Leukocyte Esterase MODERATE NEG Urine WBC (Auto) >30 0-5 /hpf Urine RBC (Auto) 10-30 0-4 /hpf Urine Hyaline Casts (Auto) 5-10 0-5 /lpf Urine Epithelial Cells (Auto) 10-20 0-5 /lpf Urine Bacteria (Auto) 1+ NEG Microbiology Results 08/08/17 Blood Culture, Received Pending 08/08/17 Blood Culture, Received Pending 08/08/17 Urine Culture, Received Pending 12/15/17 Urine Culture, Ordered Pending Diagnostic Radiology Abd/pelvis XR: IMPRESSION: 1. Right pleural effusion and right lower lobe atelectasis unchanged from the prior exam. 2. Nonobstructive bowel pattern. 3. Gallstones in the gallbladder unchanged. 4. Near complete atrophy and substance loss of the pancreas. 5. Stable postoperative changes lumbar spine with evidence for generalized osteopenia. 6. Moderate thickening of the bladder wall unchanged from the prior exam. CXR: IMPRESSION: 1. Mild increase in volume of a right pleural effusion. 2. 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 Miles from [facility] -Recommended 1 unit platelets -Will pretreat with tylenol and claritin -Highly recommend patient reschedules appt with Rose[facility] for a second opinion -Monitor labwork closely, neutropenic precautions -Heme onc consulted Developing PNA: -Patient with SOB, fatigue, nasal congestion -CXR with developing interstitial infiltrate in left lung base. Small pleural effusion in R lung (improved from last admission) -Broad coverage abx -Cont home inhalers -Blood cultures pending -O2 per protocol -IVF Elevated liver enzymes: -Unclear etiology -Promacta has been held since last admission with the hope that LFTs would improve -Dr. Miles unsure why LFTs remain elevated -Daily CMP for monitoring Hypertension: -Normotensive -Continue home dose Metoprolol and PRN Clonidine Paroxysmal atrial fibrillation: -Initial EKG with a fib at 96 bpm, repeat in sinus rhythm -Asymptomatic -Continue Metoprolol -Adequate fluid resuscitation -No anticoagulation 2/2 thrombocytopenia -Monitor on tele Chronic diastolic CHF: -Dry on exam, will hold daily lasix -No signs of fluid overload Hypothyroidism: -TSH pending -Cont home dose levothyroxine DVT Ppx: SCDs only (no pharmacologic VTE 2/2 thrombocytopenia) Code status: Level 3 per living will (FULL NO MECHANICAL VENTILATION) PCP: Lyndsay Dispo: Plan to return home once medically stable Patient seen in collaboration with Dr. Garcia . Please see addendum. ADDENDUM: This is an 87 year old female with a PMH of aplastic anemia, recurrent and complicated UTIs, paroxysmal A. Fib, HTN, hypothyroidism - presents with urinary symptoms and symptomatic fevers. She has been receiving blood transfusions intermittently due to aplastic anemia - currently follows with oncology in [place]. Has an appointment to see a architect in [place]. Plan: Cefepime + Vanco for the UTI and the neutropenic fever ID consulted and agree, with cultures pending transfuse one unit of platelets after discussion with hematology in [place] was given Claritin prior to platelets causing lethargy - monitor this transfer to tele and monitor due to PAF monitor H/H and WBC count possible Pneumonia - monitor breathing status Level of Care Med/Surg Resuscitation Status FULL NO MECH VENTILATION VTE Prophylaxis VTE Risk Assessment Done? Y/N: Yes Risk Level: Moderate
[2017-08-08] MEDS ORDERED: CEFEPIME CONSULT ACTIVE PRN ×2 (14:45→16:15)
[2017-08-08] MEDS ORDERED: VANCOMYCIN CONSULT ACTIVE PRN (14:45)
--- NOTE | 2017-08-08 15:38 | Medical Consult ---
Consultation Date of Consultation: Aug 08, 2017. Attending Physician: Marlin Jimenez M.D. Reason for Consultation: Neutropenic fever, UTI, pneumonia History of Present Illness 57-year-old female well known to the Infectious Disease service with complicated medical history including aplastic anemia, atrial fibrillation, COPD , who has been hospitalized several times recently with urinary tract infections , with 1 in June with Citrobacter and Klebsiella, and then again in early July with Pseudomonas and Enterococcus. Most recently received course of vancomycin and cefepime with improvement. Now readmitted with 1 day history of fever, recurrent urinary symptoms with dysuria, and chills. Remains pancytopenic. Chest x-ray shows possibly new developing left lower lobe infiltrate as well as slightly worsening right pleural effusion and atelectasis. Urinalysis abnormal with pyuria. Had transfusion yesterday. No other significant travel or exposure history. Past Medical/Surgical History Medical Problems: (1) Abnormal LFTs Status: Acute (2) Dehydration Status: Acute (3) Ear canal abrasion Status: Acute (4) Hyponatremia Status: Acute (5) Influenza A Status: Acute (6) Low back pain Status: Acute (7) Lumbar spine strain Status: Acute (8) Nasal bleeding Status: Acute (9) Neutropenia Status: Acute (10) Neutropenic fever Status: Acute (11) Neutropenic fever Status: Acute (12) Pancytopenia Status: Acute (13) Pneumonia Status: Acute (14) Rib contusion Status: Acute (15) Thrombocytopenia Status: Acute (16) Thrombocytopenia Status: Acute Medical Problems: (1) Anemia (2) Atrial fibrillation (3) Complicated UTI (urinary tract infection) (4) COPD (chronic obstructive pulmonary disease) (5) Coronary Atherosclerosis Of [place]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 (6) Hypertension Nos (7) Hypothyroidism Nos (8) ITP (idiopathic thrombocytopenic purpura) (9) Myalgia and myositis (10) Osteoporosis Nos (11) Pancytopenia (12) Premature atrial contractions (13) Pulmonary nodules (14) Sepsis (15) UTI (urinary tract infection) Surgical Problems: (1) History of cataract surgery (2) S/P hernia repair (3) S/P hysterectomy (4) S/p repair of cystocele (5) S/P tonsillectomy and adenoidectomy Family History Asthma DAUGHTER Social History Smoking Status: Never Smoker Drug Use: none Marital Status: single Housing Status: lives with family Occupation Status: retired Allergies Coded Allergies: Iodinated Diagnostic Agents (Verified Allergy, Intermediate, HIVES WITH IVP DYE, 07/24/17) Sulfa Antibiotics (Verified Allergy, Intermediate, RASH, 07/24/17) Amoxicillin (Verified Allergy, Mild, RASH, Zosyn tolerated [id number] ADM, 07/24/17) Clavulanic Acid (Verified Allergy, Mild, RASH, Zosyn tolerated [id number] ADM, 07/24/17) Diphenhydramine (Verified Allergy, Unknown, 0, 07/25/17) sick Codeine (Verified Adverse Reaction, Intermediate, NAUSEA/VOMITING, ) Morphine (Verified Adverse Reaction, Intermediate, NAUSEA/VOMITING, ) Oxycodone (Verified Adverse Reaction, Intermediate, NAUSEA/VOMITING, 07/24) Rofecoxib (Verified Adverse Reaction, Intermediate, PALPITATIONS, 07/24/17 ) Morphine and Related (Verified Adverse Reaction, Mild, GI SYMPTOMS, ) Current Inpatient Medications Current Inpatient Medications Medications (Trade) Dose Ordered Sig/Giuseppe Route Start Time Stop Time Status Last Admin Dose Admin Ondansetron HCl (Zofran Inj) 4 mg Q6H PRN IV 08/08/17 14:00 09/07/17 13:59 Vancomycin HCl (Consult) 1 ea UD PRN N/A 08/08/17 14:45 09/07/17 14:44 Cefepime HCl (Consult) 1 ea UD PRN N/A 08/08/17 14:45 09/07/17 14:44 Review of Systems All systems were reviewed and are negative except as per HPI Physical Exam Date Time Temp Pulse Resp B/P (MAP) Pulse Ox O2 Delivery O2 Flow Rate FiO2 08/08/17 13:59 79 26 138/83 96 Nasal Cannula 3.0 08/08/17 13:16 82 20 142/71 98 Nasal Cannula 08/08/17 12:43 83 08/08/17 11:55 81 24 180/94 98 Nasal Cannula 3.0 08/08/17 10:18 91 27 196/91 98 Nasal Cannula 3.0 08/08/17 09:43 36.6 96 26 197/96 89 Room Air 08/08/17 09:21 101 General Appearance: no apparent distress, + pertinent finding (Chronically ill- appearing) Head: normocephalic, atraumatic Eyes: normal inspection, EOMI, sclerae normal ENT: normal ENT inspection, pharynx normal Neck: supple, no adenopathy, thyroid normal, trachea midline Respiratory/Chest: chest non-tender, no respiratory distress, + rales (Left base), + pertinent finding ( decreased breath sounds with dullness right base) Cardiovascular: no gallop, no murmur, + irregularly irregular Abdomen/GI: normal bowel sounds, non tender, soft, no organomegaly Back: normal inspection, no CVA tenderness Extremities/Musculoskelatal: no calf tenderness, non-tender Neurologic/Psych: alert, oriented x 3 Skin: normal color, warm/dry, no rash Lymphatic: no adenopathy Laboratory Results Date/Time Source Procedure Growth Status 08/08/17 13:48 Blood Blood Culture Pending Received 08/08/17 09:30 Blood Blood Culture Pending Received 08/08/17 11:35 Urine , Clean Catch Urine Culture Pending Received Last 24 Hours Test 08/08/17 09:30 08/08/17 10:02 08/08/17 10:10 08/08/17 11:35 White Blood Count 0.97 K/uL Red Blood Count 3.07 M/uL Hemoglobin 9.0 g/dL Hematocrit 24.6 % Mean Corpuscular Volume 80.1 fL Mean Corpuscular Hemoglobin 29.3 pg Mean Corpuscular Hemoglobin Concent 36.6 g/dl Platelet Count 3 K/uL Neutrophils (%) (Auto) 12.4 % Lymphocytes (%) (Auto) 81.4 % Monocytes (%) (Auto) 4.1 % Eosinophils (%) (Auto) 0.0 % Basophils (%) (Auto) 0.0 % Neutrophils # (Auto) 0.12 K/uL Lymphocytes # (Auto) 0.79 K/uL Monocytes # (Auto) 0.04 K/uL Eosinophils # (Auto) 0.00 K/uL Basophils # (Auto) 0.00 K/uL RDW Standard Deviation 38.6 fL RDW Coefficient of Variation 13.3 % Immature Granulocyte % (Auto) 2.1 % Immature Granulocyte # (Auto) 0.02 K/uL Hypogranular Neutrophils 2+ Absolute Reticulocyte Count < 0.02 10^6/uL Percent Reticulocyte Count < 0.5 % Prothrombin Time 13.3 SECONDS Prothromb Time International Ratio 1.3 Sodium Level 129 mmol/L Potassium Level 3.9 mmol/L Chloride Level 94 mmol/L Carbon Dioxide Level 29 mmol/L Anion Gap 6.0 mmol/L Blood Urea Nitrogen 19 mg/dl Creatinine 0.59 mg/dl Est Creatinine Clear Calc Drug Dose 65.7 ml/min Estimated GFR () 96.2 Estimated GFR (Non- 83.0 BUN/Creatinine Ratio 31.6 Random Glucose 143 mg/dl Calcium Level 8.6 mg/dl Phosphorus Level 3.1 mg/dl Magnesium Level 1.7 mg/dl Total Bilirubin 2.6 mg/dl Direct Bilirubin 1.3 mg/dl Aspartate Amino Transf (AST/SGOT) 64 U/L Alanine Aminotransferase (ALT/SGPT) 98 U/L Alkaline Phosphatase 347 U/L Troponin I 0.021 ng/ml Pro-B-Type Natriuretic Peptide 2913 pg/ml Total Protein 7.6 gm/dl Albumin 3.3 gm/dl Lipase 99 U/L Lactate Dehydrogenase 195 U/L Lactic Acid Level 0.7 mmol/L Urine Color DK YELLOW Urine Appearance CLEAR Urine pH 5.5 Urine Specific [place] 1.020 Urine Protein 3+ Urine Glucose (UA) NEG Urine Ketones NEG Urine Occult Blood 2+ Urine Nitrite POS Urine Bilirubin 1+ Urine Urobilinogen NEG Urine Leukocyte Esterase MODERATE Urine WBC (Auto) >30 /hpf Urine RBC (Auto) 10-30 /hpf Urine Hyaline Casts (Auto) 5-10 /lpf Urine Epithelial Cells (Auto) 10-20 /lpf Urine Bacteria (Auto) 1+ Test 08/08/17 15:30 CHEST ONE VIEW PORTABLE CLINICAL HISTORY: sob dyspnea COMPARISON STUDY: 07/24/2017 FINDINGS: Mild increase in volume of right effusion. Central catheter remains in the superior vena cava. Developing interstitial infiltrate left base. IMPRESSION: 1. Mild increase in volume of a right pleural effusion. 2. Developing interstitial infiltrate left base The above report was generated using voice recognition software. It may contain grammatical, syntax or spelling errors. Electronically signed by: Lenny Zapata M.D. 08/08/2017 10:11 AM Assessment & Plan 87-year-old female with aplastic anemia with severe neutropenia now with recurrent fever, evidence of recurrent urinary tract infection, as well as possible developing pneumonia. Current treatment with vancomycin and cefepime appropriate pending further culture results. Would consider pulmonary consultation for possibility of thoracentesis of right effusion. Will follow.
[2017-08-08] MEDS ORDERED: DICYCLOMINE HCL 10 MG CAP PO PRN (15:45)
[2017-08-08] MEDS ORDERED: ACETAMINOPHEN 500 MG TAB PO ONE ×2 (15:45→18:04)
[2017-08-08] MEDS ORDERED: LORATADINE 10 MG TAB PO ONE (15:45)
[2017-08-08] MEDS ORDERED: PANTOprazole SOD 40 MG TAB PO PRN (15:45)
[2017-08-08] MEDS: CLOTRIMAZOLE 10 MG TROCHE MT SCH ×2 (16:00→20:10)
[2017-08-08] MEDS ORDERED: FUROSEMIDE 20 MG TAB PO ONE (16:00)
--- NOTE | 2017-08-08 16:00 | NUR ---
A: Patient received as admission from ED at this time. Patient alert and oriented x4, able to ambulate in room with one person assistance and a walker. Full assessment done, see EMR. No complaints at this time. Placed on neutropenic and bleeding precautions. VSS on 2L NC. Left double PICC patent and intact. Patient oriented to room and call alas system. Patient made a yellow sock fall precaution. Call alas within reach, patient aware to ring for assistance. Daughter at bedside. Will continue to monitor.
--- NOTE | 2017-08-08 16:07 | Pharmacy Progress Note ---
Pharmacy Abx Initial Consult Date of Service Aug 08, 2017. Pharmacy Dosing Scope Date of Consult: 08/08/17 Consultation requested by: Laisha Polanco Pharmacy is consulted to initiate Vancomycin & Cefepime IV dosing therapy, order appropriate labs and adjust drug dose/frequency. Subjective The patient is a 87 year old female admitted on Aug 08, 2017 at 13:59. Objective Height (Feet): 5 Height (Inches): 4.00 Weight (Kilograms): 69.800 Vital Signs (Past 12Hrs) Vital Signs Past 12 Hours Date Time Temp Pulse Resp B/P (MAP) Pulse Ox O2 Delivery O2 Flow Rate FiO2 08/08/17 13:59 79 26 138/83 96 Nasal Cannula 3.0 08/08/17 13:16 82 20 142/71 98 Nasal Cannula 08/08/17 12:43 83 08/08/17 11:55 81 24 180/94 98 Nasal Cannula 3.0 08/08/17 10:18 91 27 196/91 98 Nasal Cannula 3.0 08/08/17 09:43 36.6 96 26 197/96 89 Room Air 08/08/17 09:21 101 Lab Results (24Hrs) Item Value Date Time Creatinine 0.59 mg/dl L 08/08/17 0930 Est Creatinine Clear Calc Drug Dose 65.7 ml/min 08/08/17 0930 Estimated GFR () 96.2 08/08/17 0930 Estimated GFR (Non- 83.0 08/08/17 0930 Laboratory Tests (24 Hours) Test 08/08/17 09:30 08/08/17 10:10 White Blood Count 0.97 K/uL (4.8-10.8) *L Red Blood Count 3.07 M/uL (4.2-5.4) L Hemoglobin 9.0 g/dL (12.0-16.0) L Hematocrit 24.6 % (37-47) L Mean Corpuscular Volume 80.1 fL (80-100) Mean Corpuscular Hemoglobin 29.3 pg (25-34) Mean Corpuscular Hemoglobin Concent 36.6 g/dl (32-36) H Platelet Count 3 K/uL (130-400) *L Neutrophils (%) (Auto) 12.4 % Lymphocytes (%) (Auto) 81.4 % Monocytes (%) (Auto) 4.1 % Eosinophils (%) (Auto) 0.0 % Basophils (%) (Auto) 0.0 % Neutrophils # (Auto) 0.12 K/uL (1.4-6.5) *L Lymphocytes # (Auto) 0.79 K/uL (1.2-3.4) L Monocytes # (Auto) 0.04 K/uL (0.11-0.59) L Eosinophils # (Auto) 0.00 K/uL (0-0.5) Basophils # (Auto) 0.00 K/uL (0-0.2) Lactic Acid Level 0.7 mmol/L (0.4-2.0) Micro Results Date/Time Source Procedure Growth Status 08/08/17 13:48 Blood Blood Culture Pending Received 08/08/17 09:30 Blood Blood Culture Pending Received 08/08/17 11:35 Urine , Clean Catch Urine Culture Pending Received Risk Factors for Resistance * Hospitalization for 48 hours or more within the past 90 days * Immunocompromised (chemotherapy, immunomodulators) * Antimicrobial use within the last 90 days 07/24 - 07/31 recent UTI (pseudomonas /klebsiella) cefepime x 7 days, vanco x 3 days) Assessment & Plan Assessment 87 year old female with aplastic anemia with severe neutropenia now with recurrent fever, evidence of recurrent urinary tract infection, as well as possible developing pneumonia. Patient receiving cefepime 2 grams IV every 8 hours and had received vancomycin 1,500mg x 1 dose. Plan Vancomycin for treatment of UTI/Pneumonia Vancomycin IV * Loading dose: Vancomycin 1,500 mg (21.5 mg/kg) * Maintenance dose: 1,000 mg IV (14.3 mg/kg) every 16 hours * Goal trough level for Pulmonary : 15 to 20 mcg/mL * Trough/Random level ordered for 08/10/17 @6654 Pharmacy will continue to follow and will adjust dose/frequency as necessary. Thank you.
[2017-08-08] MEDS: TRAMADOL HCL 50 MG TAB PO SCH (17:47)
[2017-08-08] MEDS: ONDANSETRON INJ 2 MG/ML 2 ML VIAL IV PRN (17:59)
[2017-08-08] MEDS: LEValbuterol HFA 15GM INHALER INH SCH (18:26)
[2017-08-08] MEDS: SODIUM CHLORIDE 0.9% 10ML FLUSH IV SCH (19:44)
[2017-08-08] MEDS ORDERED: CEFEPIME IV 2,000 MG in DEXTROSE 5% 100ML 100 ML IV SCH (20:00)
[2017-08-08] MEDS: ALPRAZOLAM 0.5 MG TAB PO SCH (20:00)
[2017-08-08] MEDS: MAGNESIUM OXIDE 400 MG TAB PO SCH (20:00)
[2017-08-08] MEDS: METOPROLOL SUCC 50MG EXT REL TAB PO SCH (20:00)
--- NOTE | 2017-08-08 22:00 | NUR ---
A: Received patient via bed into room; drowsy, oriented to name and place, applied monitoring manager leads, left upper arm PICC intact & saline locked, denied pain
--- NOTE | 2017-08-08 22:00 | NUR ---
A: After ambulating to bathroom patient complaining of SOB. Audible wheezing noted. O2 sats in mid to high 90s on 2L NC. PA made aware and came to room to assess patient. At this time patient noted to be lethargic. Able to arouse to tactile stimuli but immediately falls back asleep. MD to room to assess patient. MD order to transfer patient to PCU. Report called and patient transferred to room 243 with all belongings. Daughter made aware of transfer.
[2017-08-09] VITALS (15 sets, daily range): BP systolic 127–185; BP diastolic 62–79; PULSE 69–91; TEMP 36.3–36.8; O2SAT 88–99
--- NOTE | 2017-08-09 | NUR ---
A: Pt is on neutropenic precautions and has a Left limb restriction D/T a double lumen picc. Pt is lethargic but will awaken to tactile or verbal stimuli. Nurse was unable to give midnight dose of PO Ultram due to lethargy of the PT. Pt was found to have a brief on per Daughters request however PT was wet and brief was removed during sleeping hours. VS WNL and PT is NSR in the 60's. See EMR for further documentation. Pt will continue to be monitored.
--- NOTE | 2017-08-09 04:00 | NUR ---
A: Pt is no longer lethargic she awoke earlier in the shift and was found to be A&O. Pt ambulating to the bathroom with 1 assist, she did c/o dizziness when she got up for the first time. BP elvated @ 175/73 will reevaluate. A: No change in assessment VS WNL and PT continues to be NSR in the 80's. See EMR for further documentation. Pt will continue to be monitored.
[2017-08-09] MEDS: CEFEPIME IV 2,000 MG in SYRINGE 7.5 ML IV SCH ×3 (04:23→20:00)
[2017-08-09] MEDS ORDERED: CEFEPIME IV 2,000 MG in DEXTROSE 5% 100ML 100 ML IV SCH (06:00)
[2017-08-09] MEDS: LEVOTHYROXINE 75 MCG TAB PO SCH (06:08)
[2017-08-09] MEDS: TRAMADOL HCL 50 MG TAB PO SCH ×5 (06:08→23:36)
[2017-08-09] MEDS: VANCOMYCIN IV 1,000 MG in SODIUM CHLORIDE 0.9% 250ML 250 ML IV SCH ×2 (06:10→21:50)
[2017-08-09] MEDS: CLOTRIMAZOLE 10 MG TROCHE MT SCH ×5 (06:12→19:57)
[2017-08-09 06:52] LABS: CREATININE 0.46 mg/dl (0.60-1.20); INR 1.3 (0.9-1.1)
[2017-08-09 06:53] LABS: ALBUMIN 2.7 gm/dl (3.4-5.0)
[2017-08-09] MEDS ORDERED: LORATADINE 10 MG TAB PO ONE (07:00)
[2017-08-09 07:05] LABS: MEAN CORPUSCULAR HGB CONC 35.9 g/dl (32-36); MEAN PLATELET VOLUME 8.4 fL (7.4-10.4); PLATELET COUNT 11 K/uL (130-400); TOTAL PROTEIN 6.5 gm/dl (6.4-8.2)
[2017-08-09 07:06] LABS: HEMATOCRIT 19.8 % (37-47); HEMOGLOBIN 7.1 g/dL (12.0-16.0); MEAN CELL VOLUME 80.5 fL (80-100); MEAN CORPUSCULAR HEMOGLOBIN 28.9 pg (25-34); RED CELL DISTRIBUTION WIDTH CV 13.1 % (11.5-14.5); RED CELL DISTRIBUTION WIDTH SD 38.6 fL (36.4-46.3); WHITE BLOOD COUNT 0.49 K/uL (4.8-10.8)
[2017-08-09] MEDS: METOPROLOL SUCC 50MG EXT REL TAB PO SCH ×2 (08:32→20:28)
[2017-08-09] MEDS: CHOLECALCIFEROL 400 INTER.UNIT TAB PO SCH (08:32)
[2017-08-09] MEDS: POTASSIUM CHLORIDE 20 MEQ TABCR PO SCH (08:33)
[2017-08-09] MEDS: CEROVITE ADV FORMULA TAB PO SCH (08:33)
[2017-08-09] MEDS: MAGNESIUM OXIDE 400 MG TAB PO SCH ×2 (08:33→20:28)
[2017-08-09] MEDS: SODIUM CHLORIDE 0.9% 10ML FLUSH IV SCH ×3 (08:38→20:27)
[2017-08-09] MEDS: THIAMINE HCL 100 MG TAB PO SCH (08:38)
[2017-08-09] MEDS: ALPRAZOLAM 0.5 MG TAB PO SCH ×2 (08:44→20:31)
[2017-08-09] MEDS: LEValbuterol HFA 15GM INHALER INH SCH ×2 (08:45→20:26)
--- NOTE | 2017-08-09 08:49 | NUR ---
Case Management- Met with patient in room. Patient identified on screeniong tool as a 30 day this is not accurate she was her jul 24-jul 31 was discharged with [facility]. Patient reports she lives with her daughter has a first floor set up with three steps to enter. Per patient she uses a rollator for ambulation and is independent with all other adls. Patient reports enedelia was recently discharged from [facility] and is asking for a referral back to them for discharge. Would ask that pt/ot evals be ordered to ensure safety returning home. CM following Addendum: 08/09/17 at 0900 by Tanika Smith SERV correction patient is a 30 day
--- NOTE | 2017-08-09 16:50 | Progress Note ---
Internal Med Progress Note Date of Service: Aug 09, 2017. Provider Documentation: SUBJECTIVE: pt getting her 2nd unit of PRBC transfusion concern about not getting her pre transfusion Tylenol complains of headache upset that she still has urinary frequency , no dysuria no fever or chills denies of SON , no cough Daughter present at bedside , very concern about her mothers health -all questions answered OBJECTIVE: Vital Signs-as noted below Exam: General-elderly female , no apparent distress Eyes-sclera non icteric , PERRLA/EOMI ENT-moist oral mucosa, normal oropharynx Neck-trachea midline , no thyromegaly Lungs-diminished , + rales on rt Heart-regular S1/S2 Abdomen-soft ,non tender Extremities-no rash or deformity Neuro-AAO x3, no focal deficit Lab data as noted below. 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 Small pleural effusion in R lung (improved from last admission) -Broad coverage abx -Vancomycin /Cefepime -Cont home inhalers -Blood cultures ordered Hypertension: -Normotensive -Continue home dose Metoprolol and PRN Clonidine Paroxysmal atrial fibrillation: -Initial EKG with a fib at 96 bpm, repeat in sinus rhythm -Asymptomatic -Continue Metoprolol -Adequate fluid resuscitation -No anticoagulation 2/2 thrombocytopenia -Monitor on tele Chronic diastolic CHF: -Dry on exam, will hold daily lasix -No signs of fluid overload Hypothyroidism: -TSH pending -Cont home dose levothyroxine DNI DISPOSITION PT/OT EVAL prior to discharge active with [facility] daughter updated at bedside Medicine follow up with Dr Umana Vital Signs: Date Time Temp Pulse Resp B/P (MAP) Pulse Ox O2 Delivery O2 Flow Rate FiO2 08/10/17 16:48 71 18 174/71 96 08/10/17 15:25 36.6 62 20 170/74 (106) 99 Nasal Cannula 2.0 08/10/17 12:57 97 Nasal Cannula 08/10/17 11:28 36.7 69 19 187/80 (115) 99 Nasal Cannula 2.0 08/10/17 11:21 92 08/10/17 10:16 36.4 66 18 168/75 99 2.0 08/10/17 09:32 36.6 64 18 147/74 99 2.0 08/10/17 08:11 97 Nasal Cannula 08/10/17 08:10 36.5 62 18 149/62 98 2.0 08/10/17 07:47 36.7 55 18 146/63 99 2.0 08/10/17 07:31 36.3 58 18 170/75 (106) 99 Nasal Cannula 2.0 08/10/17 06:11 145/76 (99) 08/10/17 04:00 97 Nasal Cannula 08/10/17 04:00 36.4 63 186/84 (118) 97 Nasal Cannula 2.0 08/10/17 00:00 36.5 61 134/63 (86) 98 Nasal Cannula 2.0 08/10/17 00:00 98 Nasal Cannula 2.0 08/09/17 20:00 97 Nasal Cannula 2.0 08/09/17 20:00 36.3 70 171/78 (109) 97 Nasal Cannula 2.0 08/09/17 18:47 36.8 80 180/79 08/09/17 17:48 36.3 83 177/72 88 08/09/17 17:11 36.5 80 174/74 Lab Results: Results Past 24 Hours Test 08/10/17 04:59 08/10/17 13:43 Range/Units White Blood Count 0.56 4.8-10.8 K/uL Red Blood Count 2.76 4.2-5.4 M/uL Hemoglobin 8.0 12.0-16.0 g/dL Hematocrit 22.4 37-47 % Mean Corpuscular Volume 81.2 80-100 fL Mean Corpuscular Hemoglobin 29.0 25-34 pg Mean Corpuscular Hemoglobin Concent 35.7 32-36 g/dl RDW Standard Deviation 39.1 36.4-46.3 fL RDW Coefficient of Variation 13.2 11.5-14.5 % Platelet Count 2 130-400 K/uL Sodium Level 132 136-145 mmol/L Potassium Level 4.5 3.5-5.1 mmol/L Chloride Level 99 98-107 mmol/L Carbon Dioxide Level 30 21-32 mmol/L Anion Gap 3.0 3-11 mmol/L Blood Urea Nitrogen 19 7-18 mg/dl Creatinine 0.42 0.60-1.20 mg/dl Est Creatinine Clear Calc Drug Dose 91.1 ml/min Estimated GFR () 107.6 Estimated GFR (Non- 92.8 BUN/Creatinine Ratio 46.1 10-20 Random Glucose 117 70-99 mg/dl Calcium Level 8.1 8.5-10.1 mg/dl Magnesium Level 1.8 1.8-2.4 mg/dl Vancomycin Level Trough 14.2 SEE COMMENT mcg/ml
[2017-08-09] MEDS: ACETAMINOPHEN 325 MG TAB PO PRN (18:49)
[2017-08-09] MEDS: CLONIDINE HCL 0.1 MG TAB PO PRN (18:49)
--- NOTE | 2017-08-09 20:00 | NUR ---
A: Pt lying in bed visiting with her daughter. She has no c/o pain and is doing much better since last evening. Pt just finished receiving a unit of PRBC's VS are stable and she is NSR/SB in the 50-60's. See EMR for further documentation. Pt will continue to be monitored.
[2017-08-09] MEDS: DOCUSATE SODIUM 100 MG CAP PO PRN (20:28)
[2017-08-09] MEDS ORDERED: ALTEPLASE, RECOMBINANT 1 MG/ML 2 ML VIAL IV ONE (22:00)
[2017-08-10] VITALS (21 sets, daily range): BP systolic 134–187; BP diastolic 60–85; PULSE 55–75; TEMP 36.3–36.7; O2SAT 92–99
[2017-08-10] MEDS: CEFEPIME IV 2,000 MG in SYRINGE 7.5 ML IV SCH ×3 (04:14→19:52)
[2017-08-10] MEDS: CLONIDINE HCL 0.1 MG TAB PO PRN ×2 (04:33→16:56)
--- NOTE | 2017-08-10 05:25 | NUR ---
A: Pt's BP noted to be elevated @ 186/74, 0.1mg of Catapres was given, all other VS WNL. Pt gets anxious easily. Will reassess BP. Pt has no c/o chest pain she is SB/NSR in the 50-60's. See EMR for further documentation. Pt will continue to be monitored.
[2017-08-10 05:35] LABS: HEMATOCRIT 22.4 % (37-47); MEAN CELL VOLUME 81.2 fL (80-100); MEAN CORPUSCULAR HGB CONC 35.7 g/dl (32-36); PLATELET COUNT 2 K/uL (130-400); RED CELL DISTRIBUTION WIDTH CV 13.2 % (11.5-14.5); RED CELL DISTRIBUTION WIDTH SD 39.1 fL (36.4-46.3); WHITE BLOOD COUNT 0.56 K/uL (4.8-10.8)
[2017-08-10 05:46] LABS: CALCIUM 8.1 mg/dl (8.5-10.1); CREATININE 0.42 mg/dl (0.60-1.20); POTASSIUM 4.5 mmol/L (3.5-5.1)
[2017-08-10] MEDS: LEVOTHYROXINE 75 MCG TAB PO SCH (06:16)
[2017-08-10] MEDS: TRAMADOL HCL 50 MG TAB PO SCH ×4 (06:17→23:48)
[2017-08-10] MEDS: CLOTRIMAZOLE 10 MG TROCHE MT SCH ×5 (06:17→16:56)
[2017-08-10] MEDS ORDERED: LORATADINE 10 MG TAB PO ONE (06:45)
[2017-08-10] MEDS ORDERED: LORATADINE 10 MG TAB PO PRN (06:45)
[2017-08-10] MEDS: ACETAMINOPHEN 325 MG TAB PO PRN ×2 (06:47→17:02)
[2017-08-10] MEDS: ALPRAZOLAM 0.5 MG TAB PO SCH ×2 (09:35→19:55)
[2017-08-10] MEDS: LEValbuterol HFA 15GM INHALER INH SCH ×2 (10:03→19:55)
[2017-08-10] MEDS: DOCUSATE SODIUM 100 MG CAP PO PRN ×2 (10:04→16:56)
[2017-08-10] MEDS: MAGNESIUM OXIDE 400 MG TAB PO SCH ×2 (10:04→19:54)
[2017-08-10] MEDS: METOPROLOL SUCC 50MG EXT REL TAB PO SCH ×2 (10:05→19:55)
[2017-08-10] MEDS: CEROVITE ADV FORMULA TAB PO SCH (10:05)
[2017-08-10] MEDS: THIAMINE HCL 100 MG TAB PO SCH (10:05)
[2017-08-10] MEDS: CHOLECALCIFEROL 400 INTER.UNIT TAB PO SCH (10:06)
[2017-08-10] MEDS: POTASSIUM CHLORIDE 20 MEQ TABCR PO SCH (10:08)
[2017-08-10] MEDS: SODIUM CHLORIDE 0.9% 10ML FLUSH IV SCH ×3 (10:09→19:54)
--- NOTE | 2017-08-10 11:01 | Pulmonary Consultation ---
History General Date of Service: Aug 10, 2017. Stated Complaint: Pleural effusion HPI The patient is a 87 year old female who presents to [facility] with complaints of Pancytopenia, Uti. The patient's primary care provider is Dionisio Umana M.D.. 87-year-old female admitted with progressive fatigue, dysuria and on workup noted to have a large right-sided pleural effusion. Patient does have a PmHx: Notable for aplastic anemia/MDS, ITP, diastolic CHF, atrial fibrillation, hypertension and recurrent UTIs along with COPD, coronary artery disease and hypothyroidism. The patient was notably fatigued and difficult to arouse during my interview. She did deny any current shortness of breath, productive cough, pleurisy or classic cardiac chest pain. Workup: WBC count: 0.56 Platelet count: 2 CT abdomen 08/08/2017: Large right lower lobe pleural effusion Right middle lobe atelectasis versus pleural effusion Right middle lobe pleural thickening Past Medical History (1) Anemia (2) Atrial fibrillation (3) COPD (chronic obstructive pulmonary disease) (4) Coronary Atherosclerosis Of [place]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 (5) Hypertension Nos (6) Hypothyroidism Nos (7) ITP (idiopathic thrombocytopenic purpura) (8) Myalgia and myositis (9) Osteoporosis Nos (10) Premature atrial contractions (11) Pulmonary nodules Past Surgical History: (1) History of cataract surgery (2) S/P hernia repair (3) S/P hysterectomy (4) S/p repair of cystocele (5) S/P tonsillectomy and adenoidectomy Family History Asthma Social History Hx Tobacco Use In Past Year?: No Smoking Status: Unknown if Ever Smoked Alcohol: never Drug Use: none Marital status: single Housing status: lives with family Occupational Status: retired Immunizations History of Influenza Vaccine: No Influenza Vaccine Date: Aug 25, 2005 History of Tetanus Vaccine?: No History of Pneumococcal: Yes History of Hepatitis B Vaccine: No Historian: patient, EMS Review of Systems Poor historian mildly altered, unable to perform full review of systems Past Medical History Past Medical History: Please refer to HPI Past Surgical History: Please refer to HPI Family History Asthma DAUGHTER Please refer to HPI Social History Please refer to HPI Hx Tobacco Use In Past Year?: No Smoking Status: Never Smoker Alcohol: never Drug Use: none Marital status: single Housing status: lives with family Occupational Status: retired Immunizations History of Influenza Vaccine: No Influenza Vaccine Date: Jun 04, 2016 History of Tetanus Vaccine?: Yes Tetanus Immunization Date: Feb 08, 2015 History of Pneumococcal: Yes Pneumococcal Date: Jul 20, 1996 History of Hepatitis B Vaccine: No History of MDRO History of MDRO: Yes Type of MDRO: MRSA Allergies Coded Allergies: Iodinated Diagnostic Agents (Verified Allergy, Intermediate, HIVES WITH IVP DYE, 07/24/17) Sulfa Antibiotics (Verified Allergy, Intermediate, RASH, 07/24/17) Amoxicillin (Verified Allergy, Mild, RASH, Zosyn tolerated [id number] ADM, 07/24/17) Clavulanic Acid (Verified Allergy, Mild, RASH, Zosyn tolerated [id number] ADM, 07/24/17) Diphenhydramine (Verified Allergy, Unknown, 0, 07/25/17) sick Codeine (Verified Adverse Reaction, Intermediate, NAUSEA/VOMITING, ) Morphine (Verified Adverse Reaction, Intermediate, NAUSEA/VOMITING, ) Oxycodone (Verified Adverse Reaction, Intermediate, NAUSEA/VOMITING, 07/24) Rofecoxib (Verified Adverse Reaction, Intermediate, PALPITATIONS, 07/24/17 ) Morphine and Related (Verified Adverse Reaction, Mild, GI SYMPTOMS, ) Current Medications Reported Home Medications Medications Dose Route/Sig Max Daily Dose Days Date Category Dose Instructions [Multivital] 1 Tab PO DAILY 08/08/17 Reported Mvi With Minerals (Multivitamins/Minerals) Tab 1 Tab PO DAILY 08/08/17 Reported Mycelex (Clotrimazole) 10 Mg Tro 10 Mg MT UD 08/08/17 Reported 5 TIMES DAILY X14 DAYS Normal Saline Flush (Sodium Chloride Flush) 0.9 % Inj 10 Ml IV. TID 07/24/17 Reported Docusate Sodium 100 Mg Cap 100 Mg PO BID PRN 07/24/17 Reported Tylenol (Acetaminophen) 500 Mg Tab 500 Mg PO Q6 PRN 07/24/17 Reported Furosemide 20 Mg Tab 20 Mg PO Q2D@0900 30 07/14/17 Rx Klor-Con (Potassium Chloride) 20 Meq Tabcr 20 Meq PO DAILY 07/11/17 Reported Levalbuterol Tartrate Hfa (Levalbuterol Tartrate) 45 Mcg/Act Aer 1 Puff PO BID 07/11/17 Reported Cranberry (Cranberry (Vaccinium Macrocarp) 125 Mg Tab 1 Tab PO DAILY 07/11/17 Reported Metoprolol Succinate ER (Metoprolol Succinate) 50 Mg Tabcr 50 Mg PO BID 05/30/17 Reported Mag-Ox (Magnesium Oxide) 400 Mg Tab 400 Mg PO BID 05/30/17 Reported Ultram (Tramadol HCl) 50 Mg Tab 50 Mg PO Q6 05/12/17 Reported MAX 8 TABLETS PER DAY Bentyl (Dicyclomine Hcl) 10 Mg Cap 10 Mg PO QID PRN 05/12/17 Reported Nexium (Esomeprazole Magnesium) 40 Mg Capcr 40 Mg PO DAILY PRN 05/12/17 Reported TAKE 40MG DAILY ONE HOUR BEFORE FIRST MEAL OF THE DAY Restasis (Cyclosporine (Ophth)) 0.05 % Emu 1 Drop OPB DAILY 04/21/17 Reported Vitamin D 400 Iu (Cholecalciferol) 400 Unit Cap 400 Inter.unit PO DAILY 02/19/17 Reported Levothyroxine Sodium 75 Mcg Tab 75 Mcg PO QPM 02/19/17 Reported Vitamin B-1 (Thiamine HCl) 100 Mg Tab 100 Mg PO DAILY 11/01/16 Reported Polyethylene Glycol 3350 1 Pow Pow 17 Gm PO DAILY 12/26/12 Reported DISSOLVE IN 8 OZ LIQUID DAILY. Xanax (Alprazolam) 1 Mg Tab 1 Mg PO BID 01/17/09 Reported Physical Physical Exam Vital Signs: Date Time Temp Pulse Resp B/P (MAP) Pulse Ox O2 Delivery O2 Flow Rate FiO2 08/10/17 10:16 36.4 66 18 168/75 99 2.0 08/10/17 09:32 36.6 64 18 147/74 99 2.0 08/10/17 08:11 97 Nasal Cannula 08/10/17 08:10 36.5 62 18 149/62 98 2.0 08/10/17 07:47 36.7 55 18 146/63 99 2.0 08/10/17 07:31 36.3 58 18 170/75 (106) 99 Nasal Cannula 2.0 08/10/17 06:11 145/76 (99) 08/10/17 04:00 97 Nasal Cannula 08/10/17 04:00 36.4 63 186/84 (118) 97 Nasal Cannula 2.0 08/10/17 00:00 36.5 61 134/63 (86) 98 Nasal Cannula 2.0 08/10/17 00:00 98 Nasal Cannula 2.0 08/09/17 20:00 97 Nasal Cannula 2.0 08/09/17 20:00 36.3 70 171/78 (109) 97 Nasal Cannula 2.0 08/09/17 18:47 36.8 80 180/79 08/09/17 17:48 36.3 83 177/72 88 08/09/17 17:11 36.5 80 174/74 08/09/17 16:51 36.7 79 163/71 08/09/17 16:28 36.4 149/67 (94) 08/09/17 16:00 91 Room Air 08/09/17 15:28 36.8 76 22 153/78 (103) 91 Room Air 08/09/17 12:06 99 Nasal Cannula 2.0 08/09/17 12:01 36.4 91 18 185/79 (114) 98 Nasal Cannula 2.0 General Appearance: NO APPARENT DISTRESS Head: NORMOCEPHALIC, ATRAUMATIC Eyes: PERRLA, NO DISCHARGE, EOMI, SCLERAE NORMAL, CONJUNCTIVAE NORMAL ENT: NORMAL EAR EXAM, NORMAL NASAL EXAM, NORMAL MOUTH EXAM, NORMAL THROAT EXAM Neck: NORMAL RANGE OF MOTION, NO TENDERNESS, TRACHEA MIDLINE Respiratory: other (Decreased breath sounds with dullness to percussion on the right hemithorax with mild expiratory wheezing appreciated/rhonchi) Cardiovasular: REGULAR RATE/RHYTHM, NORMAL S1S2, NO M/G/R Abdomen: NON TENDER, NORMAL BOWEL SOUNDS, NO REBOUND, NO MASSES Genitourinary - Female: EXTERNAL GENITALIA NORMAL Back: NORMAL INSPECTION, NO MIDLINE TENDERNESS, NO CVA TENDERNESS Upper Extremities: NO EDEMA, NO DEFORMITY, NORMAL ROM Lower Extremities: other (1+ bilateral lower extremity/gravity dependent pitting edema) Pulses: carotid (R) (1+), carotid (L) (1+), dorsalis pedis (R) (1+), dorsalis pedis (L) (1+) Neuro: other (Notably lethargic, orientated times person and place) Reflexes: biceps (R) (1+), bicpes (L) (1+), patellar (R) (2+), patellar (L) (2+ ) Babinski Testing: right (downgoing), left (downgoing) Psychiatric: NORMAL AFFECT, NO SUICIDAL IDEATION Diagnostics Labs Results Past 24 Hours Test 08/10/17 04:59 Range/Units White Blood Count 0.56 4.8-10.8 K/uL Red Blood Count 2.76 4.2-5.4 M/uL Hemoglobin 8.0 12.0-16.0 g/dL Hematocrit 22.4 37-47 % Mean Corpuscular Volume 81.2 80-100 fL Mean Corpuscular Hemoglobin 29.0 25-34 pg Mean Corpuscular Hemoglobin Concent 35.7 32-36 g/dl RDW Standard Deviation 39.1 36.4-46.3 fL RDW Coefficient of Variation 13.2 11.5-14.5 % Platelet Count 2 130-400 K/uL Sodium Level 132 136-145 mmol/L Potassium Level 4.5 3.5-5.1 mmol/L Chloride Level 99 98-107 mmol/L Carbon Dioxide Level 30 21-32 mmol/L Anion Gap 3.0 3-11 mmol/L Blood Urea Nitrogen 19 7-18 mg/dl Creatinine 0.42 0.60-1.20 mg/dl Est Creatinine Clear Calc Drug Dose 91.1 ml/min Estimated GFR () 107.6 Estimated GFR (Non- 92.8 BUN/Creatinine Ratio 46.1 10-20 Random Glucose 117 70-99 mg/dl Calcium Level 8.1 8.5-10.1 mg/dl Magnesium Level 1.8 1.8-2.4 mg/dl Diagnostic Radiology Large right-sided pleural effusion EKG Normal sinus rhythm with left bundle-branch block appreciated Impression Assessment and Plan 87-year-old female with pancytopenia and large right-sided pleural effusion: 1. Pleural Effusion: At this time the patient is not a candidate for thoracentesis as she is in overall high risk with a platelet count of 2. Current guidelines recommend platelet count greater than 50,000 but there are small single study centers which have performed thoracentesis with platelet counts greater than 25,000. If the patient is able to achieve these counts and coagulopathy is stable can move forward with thoracentesis at that time. 2. Altered Mental Status: Will send off for stat noncontrast CT of the head to rule out intracranial hemorrhage as the patient is notably altered from previous exams. I have spoken to the hospital spot this exam. No further workup for the pleural effusion is available at this time.
--- NOTE | 2017-08-10 12:48 | DIAGNOSTIC IMAGING REPORT ---
HEAD WITHOUT CONTRAST (CT) CLINICAL HISTORY: 87 years-old Female presenting with Rule out intracranial hemorrhage, thrombocytopenia, pancytopenia, UTI, altered mental status. TECHNIQUE: Multidetector CT imaging of the head was performed without the use of intravenous contrast. IV contrast: None. A dose lowering technique was used consistent with the principles of ALARA (as low as reasonably achievable). COMPARISON: 05/28/2013. CT DOSE (mGy.cm): The estimated cumulative dose is 537.48 mGy.cm. FINDINGS: Electronic Musical Instrument Repairer topogram: Unremarkable. Proportional ventricular and sulcal prominence, likely age-related parenchymal volume loss. Periventricular and subcortical white matter hypoattenuation, nonspecific but likely indicative of chronic small vessel ischemic change. No mass effect or midline shift. No hemorrhage or acute territorial infarct. No extra-axial fluid collection. Paranasal sinuses and mastoid air cells clear. Calvarium intact. IMPRESSION: 1. Chronic small vessel ischemic change. No acute intracranial abnormality. Electronically signed by: Mohinder Xavier M.D. 08/10/2017 12:47 PM Dictated Date/Time: 08/10/2017 12:44 PM
[2017-08-10] MEDS ORDERED: VANCOMYCIN TROUGH ONE (13:30)
[2017-08-10] MEDS: VANCOMYCIN IV 1,000 MG in SODIUM CHLORIDE 0.9% 250ML 250 ML IV SCH (14:00)
--- NOTE | 2017-08-10 15:03 | Pharmacy Progress Note ---
Pharmacy Abx Dose Progress Nt Date of Service Aug 10, 2017. Pharmacy Dosing Scope The patient is currently receiving the following antimicrobial agents per Pharmacy consult: Vancomycin 1000 mg IV every 16 hours Objective Height (Feet): 5 Height (Inches): 4.00 Weight (Kilograms): 67.900 Vital Signs (Past 12Hrs) Vital Signs Past 12 Hours Date Time Temp Pulse Resp B/P (MAP) Pulse Ox O2 Delivery O2 Flow Rate FiO2 08/10/17 12:57 97 Nasal Cannula 08/10/17 11:28 36.7 69 19 187/80 (115) 99 Nasal Cannula 2.0 08/10/17 11:21 92 08/10/17 10:16 36.4 66 18 168/75 99 2.0 08/10/17 09:32 36.6 64 18 147/74 99 2.0 08/10/17 08:11 97 Nasal Cannula 08/10/17 08:10 36.5 62 18 149/62 98 2.0 08/10/17 07:47 36.7 55 18 146/63 99 2.0 08/10/17 07:31 36.3 58 18 170/75 (106) 99 Nasal Cannula 2.0 08/10/17 06:11 145/76 (99) 08/10/17 04:00 97 Nasal Cannula 08/10/17 04:00 36.4 63 186/84 (118) 97 Nasal Cannula 2.0 Lab Results (24Hrs) Item Value Date Time Vancomycin Level Trough 14.2 mcg/ml 08/10/17 1343 Laboratory Tests (24 Hours) Test 08/10/17 04:59 White Blood Count 0.56 K/uL (4.8-10.8) *L Micro Results Date/Time Source Procedure Growth Status 08/08/17 13:48 Blood Blood Culture - Preliminary NO GROWTH TO DATE. Resulted 08/08/17 09:30 Blood Blood Culture - Preliminary NO GROWTH TO DATE. Resulted 08/08/17 20:15 Nasal MRSA DNA Surveillance Screen - Final Specimen Negative for MRSA by DNA Probe Complete 08/08/17 11:35 Urine , Clean Catch Urine Culture - Preliminary Pseudomonas Aeruginosa Gram Negative Bacilli Resulted Assessment & Plan Assessment 87 year old female receiving Vancomycin for treatment of neutropenic fever/ Pneumonia. Day # 3/7 of antimicrobial therapy Plan Vancomycin IV * Trough level of 14.2 mcg/mL is near-therapeutic. * Level was drawn only after 2 maintenance doses of Vancomycin, therefore it is not at steady state. * Anticipate level to be slightly higher in a day or two and thus fall within the goal trough range of 15-20 mcg/ml for Pneumonia. * Will continue dose of Vancomycin 1000 mg IV every 16 hours for now. * Will re-check another trough level in 3 days if Vancomycin is to continue for this patient. Pharmacy will continue to follow and will adjust dose/frequency as necessary. Thank you.
[2017-08-10] MEDS ORDERED: POLYETHYLENE (MIRALAX) 17 GM PACK PO SCH (17:00)
--- NOTE | 2017-08-10 17:00 | Progress Note ---
Internal Med Progress Note Date of Service: Aug 10, 2017. Provider Documentation: SUBJECTIVE: platelet count dropped to ~2 k today no active bleeding noted very anxious complains of SOB , no cough no fever or chills OBJECTIVE: Vital Signs-as noted below Exam: General-elderly female , chronically ill appearing , anxious Eyes-sclera non icteric , PERRLA/EOMI ENT-moist oral mucosa, normal oropharynx Neck-trachea midline , no thyromegaly Lungs-diminished , + rales on rt Heart-regular S1/S2 Abdomen-soft ,non tender Extremities-no rash or deformity Neuro-AAO x3, no focal deficit Lab data as noted below. ASSESSMENT & PLAN: This is an 87yo F with complicated past medical hx of aplastic anemia ; secondary to myelodysplastic syndrome , diastolic CHF, A Fib, HTN, recurrent UTIs -presented with subjective fever , urinary symptom RECURRENT UTI/PSEUDOMONAS INFECTION -Present on admission, h/o recurrent UTIs Urine culture 06/2017 -Citrobacter /Klebsiella -Most recent urine culture Early July: grew pseudomonas and Enterococcus faecium -Completed 7d course of Cefepime and 3 days of IV Vanc in last admission -urine culture 08/08/17 -gram negative bacilli /Pseudomonas -on IV cefepime and vancomycin --ID consulted , appreciate input Daughter insists pt should be discharged at home with iV Abx ( has PICC line already ) she is convinced that pt's previous UTI was not adequately treated as IV Abx was not continued at home 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 Small pleural effusion in R lung (improved from last admission) -Broad coverage abx -Vancomycin /Cefepime -Cont home inhalers -Blood cultures ordered Hypertension: -Normotensive -Continue home dose Metoprolol and PRN Clonidine Paroxysmal atrial fibrillation: -Asymptomatic -Continue Metoprolol -No anticoagulation 2/2 thrombocytopenia -Monitor on tele Chronic diastolic CHF: -Dry on exam, will hold daily lasix -No signs of fluid overload Hypothyroidism: -Cont home dose levothyroxine DNI DISPOSITION PT/OT EVAL prior to discharge active with [facility] Care daughter updated at bedside Medicine follow up with Dr Umana Vital Signs: Date Time Temp Pulse Resp B/P (MAP) Pulse Ox O2 Delivery O2 Flow Rate FiO2 08/10/17 17:10 36.5 66 20 170/77 97 08/10/17 16:48 71 18 174/71 96 08/10/17 15:25 36.6 62 20 170/74 (106) 99 Nasal Cannula 2.0 08/10/17 12:57 97 Nasal Cannula 08/10/17 11:28 36.7 69 19 187/80 (115) 99 Nasal Cannula 2.0 08/10/17 11:21 92 08/10/17 10:16 36.4 66 18 168/75 99 2.0 08/10/17 09:32 36.6 64 18 147/74 99 2.0 08/10/17 08:11 97 Nasal Cannula 08/10/17 08:10 36.5 62 18 149/62 98 2.0 08/10/17 07:47 36.7 55 18 146/63 99 2.0 08/10/17 07:31 36.3 58 18 170/75 (106) 99 Nasal Cannula 2.0 08/10/17 06:11 145/76 (99) 08/10/17 04:00 97 Nasal Cannula 08/10/17 04:00 36.4 63 186/84 (118) 97 Nasal Cannula 2.0 08/10/17 00:00 36.5 61 134/63 (86) 98 Nasal Cannula 2.0 08/10/17 00:00 98 Nasal Cannula 2.0 08/09/17 20:00 97 Nasal Cannula 2.0 08/09/17 20:00 36.3 70 171/78 (109) 97 Nasal Cannula 2.0 08/09/17 18:47 36.8 80 180/79 08/09/17 17:48 36.3 83 177/72 88 Lab Results: Results Past 24 Hours Test 08/10/17 04:59 08/10/17 13:43 Range/Units White Blood Count 0.56 4.8-10.8 K/uL Red Blood Count 2.76 4.2-5.4 M/uL Hemoglobin 8.0 12.0-16.0 g/dL Hematocrit 22.4 37-47 % Mean Corpuscular Volume 81.2 80-100 fL Mean Corpuscular Hemoglobin 29.0 25-34 pg Mean Corpuscular Hemoglobin Concent 35.7 32-36 g/dl RDW Standard Deviation 39.1 36.4-46.3 fL RDW Coefficient of Variation 13.2 11.5-14.5 % Platelet Count 2 130-400 K/uL Sodium Level 132 136-145 mmol/L Potassium Level 4.5 3.5-5.1 mmol/L Chloride Level 99 98-107 mmol/L Carbon Dioxide Level 30 21-32 mmol/L Anion Gap 3.0 3-11 mmol/L Blood Urea Nitrogen 19 7-18 mg/dl Creatinine 0.42 0.60-1.20 mg/dl Est Creatinine Clear Calc Drug Dose 91.1 ml/min Estimated GFR () 107.6 Estimated GFR (Non- 92.8 BUN/Creatinine Ratio 46.1 10-20 Random Glucose 117 70-99 mg/dl Calcium Level 8.1 8.5-10.1 mg/dl Magnesium Level 1.8 1.8-2.4 mg/dl Vancomycin Level Trough 14.2 SEE COMMENT mcg/ml
[2017-08-10] MEDS ORDERED: NURSING VERBAL MED ORDER ONE (18:00)
[2017-08-10] MEDS ORDERED: ALBUT/IPRATROP 3MG/0.5MG NEB 3 ML VIAL INH ONE (19:36)
[2017-08-10] MEDS ORDERED: ALBUT/IPRATROP 3MG/0.5MG NEB 3 ML VIAL INH PRN (19:45)
[2017-08-10] MEDS ORDERED: POLYETHYLENE (MIRALAX) 17 GM PACK PO ONE (19:52)
--- NOTE | 2017-08-10 20:00 | NUR ---
A: one assist with rolling walker to the bathroom, voiding clear yellow urine, denied pain, reported "feeling very tired" and wanting to sleep, left upper arm PICC intact.
--- NOTE | 2017-08-10 20:14 | DIAGNOSTIC IMAGING REPORT ---
CHEST ONE VIEW PORTABLE CLINICAL HISTORY: 87 years-old Female presenting with wheeze, cough. TECHNIQUE: Portable upright AP view of the chest was obtained. COMPARISON: 08/08/2017. FINDINGS: Left upper extremity PICC terminates in the lower SVC, unchanged. Atherosclerosis of the aortic arch. Cardiac silhouette normal in size. Interval increase in the now large right pleural effusion and right lower lung opacity. Left lung and pleural space clear. Degenerative changes of the spine and shoulders. Multiple overlying external leads degrade image quality limiting evaluation of the upper abdomen. IMPRESSION: 1. Increasing size of the now large right pleural effusion and suspected passive atelectasis. Electronically signed by: Mohinder Xavier M.D. 08/10/2017 8:13 PM Dictated Date/Time: 08/10/2017 8:12 PM
[2017-08-10] MEDS: HydrALAZINE HCL 20 MG/ML VIAL IV. PRN (22:14)
[2017-08-11] VITALS (7 sets, daily range): BP systolic 158–188; BP diastolic 72–81; PULSE 70–85; TEMP 36.3–36.5; O2SAT 90–97
--- NOTE | 2017-08-11 00:01 | NUR ---
A/ID: REFER TO EMR FOR HEAD TO TOE ASSESSMENT. PT DENIES COMPLAINTS OF PAIN OR SHORTNESS OF BREATH AT PRESENT TIME. VSS. DOUBLE LUMEN PICC TO LEFT UPPER ARM- BRISK BLOOD RETURN NOTED. ROUTINE MEDICATION PROVIDED. BED ALARM FOR SAFETY. CALL SPEAR WITHIN REACH, WILL CONTINUE TO MONITOR. UNKNOWN D/C AT THIS TIME.
--- NOTE | 2017-08-11 04:00 | NUR ---
A: REFER TO EMR FOR HEAD TO TOE ASSESSMENT. PT DENIES COMPLAINTS OF PAIN OR SHORTNESS OF BREATH AT PRESENT TIME. VSS. PT ASSISTED OOB TO BATHROOM WITH 1 ASSIST AND WALKER. PT BACK TO BED. BED ALARM FOR SAFETY. CALL SPEAR WITHIN REACH, WILL CONTINUE TO MONITOR. Addendum: 08/11/17 at 0504 by Kim Moss RN A: BP ELEVATED- PRN MEDICATION PROVIDED.
[2017-08-11] MEDS: CLONIDINE HCL 0.1 MG TAB PO PRN (04:12)
[2017-08-11] MEDS: CEFEPIME IV 2,000 MG in SYRINGE 7.5 ML IV SCH ×3 (04:12→21:17)
[2017-08-11 04:55] LABS: HEMATOCRIT 22.9 % (37-47); HEMOGLOBIN 8.1 g/dL (12.0-16.0); MEAN CELL VOLUME 81.5 fL (80-100); MEAN CORPUSCULAR HEMOGLOBIN 28.8 pg (25-34); MEAN CORPUSCULAR HGB CONC 35.4 g/dl (32-36); MEAN PLATELET VOLUME 8.9 fL (7.4-10.4); PLATELET COUNT 24 K/uL (130-400); RED CELL DISTRIBUTION WIDTH CV 13.1 % (11.5-14.5); RED CELL DISTRIBUTION WIDTH SD 39.4 fL (36.4-46.3); WHITE BLOOD COUNT 0.58 K/uL (4.8-10.8)
[2017-08-11 05:08] LABS: CALCIUM 8.7 mg/dl (8.5-10.1); CREATININE 0.41 mg/dl (0.60-1.20); POTASSIUM 4.5 mmol/L (3.5-5.1)
[2017-08-11] MEDS: VANCOMYCIN IV 1,000 MG in SODIUM CHLORIDE 0.9% 250ML 250 ML IV SCH (06:29)
[2017-08-11] MEDS: LEVOTHYROXINE 75 MCG TAB PO SCH (06:29)
[2017-08-11] MEDS: TRAMADOL HCL 50 MG TAB PO SCH ×3 (06:29→17:17)
[2017-08-11] MEDS: LEValbuterol HFA 15GM INHALER INH SCH ×2 (07:58→21:28)
[2017-08-11] MEDS: MAGNESIUM OXIDE 400 MG TAB PO SCH ×2 (07:58→21:00)
[2017-08-11] MEDS: DOCUSATE SODIUM 100 MG CAP PO PRN (07:58)
[2017-08-11] MEDS: THIAMINE HCL 100 MG TAB PO SCH (07:58)
[2017-08-11] MEDS: CEROVITE ADV FORMULA TAB PO SCH (07:58)
[2017-08-11] MEDS: CLOTRIMAZOLE 10 MG TROCHE MT SCH ×5 (07:58→17:18)
[2017-08-11] MEDS: METOPROLOL SUCC 50MG EXT REL TAB PO SCH ×2 (07:58→21:00)
[2017-08-11] MEDS: POTASSIUM CHLORIDE 20 MEQ TABCR PO SCH (07:58)
[2017-08-11] MEDS: ALPRAZOLAM 0.5 MG TAB PO SCH (07:59)
[2017-08-11] MEDS: CHOLECALCIFEROL 400 INTER.UNIT TAB PO SCH (07:59)
[2017-08-11] MEDS: SODIUM CHLORIDE 0.9% 10ML FLUSH IV SCH ×3 (08:00→21:28)
[2017-08-11] MEDS ORDERED: POLYETHYLENE (MIRALAX) 17 GM PACK PO SCH (09:00)
[2017-08-11] MEDS: HydrALAZINE HCL 20 MG/ML VIAL IV. PRN (11:03)
[2017-08-11] MEDS ORDERED: FUROSEMIDE INJ 40 MG in SYRINGE 0 ML IV STA (12:15)
[2017-08-11] MEDS ORDERED: FUROSEMIDE 40 MG/4 ML VIAL ONE (13:11)
--- NOTE | 2017-08-11 13:33 | Pulmonology Progress Note ---
Pulmonary Progress Note Date of Service Aug 11, 2017. Attending Dr. Taveras Subjective Patient seen and examined at bedside. Daughter visiting. Patient states that she still has intermittent shortness of breath. Denies any cough or chest pain. Objective Vital signs reviewed. MAXIMUM TEMPERATURE 36.4, blood pressure 167/74 to 187/ 79, pulse 70-79, respiratory rate 18-19, pulse oximetry 92-97% on 2 L nasal cannula. Her cumulative balance is 1852 mL positive. Gen.: Awake alert oriented 3, no acute distress. CVS: S1-S2 regular rate and rhythm Lungs: Good air entry on the left with crackles at bases, diminished breath sounds of the entire right hemidiaphragm. Abdomen: Soft, nontender, nondistended, bowel sounds positive Extremities: No edema, no cyanosis, no clubbing Labs reviewed, Medications reviewed, imaging reviewed. WBC 0.49 to 0.56 to 0.58 Hemoglobin 7.1 to 8.0 to 8.1 Platelet count 11 to 2. She was subsequently transfused 2 units of platelets. Platelet count today 24. Sodium 132, BUN 18, creatinine 0.42. Microbiology Nasal MRSA swab-08/08/2017 negative Blood cultures 08/08/2017-no growth to date 2 Urine culture 08/08/2017-Pseudomonas aeruginosa and Escherichia coli CT abdomen from 08/08/2017-large right pleural effusion with right middle lobe atelectasis and pleural thickening. Assessment & Plan Dyspnea Large right-sided pleural effusion Mrs. Hammer has chronic right-sided pleural effusion that has increased in size. Patient's initial platelet count was 11 and then decrease it to. She was subsequently transfused 1 unit of PRBCs as well as 2 units of platelets. Hemoglobin today 8 and platelet count 24. She still does not need requirements and platelet count greater than 50,000 to safely proceed with thoracentesis. Continue with supplemental oxygen as needed. Please reconsult if you've any further questions or concerns. Will sign off case today. Data Medications: Current Inpatient Medications Medications (Trade) Dose Ordered Sig/Giuseppe Route Start Time Stop Time Status Last Admin Dose Admin Ondansetron HCl (Zofran Inj) 4 mg Q6H PRN IV 08/08/17 14:00 09/07/17 13:59 08/08/17 17:59 4 MG Alprazolam (Xanax Tab) 1 mg BID PO 08/08/17 20:00 09/07/17 19:59 08/11/17 07:59 1 MG Cholecalciferol (Vitamin D Tab) 400 inter.unit DAILY PO 08/09/17 08:00 09/08/17 07:59 08/11/17 07:59 400 INTER.UNIT Dicyclomine HCl (Bentyl Cap) 10 mg QID PRN PO 08/08/17 15:45 09/07/17 15:44 Docusate Sodium (coLACE CAP) 100 mg BID PRN PO 08/08/17 15:45 09/07/17 15:44 08/11/17 07:58 100 MG Levalbuterol (Xopenex Hfa Inhaler) 1 puffs BID INH 08/08/17 20:00 09/07/17 19:59 08/11/17 07:58 1 PUFFS Levothyroxine Sodium (Synthroid Tab) 75 mcg DAILYBB PO 08/09/17 06:00 09/08/17 06:29 08/11/17 06:29 75 MCG Magnesium Oxide (Mag-Ox Tab) 400 mg BID PO 08/08/17 20:00 09/07/17 19:59 08/11/17 07:58 400 MG Metoprolol Succinate (Toprol Xl Tab) 50 mg BID PO 08/08/17 20:00 09/07/17 19:59 08/11/17 07:58 50 MG Multivitamins/ Minerals (Multivitamin W/ Minerals Tab) 1 tab DAILY PO 08/09/17 08:00 09/08/17 07:59 08/11/17 07:58 1 TAB Potassium Chloride (Klor-Con Tab) 20 meq DAILY PO 08/09/17 08:00 09/08/17 07:59 08/11/17 07:58 20 MEQ Sodium Chloride (Sodium Chloride 0.9% 10 ml Flush) 10 ml TID IV 08/08/17 20:00 09/07/17 19:59 08/11/17 13:16 10 ML Thiamine HCl (Vitamin B-1 Tab) 100 mg DAILY PO 08/09/17 08:00 09/08/17 07:59 08/11/17 07:58 100 MG Tramadol HCl (Ultram Tab) 50 mg Q6 PO 08/08/17 18:00 09/07/17 17:59 08/11/17 11:07 50 MG Pantoprazole Sodium (Protonix Tab) 40 mg DAILY PRN PO 08/08/17 15:45 09/07/17 15:44 08/10/17 10:04 40 MG Clotrimazole (Mycelex 10MG Kaleb) 1 kaleb [id number] MT 08/08/17 16:00 08/15/17 15:59 08/11/17 13:16 1 KALEB Cefepime HCl (Consult) 1 ea UD PRN N/A 08/08/17 16:15 09/07/17 16:14 Clonidine HCl (Catapres Tab) 0.1 mg Q6 PRN PO 08/08/17 19:15 09/07/17 19:14 08/11/17 04:12 0.1 MG Cefepime HCl 2000 mg/Syringe 20 ml @ 5 mls/min Q8H IV 08/09/17 04:00 08/15/17 23:59 08/11/17 11:07 5 MLS/MIN Acetaminophen (Tylenol Tab) 650 mg Q4H PRN PO 08/09/17 18:30 09/08/17 18:29 08/10/17 17:02 650 MG Hydralazine HCl (HydrALAZINE INJ) 10 mg Q8 PRN IV. 08/10/17 18:45 09/09/17 18:44 08/11/17 11:03 10 MG Albuterol/ Ipratropium (Duoneb) 3 ml Q2H PRN INH 08/10/17 19:45 09/09/17 19:44 Polyethylene (Miralax Powder Packet) 17 gm QAM PO 08/11/17 09:00 09/09/17 16:59 08/11/17 07:58 17 GM Vital Signs: Date Time Temp Pulse Resp B/P (MAP) Pulse Ox O2 Delivery O2 Flow Rate FiO2 08/11/17 12:39 Nasal Cannula 2.0 08/11/17 11:40 36.4 79 18 167/74 (105) 92 Nasal Cannula 2.0 08/11/17 08:16 Nasal Cannula 2.0 08/11/17 08:11 36.4 70 19 185/81 (115) 97 Nasal Cannula 2.0 08/11/17 04:15 36.3 74 18 187/79 (115) 97 Nasal Cannula 2.0 08/11/17 04:00 Nasal Cannula 2.0 08/10/17 23:59 Nasal Cannula 2.0 08/10/17 23:17 36.4 56 16 168/60 (96) 98 Humidified Air 2.0 08/10/17 21:07 59 172/64 (100) 08/10/17 20:00 92 Nasal Cannula 2.0 Humidified Oxygen 08/10/17 19:52 36.3 75 20 172/80 (110) 92 Nasal Cannula 3.0 08/10/17 18:39 36.5 67 20 182/85 97 08/10/17 17:10 36.5 66 20 170/77 97 08/10/17 16:48 71 18 174/71 96 08/10/17 16:00 97 Nasal Cannula 08/10/17 15:25 36.6 62 20 170/74 (106) 99 Nasal Cannula 2.0 Laboratory Results: Last 24 Hours Test 08/10/17 13:43 08/10/17 20:40 08/11/17 04:43 Vancomycin Level Trough 14.2 mcg/ml Pro-B-Type Natriuretic Peptide 978 pg/ml White Blood Count 0.58 K/uL Red Blood Count 2.81 M/uL Hemoglobin 8.1 g/dL Hematocrit 22.9 % Mean Corpuscular Volume 81.5 fL Mean Corpuscular Hemoglobin 28.8 pg Mean Corpuscular Hemoglobin Concent 35.4 g/dl RDW Standard Deviation 39.4 fL RDW Coefficient of Variation 13.1 % Platelet Count 24 K/uL Mean Platelet Volume 8.9 fL Sodium Level 132 mmol/L Potassium Level 4.5 mmol/L Chloride Level 99 mmol/L Carbon Dioxide Level 31 mmol/L Anion Gap 2.0 mmol/L Blood Urea Nitrogen 18 mg/dl Creatinine 0.41 mg/dl Est Creatinine Clear Calc Drug Dose 93.4 ml/min Estimated GFR () 108.4 Estimated GFR (Non- 93.5 BUN/Creatinine Ratio 44.2 Random Glucose 113 mg/dl Calcium Level 8.7 mg/dl Magnesium Level 1.8 mg/dl
[2017-08-11] MEDS ORDERED: AMLODIPINE BESYLATE 5 MG TAB PO ONE (15:15)
--- NOTE | 2017-08-11 17:16 | CARDIOLOGY CONSULTATION ---
DATE OF CONSULTATION: 08/11/2017 CONSULTATION REQUESTED BY: Dr. Jimenez. REASON FOR CONSULTATION: Pleural effusion. HISTORY OF PRESENT ILLNESS: Mrs. Hammer is a very pleasant yet somewhat confused 87-year-old woman, who presented to [facility] on 08/08/2017 with complaints of fever and dysuria. The patient has a longstanding history of recurrent UTIs and neutropenic fevers and she was admitted to telemetry. She was seen by infectious disease and started on appropriate antibiotics. The patient subsequently developed shortness of breath and she was found that her chronic moderate right pleural effusion had progressed and was now large. She was seen by pulmonary medicine, who deemed her not a thoracentesis candidate due to her significant thrombocytopenia. She had been transfused with packed red blood cells and platelets as per recommendations from hematology at [facility] and currently, she is rather confused at rest. Her daughter is present during the examination and her daughter voices the fact that the patient just wanted to be seen by her cardiology team to make sure her heart was okay. The patient is significantly confused and answers differently every time I asked if she is short of breath, but her daughter notes that she does not appear to be off from her baseline breathing. She does not relay any complaints of chest pain, palpitations, lightheadedness, dizziness or syncope. Her daughter states that she does appear fatigued and very rundown. She has been maintaining normal sinus rhythm on a monitor. PAST SURGICAL HISTORY: 1. Tear duct surgery. 2. Cataract surgery. 3. Pilonidal cyst excision. 4. Tonsil and adenoidectomy. 5. Cardiac catheterization in 2003, revealing nonobstructive disease. 6. IVC filter placement. 7. Hernia repair. 8. Hysterectomy. MEDICAL ILLNESSES: 1. Pancytopenia, chronically transfusion dependent. 2. Asymptomatic atrial and ventricular ectopy. 3. Paroxysmal atrial tachycardia. 4. Supraventricular tachycardia. 5. Paroxysmal atrial fibrillation, no longer a Coumadin candidate due to ITP. 6. History of deep venous thrombosis, status post IVC filter placement. 7. Nonobstructive coronary artery disease. 8. Moderately severe bilateral internal carotid disease. 9. Hypertension. 10. Dyslipidemia. 11. Anxiety. 12. Fibromyalgia. FAMILY HISTORY: Noncontributory. SOCIAL HISTORY: No alcohol, tobacco or recreational drug use. She is . REVIEW OF SYSTEMS: Unobtainable given the patient's current mental status. ALLERGIES: 1. AUGMENTIN. 2. IV DYE. 3. MORPHINE. 4. PERCOCET. 5. SULFA. MEDICATIONS CURRENTLY: 1. Hydralazine 10 mg IV q. 8 hours as needed. 2. Potassium chloride 20 mEq daily. 3. Synthroid daily. 4. Cefepime IV q. 8 hours. 5. Toprol-XL 50 mg b.i.d. 6. Clonidine 0.1 mg p.o. p.r.n. q. 6 hours. PHYSICAL EXAMINATION: VITALS: Temperature 36.4, pulse 79, respiratory rate 12, and blood pressure 167/74. GENERAL: Awake, alert, and oriented to self and person. No acute distress. HEENT: Normocephalic and atraumatic. Pupils equal, round, and reactive to light and accommodation. Extraocular muscles intact. Anicteric sclerae. Moist mucous membranes. NECK: No JVD. No bruit. CARDIOVASCULAR: Regular. Positive S4. Normal S1 and S2. No S3. No murmurs or rubs. PULMONARY: No air movement on the right. Clear on the left. ABDOMEN: Bowel sounds x4. Soft. No rebound, guarding, or tenderness. No organomegaly. EXTREMITIES: No clubbing, cyanosis or edema. +2 pedal pulses bilaterally. SKIN: Warm and dry. TEST RESULTS AND LABORATORY STUDIES: White count of 0.6, hemoglobin 8.1, and platelet count of 24,000. Sodium 132, potassium 4.5, BUN 18, and creatinine 0.4. Chest x-ray on 08/10/2017 was read as increasing size of now large right pleural effusion and suspected passive atelectasis. IMPRESSION: 1. Large right pleural effusion, not a candidate for thoracentesis. 2. Idiopathic thrombocytopenic purpura, transfusion dependent. 3. History of diastolic dysfunction with normal left ventricular systolic function. 4. Hypertension, uncontrolled. RECOMMENDATIONS: It was my pleasure to see Mrs. Hammer in consultation today. From a cardiac standpoint, given the fact that we were unable to perform a thoracentesis, I would recommend attempting diuretics. So, she will be placed on IV Lasix 40 mg b.i.d. and her renal function will be followed closely. Her electrolytes should also be followed and repleted as necessary. In terms of her blood pressure, she is significantly hypertensive. So at this time, I will add amlodipine 5 mg daily on to her medical regimen to try and avoid her p.r.n. medications.
--- NOTE | 2017-08-11 17:21 | Infectious Disease Progress Nt ---
Progress Note Date of Service Aug 11, 2017. Subjective Pt evaluation today including: conversation w/ patient, physical exam, chart review, lab review, review of studies, conversation w/ e business consultant, review of inpatient medication list Patient somewhat more confused today. Not answering questions appropriately. Remains afebrile. Urine culture with Pseudomonas and E coli both sensitive to cefepime. All Other Systems: Reviewed and Negative Medications Current Inpatient Medications Medications (Trade) Dose Ordered Sig/Giuseppe Route Start Time Stop Time Status Last Admin Dose Admin Ondansetron HCl (Zofran Inj) 4 mg Q6H PRN IV 08/08/17 14:00 09/07/17 13:59 08/08/17 17:59 4 MG Alprazolam (Xanax Tab) 1 mg BID PO 08/08/17 20:00 09/07/17 19:59 08/11/17 07:59 1 MG Cholecalciferol (Vitamin D Tab) 400 inter.unit DAILY PO 08/09/17 08:00 09/08/17 07:59 08/11/17 07:59 400 INTER.UNIT Dicyclomine HCl (Bentyl Cap) 10 mg QID PRN PO 08/08/17 15:45 09/07/17 15:44 Docusate Sodium (coLACE CAP) 100 mg BID PRN PO 08/08/17 15:45 09/07/17 15:44 08/11/17 07:58 100 MG Levalbuterol (Xopenex Hfa Inhaler) 1 puffs BID INH 08/08/17 20:00 09/07/17 19:59 08/11/17 07:58 1 PUFFS Levothyroxine Sodium (Synthroid Tab) 75 mcg DAILYBB PO 08/09/17 06:00 09/08/17 06:29 08/11/17 06:29 75 MCG Magnesium Oxide (Mag-Ox Tab) 400 mg BID PO 08/08/17 20:00 09/07/17 19:59 08/11/17 07:58 400 MG Metoprolol Succinate (Toprol Xl Tab) 50 mg BID PO 08/08/17 20:00 09/07/17 19:59 08/11/17 07:58 50 MG Multivitamins/ Minerals (Multivitamin W/ Minerals Tab) 1 tab DAILY PO 08/09/17 08:00 09/08/17 07:59 08/11/17 07:58 1 TAB Potassium Chloride (Klor-Con Tab) 20 meq DAILY PO 08/09/17 08:00 09/08/17 07:59 08/11/17 07:58 20 MEQ Sodium Chloride (Sodium Chloride 0.9% 10 ml Flush) 10 ml TID IV 08/08/17 20:00 09/07/17 19:59 08/11/17 13:16 10 ML Thiamine HCl (Vitamin B-1 Tab) 100 mg DAILY PO 08/09/17 08:00 09/08/17 07:59 08/11/17 07:58 100 MG Tramadol HCl (Ultram Tab) 50 mg Q6 PO 08/08/17 18:00 09/07/17 17:59 08/11/17 11:07 50 MG Pantoprazole Sodium (Protonix Tab) 40 mg DAILY PRN PO 08/08/17 15:45 09/07/17 15:44 08/10/17 10:04 40 MG Clotrimazole (Mycelex 10MG Carlos Alberto) 1 carlos alberto 5XDQ3H MT 08/08/17 16:00 08/15/17 15:59 08/11/17 16:29 1 CARLOS ALBERTO Cefepime HCl (Consult) 1 ea UD PRN N/A 08/08/17 16:15 09/07/17 16:14 Clonidine HCl (Catapres Tab) 0.1 mg Q6 PRN PO 08/08/17 19:15 09/07/17 19:14 08/11/17 04:12 0.1 MG Cefepime HCl 2000 mg/Syringe 20 ml @ 5 mls/min Q8H IV 08/09/17 04:00 08/15/17 23:59 08/11/17 11:07 5 MLS/MIN Acetaminophen (Tylenol Tab) 650 mg Q4H PRN PO 08/09/17 18:30 09/08/17 18:29 08/10/17 17:02 650 MG Hydralazine HCl (HydrALAZINE INJ) 10 mg Q8 PRN IV. 08/10/17 18:45 09/09/17 18:44 08/11/17 11:03 10 MG Albuterol/ Ipratropium (Duoneb) 3 ml Q2H PRN INH 08/10/17 19:45 09/09/17 19:44 Polyethylene (Miralax Powder Packet) 17 gm QAM PO 08/11/17 09:00 09/09/17 16:59 08/11/17 07:58 17 GM Amlodipine Besylate (Norvasc Tab) 5 mg QAM PO 08/12/17 09:00 09/11/17 08:59 Objective Vital Signs Date Time Temp Pulse Resp B/P (MAP) Pulse Ox O2 Delivery O2 Flow Rate FiO2 08/11/17 16:16 36.4 84 22 174/76 (108) 93 Room Air 08/11/17 16:00 Nasal Cannula 2.0 08/11/17 12:39 Nasal Cannula 2.0 08/11/17 11:40 36.4 79 18 167/74 (105) 92 Nasal Cannula 2.0 08/11/17 08:16 Nasal Cannula 2.0 08/11/17 08:11 36.4 70 19 185/81 (115) 97 Nasal Cannula 2.0 08/11/17 04:15 36.3 74 18 187/79 (115) 97 Nasal Cannula 2.0 08/11/17 04:00 Nasal Cannula 2.0 08/10/17 23:59 Nasal Cannula 2.0 08/10/17 23:17 36.4 56 16 168/60 (96) 98 Humidified Air 2.0 08/10/17 21:07 59 172/64 (100) 08/10/17 20:00 92 Nasal Cannula 2.0 Humidified Oxygen 08/10/17 19:52 36.3 75 20 172/80 (110) 92 Nasal Cannula 3.0 08/10/17 18:39 36.5 67 20 182/85 97 Physical Exam General Appearance: WD/WN, no apparent distress Eyes: normal inspection, EOMI, sclerae normal ENT: normal ENT inspection, pharynx normal Neck: supple, no adenopathy, thyroid normal, trachea midline Respiratory/Chest: chest non-tender, no respiratory distress, no accessory muscle use, + rales Cardiovascular: regular rate, rhythm, no gallop, no murmur Abdomen: normal bowel sounds, non tender, soft, no organomegaly Extremities: non-tender, no calf tenderness Neurologic/Psychiatric: alert, + disoriented Skin: normal color, no rash Laboratory Results RUN DATE: 08/11/17 [facility] PAGE 1 RUN TIME: 932 Specimen Inquiry PATIENT: KARAN BARBER I LOC: Dov U # : [id number] AGE/SX: 87/F ROOM: S243 REG : 08/08/[address]: Marlin Jimenez M.D. : 1930 BED: 1 DIS : STATUS: ADM IN TLOC: SPEC #: [id number] LIZBETH: 08/08/17 STATUS: COMP REQ #: [id number] RECD: 08/08/[address]: Thaddeus Mabry M.D. SOURCE: BETH CC ENTR: 08/08/17-[address] [facility] [address]: Dionisio Umana M.D. [facility]: ORDERED: CULTURE URCLEAN Procedure Result Verified Site URINE CULTURE Final 08/11/17 Organism 1 PSEUDOMONAS AERUGINOSA COLONY COUNT >100,000 CFU/ml SENS SENSITIVITY TO FOLLOW Organism 2 ESCHERICHIA COLI COLONY COUNT 25,000 CFU/ml SENS SENSITIVITY TO FOLLOW PSEUD AERG E COLI M.I.C. RX M.I.C. RX --------- ------ --------- ------ TRIMET/SULFA >2/38 R AMPICILLIN <=8 S AMPICILLIN/SUL <=8/4 S CEFAZOLIN <=8 S CEFOXITIN <=8 S CEFOTAXIME <=2 S CEFTAZIDIME <=1 S CEFTRIAXONE <=1 S CEFEPIME <=4 S <=4 S CEFUROXIME <=4 S IMIPENEM <=1 S <=1 S AZTREONAM <=4 S GENTAMICIN <=4 S <=4 S TOBRAMYCIN <=4 S <=4 S AMIKACIN <=16 S <=16 S CIPROFLOXACIN <=1 S <=1 S LEVOFLOXACIN >4 R <=2 S ERTAPENEM <=1 S NITROFURANTOIN <=32 S PIP/TAZO <=16 S <=16 S 1. PSEUDOMONAS AERUGINOSA Target Route Dose RX AB Cost M.I.C. IQ ------ ----- ------ -- ------ -------- - ------ CEFTAZIDIME S <=1 CEFEPIME S <=4 IMIPENEM S <=1 AZTREONAM S <=4 GENTAMICIN S <=4 TOBRAMYCIN S <=4 AMIKACIN S <=16 CONTINUED ON NEXT PAGE RUN DATE: 08/11/17 [facility] PAGE 2 RUN TIME: 0933 Specimen Inquiry SPEC: [id number] PATIENT: KARAN BARBER I [id number] ( Continued) Procedure Result Verified Site URINE CULTURE Final (continued) 08/11/17-932 1. PSEUDOMONAS AERUGINOSA (continued) Target Route Dose RX AB Cost M.I.C. IQ ------ ----- ------ -- ------ -------- - ------ CIPROFLOXACIN S <=1 LEVOFLOXACIN R >4 PIP/TAZO S <=16 2. ESCHERICHIA COLI Target Route Dose RX AB Cost M.I.C. IQ ------ ----- ------ -- ------ -------- - ------ TRIMET/SULFA R >2/38 AMPICILLIN S <=8 AMPICILLIN/SUL S <=8/4 CEFAZOLIN S <=8 CEFOXITIN S <=8 CEFOTAXIME S <=2 CEFTRIAXONE S <=1 CEFEPIME S <=4 CEFUROXIME S <=4 IMIPENEM S <=1 GENTAMICIN S <=4 TOBRAMYCIN S <=4 AMIKACIN S <=16 CIPROFLOXACIN S <=1 LEVOFLOXACIN S <=2 ERTAPENEM S <=1 NITROFURANTOIN S <=32 PIP/TAZO S <=16 S = SENSITIVE I = INTERMEDIATE R = RESISTANT END OF REPORT Last 24 Hours Test 08/10/17 20:40 08/11/17 04:43 08/11/17 13:50 Pro-B-Type Natriuretic Peptide 978 pg/ml White Blood Count 0.58 K/uL Red Blood Count 2.81 M/uL Hemoglobin 8.1 g/dL Hematocrit 22.9 % Mean Corpuscular Volume 81.5 fL Mean Corpuscular Hemoglobin 28.8 pg Mean Corpuscular Hemoglobin Concent 35.4 g/dl RDW Standard Deviation 39.4 fL RDW Coefficient of Variation 13.1 % Platelet Count 24 K/uL Mean Platelet Volume 8.9 fL Sodium Level 132 mmol/L Potassium Level 4.5 mmol/L Chloride Level 99 mmol/L Carbon Dioxide Level 31 mmol/L Anion Gap 2.0 mmol/L Blood Urea Nitrogen 18 mg/dl Creatinine 0.41 mg/dl Est Creatinine Clear Calc Drug Dose 93.4 ml/min Estimated GFR () 108.4 Estimated GFR (Non- 93.5 BUN/Creatinine Ratio 44.2 Random Glucose 113 mg/dl Calcium Level 8.7 mg/dl Magnesium Level 1.8 mg/dl Urine Color YELLOW Urine Appearance CLEAR Urine pH 6.0 Urine Specific [place] 1.014 Urine Protein NEG Urine Glucose (UA) NEG Urine Ketones NEG Urine Occult Blood NEG Urine Nitrite NEG Urine Bilirubin NEG Urine Urobilinogen NEG Urine Leukocyte Esterase NEG Urine WBC (Auto) 5-10 /hpf Urine RBC (Auto) 0-4 /hpf Urine Hyaline Casts (Auto) 1-5 /lpf Urine Epithelial Cells (Auto) 5-10 /lpf Urine Bacteria (Auto) NEG Patient Name: KARAN BARBER I Unit Number: [id number] Dictated: 08/10/172011 Transcribed: 08/10/172011 PBS Printed Date/Time: [~ rep prt dt]/[~ rep prt tm] [~ rep ct labl] - [~ rep ct ivnm] [facility] [place] [address] Dictated: 08/10/172011 Transcribed: 08/10/172011 PBS Printed Date/Time: [~ rep prt dt]/[~ rep prt tm] [~ rep ct labl] - [~ rep ct ivnm] CLINICAL HISTORY: 87 years-old Female presenting with wheeze, cough. TECHNIQUE: Portable upright AP view of the chest was obtained. COMPARISON: 08/08/2017. FINDINGS: Left upper extremity PICC terminates in the lower SVC, unchanged. Atherosclerosis of the aortic arch. Cardiac silhouette normal in size. Interval increase in the now large right pleural effusion and right lower lung opacity. Left lung and pleural space clear. Degenerative changes of the spine and shoulders. Multiple overlying external leads degrade image quality limiting evaluation of the upper abdomen. IMPRESSION: 1. Increasing size of the now large right pleural effusion and suspected passive atelectasis. Electronically signed by: Mohinder Xavier M.D. 08/10/2017 8:13 PM Dictated Date/Time: 08/10/2017 8:12 PM The status of this report is Signed. Draft = Not yet reviewed or approved by Radiologist. Signed = Reviewed and approved by Radiologist. <AttendingPhy>Marlin Jimenez M.D.</AttendingPhy> <FamilyPhy>Dionisio Umana M.D.</FamilyPhy> <PrimaryPhy>Dionisio Umana M.D.</PrimaryPhy> <UnitNumber> [id number]</UnitNumber> <VisitNumber>[id number]</VisitNumber> <PatientName> KARAN BARBER I</PatientName> <DateOfBirth>1930</DateOfBirth> <Location> C.2T</Location> <ServiceDate>08/08/17</ServiceDate> <MNE>ESINDI</MNE> < OrderingPhy>Archie Carrera M.D.</OrderingPhy> <OrderingPhyMNE>f rep ord dr ortiz </OrderingPhyMNE> <DictatingPhyMNE>f rep dict dr ortiz</DictatingPhyMNE> < CCListMNE>f rep ct diana</CCListMNE> <AdmittingPhyMNE>f pt admit dr ortiz</ AdmittingPhyMNE> <AttendingPhyMNE>f pt attend dr ortiz</AttendingPhyMNE> <ConsultingPhyMNE>f pt consult dr ortiz</ConsultingPhyMNE> <FamilyPhyMNE>f pt fam dr ortiz</FamilyPhyMNE> <OtherPhyMNE>f pt other dr ortiz</OtherPhyMNE> < PrimaryPhyMNE>f pt prim care dr ortiz</PrimaryPhyMNE> <ReferringPhyMNE>f pt referring dr ortiz</ReferringPhyMNE> Assessment and Plan 87-year-old female with aplastic anemia with severe neutropenia now with recurrent fever, evidence of recurrent urinary tract infection with positive cultures for Pseudomonas and E coli. Current treatment with cefepime appropriate, and likely will require in the range of 7 days of therapy. Not clear whether confusion from sundowning or whether patient has element of encephalopathy from infection. Will discuss with all involved. Will follow.
[2017-08-11] MEDS: ACETAMINOPHEN 325 MG TAB PO PRN ×2 (17:55→23:26)
--- NOTE | 2017-08-11 18:34 | Hematology/Oncology Prog Note ---
Hematology/Onc Progress Note Date of Service Aug 11, 2017. Subjective 87 year female, who initially presented with isolated thrombocytopenia with platelet count around 7000 in 2010, treated with the high dose of steroid and had a good response, subsequently platelet count stayed around 4000-50,000 for about 4 to 5 years and then started having pancytopenia now she is requiring weekly platelet transfusion and intermittent the blood transfusion support. 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 She was seen by medical staff assistant at [facility], she was continued on weekly Neupogen therapy but no significant improvement noted in the white blood cell count and so it has been discontinued. She was also started on Promacta but had an abnormal liver function test and so it has been discontinued, she did not have any improvement of the platelet count. Presently she is having CBCD checkup twice a week and she received blood and platelet transfusion as needed. Several admissions noted over the last few months, now once again she is admitted for repeated episodes of UTI, seen in followed by Infectious Disease, I saw her at bedside, she has significant impaired hearing, she is sitting comfortably in the chair, receiving nasal supplemental oxygen, no fever, hemodynamically she is stable Urine culture grew Pseudomonas sent E.Coli (08/08/2017). Blood culture negative. Blood workup done during this often showed WBC 0.49-0.56, hemoglobin level was 7.1, platelet count dropped down to around 2000 on 08/10/2007, she received platelet transfusion, platelet count increased to around 24,000 , hemoglobin around 8 g/dL. Chest x-ray done on 08/10/2017 showed increasing right pleural effusion, seen by pulmonary, because of significant thrombocytopenia, she is not consider for thoracocentesis at this time. CT scan of the abdomen and pelvis done on July, for evaluation of the abdominal pain and painless jaundice showed a right pleural effusion, right lower lobe atelectasis unchanged, gallstones in the gallbladder unchanged, near complete atrophy of the pancreas noted. DJD noted. Thickening of the bladder wall noted. 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 basis. She is on parenteral Vitamin B12 injection every monthly, will continue it for now (as an outpatient). No further recommendations from Hematology at this time. Overall her prognosis remains quite poor. She is having 2nd opinion at [facility] in the next [address] Durga Coulter Hem/Onc (This note was completed using the dictation program Fluency Direct. As such, there may be misspellings, word substitutions, or other variations that should not change the essence of the clinical content of this encounter note. If there is need for further clarification, please direct questions to the provider listed above.) Vital Signs Vital Signs Past 12 Hours Date Time Temp Pulse Resp B/P (MAP) Pulse Ox O2 Delivery O2 Flow Rate FiO2 08/11/17 16:16 36.4 84 22 174/76 (108) 93 Room Air 08/11/17 16:00 Nasal Cannula 2.0 08/11/17 12:39 Nasal Cannula 2.0 08/11/17 11:40 36.4 79 18 167/74 (105) 92 Nasal Cannula 2.0 08/11/17 08:16 Nasal Cannula 2.0 08/11/17 08:11 36.4 70 19 185/81 (115) 97 Nasal Cannula 2.0
--- NOTE | 2017-08-11 19:43 | NUR ---
Daughter approached IV team in giang, requests PICC dressing change be done in am, states patient is "too tired" this evening.
[2017-08-11] MEDS ORDERED: LORAZEPAM 2 MG/ML 1 ML VIAL IV STA (20:27)
[2017-08-11] MEDS ORDERED: ALPRAZOLAM 0.5 MG TAB PO PRN (21:00)
[2017-08-11] MEDS: FUROSEMIDE INJ 40 MG in SYRINGE 0 ML IV SCH (21:26)
--- NOTE | 2017-08-11 21:30 | Progress Note ---
Internal Med Progress Note Date of Service: Aug 11, 2017. Provider Documentation: SUBJECTIVE: more confused today asking where she is at pt was stable all day , became confused at late evening asking same question repeatedly Daughter is very anxious , thinks PRN blood pressure medications are making pt confused daughter is counselled -given multiple co morbidities , acute illness , confusion at the evening " sun downing is very common " daughter is not convinced , " it never happened to my mother before " thinks pt is not given her regular dose of Xanax ordered for IV Ativan hold PM dose of Xanax , change it to PRN was getting Ultram on schedule dose -changed to PRN OBJECTIVE: Vital Signs-as noted below Exam: General-elderly female , chronically ill appearing , anxious , confused today , asking for help Eyes-sclera non icteric , PERRLA/EOMI ENT-moist oral mucosa, normal oropharynx Neck-trachea midline , no thyromegaly Lungs-+ rales on base R> L Heart-regular S1/S2 Abdomen-soft ,non tender Extremities-no rash or deformity Neuro-agitated, confused Lab data as noted below. ASSESSMENT & PLAN: This is an 87yo F with complicated past medical hx of aplastic anemia ; secondary to myelodysplastic syndrome , diastolic CHF, A Fib, HTN, recurrent UTIs -presented with subjective fever , urinary symptom CONFUSION /AGITATED : possible metabolic encephalopathy in setting of infection /hypoxia --large rt sided pleural effusion high risk for [place] ing counselling provided to both pt and daughter PRN Ativan RECURRENT UTI/PSEUDOMONAS INFECTION -Present on admission, h/o recurrent UTIs Urine culture 06/2017 -Citrobacter /Klebsiella -Most recent urine culture Early July: grew pseudomonas and Enterococcus faecium -Completed 7day course of Cefepime and 3 days of IV Vanc in last admission -urine culture 08/08/17 -gram negative bacilli /Pseudomonas -on IV cefepime /Vancomycin D/ce MRSA screen negative --ID consulted , appreciate input Daughter insists pt should be discharged at home with iV Abx ( has PICC line already ) she is convinced that pt's previous UTI was not adequately treated as IV Abx was not continued at home pt will need 7-10 days of IV Abx will be discharged home with IV Cefepime if needed to complete duration of tx Pancytopenia/severe thrombocytopenia: -2/2 Hypoplastic Bone Marrow, MDS -Hgb improved1 u prbcs transfused -Platelet count improved 24 K today given 3 units of Platelet tx appreciate input from heme onc -pt is completely transfusion dependent recommend continue platelet tx till 10 K to prevent spontaneous bleeding very poor prognosis pt is scheduled to follow up at [facility] on 08/20/17 for second opinion for her tx of refractory Myelodysplastic syndrome LARGE RT SIDE PLEURAL EFFUSION ; unable to do thoracentesis due to thrombocytopenia cont Lasix very poor prognosis Hypertension: -BP elevated on IV Lasix 40 mg Q 12 -Continue home dose Metoprolol and PRN Clonidine Paroxysmal atrial fibrillation: -Asymptomatic -Continue Metoprolol -No anticoagulation 2/2 thrombocytopenia -Monitor on tele Chronic diastolic CHF: -Lasix 40 mg IV BID for worsening of rt sided pleural effusion appreciate cardiology eval Hypothyroidism: -Cont home dose levothyroxine DNI DISPOSITION PT/OT EVAL prior to discharge active with [facility] daughter updated at bedside -multiple times Medicine follow up with Dr Umana Vital Signs: Date Time Temp Pulse Resp B/P (MAP) Pulse Ox O2 Delivery O2 Flow Rate FiO2 08/11/17 19:45 36.5 83 22 188/76 (113) 90 Room Air 08/11/17 16:16 36.4 84 22 174/76 (108) 93 Room Air 08/11/17 16:00 Nasal Cannula 2.0 08/11/17 12:39 Nasal Cannula 2.0 08/11/17 11:40 36.4 79 18 167/74 (105) 92 Nasal Cannula 2.0 08/11/17 08:16 Nasal Cannula 2.0 08/11/17 08:11 36.4 70 19 185/81 (115) 97 Nasal Cannula 2.0 08/11/17 04:15 36.3 74 18 187/79 (115) 97 Nasal Cannula 2.0 08/11/17 04:00 Nasal Cannula 2.0 08/10/17 23:59 Nasal Cannula 2.0 08/10/17 23:17 36.4 56 16 168/60 (96) 98 Humidified Air 2.0 Lab Results: Results Past 24 Hours Test 08/11/17 04:43 08/11/17 13:50 Range/Units White Blood Count 0.58 4.8-10.8 K/uL Red Blood Count 2.81 4.2-5.4 M/uL Hemoglobin 8.1 12.0-16.0 g/dL Hematocrit 22.9 37-47 % Mean Corpuscular Volume 81.5 80-100 fL Mean Corpuscular Hemoglobin 28.8 25-34 pg Mean Corpuscular Hemoglobin Concent 35.4 32-36 g/dl RDW Standard Deviation 39.4 36.4-46.3 fL RDW Coefficient of Variation 13.1 11.5-14.5 % Platelet Count 24 130-400 K/uL Mean Platelet Volume 8.9 7.4-10.4 fL Sodium Level 132 136-145 mmol/L Potassium Level 4.5 3.5-5.1 mmol/L Chloride Level 99 98-107 mmol/L Carbon Dioxide Level 31 21-32 mmol/L Anion Gap 2.0 3-11 mmol/L Blood Urea Nitrogen 18 7-18 mg/dl Creatinine 0.41 0.60-1.20 mg/dl Est Creatinine Clear Calc Drug Dose 93.4 ml/min Estimated GFR () 108.4 Estimated GFR (Non- 93.5 BUN/Creatinine Ratio 44.2 10-20 Random Glucose 113 70-99 mg/dl Calcium Level 8.7 8.5-10.1 mg/dl Magnesium Level 1.8 1.8-2.4 mg/dl Urine Color YELLOW Urine Appearance CLEAR CLEAR Urine pH 6.0 4.5-7.5 Urine Specific [place] 1.014 1.000-1.030 Urine Protein NEG NEG Urine Glucose (UA) NEG NEG Urine Ketones NEG NEG Urine Occult Blood NEG NEG Urine Nitrite NEG NEG Urine Bilirubin NEG NEG Urine Urobilinogen NEG NEG Urine Leukocyte Esterase NEG NEG Urine WBC (Auto) 5-10 0-5 /hpf Urine RBC (Auto) 0-4 0-4 /hpf Urine Hyaline Casts (Auto) 1-5 0-5 /lpf Urine Epithelial Cells (Auto) 5-10 0-5 /lpf Urine Bacteria (Auto) NEG NEG
[2017-08-12] MEDS ORDERED: TRAMADOL HCL 50 MG TAB PO PRN
--- NOTE | 2017-08-12 00:01 | NUR ---
a/id: refer to emr for head to toe assessment. 1:1 at bedside. pt complains of headache- prn Tylenol provided. pt's daughter called at change of shift- does not want scd's on pt. per daughter "those white machines on her legs are making the fluid move into her lungs". pt daughter also requests that her mother not be woken up for vital signs or other unnecessary care. daughter aware of hospital policy and reassured that pt is not woke up for unnecessary care and educated on hospital environment. pts daughter would also only like manual BP's taken on pt as "those machines aren't accurate with her". 1:1 remains at bedside. will continue to monitor. unknown d/c at this time. Addendum: 08/12/17 at 0244 by Kim Moss RN 0001: DR. MCCRARY AWARE OF DAUGHTERS WISHES TO NOT WAKE UP PT FOR VITAL SIGNS.
--- NOTE | 2017-08-12 01:00 | NUR ---
a: pts daughter called in for an update- provided code word.
[2017-08-12] MEDS: ONDANSETRON INJ 2 MG/ML 2 ML VIAL IV PRN (02:48)
[2017-08-12] MEDS: TRAMADOL HCL 50 MG TAB PO PRN (02:49)
[2017-08-12 02:57] VITALS: BP 150/72
[2017-08-12 03:05] VITALS: PULSE 72; TEMP 36.4; O2SAT 94
--- NOTE | 2017-08-12 03:05 | NUR ---
a: pt awake- pt continues to complain of headache- prn ultram provided. pt oob to bathroom pt complains of dizziness and "being sick" when asked what being sick meant pt said she felt as though she was going to vomit. prn zofran provided. pt laying down in bed. manual bp taken at this time. Dr. Carrera aware. orders received.
--- NOTE | 2017-08-12 03:25 | NUR ---
a: pt refusing to go for a head ct. pt states "I'm fine, just leave me alone" explained importance of test- pt continues to refuse pt keeps stating " Just leave me alone". Dr. Carrera aware.
[2017-08-12] MEDS: CEFEPIME IV 2,000 MG in SYRINGE 7.5 ML IV SCH ×3 (04:41→20:09)
[2017-08-12 04:51] LABS: CALCIUM 9.2 mg/dl (8.5-10.1); CREATININE 0.58 mg/dl (0.60-1.20)
[2017-08-12 04:52] LABS: POTASSIUM 3.6 mmol/L (3.5-5.1)
[2017-08-12 05:11] LABS: HEMATOCRIT 24.3 % (37-47); HEMOGLOBIN 8.7 g/dL (12.0-16.0); MEAN CELL VOLUME 80.5 fL (80-100); MEAN CORPUSCULAR HEMOGLOBIN 28.8 pg (25-34); MEAN CORPUSCULAR HGB CONC 35.8 g/dl (32-36); MEAN PLATELET VOLUME 9.2 fL (7.4-10.4); PLATELET COUNT 12 K/uL (130-400); RED CELL DISTRIBUTION WIDTH SD 38.3 fL (36.4-46.3); WHITE BLOOD COUNT 0.64 K/uL (4.8-10.8)
[2017-08-12] MEDS: LEVOTHYROXINE 75 MCG TAB PO SCH (06:18)
--- NOTE | 2017-08-12 07:06 | DIAGNOSTIC IMAGING REPORT ---
CHEST ONE VIEW PORTABLE CLINICAL HISTORY: pleural effusion /SOB COMPARISON STUDY: 08/10/2017 FINDINGS: The cardiac and sternal contours remain stable. There is no change the position left-sided PICC catheter. There is a persistent moderate right pleural effusion with associated right lower lobe opacity, likely representing compressive atelectatic change. Slight coarsening of interstitial markings persist bilaterally.[ IMPRESSION: Stable findings. Persistent moderate right pleural effusion Electronically signed by: Claudio Carreon M.D. 08/12/2017 7:05 AM Dictated Date/Time: 08/12/2017 7:03 AM
[2017-08-12] MEDS: CLOTRIMAZOLE 10 MG TROCHE MT SCH ×5 (07:45→19:00)
[2017-08-12] MEDS: LEValbuterol HFA 15GM INHALER INH SCH ×2 (09:00→20:22)
[2017-08-12] MEDS: FUROSEMIDE INJ 40 MG in SYRINGE 0 ML IV SCH ×2 (09:44→20:14)
[2017-08-12] MEDS: SODIUM CHLORIDE 0.9% 10ML FLUSH IV SCH ×3 (09:44→20:19)
[2017-08-12] MEDS: DOCUSATE SODIUM 100 MG CAP PO SCH ×2 (09:44→20:21)
[2017-08-12] MEDS: SENNA 8.6 MG TAB PO SCH (09:44)
[2017-08-12 09:45] VITALS: BP 158/98; PULSE 76
[2017-08-12] MEDS: THIAMINE HCL 100 MG TAB PO SCH (09:45)
[2017-08-12] MEDS: METOPROLOL SUCC 50MG EXT REL TAB PO SCH ×2 (09:45→20:16)
[2017-08-12] MEDS: MAGNESIUM OXIDE 400 MG TAB PO SCH ×2 (09:46→20:22)
[2017-08-12] MEDS: CEROVITE ADV FORMULA TAB PO SCH (09:48)
[2017-08-12] MEDS: CHOLECALCIFEROL 400 INTER.UNIT TAB PO SCH (09:49)
[2017-08-12] MEDS: POLYETHYLENE (MIRALAX) 17 GM PACK PO SCH ×2 (09:49→20:20)
[2017-08-12] MEDS: AMLODIPINE BESYLATE 5 MG TAB PO SCH (09:50)
[2017-08-12] MEDS: POTASSIUM CHLORIDE 20 MEQ TABCR PO SCH (09:50)
[2017-08-12] MEDS: ACETAMINOPHEN 325 MG TAB PO PRN (10:23)
[2017-08-12 11:49] VITALS: BP 129/73; PULSE 72; TEMP 36.8; O2SAT 94
--- NOTE | 2017-08-12 12:50 | NUR ---
resumed 1:1 for safety due to patient attempting to get out of bed, yelling out and restless. daughter brendan made aware.
[2017-08-12 15:10] VITALS: BP 168/83; PULSE 92; TEMP 26.4; O2SAT 98
--- NOTE | 2017-08-12 15:16 | NUR ---
Case Management: Pt confused and agitated today. 1:[address] for safety. I spoke with dganju Selby via phone to discuss discharge needs. Per Sola pt is normally alert and ambulatory with a walker. She is active with [facility] ([facility]) and has had Vitaline for IV antibiotics in the past. I could not find documentation of us putting in the PICC line and Sola informed me that she had that put in at [facility] in May. PSYCHIATRIC has been changing the dressing at home. When pt participated in therapy on 08/10 pt was able to walk 45ft x2 with her wheeled walker and supervision. I did inform Sola that we would have to see how her mother is doing whether or not she would be safe to return home. Sola stated her mother had been to rehab before but she did not like it. Will cont to follow.
[2017-08-12] MEDS ORDERED: LORAZEPAM 2 MG/ML 1 ML VIAL IV STA ×2 (15:29→16:06)
--- NOTE | 2017-08-12 15:51 | NUR ---
Dr Tipton at bedside after being notified that patient restlessness and agitation is increasing in severity, pt continues to attempt to get OOB, yelling out, refusing PO medications, incontinent care provided and pt offered PO nourishment. Ativan given as ordered. daughter at bedside, 1:1 continues.
--- NOTE | 2017-08-12 16:12 | NUR ---
Dr carney remains at pt bedside. ordered additional x1 ativan dose for continued agitation and restlessness however verbally reports to this nurse to not give the additional dose until pt attempts to eat supper. dietary called to deliver tray now. daughter and 1:1 remain at bedside. will continue to closely monitor
--- NOTE | 2017-08-12 18:54 | Progress Note ---
Subjective Date of Service: Aug 12, 2017. Subjective Pt evaluation today including: conversation w/ patient, conversation w/ family , physical exam, lab review, review of studies, review of inpatient medication list Saw/examined the patient in room 243 Very agitated today, trying to get out of bed was given Ativan and one-to-one in the room she finally calmed down and is laying comfortably now Problem List Medical Problems: (1) Abnormal LFTs Status: Acute (2) Dehydration Status: Acute (3) Ear canal abrasion Status: Acute (4) Hyponatremia Status: Acute (5) Influenza A Status: Acute (6) Low back pain Status: Acute (7) Lumbar spine strain Status: Acute (8) Nasal bleeding Status: Acute (9) Neutropenia Status: Acute (10) Neutropenic fever Status: Acute (11) Neutropenic fever Status: Acute (12) Pancytopenia Status: Acute (13) Pneumonia Status: Acute (14) Rib contusion Status: Acute (15) Thrombocytopenia Status: Acute (16) Thrombocytopenia Status: Acute (17) Thrombocytopenia Status: Acute Review of Systems Constitutional: No fever, No chills Respiratory: No shortness of breath Cardiac: No chest pain Abdomen: No pain, No nausea, No vomiting, No diarrhea Heme: No abnormal bleeding/bruising slightly confused - difficult to obtain ROS Medications Current Inpatient Medications Medications (Trade) Dose Ordered Sig/Giuseppe Route Start Time Stop Time Status Last Admin Dose Admin Ondansetron HCl (Zofran Inj) 4 mg Q6H PRN IV 08/08/17 14:00 09/07/17 13:59 08/12/17 02:48 4 MG Cholecalciferol (Vitamin D Tab) 400 inter.unit DAILY PO 08/09/17 08:00 09/08/17 07:59 08/12/17 09:49 400 INTER.UNIT Dicyclomine HCl (Bentyl Cap) 10 mg QID PRN PO 08/08/17 15:45 09/07/17 15:44 Docusate Sodium (coLACE CAP) 100 mg BID PRN PO 08/08/17 15:45 09/07/17 15:44 08/11/17 07:58 100 MG Levalbuterol (Xopenex Hfa Inhaler) 1 puffs BID INH 08/08/17 20:00 09/07/17 19:59 08/11/17 21:28 1 PUFFS Levothyroxine Sodium (Synthroid Tab) 75 mcg DAILYBB PO 08/09/17 06:00 09/08/17 06:29 08/12/17 06:18 75 MCG Magnesium Oxide (Mag-Ox Tab) 400 mg BID PO 08/08/17 20:00 09/07/17 19:59 08/12/17 09:46 400 MG Metoprolol Succinate (Toprol Xl Tab) 50 mg BID PO 08/08/17 20:00 09/07/17 19:59 08/12/17 09:45 50 MG Multivitamins/ Minerals (Multivitamin W/ Minerals Tab) 1 tab DAILY PO 08/09/17 08:00 09/08/17 07:59 08/12/17 09:48 1 TAB Potassium Chloride (Klor-Con Tab) 20 meq DAILY PO 08/09/17 08:00 09/08/17 07:59 08/12/17 09:50 20 MEQ Sodium Chloride (Sodium Chloride 0.9% 10 ml Flush) 10 ml TID IV 08/08/17 20:00 09/07/17 19:59 08/12/17 12:33 10 ML Thiamine HCl (Vitamin B-1 Tab) 100 mg DAILY PO 08/09/17 08:00 09/08/17 07:59 08/12/17 09:45 100 MG Pantoprazole Sodium (Protonix Tab) 40 mg DAILY PRN PO 08/08/17 15:45 09/07/17 15:44 08/10/17 10:04 40 MG Clotrimazole (Mycelex 10MG Kaleb) 1 kaleb 5XDQ3H MT 08/08/17 16:00 08/15/17 15:59 08/12/17 09:50 1 KALEB Cefepime HCl (Consult) 1 ea UD PRN N/A 08/08/17 16:15 09/07/17 16:14 Clonidine HCl (Catapres Tab) 0.1 mg Q6 PRN PO 08/08/17 19:15 09/07/17 19:14 08/11/17 04:12 0.1 MG Cefepime HCl 2000 mg/Syringe 20 ml @ 5 mls/min Q8H IV 08/09/17 04:00 08/15/17 23:59 08/12/17 12:32 5 MLS/MIN Acetaminophen (Tylenol Tab) 650 mg Q4H PRN PO 08/09/17 18:30 09/08/17 18:29 08/12/17 10:23 650 MG Albuterol/ Ipratropium (Duoneb) 3 ml Q2H PRN INH 08/10/17 19:45 09/09/17 19:44 Amlodipine Besylate (Norvasc Tab) 5 mg QAM PO 08/12/17 09:00 09/11/17 08:59 08/12/17 09:50 5 MG Alprazolam (Xanax Tab) 1 mg BID PRN PO 08/11/17 21:00 09/07/17 19:59 08/12/17 07:40 1 MG Furosemide 40 mg/ Syringe 4 ml @ 4 mls/min Q12 IV 08/11/17 21:00 09/10/17 20:59 08/12/17 09:44 4 MLS/MIN Polyethylene (Miralax Powder Packet) 17 gm BID PO 08/12/17 09:00 09/09/17 16:59 08/12/17 09:49 17 GM Docusate Sodium (coLACE CAP) 100 mg BID PO 08/12/17 09:00 09/11/17 08:59 08/12/17 09:44 100 MG Senna (Senokot Tab) 8.6 mg QAM PO 08/12/17 09:00 09/11/17 08:59 08/12/17 09:44 8.6 MG Tramadol HCl (Ultram Tab) hold for sedation/ confusion pain not relieved... Q6 PRN PO 08/12/17 00:00 09/07/17 17:59 08/12/17 02:49 50 MG Objective Vital Signs Date Time Temp Pulse Resp B/P (MAP) Pulse Ox O2 Delivery O2 Flow Rate FiO2 08/12/17 16:00 Nasal Cannula 2.0 08/12/17 15:10 26.4 92 18 168/83 (111) 98 Nasal Cannula 2.0 08/12/17 12:00 Nasal Cannula 2.0 08/12/17 11:49 36.8 72 18 129/73 (91) 94 08/12/17 09:45 76 158/98 (118) 08/12/17 08:00 Nasal Cannula 2.0 08/12/17 03:30 Nasal Cannula 2.0 08/12/17 03:05 36.4 72 20 94 Nasal Cannula 2.0 08/12/17 02:57 150/72 (98) 08/11/17 23:59 Nasal Cannula 2.0 08/11/17 23:25 158/72 (100) 08/11/17 22:58 36.3 85 20 183/80 (114) 91 Room Air 08/11/17 19:45 36.5 83 22 188/76 (113) 90 Room Air 08/11/17 19:40 Room Air Physical Exam General Appearance: + pertinent finding (lethargic/ mildly confused; agitated) ENT: + pertinent finding (hard of hearing) Respiratory/Chest: lungs clear, normal breath sounds, no respiratory distress, no accessory muscle use Cardiovascular: regular rate, rhythm, no edema, no murmur Neurologic/Psychiatric: alert Laboratory Results Last 24 Hours Test 08/12/17 04:15 White Blood Count 0.64 K/uL Red Blood Count 3.02 M/uL Hemoglobin 8.7 g/dL Hematocrit 24.3 % Mean Corpuscular Volume 80.5 fL Mean Corpuscular Hemoglobin 28.8 pg Mean Corpuscular Hemoglobin Concent 35.8 g/dl RDW Standard Deviation 38.3 fL RDW Coefficient of Variation 13.0 % Platelet Count 12 K/uL Mean Platelet Volume 9.2 fL Platelet Estimate SIGNIFIC DECREASED Sodium Level 132 mmol/L Potassium Level 3.6 mmol/L Chloride Level 94 mmol/L Carbon Dioxide Level 33 mmol/L Anion Gap 5.0 mmol/L Blood Urea Nitrogen 20 mg/dl Creatinine 0.58 mg/dl Est Creatinine Clear Calc Drug Dose 67.0 ml/min Estimated GFR () 96.7 Estimated GFR (Non- 83.5 BUN/Creatinine Ratio 34.9 Random Glucose 151 mg/dl Calcium Level 9.2 mg/dl Magnesium Level 1.8 mg/dl Assessment and Plan This is an 87yo F with complicated past medical hx of aplastic anemia ; secondary to myelodysplastic syndrome , diastolic CHF, A Fib, HTN, recurrent UTIs -presented with subjective fever , urinary symptom RECURRENT UTI/PSEUDOMONAS INFECTION 08/12 continue current IV abx. appreciate ID input monitor cultures PICC line in place 08/11 -Present on admission, h/o recurrent UTIs Urine culture 06/2017 -Citrobacter /Klebsiella -Most recent urine culture Early July: grew pseudomonas and Enterococcus faecium -Completed 7d course of Cefepime and 3 days of IV Vanc in last admission -urine culture 08/08/17 -gram negative bacilli /Pseudomonas -on IV cefepime and vancomycin --ID consulted , appreciate input Daughter insists pt should be discharged at home with iV Abx ( has PICC line already ) she is convinced that pt's previous UTI was not adequately treated as IV Abx was not continued at home Pancytopenia/severe thrombocytopenia: 08/12 appreciate Hem/Onc input platelets and WBC stable neutropenic precautions thrombocytopenia monitor poor prognosis plan for [place] f/u next week -2/2 Hypoplastic Bone Marrow, MDS -Hgb of 9 today after 1 u prbcs transfused -Platelet count improved form 3 K -> 11 K dropped to 2 K no bleeding episode received 2 units of platelet tx D/w with [place] [facility] -pt is completely transfusion dependent recommend continue platelet tx till 10 K to prevent spontaneous bleeding very poor prognosis pt is scheduled to follow up at [facility] on 08/20/17 for second opinion for her tx of refractory Myelodysplastic syndrome PNEUMONIA -Patient with SOB, fatigue, nasal congestion -CXR with developing interstitial infiltrate in left lung base. Small pleural effusion in R lung (improved from last admission) -Broad coverage abx -Vancomycin /Cefepime -Cont home inhalers -Blood cultures ordered Hypertension: -Normotensive -Continue home dose Metoprolol and PRN Clonidine Paroxysmal atrial fibrillation: -Asymptomatic -Continue Metoprolol -No anticoagulation 2/2 thrombocytopenia -Monitor on tele Chronic diastolic CHF: -Dry on exam, will hold daily lasix -No signs of fluid overload Hypothyroidism: -Cont home dose levothyroxine DNI DISPOSITION PT/OT EVAL prior to discharge active with [facility] daughter updated at bedside Medicine follow up with Dr Umana
[2017-08-12 20:00] VITALS: BP 140/86; PULSE 86; TEMP 36.6; O2SAT 97
[2017-08-12] MEDS ORDERED: LORAZEPAM INJ 0.5 MG in SYRINGE 0.25 ML IV ONE (20:00)
--- NOTE | 2017-08-12 20:00 | NUR ---
A: pt alert and oriented to person only. pt very confused and restless. 1:[address] for safety. 1 time dose of IV Ativan ordered and given per Dr. Whittington. VSS on 2L via NC. lung sounds diminished throughout. pt incontinent of urine and stool. cardiac rehabilitation specialist in place. will continue to monitor.
--- NOTE | 2017-08-12 21:24 | Infectious Disease Progress Nt ---
Progress Note Date of Service Aug 12, 2017. Subjective Pt evaluation today including: conversation w/ patient, physical exam, chart review, lab review, review of studies, conversation w/ [employer] ax consultant, review of inpatient medication list Remains agitated. No fever. All Other Systems: Reviewed and Negative Medications Current Inpatient Medications Medications (Trade) Dose Ordered Sig/Giuseppe Route Start Time Stop Time Status Last Admin Dose Admin Ondansetron HCl (Zofran Inj) 4 mg Q6H PRN IV 08/08/17 14:00 09/07/17 13:59 08/12/17 02:48 4 MG Cholecalciferol (Vitamin D Tab) 400 inter.unit DAILY PO 08/09/17 08:00 09/08/17 07:59 08/12/17 09:49 400 INTER.UNIT Dicyclomine HCl (Bentyl Cap) 10 mg QID PRN PO 08/08/17 15:45 09/07/17 15:44 Docusate Sodium (coLACE CAP) 100 mg BID PRN PO 08/08/17 15:45 09/07/17 15:44 08/11/17 07:58 100 MG Levalbuterol (Xopenex Hfa Inhaler) 1 puffs BID INH 08/08/17 20:00 09/07/17 19:59 08/12/17 20:22 1 PUFFS Levothyroxine Sodium (Synthroid Tab) 75 mcg DAILYBB PO 08/09/17 06:00 09/08/17 06:29 08/12/17 06:18 75 MCG Magnesium Oxide (Mag-Ox Tab) 400 mg BID PO 08/08/17 20:00 09/07/17 19:59 08/12/17 09:46 400 MG Metoprolol Succinate (Toprol Xl Tab) 50 mg BID PO 08/08/17 20:00 09/07/17 19:59 08/12/17 20:16 50 MG Multivitamins/ Minerals (Multivitamin W/ Minerals Tab) 1 tab DAILY PO 08/09/17 08:00 09/08/17 07:59 08/12/17 09:48 1 TAB Potassium Chloride (Klor-Con Tab) 20 meq DAILY PO 08/09/17 08:00 09/08/17 07:59 08/12/17 09:50 20 MEQ Sodium Chloride (Sodium Chloride 0.9% 10 ml Flush) 10 ml TID IV 08/08/17 20:00 09/07/17 19:59 08/12/17 20:19 10 ML Thiamine HCl (Vitamin B-1 Tab) 100 mg DAILY PO 08/09/17 08:00 09/08/17 07:59 08/12/17 09:45 100 MG Pantoprazole Sodium (Protonix Tab) 40 mg DAILY PRN PO 08/08/17 15:45 09/07/17 15:44 08/10/17 10:04 40 MG Clotrimazole (Mycelex 10MG Carlos Alberto) 1 carlos alberto 5XDQ3H MT 08/08/17 16:00 08/15/17 15:59 08/12/17 09:50 1 CARLOS ALBERTO Cefepime HCl (Consult) 1 ea UD PRN N/A 08/08/17 16:15 09/07/17 16:14 Clonidine HCl (Catapres Tab) 0.1 mg Q6 PRN PO 08/08/17 19:15 09/07/17 19:14 08/11/17 04:12 0.1 MG Cefepime HCl 2000 mg/Syringe 20 ml @ 5 mls/min Q8H IV 08/09/17 04:00 08/15/17 23:59 08/12/17 20:09 5 MLS/MIN Acetaminophen (Tylenol Tab) 650 mg Q4H PRN PO 08/09/17 18:30 09/08/17 18:29 08/12/17 10:23 650 MG Albuterol/ Ipratropium (Duoneb) 3 ml Q2H PRN INH 08/10/17 19:45 09/09/17 19:44 Amlodipine Besylate (Norvasc Tab) 5 mg QAM PO 08/12/17 09:00 09/11/17 08:59 08/12/17 09:50 5 MG Alprazolam (Xanax Tab) 1 mg BID PRN PO 08/11/17 21:00 09/07/17 19:59 08/12/17 07:40 1 MG Furosemide 40 mg/ Syringe 4 ml @ 4 mls/min Q12 IV 08/11/17 21:00 09/10/17 20:59 08/12/17 20:14 4 MLS/MIN Polyethylene (Miralax Powder Packet) 17 gm BID PO 08/12/17 09:00 09/09/17 16:59 08/12/17 09:49 17 GM Docusate Sodium (coLACE CAP) 100 mg BID PO 08/12/17 09:00 09/11/17 08:59 08/12/17 20:21 100 MG Senna (Senokot Tab) 8.6 mg QAM PO 08/12/17 09:00 09/11/17 08:59 08/12/17 09:44 8.6 MG Tramadol HCl (Ultram Tab) hold for sedation/ confusion pain not relieved... Q6 PRN PO 08/12/17 00:00 09/07/17 17:59 08/12/17 02:49 50 MG Objective Vital Signs Date Time Temp Pulse Resp B/P (MAP) Pulse Ox O2 Delivery O2 Flow Rate FiO2 08/12/17 20:00 Nasal Cannula 2.0 08/12/17 20:00 36.6 86 22 140/86 (104) 97 Nasal Cannula 2.0 08/12/17 16:00 Nasal Cannula 2.0 08/12/17 15:10 26.4 92 18 168/83 (111) 98 Nasal Cannula 2.0 08/12/17 12:00 Nasal Cannula 2.0 08/12/17 11:49 36.8 72 18 129/73 (91) 94 08/12/17 09:45 76 158/98 (118) 08/12/17 08:00 Nasal Cannula 2.0 08/12/17 03:30 Nasal Cannula 2.0 08/12/17 03:05 36.4 72 20 94 Nasal Cannula 2.0 08/12/17 02:57 150/72 (98) 08/11/17 23:59 Nasal Cannula 2.0 08/11/17 23:25 158/72 (100) 08/11/17 22:58 36.3 85 20 183/80 (114) 91 Room Air Physical Exam General Appearance: WD/WN, + mild distress Eyes: normal inspection, EOMI, sclerae normal ENT: normal ENT inspection, pharynx normal Neck: supple, no adenopathy, thyroid normal, trachea midline Respiratory/Chest: lungs clear, normal breath sounds, no respiratory distress Cardiovascular: regular rate, rhythm, no gallop, no murmur Abdomen: normal bowel sounds, non tender, soft, no organomegaly Extremities: non-tender, no calf tenderness Neurologic/Psychiatric: alert, + disoriented Skin: normal color, no rash Lymphatic: no adenopathy Laboratory Results RUN DATE: 08/08/17 [facility] PAGE 1 RUN TIME: 2236 Specimen Inquiry PATIENT: KARAN BARBER I LOC: Dov U # : [id number] AGE/SX: 87/F ROOM: [facility] REG : 08/08/[address]: Marlin Jimenez M.D. : 1930 BED: 1 DIS : STATUS: ADM IN TLOC: SPEC #: [id number] LIZBETH: 08/08/17 STATUS: COMP REQ #: [id number] RECD: 08/08/[address]: Laisha Polanco, P.AMaggie SOURCE: NASAL ENTR: 08/08/[address]: Shashank Hill [facility] Luanne Garcia DO Oesterling, Brett, M.D. Pervez, Ayesha H., M.D. Schreckengost, Janea ., PA-C ORDERED: MRSA DNA COMMENTS: Has Specimen Been Obtained/Collected? Y Procedure Result Verified Site MRSA DNA (NASAL SWAB) Final 08/08/17-2235 Specimen Negative for MRSA by DNA Probe Last 24 Hours Test 08/12/17 04:15 White Blood Count 0.64 K/uL Red Blood Count 3.02 M/uL Hemoglobin 8.7 g/dL Hematocrit 24.3 % Mean Corpuscular Volume 80.5 fL Mean Corpuscular Hemoglobin 28.8 pg Mean Corpuscular Hemoglobin Concent 35.8 g/dl RDW Standard Deviation 38.3 fL RDW Coefficient of Variation 13.0 % Platelet Count 12 K/uL Mean Platelet Volume 9.2 fL Platelet Estimate SIGNIFIC DECREASED Sodium Level 132 mmol/L Potassium Level 3.6 mmol/L Chloride Level 94 mmol/L Carbon Dioxide Level 33 mmol/L Anion Gap 5.0 mmol/L Blood Urea Nitrogen 20 mg/dl Creatinine 0.58 mg/dl Est Creatinine Clear Calc Drug Dose 67.0 ml/min Estimated GFR () 96.7 Estimated GFR (Non- 83.5 BUN/Creatinine Ratio 34.9 Random Glucose 151 mg/dl Calcium Level 9.2 mg/dl Magnesium Level 1.8 mg/dl Patient Name: KARAN BARBER I Unit Number: [id number] Dictated: 08/12/17702 Transcribed: 08/12/17702 ARG Printed Date/Time: [~ rep prt dt]/[~ rep prt tm] [~ rep ct labl] - [~ rep ct ivnm] [facility] [place]iology [place] [address] Dictated: 08/12/17702 Transcribed: 08/12/17702 ARG Printed Date/Time: [~ rep prt dt]/[~ rep prt tm] [~ rep ct labl] - [~ rep ct ivnm] CHEST ONE VIEW PORTABLE CLINICAL HISTORY: pleural effusion /SOB COMPARISON STUDY: 08/10/2017 FINDINGS: The cardiac and sternal contours remain stable. There is no change the position left-sided PICC catheter. There is a persistent moderate right pleural effusion with associated right lower lobe opacity, likely representing compressive atelectatic change. Slight coarsening of interstitial markings persist bilaterally.[ IMPRESSION: Stable findings. Persistent moderate right pleural effusion Electronically signed by: Claudio Carreon M.D. 08/12/2017 7:05 AM Dictated Date/Time: 08/12/2017 7:03 AM The status of this report is Signed. Draft = Not yet reviewed or approved by Radiologist. Signed = Reviewed and approved by Radiologist. <AttendingPhy>Marlin Jimenez M.D.</AttendingPhy> <FamilyPhy>Dionisio Umana M.D.</FamilyPhy> <PrimaryPhy>Dionisio Umana M.D.</PrimaryPhy> <UnitNumber> [id number]</UnitNumber> <VisitNumber>[id number]</VisitNumber> <PatientName> KARAN BARBER I</PatientName> <DateOfBirth>1930</DateOfBirth> <Location> C.2T</Location> <ServiceDate>08/08/17</ServiceDate> <MNE>ESINDI</MNE> < OrderingPhy>Marlin Jimenez MD</OrderingPhy> <OrderingPhyMNE>f rep ord dr ortiz</ OrderingPhyMNE> <DictatingPhyMNE>f rep dict dr ortiz</DictatingPhyMNE> <CCListMNE> f rep ct mne</CCListMNE> <AdmittingPhyMNE>f pt admit dr ortiz</AdmittingPhyMNE> < AttendingPhyMNE>f pt attend dr ortiz</AttendingPhyMNE> <ConsultingPhyMNE>f pt consult dr ortiz</ConsultingPhyMNE> <FamilyPhyMNE>f pt fam dr ortiz</FamilyPhyMNE> <OtherPhyMNE>f pt other dr ortiz</OtherPhyMNE> < PrimaryPhyMNE>f pt prim care dr ortiz</PrimaryPhyMNE> <ReferringPhyMNE>f pt referring dr ortiz</ReferringPhyMNE> Assessment and Plan 87-year-old female with aplastic anemia with severe neutropenia now with recurrent fever, evidence of recurrent urinary tract infection with positive cultures for Pseudomonas and E coli. Current treatment with cefepime appropriate, and likely will require in the range of 7 days of therapy. Not clear whether confusion from sundowning or whether patient has element of encephalopathy from infection. Await further imaging. Will follow.
--- NOTE | 2017-08-13 00:01 | NUR ---
A: 1:1 AT BEDSIDE. PT APPEARS DROWSY RESTING QUIETLY WITH EYES CLOSED. PER PTS DAUGHTER PT NOT DISTURBED- NO VITAL SIGNS OBTAINED- NO FULL HEAD TO TOE ASSESSMENT COMPLETED AT THIS TIME. WILL OBTAIN IF PT AWAKENS. WILL MONITOR FOR SIGNS OF DISTRESS. TELE: SR. BREATHING NOTED TO BE EASY AND UNLABORED AT THIS TIME. 1:1 TO REMAIN AT BEDSIDE. WILL CONTINUE TO MONITOR. UNKNOWN D/C AT THIS TIME.
--- NOTE | 2017-08-13 01:16 | NUR ---
A: DAUGHTER CALLED IN FOR UPDATE AT THIS TIME.
--- NOTE | 2017-08-13 04:00 | NUR ---
a: pt wakes at this time. pt assisted oob to bathroom with walker. pt inct of urine- care completed. pt back to bed. pt agitated at times pt yelling out "god help me, please help me". 1:1 remains at bedside.
[2017-08-13] MEDS: CEFEPIME IV 2,000 MG in SYRINGE 7.5 ML IV SCH ×2 (04:04→15:42)
[2017-08-13 04:10] VITALS: BP 164/82; PULSE 105; O2SAT 89
[2017-08-13] MEDS ORDERED: LORAZEPAM 2 MG/ML 1 ML VIAL ONE ×2 (05:00→09:36)
--- NOTE | 2017-08-13 05:00 | NUR ---
A: PT CONTINUES TO BE AGITATED ATTEMPTING TO GET OOB. PT CONTINUES TO YELL OUT. 1:[address] FONTANEZ PAGED AND NOTIFIED. ORDERS RECEIVED.
[2017-08-13 05:21] LABS: HEMATOCRIT 24.6 % (37-47); HEMOGLOBIN 8.8 g/dL (12.0-16.0); MEAN CELL VOLUME 80.9 fL (80-100); MEAN CORPUSCULAR HEMOGLOBIN 28.9 pg (25-34); MEAN CORPUSCULAR HGB CONC 35.8 g/dl (32-36); PLATELET COUNT 4 K/uL (130-400); RED CELL DISTRIBUTION WIDTH SD 38.5 fL (36.4-46.3); WHITE BLOOD COUNT 1.32 K/uL (4.8-10.8)
[2017-08-13] MEDS ORDERED: LORAZEPAM INJ 0.5 MG in SYRINGE 0.25 ML IV ONE (05:30)
[2017-08-13] MEDS: LEVOTHYROXINE 75 MCG TAB PO SCH (05:46)
[2017-08-13 05:48] LABS: CREATININE 0.93 mg/dl (0.60-1.20); POTASSIUM 3.7 mmol/L (3.5-5.1)
--- NOTE | 2017-08-13 06:00 | NUR ---
a: pt resting quietly in bed at this time. 1:1 at bedside. pts daughter called in while this rn was with other pt's. daughter updated by security shift supervisor.
--- NOTE | 2017-08-13 06:59 | NUR ---
a: dr. pineda aware of plts.
[2017-08-13] MEDS: CLOTRIMAZOLE 10 MG TROCHE MT SCH ×5 (07:44→20:33)
[2017-08-13 07:58] VITALS: BP 140/88; PULSE 80; TEMP 36.9; O2SAT 99
[2017-08-13] MEDS: SODIUM CHLORIDE 0.9% 10ML FLUSH IV SCH ×3 (08:49→20:33)
[2017-08-13] MEDS: MAGNESIUM OXIDE 400 MG TAB PO SCH ×2 (08:58→20:48)
[2017-08-13] MEDS: CHOLECALCIFEROL 400 INTER.UNIT TAB PO SCH (09:00)
[2017-08-13] MEDS: METOPROLOL SUCC 50MG EXT REL TAB PO SCH ×3 (09:00→20:32)
[2017-08-13] MEDS: CEROVITE ADV FORMULA TAB PO SCH (09:00)
[2017-08-13] MEDS: POLYETHYLENE (MIRALAX) 17 GM PACK PO SCH ×2 (09:00→20:48)
[2017-08-13] MEDS: AMLODIPINE BESYLATE 5 MG TAB PO SCH (09:00)
[2017-08-13] MEDS: LEValbuterol HFA 15GM INHALER INH SCH ×2 (09:00→20:49)
[2017-08-13] MEDS: DOCUSATE SODIUM 100 MG CAP PO SCH ×2 (09:00→20:34)
[2017-08-13] MEDS: THIAMINE HCL 100 MG TAB PO SCH (09:00)
[2017-08-13] MEDS: POTASSIUM CHLORIDE 20 MEQ TABCR PO SCH (09:00)
[2017-08-13] MEDS: SENNA 8.6 MG TAB PO SCH (09:00)
--- NOTE | 2017-08-13 09:01 | NUR ---
multiple attempts to administer oral medications unsuccessful. pt spitting pills and aggressively trying to strike staff. 1:1 continues at bedside
[2017-08-13] MEDS ORDERED: LORAZEPAM 2 MG/ML 1 ML VIAL IV STA (09:09)
--- NOTE | 2017-08-13 09:10 | NUR ---
dr Garcia at bedside. pt continues to show signs of restlessness and agitation, yelling out please help me, attempting to get OOB. pt recently OOB to BS and produced soft BM. attempts to provide oral nutrition ineffective, pt spitting food out and refusing. pt clean and dry. ativan ordered as per MD for anxiety.
[2017-08-13] MEDS: TRAMADOL HCL 50 MG TAB PO PRN ×2 (13:10→20:29)
--- NOTE | 2017-08-13 13:10 | NUR ---
patient daughter at bedside, reporting her mother is reporting leg pain and she wants her to have a tramadol. patient is sitting up on the side of the bed being guided to eat by her daughter. patient is more alert at this time but not answering questions appropriately. cannot recall where she is or what day it is. she is however able to recognize her daughter. administered tramadol as requested. patient was able to swallow the pill whole but immediately said she was tired and wanted to lay down. assisted pt to lying position and covered her with a blanket. pt dtr reports she will remain at bedside for a little while. instructed her to notify staff when she leaves so we can provided 1:1 supervision for safety. verbalized understanding.
--- NOTE | 2017-08-13 14:46 | NUR ---
assisted patient several times today to the BSC, 2 assist, pt able to stand and bear weight but weak and attempts to sit during transfer. educated pt DTR and pt to safety in transfers. needs reinforced. 1:1 resumes, pt DTR reports she is going to go home and rest. DTR reports concern that her mother has bruising noted on left forearm and right knee. educated DTR that her mother has a platelet count of 2 this morning and although she has received a platelet transfusion she is more susceptible to bruise easily, and being that her mother is confused, restless and agitated she is attempting to get OOB, swinging her legs over the side of the bed she is bumping herself at times and may lead to some bruising. side rails of bed cushioned with a blanket to help prevent bumping. When pt attempts to get OOB staff are assisted her to the chair and BSC, however she is restless and requests to get back to bed immediately after getting OOB. safety and fall prevention precautions are in place and continued education needed for patient and DTR.
[2017-08-13] MEDS ORDERED: ALPRAZOLAM 0.5 MG TAB PO STA (15:22)
--- NOTE | 2017-08-13 15:45 | NUR ---
new orders received for xanax 1mg PO BID, hold for sedation/confusion. Pt is sleeping at this time, awakens to touch. calm. falling asleep quickly after awakening, not able to take oral meds at this time. Will hold xanax dose at this time and continue to reassess ability to take medication. 1:1 continues at bedside.
[2017-08-13] MEDS: ALPRAZOLAM 0.5 MG TAB PO SCH ×2 (16:39→20:29)
--- NOTE | 2017-08-13 16:46 | NUR ---
pt DTR returned to room and woke patient up for dinner. pt awake, able to eat, administered xanax as ordered. orders received to transfer pt to medical. DTR aware. awaiting bed assignment. DTR reports she will remain at bedside at this time, aware she needs to let staff know when she leaves the room so we can resume 1:1 supervision for safety
--- NOTE | 2017-08-13 17:09 | NUR ---
pt to transfer to room 257-1. report given to Yolie PATTON.
--- NOTE | 2017-08-13 18:06 | Progress Note ---
Subjective Date of Service: Aug 13, 2017. Subjective Pt evaluation today including: conversation w/ patient, conversation w/ family , physical exam, lab review, review of studies, review of inpatient medication list Saw/examined the patient in room 243 She's agitated and anxious today; delirium requiring one-to-one as well as intermittent Ativan use spoke with daughter multiple times today - she requested a room change - she also mentioned that patient was taking Xanax BID regularly Problem List Medical Problems: (1) Abnormal LFTs Status: Acute (2) Dehydration Status: Acute (3) Ear canal abrasion Status: Acute (4) Hyponatremia Status: Acute (5) Influenza A Status: Acute (6) Low back pain Status: Acute (7) Lumbar spine strain Status: Acute (8) Nasal bleeding Status: Acute (9) Neutropenia Status: Acute (10) Neutropenic fever Status: Acute (11) Neutropenic fever Status: Acute (12) Pancytopenia Status: Acute (13) Pneumonia Status: Acute (14) Rib contusion Status: Acute (15) Thrombocytopenia Status: Acute (16) Thrombocytopenia Status: Acute (17) Thrombocytopenia Status: Acute Medications Current Inpatient Medications Medications (Trade) Dose Ordered Sig/Giuseppe Route Start Time Stop Time Status Last Admin Dose Admin Ondansetron HCl (Zofran Inj) 4 mg Q6H PRN IV 08/08/17 14:00 09/07/17 13:59 08/12/17 02:48 4 MG Cholecalciferol (Vitamin D Tab) 400 inter.unit DAILY PO 08/09/17 08:00 09/08/17 07:59 08/12/17 09:49 400 INTER.UNIT Dicyclomine HCl (Bentyl Cap) 10 mg QID PRN PO 08/08/17 15:45 09/07/17 15:44 Docusate Sodium (coLACE CAP) 100 mg BID PRN PO 08/08/17 15:45 09/07/17 15:44 08/11/17 07:58 100 MG Levalbuterol (Xopenex Hfa Inhaler) 1 puffs BID INH 08/08/17 20:00 09/07/17 19:59 08/12/17 20:22 1 PUFFS Levothyroxine Sodium (Synthroid Tab) 75 mcg DAILYBB PO 08/09/17 06:00 09/08/17 06:29 08/13/17 05:46 75 MCG Magnesium Oxide (Mag-Ox Tab) 400 mg BID PO 08/08/17 20:00 09/07/17 19:59 08/13/17 08:58 400 MG Metoprolol Succinate (Toprol Xl Tab) 50 mg BID PO 08/08/17 20:00 09/07/17 19:59 08/13/17 13:17 50 MG Multivitamins/ Minerals (Multivitamin W/ Minerals Tab) 1 tab DAILY PO 08/09/17 08:00 09/08/17 07:59 08/12/17 09:48 1 TAB Potassium Chloride (Klor-Con Tab) 20 meq DAILY PO 08/09/17 08:00 09/08/17 07:59 08/12/17 09:50 20 MEQ Sodium Chloride (Sodium Chloride 0.9% 10 ml Flush) 10 ml TID IV 08/08/17 20:00 09/07/17 19:59 08/13/17 15:42 10 ML Thiamine HCl (Vitamin B-1 Tab) 100 mg DAILY PO 08/09/17 08:00 09/08/17 07:59 08/12/17 09:45 100 MG Pantoprazole Sodium (Protonix Tab) 40 mg DAILY PRN PO 08/08/17 15:45 09/07/17 15:44 08/10/17 10:04 40 MG Clotrimazole (Mycelex 10MG Kaleb) 1 kaleb 5XDQ3H MT 08/08/17 16:00 08/15/17 15:59 08/12/17 09:50 1 KALEB Cefepime HCl (Consult) 1 ea UD PRN N/A 08/08/17 16:15 09/07/17 16:14 Clonidine HCl (Catapres Tab) 0.1 mg Q6 PRN PO 08/08/17 19:15 09/07/17 19:14 08/11/17 04:12 0.1 MG Acetaminophen (Tylenol Tab) 650 mg Q4H PRN PO 08/09/17 18:30 09/08/17 18:29 08/12/17 10:23 650 MG Albuterol/ Ipratropium (Duoneb) 3 ml Q2H PRN INH 08/10/17 19:45 09/09/17 19:44 Amlodipine Besylate (Norvasc Tab) 5 mg QAM PO 08/12/17 09:00 09/11/17 08:59 08/12/17 09:50 5 MG Polyethylene (Miralax Powder Packet) 17 gm BID PO 08/12/17 09:00 09/09/17 16:59 08/12/17 09:49 17 GM Docusate Sodium (coLACE CAP) 100 mg BID PO 08/12/17 09:00 09/11/17 08:59 08/12/17 20:21 100 MG Senna (Senokot Tab) 8.6 mg QAM PO 08/12/17 09:00 09/11/17 08:59 08/12/17 09:44 8.6 MG Tramadol HCl (Ultram Tab) hold for sedation/ confusion pain not relieved... Q6 PRN PO 08/12/17 00:00 09/07/17 17:59 08/13/17 13:10 50 MG Cefepime HCl 2000 mg/Syringe 20 ml @ 5 mls/min Q12H IV 08/13/17 16:00 08/15/17 23:59 08/13/17 15:42 5 MLS/MIN Alprazolam (Xanax Tab) 1 mg BID PO 08/13/17 15:30 09/07/17 19:59 08/13/17 16:39 1 MG Objective Vital Signs Date Time Temp Pulse Resp B/P (MAP) Pulse Ox O2 Delivery O2 Flow Rate FiO2 08/13/17 16:00 Nasal Cannula 2.0 08/13/17 12:00 Nasal Cannula 2.0 08/13/17 08:00 Nasal Cannula 2.0 08/13/17 07:58 36.9 80 16 140/88 99 2.0 08/13/17 04:10 105 20 164/82 (109) 89 Nasal Cannula 2.0 08/13/17 04:00 Nasal Cannula 2.0 08/12/17 20:00 Nasal Cannula 2.0 08/12/17 20:00 36.6 86 22 140/86 (104) 97 Nasal Cannula 2.0 Physical Exam General Appearance: no apparent distress, + pertinent finding (disoriented, confused; agitated, delirious) Respiratory/Chest: no respiratory distress, no accessory muscle use, + decreased breath sounds Cardiovascular: no edema, no murmur, + tachycardia Abdomen: normal bowel sounds, non tender, soft Extremities: normal inspection, no pedal edema Laboratory Results Last 24 Hours Test 08/13/17 04:30 White Blood Count 1.32 K/uL Red Blood Count 3.04 M/uL Hemoglobin 8.8 g/dL Hematocrit 24.6 % Mean Corpuscular Volume 80.9 fL Mean Corpuscular Hemoglobin 28.9 pg Mean Corpuscular Hemoglobin Concent 35.8 g/dl RDW Standard Deviation 38.5 fL RDW Coefficient of Variation 13.0 % Platelet Count 4 K/uL Sodium Level 134 mmol/L Potassium Level 3.7 mmol/L Chloride Level 97 mmol/L Carbon Dioxide Level 32 mmol/L Anion Gap 5.0 mmol/L Blood Urea Nitrogen 29 mg/dl Creatinine 0.93 mg/dl Est Creatinine Clear Calc Drug Dose 40.7 ml/min Estimated GFR () 64.5 Estimated GFR (Non- 55.6 BUN/Creatinine Ratio 30.9 Random Glucose 176 mg/dl Calcium Level 9.0 mg/dl Magnesium Level 1.9 mg/dl Assessment and Plan This is an 87yo F with complicated past medical hx of aplastic anemia ; secondary to myelodysplastic syndrome , diastolic CHF, A Fib, HTN, recurrent UTIs -presented with subjective fever , urinary symptom RECURRENT UTI/PSEUDOMONAS INFECTION 08/13 appreciate ID input continue current medications for now Cefepime for 7 total days Daughter insists this should be for 14 days 08/12 continue current IV abx. appreciate ID input monitor cultures PICC line in place 08/11 -Present on admission, h/o recurrent UTIs Urine culture 06/2017 -Citrobacter /Klebsiella -Most recent urine culture Early July: grew pseudomonas and Enterococcus faecium -Completed 7d course of Cefepime and 3 days of IV Vanc in last admission -urine culture 08/08/17 -gram negative bacilli /Pseudomonas -on IV cefepime and vancomycin --ID consulted , appreciate input Daughter insists pt should be discharged at home with iV Abx ( has PICC line already ) she is convinced that pt's previous UTI was not adequately treated as IV Abx was not continued at home Pancytopenia/severe thrombocytopenia: 08/13 transfusing one unit platelets monitor platelets 08/12 appreciate Hem/Onc input platelets and WBC stable neutropenic precautions thrombocytopenia monitor poor prognosis plan for [place] f/u next week -2/2 Hypoplastic Bone Marrow, MDS -Hgb of 9 today after 1 u prbcs transfused -Platelet count improved form 3 K -> 11 K dropped to 2 K no bleeding episode received 2 units of platelet tx D/w with [place] [facility] -pt is completely transfusion dependent recommend continue platelet tx till 10 K to prevent spontaneous bleeding very poor prognosis pt is scheduled to follow up at [facility] on 08/20/17 for second opinion for her tx of refractory Myelodysplastic syndrome PNEUMONIA -Patient with SOB, fatigue, nasal congestion -CXR with developing interstitial infiltrate in left lung base. Small pleural effusion in R lung (improved from last admission) -Broad coverage abx -Vancomycin /Cefepime -Cont home inhalers -Blood cultures ordered Hypertension: -Normotensive -Continue home dose Metoprolol and PRN Clonidine Paroxysmal atrial fibrillation: -Asymptomatic -Continue Metoprolol -No anticoagulation 2/2 thrombocytopenia -Monitor on tele Chronic diastolic CHF: -Dry on exam, will hold daily lasix -No signs of fluid overload Hypothyroidism: -Cont home dose levothyroxine DNI DISPOSITION PT/OT EVAL prior to discharge active with [facility] daughter updated at bedside Medicine follow up with Dr Umana
--- NOTE | 2017-08-13 19:15 | NUR ---
A: Pt. arrived on unit via w/c accompanied by daughter. VSS. Pt. and daughter oriented to call alas system both expressed understanding.
[2017-08-13 20:28] VITALS: BP 116/58; PULSE 84; TEMP 36.8; O2SAT 94
--- NOTE | 2017-08-13 22:19 | NUR ---
ID: Pt. remains a 1:1 for safety. Took all 2100 medications without difficulty. PICC line flushed without difficulty. WBC 1.32 Spo2 94% on room air. VSS. Intermittent IV antibiotics for UTI continues. Voiding clear yellow urine of adequate amounts. D/C undetermined at this time, will continue to monitor.
[2017-08-13 23:23] VITALS: BP 153/70; PULSE 87; TEMP 36.6; O2SAT 95
[2017-08-14] MEDS: CEFEPIME IV 2,000 MG in SYRINGE 7.5 ML IV SCH ×2 (04:51→15:45)
[2017-08-14 05:08] VITALS: BP 152/84; PULSE 82; PULSE 87; TEMP 36.6; O2SAT 93
[2017-08-14 06:22] LABS: CALCIUM 8.7 mg/dl (8.5-10.1); CREATININE 0.71 mg/dl (0.60-1.20); POTASSIUM 3.6 mmol/L (3.5-5.1)
[2017-08-14 06:35] LABS: HEMATOCRIT 20.1 % (37-47); HEMOGLOBIN 7.3 g/dL (12.0-16.0); MEAN CELL VOLUME 80.7 fL (80-100); MEAN CORPUSCULAR HEMOGLOBIN 29.3 pg (25-34); MEAN CORPUSCULAR HGB CONC 36.3 g/dl (32-36); MEAN PLATELET VOLUME 10.3 fL (7.4-10.4); PLATELET COUNT 11 K/uL (130-400); RED CELL DISTRIBUTION WIDTH SD 38.4 fL (36.4-46.3); WHITE BLOOD COUNT 1.01 K/uL (4.8-10.8)
[2017-08-14] MEDS: LEVOTHYROXINE 75 MCG TAB PO SCH (06:42)
[2017-08-14] MEDS: CLOTRIMAZOLE 10 MG TROCHE MT SCH ×5 (06:42→19:00)
[2017-08-14 07:51] VITALS: BP 158/88; PULSE 83; TEMP 36.2; O2SAT 96
[2017-08-14] MEDS: SENNA 8.6 MG TAB PO SCH (07:58)
[2017-08-14] MEDS: CEROVITE ADV FORMULA TAB PO SCH (07:58)
[2017-08-14] MEDS: THIAMINE HCL 100 MG TAB PO SCH (07:58)
[2017-08-14] MEDS: ALPRAZOLAM 0.5 MG TAB PO SCH ×2 (07:58→21:03)
[2017-08-14] MEDS: AMLODIPINE BESYLATE 5 MG TAB PO SCH (07:59)
[2017-08-14] MEDS: CHOLECALCIFEROL 400 INTER.UNIT TAB PO SCH (07:59)
[2017-08-14] MEDS: POLYETHYLENE (MIRALAX) 17 GM PACK PO SCH ×2 (07:59→19:26)
[2017-08-14] MEDS: DOCUSATE SODIUM 100 MG CAP PO SCH ×2 (08:00→19:29)
[2017-08-14] MEDS: SODIUM CHLORIDE 0.9% 10ML FLUSH IV SCH ×3 (08:01→19:28)
[2017-08-14] MEDS: LEValbuterol HFA 15GM INHALER INH SCH ×2 (08:01→19:27)
--- NOTE | 2017-08-14 08:39 | NUR ---
Case Management: Transferred to [facility]; handoff with unit Code Number [facility]. Pt lives with her daughter, Sherry, who provides care for her as needed. Pt is active with [facility] and plans to continue with them on discharge. Dr. Garcia and nursing have spoken with pt's daughter multiple times a day. Pt remains on 1:1. Pt started on Xanax BID which she takes at home. ID following; uncertain if pt's altered mental status is r/t chronic sundowning/dementia symptoms or if it r/t infection. Uncertain if pt will require home IV abx on discharge. Pt does have PICC line that is working well per nursing documentation. Case Management to follow.
[2017-08-14] MEDS: METOPROLOL SUCC 50MG EXT REL TAB PO SCH ×2 (09:26→19:32)
[2017-08-14] MEDS: MAGNESIUM OXIDE 400 MG TAB PO SCH ×2 (09:26→19:30)
[2017-08-14] MEDS: POTASSIUM CHLORIDE 20 MEQ TABCR PO SCH (09:26)
--- NOTE | 2017-08-14 09:41 | Progress Note ---
Subjective Date of Service: Aug 14, 2017. Subjective Pt evaluation today including: conversation w/ patient, physical exam, lab review, review of studies, review of inpatient medication list Saw/examined the patient in room 257 She is in a new room; still confused and still asks for help, though cannot explain what she needs help with States it is a beautiful view; states she ate breakfast - hard of hearing, but responding more than yesterday Problem List Medical Problems: (1) Abnormal LFTs Status: Acute (2) Dehydration Status: Acute (3) Ear canal abrasion Status: Acute (4) Hyponatremia Status: Acute (5) Influenza A Status: Acute (6) Low back pain Status: Acute (7) Lumbar spine strain Status: Acute (8) Nasal bleeding Status: Acute (9) Neutropenia Status: Acute (10) Neutropenic fever Status: Acute (11) Neutropenic fever Status: Acute (12) Pancytopenia Status: Acute (13) Pneumonia Status: Acute (14) Rib contusion Status: Acute (15) Thrombocytopenia Status: Acute (16) Thrombocytopenia Status: Acute (17) Thrombocytopenia Status: Acute Medications Current Inpatient Medications Medications (Trade) Dose Ordered Sig/Giuseppe Route Start Time Stop Time Status Last Admin Dose Admin Ondansetron HCl (Zofran Inj) 4 mg Q6H PRN IV 08/08/17 14:00 09/07/17 13:59 08/12/17 02:48 4 MG Cholecalciferol (Vitamin D Tab) 400 inter.unit DAILY PO 08/09/17 08:00 09/08/17 07:59 08/14/17 07:59 400 INTER.UNIT Dicyclomine HCl (Bentyl Cap) 10 mg QID PRN PO 08/08/17 15:45 09/07/17 15:44 Docusate Sodium (coLACE CAP) 100 mg BID PRN PO 08/08/17 15:45 09/07/17 15:44 08/11/17 07:58 100 MG Levalbuterol (Xopenex Hfa Inhaler) 1 puffs BID INH 08/08/17 20:00 09/07/17 19:59 08/14/17 08:01 1 PUFFS Levothyroxine Sodium (Synthroid Tab) 75 mcg DAILYBB PO 08/09/17 06:00 09/08/17 06:29 08/14/17 06:42 75 MCG Magnesium Oxide (Mag-Ox Tab) 400 mg BID PO 08/08/17 20:00 09/07/17 19:59 08/14/17 09:26 400 MG Metoprolol Succinate (Toprol Xl Tab) 50 mg BID PO 08/08/17 20:00 09/07/17 19:59 08/14/17 09:26 50 MG Multivitamins/ Minerals (Multivitamin W/ Minerals Tab) 1 tab DAILY PO 08/09/17 08:00 09/08/17 07:59 08/14/17 07:58 1 TAB Potassium Chloride (Klor-Con Tab) 20 meq DAILY PO 08/09/17 08:00 09/08/17 07:59 08/14/17 09:26 20 MEQ Sodium Chloride (Sodium Chloride 0.9% 10 ml Flush) 10 ml TID IV 08/08/17 20:00 09/07/17 19:59 08/13/17 20:33 10 ML Thiamine HCl (Vitamin B-1 Tab) 100 mg DAILY PO 08/09/17 08:00 09/08/17 07:59 08/14/17 07:58 100 MG Pantoprazole Sodium (Protonix Tab) 40 mg DAILY PRN PO 08/08/17 15:45 09/07/17 15:44 08/10/17 10:04 40 MG Clotrimazole (Mycelex 10MG Kaleb) 1 kaleb 5XDQ3H MT 08/08/17 16:00 08/15/17 15:59 08/14/17 09:26 1 KALEB Cefepime HCl (Consult) 1 ea UD PRN N/A 08/08/17 16:15 09/07/17 16:14 Clonidine HCl (Catapres Tab) 0.1 mg Q6 PRN PO 08/08/17 19:15 09/07/17 19:14 08/11/17 04:12 0.1 MG Acetaminophen (Tylenol Tab) 650 mg Q4H PRN PO 08/09/17 18:30 09/08/17 18:29 08/12/17 10:23 650 MG Albuterol/ Ipratropium (Duoneb) 3 ml Q2H PRN INH 08/10/17 19:45 09/09/17 19:44 Amlodipine Besylate (Norvasc Tab) 5 mg QAM PO 08/12/17 09:00 09/11/17 08:59 08/14/17 07:59 5 MG Polyethylene (Miralax Powder Packet) 17 gm BID PO 08/12/17 09:00 09/09/17 16:59 08/14/17 07:59 17 GM Docusate Sodium (coLACE CAP) 100 mg BID PO 08/12/17 09:00 09/11/17 08:59 08/14/17 08:00 100 MG Senna (Senokot Tab) 8.6 mg QAM PO 08/12/17 09:00 09/11/17 08:59 08/14/17 07:58 8.6 MG Tramadol HCl (Ultram Tab) hold for sedation/ confusion pain not relieved... Q6 PRN PO 08/12/17 00:00 09/07/17 17:59 08/13/17 20:29 50 MG Cefepime HCl 2000 mg/Syringe 20 ml @ 5 mls/min Q12H IV 08/13/17 16:00 08/15/17 23:59 08/14/17 04:51 5 MLS/MIN Alprazolam (Xanax Tab) 1 mg BID PO 08/13/17 15:30 09/07/17 19:59 08/14/17 07:58 1 MG Heparin Sodium (Porcine) (Heparin 10 Unit/ ml 5 ml Flush) 5 ml PRN PRN FLUSH 08/14/17 06:30 09/13/17 06:29 Objective Vital Signs Date Time Temp Pulse Resp B/P (MAP) Pulse Ox O2 Delivery O2 Flow Rate FiO2 08/14/17 07:51 36.2 83 16 158/88 (111) 96 Room Air 08/14/17 05:08 36.6 87 18 152/84 (106) 93 Room Air 82 08/13/17 23:23 36.6 87 18 153/70 (97) 95 Room Air 08/13/17 23:00 Room Air 08/13/17 20:28 36.8 84 20 116/58 (77) 94 Room Air 08/13/17 16:00 Nasal Cannula 2.0 08/13/17 12:00 Nasal Cannula 2.0 Physical Exam General Appearance: no apparent distress Respiratory/Chest: lungs clear, normal breath sounds, no respiratory distress, no accessory muscle use Cardiovascular: regular rate, rhythm, no edema, no murmur Neurologic/Psychiatric: alert, + disoriented, + pertinent finding (slightly anxious/agitated; improving) Laboratory Results Last 24 Hours Test 08/14/17 05:25 08/14/17 09:28 White Blood Count 1.01 K/uL Red Blood Count 2.49 M/uL Hemoglobin 7.3 g/dL Hematocrit 20.1 % Mean Corpuscular Volume 80.7 fL Mean Corpuscular Hemoglobin 29.3 pg Mean Corpuscular Hemoglobin Concent 36.3 g/dl RDW Standard Deviation 38.4 fL RDW Coefficient of Variation 13.0 % Platelet Count 11 K/uL Mean Platelet Volume 10.3 fL Sodium Level 134 mmol/L Potassium Level 3.6 mmol/L Chloride Level 97 mmol/L Carbon Dioxide Level 32 mmol/L Anion Gap 5.0 mmol/L Blood Urea Nitrogen 35 mg/dl Creatinine 0.71 mg/dl Est Creatinine Clear Calc Drug Dose 53.4 ml/min Estimated GFR () 89.4 Estimated GFR (Non- 77.1 BUN/Creatinine Ratio 49.7 Random Glucose 128 mg/dl Calcium Level 8.7 mg/dl Magnesium Level 2.0 mg/dl Assessment and Plan This is an 87yo F with complicated past medical hx of aplastic anemia ; secondary to myelodysplastic syndrome , diastolic CHF, A Fib, HTN, recurrent UTIs -presented with subjective fever , urinary symptom Altered Mental Status possibly metabolic encephalopathy will check a repeat head CT recheck cultures check an ammonia level continue Xanax BID; benzo withdrawal? RECURRENT UTI/PSEUDOMONAS INFECTION 08/14 will continue Cefepime recheck blood cultures + UA and urine culture 08/13 appreciate ID input continue current medications for now Cefepime for 7 total days Daughter insists this should be for 14 days 08/12 continue current IV abx. appreciate ID input monitor cultures PICC line in place 08/11 -Present on admission, h/o recurrent UTIs Urine culture 06/2017 -Citrobacter /Klebsiella -Most recent urine culture Early July: grew pseudomonas and Enterococcus faecium -Completed 7d course of Cefepime and 3 days of IV Vanc in last admission -urine culture 08/08/17 -gram negative bacilli /Pseudomonas -on IV cefepime and vancomycin --ID consulted , appreciate input Daughter insists pt should be discharged at home with iV Abx ( has PICC line already ) she is convinced that pt's previous UTI was not adequately treated as IV Abx was not continued at home Pancytopenia/severe thrombocytopenia: 08/14 platelets at around 11k, which is closer to baseline 08/13 transfusing one unit platelets monitor platelets 08/12 appreciate Hem/Onc input platelets and WBC stable neutropenic precautions thrombocytopenia monitor poor prognosis plan for [place] f/u next week -2/2 Hypoplastic Bone Marrow, MDS -Hgb of 9 today after 1 u prbcs transfused -Platelet count improved form 3 K -> 11 K dropped to 2 K no bleeding episode received 2 units of platelet tx D/w with [place] [facility] -pt is completely transfusion dependent recommend continue platelet tx till 10 K to prevent spontaneous bleeding very poor prognosis pt is scheduled to follow up at [facility] on 08/20/17 for second opinion for her tx of refractory Myelodysplastic syndrome PNEUMONIA -Patient with SOB, fatigue, nasal congestion -CXR with developing interstitial infiltrate in left lung base. Small pleural effusion in R lung (improved from last admission) -Broad coverage abx -Vancomycin /Cefepime -Cont home inhalers -Blood cultures ordered Hypertension: -Normotensive -Continue home dose Metoprolol and PRN Clonidine Paroxysmal atrial fibrillation: -Asymptomatic -Continue Metoprolol -No anticoagulation 2/2 thrombocytopenia -Monitor on tele Chronic diastolic CHF: -Dry on exam, will hold daily lasix -No signs of fluid overload Hypothyroidism: -Cont home dose levothyroxine DNI DISPOSITION PT/OT EVAL prior to discharge active with [facility] daughter updated at bedside Medicine follow up with Dr Umana
--- NOTE | 2017-08-14 10:02 | NUR ---
a: patient very restless and confused this morning. refusing morning medications and breakfast. refusing to get oob or to be bathed. vss. updated daughter, Sola, via telephone. Sola to come to hospital to attempt to help with patient. 1:1 remains at bedside. for safety. call alas in reach.
[2017-08-14] MEDS ORDERED: LORAZEPAM INJ 1 MG in SYRINGE 0.5 ML IV PRN (10:15)
[2017-08-14] MEDS: TRAMADOL HCL 50 MG TAB PO PRN ×2 (10:21→19:26)
--- NOTE | 2017-08-14 11:34 | NUR ---
Case Management: Met with dgt Sola who was in the room with her mom getting her to take her meds. Pt to go for a CT scan. Sola is stating some of her mother's confusion is due to her being hard of hearing. We discussed the fact that her mom would need 24/7 care at home if she were to discharge to home and Sola states she is there pretty much 24/7. Pt has not participated in therapy and per last note nursing had put it on hold. Will ask for new orders so we can see where pt is at functionally. Will cont to follow.
--- NOTE | 2017-08-14 11:54 | DIAGNOSTIC IMAGING REPORT ---
HEAD WITHOUT CONTRAST (CT) CLINICAL HISTORY: 87 years-old Female with AMS/confusion. Acute altered mental status with confusion TECHNIQUE: Multiple axial CT images of the head were obtained without contrast. A dose lowering technique was utilized adhering to the principles of ALARA. CT DOSE: 537.48 mGy.cm COMPARISON: Head CT 08/10/2017. FINDINGS: No acute intracranial hemorrhage, midline shift, intracranial mass, hydrocephalus, territorial ischemia or abnormal extra-axial collection. Mild to moderate atrophy with ex vacuo cardiomegaly. Ill-defined areas of low-attenuation within the subcortical and periventricular white matter suggests chronic microvascular ischemic changes. Vascular calcifications are seen at the level of the skull base. The calvarium is intact. Right mastoid air cells are completely opacified. Fluid is noted within the bilateral middle ear cavities. These findings are unchanged. Moderate to large left mastoid effusion. Paranasal sinuses are generally clear. Postsurgical changes of the bilateral globes. IMPRESSION: No acute intracranial abnormality. The above report was generated using voice recognition software. It may contain grammatical, syntax or spelling errors. Electronically signed by: Britton Altamirano M.D. 08/14/2017 11:53 AM Dictated Date/Time: 08/14/2017 11:49 AM
[2017-08-14] MEDS ORDERED: ALPRAZOLAM 0.5 MG TAB PO STA (14:50)
[2017-08-14 15:27] VITALS: BP 130/70; PULSE 72; TEMP 36.4; O2SAT 94
[2017-08-14 16:00] VITALS: O2SAT 94
--- NOTE | 2017-08-14 18:02 | NUR ---
ID Note: Patient is alert and oriented to person and place, does not know the date, confused regarding situation. Patient verbalizes she isn't sure why she doesn't feel well. Denies SOB or CP, no complaints of pain. Patient is very [place], hearing aids are in place that pt's daughter purchased for her, but they do not fit well. Patients daughter is in room, states "she has been very confused". Patients daughter has numerous concerns and requested to speak with MD, MD is aware and will come and see patient. Generalized ecchymotic areas noted. Hematoma noted to left arm, patient verbalizes it aches, pt's daughter requested warm blanket to put on it. Double PICC line intact to left upper arm, to be flushed with saline 3x/day in both ports, Heparin flush not to be used. Patient is to be a 1:1 when family not in room due to patients confusion. Patient is to be a manual BP only. Contact for history of MRSA. Level 3 code status - full with no mechanical ventilation. See EMR for full assessment. Call alas in reach, bed in lowest position, will continue to monitor.
[2017-08-14] MEDS: CARBAMIDE PEROXIDE 6.5% 15 ML BTL OT PRN (19:32)
[2017-08-15] VITALS (19 sets, daily range): BP systolic 120–193; BP diastolic 72–88; PULSE 60–85; TEMP 36.2–36.8; O2SAT 93–95
[2017-08-15] MEDS: CLONIDINE HCL 0.1 MG TAB PO PRN ×3 (03:22→11:30)
--- NOTE | 2017-08-15 03:25 | NUR ---
A: PT GOING TO HAVE BLOOD INFUSION AT THIS TIME. BLOOD PRESSURE ELEVATED 181/74 HEART RATE 72. MD NOTIFIED. PRN BLOOD PRESSURE TO BE GIVEN/OK TO GO AHEAD WITH BLOOD TRANSFUSION.
[2017-08-15] MEDS: TRAMADOL HCL 50 MG TAB PO PRN ×2 (05:16→17:28)
[2017-08-15] MEDS: CEFEPIME IV 2,000 MG in SYRINGE 7.5 ML IV SCH ×2 (05:31→16:15)
[2017-08-15] MEDS: CLOTRIMAZOLE 10 MG TROCHE MT SCH ×3 (06:32→12:04)
[2017-08-15] MEDS: LEVOTHYROXINE 75 MCG TAB PO SCH (06:32)
[2017-08-15] MEDS: CEROVITE ADV FORMULA TAB PO SCH (07:28)
[2017-08-15] MEDS: SENNA 8.6 MG TAB PO SCH (07:28)
[2017-08-15] MEDS: THIAMINE HCL 100 MG TAB PO SCH (07:28)
[2017-08-15] MEDS: CHOLECALCIFEROL 400 INTER.UNIT TAB PO SCH (07:29)
[2017-08-15] MEDS: AMLODIPINE BESYLATE 5 MG TAB PO SCH (07:29)
[2017-08-15] MEDS: METOPROLOL SUCC 50MG EXT REL TAB PO SCH ×2 (07:29→19:12)
[2017-08-15] MEDS: MAGNESIUM OXIDE 400 MG TAB PO SCH ×2 (07:30→19:11)
[2017-08-15] MEDS: POTASSIUM CHLORIDE 20 MEQ TABCR PO SCH (07:30)
[2017-08-15] MEDS: ALPRAZOLAM 0.5 MG TAB PO SCH ×2 (07:44→19:13)
[2017-08-15] MEDS: POLYETHYLENE (MIRALAX) 17 GM PACK PO SCH ×2 (07:46→18:15)
[2017-08-15] MEDS: DOCUSATE SODIUM 100 MG CAP PO SCH ×2 (07:47→18:38)
[2017-08-15] MEDS: SODIUM CHLORIDE 0.9% 10ML FLUSH IV SCH ×3 (07:50→19:09)
[2017-08-15] MEDS: LEValbuterol HFA 15GM INHALER INH SCH ×2 (07:51→19:05)
[2017-08-15] MEDS ORDERED: FUROSEMIDE INJ 10 MG in SYRINGE 0 ML IV ONE (08:15)
[2017-08-15 09:47] LABS: CALCIUM 8.6 mg/dl (8.5-10.1); CREATININE 0.61 mg/dl (0.60-1.20); HEMATOCRIT 24.2 % (37-47); HEMOGLOBIN 8.9 g/dL (12.0-16.0); MEAN CELL VOLUME 79.9 fL (80-100); MEAN CORPUSCULAR HEMOGLOBIN 29.4 pg (25-34); MEAN CORPUSCULAR HGB CONC 36.8 g/dl (32-36); PLATELET COUNT 1 K/uL (130-400); RED CELL DISTRIBUTION WIDTH CV 12.7 % (11.5-14.5); RED CELL DISTRIBUTION WIDTH SD 37.4 fL (36.4-46.3); WHITE BLOOD COUNT 0.72 K/uL (4.8-10.8)
[2017-08-15 09:52] LABS: LYMPH % 97.2 %; MONO % 1.4 %; MONO ABS # 0.01 K/uL (0.11-0.59); NEUT % 1.4 %; NEUT ABS # 0.01 K/uL (1.4-6.5)
--- NOTE | 2017-08-15 10:00 | Progress Note ---
Subjective Date of Service: Aug 15, 2017. Subjective Pt evaluation today including: conversation w/ patient, conversation w/ family , physical exam, lab review, review of studies, review of inpatient medication list Saw/examined the patient in room 257 +hard of hearing +confused difficult to obtain ROS - she denies pain Problem List Medical Problems: (1) Abnormal LFTs Status: Acute (2) Dehydration Status: Acute (3) Ear canal abrasion Status: Acute (4) Hyponatremia Status: Acute (5) Influenza A Status: Acute (6) Low back pain Status: Acute (7) Lumbar spine strain Status: Acute (8) Nasal bleeding Status: Acute (9) Neutropenia Status: Acute (10) Neutropenic fever Status: Acute (11) Neutropenic fever Status: Acute (12) Pancytopenia Status: Acute (13) Pneumonia Status: Acute (14) Rib contusion Status: Acute (15) Thrombocytopenia Status: Acute (16) Thrombocytopenia Status: Acute (17) Thrombocytopenia Status: Acute Medications Current Inpatient Medications Medications (Trade) Dose Ordered Sig/Giuseppe Route Start Time Stop Time Status Last Admin Dose Admin Ondansetron HCl (Zofran Inj) 4 mg Q6H PRN IV 08/08/17 14:00 09/07/17 13:59 08/12/17 02:48 4 MG Cholecalciferol (Vitamin D Tab) 400 inter.unit DAILY PO 08/09/17 08:00 09/08/17 07:59 08/15/17 07:29 400 INTER.UNIT Dicyclomine HCl (Bentyl Cap) 10 mg QID PRN PO 08/08/17 15:45 09/07/17 15:44 Docusate Sodium (coLACE CAP) 100 mg BID PRN PO 08/08/17 15:45 09/07/17 15:44 08/11/17 07:58 100 MG Levalbuterol (Xopenex Hfa Inhaler) 1 puffs BID INH 08/08/17 20:00 09/07/17 19:59 08/15/17 07:51 1 PUFFS Levothyroxine Sodium (Synthroid Tab) 75 mcg DAILYBB PO 08/09/17 06:00 09/08/17 06:29 08/15/17 06:32 75 MCG Magnesium Oxide (Mag-Ox Tab) 400 mg BID PO 08/08/17 20:00 09/07/17 19:59 08/15/17 07:30 400 MG Metoprolol Succinate (Toprol Xl Tab) 50 mg BID PO 08/08/17 20:00 09/07/17 19:59 08/15/17 07:29 50 MG Multivitamins/ Minerals (Multivitamin W/ Minerals Tab) 1 tab DAILY PO 08/09/17 08:00 09/08/17 07:59 08/15/17 07:28 1 TAB Potassium Chloride (Klor-Con Tab) 20 meq DAILY PO 08/09/17 08:00 09/08/17 07:59 08/15/17 07:30 20 MEQ Sodium Chloride (Sodium Chloride 0.9% 10 ml Flush) 10 ml TID IV 08/08/17 20:00 09/07/17 19:59 08/15/17 07:50 10 ML Thiamine HCl (Vitamin B-1 Tab) 100 mg DAILY PO 08/09/17 08:00 09/08/17 07:59 08/15/17 07:28 100 MG Pantoprazole Sodium (Protonix Tab) 40 mg DAILY PRN PO 08/08/17 15:45 09/07/17 15:44 08/10/17 10:04 40 MG Clotrimazole (Mycelex 10MG Kaleb) 1 kaleb 5XDQ3H MT 08/08/17 16:00 08/15/17 15:59 08/15/17 08:48 1 KALEB Cefepime HCl (Consult) 1 ea UD PRN N/A 08/08/17 16:15 09/07/17 16:14 Clonidine HCl (Catapres Tab) 0.1 mg Q6 PRN PO 08/08/17 19:15 09/07/17 19:14 08/15/17 07:29 0.1 MG Acetaminophen (Tylenol Tab) 650 mg Q4H PRN PO 08/09/17 18:30 09/08/17 18:29 08/12/17 10:23 650 MG Albuterol/ Ipratropium (Duoneb) 3 ml Q2H PRN INH 08/10/17 19:45 09/09/17 19:44 Amlodipine Besylate (Norvasc Tab) 5 mg QAM PO 08/12/17 09:00 09/11/17 08:59 08/15/17 07:29 5 MG Polyethylene (Miralax Powder Packet) 17 gm BID PO 08/12/17 09:00 09/09/17 16:59 08/15/17 07:46 17 GM Docusate Sodium (coLACE CAP) 100 mg BID PO 08/12/17 09:00 09/11/17 08:59 08/15/17 07:47 100 MG Senna (Senokot Tab) 8.6 mg QAM PO 08/12/17 09:00 09/11/17 08:59 08/15/17 07:28 8.6 MG Tramadol HCl (Ultram Tab) hold for sedation/ confusion pain not relieved... Q6 PRN PO 08/12/17 00:00 09/07/17 17:59 08/15/17 05:16 50 MG Cefepime HCl 2000 mg/Syringe 20 ml @ 5 mls/min Q12H IV 08/13/17 16:00 08/15/17 23:59 08/15/17 05:31 5 MLS/MIN Alprazolam (Xanax Tab) 1 mg BID PO 08/13/17 15:30 09/07/17 19:59 08/15/17 07:44 1 MG Carbamide Peroxide (Earwax Removal Soln) 2 drops BID PRN OT 08/14/17 13:45 08/18/17 13:44 08/14/17 19:32 2 DROPS Objective Vital Signs Date Time Temp Pulse Resp B/P (MAP) Pulse Ox O2 Delivery O2 Flow Rate FiO2 08/15/17 08:47 146/72 (96) 08/15/17 07:26 36.4 69 18 190/75 (113) 93 Room Air 08/15/17 06:43 36.3 71 20 193/79 94 08/15/17 06:24 36.3 67 20 187/77 94 08/15/17 05:24 36.3 68 21 186/73 93 08/15/17 04:20 36.4 83 20 178/75 94 08/15/17 03:50 36.8 74 20 183/74 93 08/15/17 03:35 36.7 75 20 181/74 95 08/15/17 03:23 36.7 74 20 181/74 (109) 94 Room Air 08/15/17 00:10 94 Room Air 08/14/17 16:00 94 Room Air 08/14/17 15:27 36.4 72 18 130/70 (90) 94 Room Air Physical Exam General Appearance: no apparent distress, + pertinent finding (seated in a chair) Respiratory/Chest: lungs clear, normal breath sounds, no respiratory distress, no accessory muscle use Cardiovascular: regular rate, rhythm, no edema, no murmur Neurologic/Psychiatric: + disoriented Laboratory Results Last 24 Hours Test 08/14/17 10:16 08/14/17 11:00 08/15/17 09:02 Ammonia 18.8 umol/L Urine Color YELLOW Urine Appearance CLEAR Urine pH 5.5 Urine Specific [place] 1.024 Urine Protein 2+ Urine Glucose (UA) NEG Urine Ketones TRACE Urine Occult Blood 1+ Urine Nitrite NEG Urine Bilirubin NEG Urine Urobilinogen NEG Urine Leukocyte Esterase TRACE Urine WBC (Auto) 10-30 /hpf Urine RBC (Auto) 5-10 /hpf Urine Hyaline Casts (Auto) 1-5 /lpf Urine Epithelial Cells (Auto) >30 /lpf Urine Bacteria (Auto) NEG Urine Pathogenic Casts 0-3 GRANULAR CASTS /lpf Urine Yeast (Auto) BUDDING White Blood Count 0.72 K/uL Red Blood Count 3.03 M/uL Hemoglobin 8.9 g/dL Hematocrit 24.2 % Mean Corpuscular Volume 79.9 fL Mean Corpuscular Hemoglobin 29.4 pg Mean Corpuscular Hemoglobin Concent 36.8 g/dl Platelet Count 1 K/uL Neutrophils (%) (Auto) 1.4 % Lymphocytes (%) (Auto) 97.2 % Monocytes (%) (Auto) 1.4 % Eosinophils (%) (Auto) 0.0 % Basophils (%) (Auto) 0.0 % Neutrophils # (Auto) 0.01 K/uL Lymphocytes # (Auto) 0.70 K/uL Monocytes # (Auto) 0.01 K/uL Eosinophils # (Auto) 0.00 K/uL Basophils # (Auto) 0.00 K/uL RDW Standard Deviation 37.4 fL RDW Coefficient of Variation 12.7 % Immature Granulocyte % (Auto) 0.0 % Immature Granulocyte # (Auto) 0.00 K/uL Platelet Estimate SIGNIFIC DECREASED Red Blood Cell Morphology Unremarkable Sodium Level 129 mmol/L Potassium Level 4.0 mmol/L Chloride Level 95 mmol/L Carbon Dioxide Level 31 mmol/L Anion Gap 3.0 mmol/L Blood Urea Nitrogen 26 mg/dl Creatinine 0.61 mg/dl Est Creatinine Clear Calc Drug Dose 62.1 ml/min Estimated GFR () 95.1 Estimated GFR (Non- 82.1 BUN/Creatinine Ratio 42.7 Random Glucose 172 mg/dl Calcium Level 8.6 mg/dl Assessment and Plan This is an 87yo F with complicated past medical hx of aplastic anemia ; secondary to myelodysplastic syndrome , diastolic CHF, A Fib, HTN, recurrent UTIs -presented with subjective fever , urinary symptom Altered Mental Status 08/15 giving Xanax 1mg BID; occasionally needing 0.5mg in the afternoon Head CT was negative, ammonia level is not high cultures pending continue Cefepime 08/14 possibly metabolic encephalopathy will check a repeat head CT recheck cultures check an ammonia level continue Xanax BID; benzo withdrawal? RECURRENT UTI/PSEUDOMONAS INFECTION 08/14 will continue Cefepime recheck blood cultures + UA and urine culture 08/13 appreciate ID input continue current medications for now Cefepime for 7 total days Daughter insists this should be for 14 days 08/12 continue current IV abx. appreciate ID input monitor cultures PICC line in place 08/11 -Present on admission, h/o recurrent UTIs Urine culture 06/2017 -Citrobacter /Klebsiella -Most recent urine culture Early July: grew pseudomonas and Enterococcus faecium -Completed 7d course of Cefepime and 3 days of IV Vanc in last admission -urine culture 08/08/17 -gram negative bacilli /Pseudomonas -on IV cefepime and vancomycin --ID consulted , appreciate input Daughter insists pt should be discharged at home with iV Abx ( has PICC line already ) she is convinced that pt's previous UTI was not adequately treated as IV Abx was not continued at home Pancytopenia/severe thrombocytopenia: 08/15 given another transfusion of pRBCs this AM; Lasix 10mg afterwards will transfuse one unit of platelets with Claritin prior to the platelet transfusion 08/14 platelets at around 11k, which is closer to baseline 08/13 transfusing one unit platelets monitor platelets 08/12 appreciate Hem/Onc input platelets and WBC stable neutropenic precautions thrombocytopenia monitor poor prognosis plan for [place] f/u next week -2/2 Hypoplastic Bone Marrow, MDS -Hgb of 9 today after 1 u prbcs transfused -Platelet count improved form 3 K -> 11 K dropped to 2 K no bleeding episode received 2 units of platelet tx D/w with [facility] [facility] -pt is completely transfusion dependent recommend continue platelet tx till 10 K to prevent spontaneous bleeding very poor prognosis pt is scheduled to follow up at [facility] on 08/20/17 for second opinion for her tx of refractory Myelodysplastic syndrome PNEUMONIA -Patient with SOB, fatigue, nasal congestion -CXR with developing interstitial infiltrate in left lung base. Small pleural effusion in R lung (improved from last admission) -Broad coverage abx -Vancomycin /Cefepime -Cont home inhalers -Blood cultures ordered Hypertension: -Normotensive -Continue home dose Metoprolol and PRN Clonidine Paroxysmal atrial fibrillation: -Asymptomatic -Continue Metoprolol -No anticoagulation 2/2 thrombocytopenia -Monitor on tele Chronic diastolic CHF: -Dry on exam, will hold daily lasix -No signs of fluid overload Hypothyroidism: -Cont home dose levothyroxine DNI DISPOSITION PT/OT EVAL prior to discharge active with [facility] daughter updated at bedside Medicine follow up with Dr Umana
[2017-08-15] MEDS ORDERED: LORATADINE 10 MG TAB PO SCH (10:15)
[2017-08-15] MEDS: ACETAMINOPHEN 325 MG TAB PO PRN (10:33)
[2017-08-15] MEDS: CARBAMIDE PEROXIDE 6.5% 15 ML BTL OT PRN (10:38)
[2017-08-15] MEDS ORDERED: ALPRAZOLAM 0.5 MG TAB ONE (13:16)
[2017-08-15] MEDS ORDERED: ALPRAZOLAM 0.5 MG TAB PO ONE (13:45)
--- NOTE | 2017-08-15 13:58 | NUR ---
Case Management: Pt remains severely thrombocytopenic and received transfusions today. PT did not work with pt due to her low platelet count. Uncertain regarding discharge plan at this time. Pt lives with dgt Sola and Sola had informed me she is with pt pretty much 17/03. Referral is pending with [facility]. Will need to see if pt is able to return home when able to participate in therapy.
--- NOTE | 2017-08-15 14:53 | Infectious Disease Progress Nt ---
Progress Note Date of Service Aug 15, 2017. Subjective Pt evaluation today including: conversation w/ patient, physical exam, chart review, lab review, review of studies, conversation w/ instructional design consultant, review of inpatient medication list Patient remains confused. No fever.Follow-up blood cultures pending. All Other Systems: Reviewed and Negative Medications Current Inpatient Medications Medications (Trade) Dose Ordered Sig/Giuseppe Route Start Time Stop Time Status Last Admin Dose Admin Ondansetron HCl (Zofran Inj) 4 mg Q6H PRN IV 08/08/17 14:00 09/07/17 13:59 08/12/17 02:48 4 MG Cholecalciferol (Vitamin D Tab) 400 inter.unit DAILY PO 08/09/17 08:00 09/08/17 07:59 08/15/17 07:29 400 INTER.UNIT Dicyclomine HCl (Bentyl Cap) 10 mg QID PRN PO 08/08/17 15:45 09/07/17 15:44 Docusate Sodium (coLACE CAP) 100 mg BID PRN PO 08/08/17 15:45 09/07/17 15:44 08/11/17 07:58 100 MG Levalbuterol (Xopenex Hfa Inhaler) 1 puffs BID INH 08/08/17 20:00 09/07/17 19:59 08/15/17 07:51 1 PUFFS Levothyroxine Sodium (Synthroid Tab) 75 mcg DAILYBB PO 08/09/17 06:00 09/08/17 06:29 08/15/17 06:32 75 MCG Magnesium Oxide (Mag-Ox Tab) 400 mg BID PO 08/08/17 20:00 09/07/17 19:59 08/15/17 07:30 400 MG Metoprolol Succinate (Toprol Xl Tab) 50 mg BID PO 08/08/17 20:00 09/07/17 19:59 08/15/17 07:29 50 MG Multivitamins/ Minerals (Multivitamin W/ Minerals Tab) 1 tab DAILY PO 08/09/17 08:00 09/08/17 07:59 08/15/17 07:28 1 TAB Potassium Chloride (Klor-Con Tab) 20 meq DAILY PO 08/09/17 08:00 09/08/17 07:59 08/15/17 07:30 20 MEQ Sodium Chloride (Sodium Chloride 0.9% 10 ml Flush) 10 ml TID IV 08/08/17 20:00 09/07/17 19:59 08/15/17 13:19 10 ML Thiamine HCl (Vitamin B-1 Tab) 100 mg DAILY PO 08/09/17 08:00 09/08/17 07:59 08/15/17 07:28 100 MG Pantoprazole Sodium (Protonix Tab) 40 mg DAILY PRN PO 08/08/17 15:45 09/07/17 15:44 08/10/17 10:04 40 MG Clotrimazole (Mycelex 10MG Carlos Alberto) 1 carlos alberto 5XDQ3H MT 08/08/17 16:00 08/15/17 15:59 08/15/17 12:04 1 CARLOS ALBERTO Cefepime HCl (Consult) 1 ea UD PRN N/A 08/08/17 16:15 09/07/17 16:14 Clonidine HCl (Catapres Tab) 0.1 mg Q6 PRN PO 08/08/17 19:15 09/07/17 19:14 08/15/17 11:30 0.1 MG Acetaminophen (Tylenol Tab) 650 mg Q4H PRN PO 08/09/17 18:30 09/08/17 18:29 08/15/17 10:33 650 MG Albuterol/ Ipratropium (Duoneb) 3 ml Q2H PRN INH 08/10/17 19:45 09/09/17 19:44 Amlodipine Besylate (Norvasc Tab) 5 mg QAM PO 08/12/17 09:00 09/11/17 08:59 08/15/17 07:29 5 MG Polyethylene (Miralax Powder Packet) 17 gm BID PO 08/12/17 09:00 09/09/17 16:59 08/15/17 07:46 17 GM Docusate Sodium (coLACE CAP) 100 mg BID PO 08/12/17 09:00 09/11/17 08:59 08/15/17 07:47 100 MG Senna (Senokot Tab) 8.6 mg QAM PO 08/12/17 09:00 09/11/17 08:59 08/15/17 07:28 8.6 MG Tramadol HCl (Ultram Tab) hold for sedation/ confusion pain not relieved... Q6 PRN PO 08/12/17 00:00 09/07/17 17:59 08/15/17 05:16 50 MG Cefepime HCl 2000 mg/Syringe 20 ml @ 5 mls/min Q12H IV 08/13/17 16:00 08/17/17 15:59 08/15/17 05:31 5 MLS/MIN Alprazolam (Xanax Tab) 1 mg BID PO 08/13/17 15:30 09/07/17 19:59 08/15/17 07:44 1 MG Carbamide Peroxide (Earwax Removal Soln) 2 drops BID PRN OT 08/14/17 13:45 08/18/17 13:44 08/15/17 10:38 2 DROPS Loratadine (Claritin Tab) 10 mg TODAY@1015 PO 08/15/17 10:15 08/15/17 18:00 08/15/17 10:34 10 MG Objective Vital Signs Date Time Temp Pulse Resp B/P (MAP) Pulse Ox O2 Delivery O2 Flow Rate FiO2 08/15/17 11:59 36.8 72 18 142/72 95 08/15/17 11:31 36.4 85 16 176/78 95 08/15/17 11:17 182/86 (118) 08/15/17 11:00 36.4 71 20 178/77 93 08/15/17 10:45 36.4 72 20 150/79 93 08/15/17 10:26 36.4 72 22 120/88 08/15/17 08:47 146/72 (96) 08/15/17 08:00 Room Air 08/15/17 07:26 36.4 69 18 190/75 (113) 93 Room Air 08/15/17 06:43 36.3 71 20 193/79 94 08/15/17 06:24 36.3 67 20 187/77 94 08/15/17 05:24 36.3 68 21 186/73 93 08/15/17 04:20 36.4 83 20 178/75 94 08/15/17 03:50 36.8 74 20 183/74 93 08/15/17 03:35 36.7 75 20 181/74 95 08/15/17 03:23 36.7 74 20 181/74 (109) 94 Room Air 08/15/17 00:10 94 Room Air 08/14/17 16:00 94 Room Air 08/14/17 15:27 36.4 72 18 130/70 (90) 94 Room Air Physical Exam General Appearance: WD/WN, no apparent distress Eyes: normal inspection, sclerae normal ENT: normal ENT inspection, pharynx normal Neck: supple, no adenopathy, trachea midline Respiratory/Chest: chest non-tender, lungs clear, normal breath sounds, no respiratory distress Cardiovascular: regular rate, rhythm, no gallop, no murmur Abdomen: normal bowel sounds, non tender, soft, no organomegaly Extremities: non-tender, no calf tenderness Neurologic/Psychiatric: alert, + disoriented Skin: normal color, warm/dry, no rash Lymphatic: no adenopathy Laboratory Results Last 24 Hours Test 08/15/17 09:02 White Blood Count 0.72 K/uL Red Blood Count 3.03 M/uL Hemoglobin 8.9 g/dL Hematocrit 24.2 % Mean Corpuscular Volume 79.9 fL Mean Corpuscular Hemoglobin 29.4 pg Mean Corpuscular Hemoglobin Concent 36.8 g/dl Platelet Count 1 K/uL Neutrophils (%) (Auto) 1.4 % Lymphocytes (%) (Auto) 97.2 % Monocytes (%) (Auto) 1.4 % Eosinophils (%) (Auto) 0.0 % Basophils (%) (Auto) 0.0 % Neutrophils # (Auto) 0.01 K/uL Lymphocytes # (Auto) 0.70 K/uL Monocytes # (Auto) 0.01 K/uL Eosinophils # (Auto) 0.00 K/uL Basophils # (Auto) 0.00 K/uL RDW Standard Deviation 37.4 fL RDW Coefficient of Variation 12.7 % Immature Granulocyte % (Auto) 0.0 % Immature Granulocyte # (Auto) 0.00 K/uL Platelet Estimate SIGNIFIC DECREASED Red Blood Cell Morphology Unremarkable Sodium Level 129 mmol/L Potassium Level 4.0 mmol/L Chloride Level 95 mmol/L Carbon Dioxide Level 31 mmol/L Anion Gap 3.0 mmol/L Blood Urea Nitrogen 26 mg/dl Creatinine 0.61 mg/dl Est Creatinine Clear Calc Drug Dose 62.1 ml/min Estimated GFR () 95.1 Estimated GFR (Non- 82.1 BUN/Creatinine Ratio 42.7 Random Glucose 172 mg/dl Calcium Level 8.6 mg/dl Patient Name: KARAN BARBER I Unit Number: [id number] Dictated: 08/14/171148 Transcribed: 08/14/171148 JRB Printed Date/Time: [~ rep prt dt]/[~ rep prt tm] [~ rep ct labl] - [~ rep ct ivnm] [facility] Radiology Department [place] [id number] Dictated: 08/14/171148 Transcribed: 08/14/171148 JRB Printed Date/Time: [~ rep prt dt]/[~ rep prt tm] [~ rep ct labl] - [~ rep ct ivnm] HEAD WITHOUT CONTRAST (CT) CLINICAL HISTORY: 87 years-old Female with AMS/confusion. Acute altered mental status with confusion TECHNIQUE: Multiple axial CT images of the head were obtained without contrast. A dose lowering technique was utilized adhering to the principles of ALARA. CT DOSE: 537.48 mGy.cm COMPARISON: Head CT 08/10/2017. FINDINGS: No acute intracranial hemorrhage, midline shift, intracranial mass, hydrocephalus, territorial ischemia or abnormal extra-axial collection. Mild to moderate atrophy with ex vacuo cardiomegaly. Ill-defined areas of low-attenuation within the subcortical and periventricular white matter suggests chronic microvascular ischemic changes. Vascular calcifications are seen at the level of the skull base. The calvarium is intact. Right mastoid air cells are completely opacified. Fluid is noted within the bilateral middle ear cavities. These findings are unchanged. Moderate to large left mastoid effusion. Paranasal sinuses are generally clear. Postsurgical changes of the bilateral globes. IMPRESSION: No acute intracranial abnormality. The above report was generated using voice recognition software. It may contain grammatical, syntax or spelling errors. Electronically signed by: Britton Altamirano M.D. 08/14/2017 11:53 AM Dictated Date/Time: 08/14/2017 11:49 AM The status of this report is Signed. Draft = Not yet reviewed or approved by Radiologist. Signed = Reviewed and approved by Radiologist. <AttendingPhy>Luanne Garcia, </AttendingPhy> <FamilyPhy>Dionisio Umana M.D.</FamilyPhy> <PrimaryPhy>Dionisio Umana M.D.</PrimaryPhy> <UnitNumber> [id number]</UnitNumber> <VisitNumber>[id number]</VisitNumber> <PatientName> KARAN BARBER I</PatientName> <DateOfBirth>1930</DateOfBirth> <Location> C.MS2W</Location> <ServiceDate>08/08/17</ServiceDate> <MNE>ESINDI</MNE> < OrderingPhy>Luanne Garcia DO</OrderingPhy> <OrderingPhyMNE>f rep ord dr ortiz</ OrderingPhyMNE> <DictatingPhyMNE>f rep dict dr ortiz</DictatingPhyMNE> <CCListMNE> f rep ct mne</CCListMNE> <AdmittingPhyMNE>f pt admit dr ortiz</AdmittingPhyMNE> < AttendingPhyMNE>f pt attend dr ortiz</AttendingPhyMNE> <ConsultingPhyMNE>f pt consult dr ortiz</ConsultingPhyMNE> <FamilyPhyMNE>f pt fam dr ortiz</FamilyPhyMNE> <OtherPhyMNE>f pt other dr ortiz</OtherPhyMNE> < PrimaryPhyMNE>f pt prim care dr ortiz</PrimaryPhyMNE> <ReferringPhyMNE>f pt referring dr ortiz</ReferringPhyMNE> Assessment and Plan 87-year-old female with aplastic anemia with severe neutropenia now with recurrent fever, evidence of recurrent urinary tract infection with positive cultures for Pseudomonas and E coli. Current treatment with cefepime appropriate, and given that this is recurrence would recommend 14 days of IV antibiotic therapy. Will follow.
[2017-08-15] MEDS: CARBAMIDE PEROXIDE 6.5% 15 ML BTL OT SCH ×3 (17:33→19:27)
--- NOTE | 2017-08-15 17:50 | NUR ---
A: Patient and daughter made aware that she will be transferred to room 406. Report called.
--- NOTE | 2017-08-15 18:30 | NUR ---
A: Pt transferred from 2W, alert and orientedx3, very AKHIOK, c/o of being tired, with Double PICC line on Left Upper arm, Lungs are clear at RA, sat 93%, +BS, soft ,non distended, non tender abdomen, +PP, BLE trace edema, 1 assist OOB with walker, on 1:1 sitter, incontinent with urine at times, ice pack applied on Left Leg, VSS, needs attended, Will continue monitoring.
[2017-08-16] VITALS: BP 188/76; PULSE 77; TEMP 36.5; O2SAT 92
[2017-08-16] MEDS: CLONIDINE HCL 0.1 MG TAB PO PRN (00:33)
--- NOTE | 2017-08-16 01:30 | NUR ---
A: Pt refused to have blood pressure taken after PRN catapres given for BP of 188/76.
[2017-08-16] MEDS: CEFEPIME IV 2,000 MG in SYRINGE 7.5 ML IV SCH ×2 (03:52→16:02)
[2017-08-16] MEDS: LEVOTHYROXINE 75 MCG TAB PO SCH (06:21)
[2017-08-16] MEDS: TRAMADOL HCL 50 MG TAB PO PRN ×2 (06:22→13:12)
[2017-08-16 06:25] LABS: CALCIUM 8.6 mg/dl (8.5-10.1); CREATININE 0.6 mg/dl (0.60-1.20); POTASSIUM 4.3 mmol/L (3.5-5.1)
[2017-08-16 06:39] LABS: HEMATOCRIT 21.4 % (37-47); HEMOGLOBIN 7.6 g/dL (12.0-16.0); MEAN CELL VOLUME 79.6 fL (80-100); MEAN CORPUSCULAR HEMOGLOBIN 28.3 pg (25-34); MEAN CORPUSCULAR HGB CONC 35.5 g/dl (32-36); MEAN PLATELET VOLUME 8.7 fL (7.4-10.4); PLATELET COUNT 18 K/uL (130-400); RED CELL DISTRIBUTION WIDTH CV 12.7 % (11.5-14.5); RED CELL DISTRIBUTION WIDTH SD 37.5 fL (36.4-46.3); WHITE BLOOD COUNT 0.79 K/uL (4.8-10.8)
[2017-08-16 07:14] VITALS: BP 80/58; PULSE 73; TEMP 36.2; O2SAT 94
[2017-08-16] MEDS: LEValbuterol HFA 15GM INHALER INH SCH ×2 (08:11→20:00)
[2017-08-16] MEDS: SODIUM CHLORIDE 0.9% 10ML FLUSH IV SCH ×3 (08:11→20:27)
[2017-08-16] MEDS: CARBAMIDE PEROXIDE 6.5% 15 ML BTL OT SCH ×2 (08:11→20:38)
[2017-08-16] MEDS: POTASSIUM CHLORIDE 20 MEQ TABCR PO SCH (08:11)
[2017-08-16] MEDS: DOCUSATE SODIUM 100 MG CAP PO SCH ×2 (08:11→20:00)
[2017-08-16] MEDS: CHOLECALCIFEROL 400 INTER.UNIT TAB PO SCH (08:12)
[2017-08-16] MEDS: CEROVITE ADV FORMULA TAB PO SCH (08:12)
[2017-08-16] MEDS: THIAMINE HCL 100 MG TAB PO SCH (08:12)
[2017-08-16] MEDS: MAGNESIUM OXIDE 400 MG TAB PO SCH ×2 (08:12→20:34)
[2017-08-16] MEDS: POLYETHYLENE (MIRALAX) 17 GM PACK PO SCH ×2 (08:12→20:00)
[2017-08-16] MEDS: SENNA 8.6 MG TAB PO SCH (08:12)
[2017-08-16] MEDS: ALPRAZOLAM 0.5 MG TAB PO SCH ×2 (08:13→20:37)
--- NOTE | 2017-08-16 08:13 | NUR ---
A: Patients daughter called to unit 3 times for multiple reasons and many questions. This RN attempted to answer all questions daughter had. Patient requested to also speak with MD. Notified Dr. Garcia via [employer] that she is requesting a phone call this morning. Daughter upset that phone in room was not answered by PARAMEDICAL AIDE to have patient speak with her, however when call was placed, patient was oob going to the bathroom and PARAMEDICAL AIDE was unable to answer phone.
[2017-08-16 12:42] VITALS: BP 150/60
[2017-08-16 13:08] LABS: HEMATOCRIT 23.8 % (37-47); HEMOGLOBIN 8.8 g/dL (12.0-16.0)
[2017-08-16] MEDS: AMLODIPINE BESYLATE 5 MG TAB PO SCH (13:12)
[2017-08-16] MEDS: METOPROLOL SUCC 50MG EXT REL TAB PO SCH ×2 (13:12→20:34)
--- NOTE | 2017-08-16 13:46 | Progress Note ---
Subjective Date of Service: Aug 16, 2017. Subjective Pt evaluation today including: conversation w/ patient, conversation w/ family , physical exam, lab review, review of studies, review of inpatient medication list Saw/examined the patient in room 406 She is feeling much better today; seated in a chair More alert/awake and more oriented with only intermittent periods of confusion Problem List Medical Problems: (1) Abnormal LFTs Status: Acute (2) Dehydration Status: Acute (3) Ear canal abrasion Status: Acute (4) Hyponatremia Status: Acute (5) Influenza A Status: Acute (6) Low back pain Status: Acute (7) Lumbar spine strain Status: Acute (8) Nasal bleeding Status: Acute (9) Neutropenia Status: Acute (10) Neutropenic fever Status: Acute (11) Neutropenic fever Status: Acute (12) Pancytopenia Status: Acute (13) Pneumonia Status: Acute (14) Rib contusion Status: Acute (15) Thrombocytopenia Status: Acute (16) Thrombocytopenia Status: Acute (17) Thrombocytopenia Status: Acute Review of Systems Constitutional: + weakness Respiratory: No cough, No sputum, No shortness of breath Cardiac: No chest pain Abdomen: No pain, No nausea, No vomiting, No diarrhea, No GI bleeding Heme: No abnormal bleeding/bruising Medications Current Inpatient Medications Medications (Trade) Dose Ordered Sig/Giuseppe Route Start Time Stop Time Status Last Admin Dose Admin Ondansetron HCl (Zofran Inj) 4 mg Q6H PRN IV 08/08/17 14:00 09/07/17 13:59 08/12/17 02:48 4 MG Cholecalciferol (Vitamin D Tab) 400 inter.unit DAILY PO 08/09/17 08:00 09/08/17 07:59 08/16/17 08:12 400 INTER.UNIT Dicyclomine HCl (Bentyl Cap) 10 mg QID PRN PO 08/08/17 15:45 09/07/17 15:44 Docusate Sodium (coLACE CAP) 100 mg BID PRN PO 08/08/17 15:45 09/07/17 15:44 08/11/17 07:58 100 MG Levalbuterol (Xopenex Hfa Inhaler) 1 puffs BID INH 08/08/17 20:00 09/07/17 19:59 08/16/17 08:11 1 PUFFS Levothyroxine Sodium (Synthroid Tab) 75 mcg DAILYBB PO 08/09/17 06:00 09/08/17 06:29 08/16/17 06:21 75 MCG Magnesium Oxide (Mag-Ox Tab) 400 mg BID PO 08/08/17 20:00 09/07/17 19:59 08/16/17 08:12 400 MG Metoprolol Succinate (Toprol Xl Tab) 50 mg BID PO 08/08/17 20:00 09/07/17 19:59 08/16/17 13:12 50 MG Multivitamins/ Minerals (Multivitamin W/ Minerals Tab) 1 tab DAILY PO 08/09/17 08:00 09/08/17 07:59 08/16/17 08:12 1 TAB Potassium Chloride (Klor-Con Tab) 20 meq DAILY PO 08/09/17 08:00 09/08/17 07:59 08/16/17 08:11 20 MEQ Sodium Chloride (Sodium Chloride 0.9% 10 ml Flush) 10 ml TID IV 08/08/17 20:00 09/07/17 19:59 08/16/17 13:13 10 ML Thiamine HCl (Vitamin B-1 Tab) 100 mg DAILY PO 08/09/17 08:00 09/08/17 07:59 08/16/17 08:12 100 MG Pantoprazole Sodium (Protonix Tab) 40 mg DAILY PRN PO 08/08/17 15:45 09/07/17 15:44 08/10/17 10:04 40 MG Cefepime HCl (Consult) 1 ea UD PRN N/A 08/08/17 16:15 09/07/17 16:14 Clonidine HCl (Catapres Tab) 0.1 mg Q6 PRN PO 08/08/17 19:15 09/07/17 19:14 08/16/17 00:33 0.1 MG Acetaminophen (Tylenol Tab) 650 mg Q4H PRN PO 08/09/17 18:30 09/08/17 18:29 08/15/17 10:33 650 MG Albuterol/ Ipratropium (Duoneb) 3 ml Q2H PRN INH 08/10/17 19:45 09/09/17 19:44 Amlodipine Besylate (Norvasc Tab) 5 mg QAM PO 08/12/17 09:00 09/11/17 08:59 08/16/17 13:12 5 MG Polyethylene (Miralax Powder Packet) 17 gm BID PO 08/12/17 09:00 09/09/17 16:59 08/16/17 08:12 17 GM Docusate Sodium (coLACE CAP) 100 mg BID PO 08/12/17 09:00 09/11/17 08:59 08/16/17 08:11 100 MG Senna (Senokot Tab) 8.6 mg QAM PO 08/12/17 09:00 09/11/17 08:59 08/16/17 08:12 8.6 MG Tramadol HCl (Ultram Tab) hold for sedation/ confusion pain not relieved... Q6 PRN PO 08/12/17 00:00 09/07/17 17:59 08/16/17 13:12 50 MG Cefepime HCl 2000 mg/Syringe 20 ml @ 5 mls/min Q12H IV 08/13/17 16:00 08/17/17 15:59 08/16/17 03:52 5 MLS/MIN Alprazolam (Xanax Tab) 1 mg BID PO 08/13/17 15:30 09/07/17 19:59 08/16/17 08:13 1 MG Carbamide Peroxide (Earwax Removal Soln) 2 drops BID OT 08/15/17 17:30 08/18/17 13:44 08/16/17 08:11 2 DROPS Objective Vital Signs Date Time Temp Pulse Resp B/P (MAP) Pulse Ox O2 Delivery O2 Flow Rate FiO2 08/16/17 12:42 150/60 (90) 08/16/17 11:56 Room Air 08/16/17 07:14 36.2 73 18 80/58 (65) 94 Room Air 08/16/17 00:00 Room Air 08/16/17 00:00 36.5 77 20 188/76 (113) 92 Room Air 08/15/17 19:29 36.5 60 18 132/82 (99) 93 Room Air 08/15/17 16:30 93 Room Air 08/15/17 15:34 Room Air 08/15/17 15:13 36.2 69 20 146/78 (100) 95 Room Air Physical Exam General Appearance: no apparent distress Respiratory/Chest: lungs clear, normal breath sounds, no respiratory distress, no accessory muscle use Cardiovascular: regular rate, rhythm, no edema, no murmur Extremities: normal inspection, no pedal edema Neurologic/Psychiatric: no motor/sensory deficits, alert, normal mood/affect Laboratory Results Last 24 Hours Test 08/16/17 05:25 08/16/17 12:55 White Blood Count 0.79 K/uL Red Blood Count 2.69 M/uL Hemoglobin 7.6 g/dL 8.8 g/dL Hematocrit 21.4 % 23.8 % Mean Corpuscular Volume 79.6 fL Mean Corpuscular Hemoglobin 28.3 pg Mean Corpuscular Hemoglobin Concent 35.5 g/dl RDW Standard Deviation 37.5 fL RDW Coefficient of Variation 12.7 % Platelet Count 18 K/uL Mean Platelet Volume 8.7 fL Sodium Level 133 mmol/L Potassium Level 4.3 mmol/L Chloride Level 99 mmol/L Carbon Dioxide Level 32 mmol/L Anion Gap 2.0 mmol/L Blood Urea Nitrogen 28 mg/dl Creatinine 0.60 mg/dl Est Creatinine Clear Calc Drug Dose 63.2 ml/min Estimated GFR () 95.7 Estimated GFR (Non- 82.5 BUN/Creatinine Ratio 46.3 Random Glucose 111 mg/dl Calcium Level 8.6 mg/dl Assessment and Plan This is an 87yo F with complicated past medical hx of aplastic anemia ; secondary to myelodysplastic syndrome , diastolic CHF, A Fib, HTN, recurrent UTIs -presented with subjective fever , urinary symptom Altered Mental Status 08/16 she is feeling much better continue Xanax 1mg BID continue Cefepime 08/15 giving Xanax 1mg BID; occasionally needing 0.5mg in the afternoon Head CT was negative, ammonia level is not high cultures pending continue Cefepime 08/14 possibly metabolic encephalopathy will check a repeat head CT recheck cultures check an ammonia level continue Xanax BID; benzo withdrawal? RECURRENT UTI/PSEUDOMONAS INFECTION 08/14 will continue Cefepime recheck blood cultures + UA and urine culture 08/13 appreciate ID input continue current medications for now Cefepime for 7 total days Daughter insists this should be for 14 days 08/12 continue current IV abx. appreciate ID input monitor cultures PICC line in place 08/11 -Present on admission, h/o recurrent UTIs Urine culture 06/2017 -Citrobacter /Klebsiella -Most recent urine culture Early July: grew pseudomonas and Enterococcus faecium -Completed 7d course of Cefepime and 3 days of IV Vanc in last admission -urine culture 08/08/17 -gram negative bacilli /Pseudomonas -on IV cefepime and vancomycin --ID consulted , appreciate input Daughter insists pt should be discharged at home with iV Abx ( has PICC line already ) she is convinced that pt's previous UTI was not adequately treated as IV Abx was not continued at home Pancytopenia/severe thrombocytopenia: 08/16 WBC is at baseline, around 0.79 today H/H repeated this afternoon - shows Hgb is 8.8 platelets are >18 Plan is to ambulate the patient in the hallways if pain controlled, and mentally improved, discharge in 1-2 days 08/15 given another transfusion of pRBCs this AM; Lasix 10mg afterwards will transfuse one unit of platelets with Claritin prior to the platelet transfusion 08/14 platelets at around 11k, which is closer to baseline 08/13 transfusing one unit platelets monitor platelets 08/12 appreciate Hem/Onc input platelets and WBC stable neutropenic precautions thrombocytopenia monitor poor prognosis plan for [place] f/u next week -2/2 Hypoplastic Bone Marrow, MDS -Hgb of 9 today after 1 u prbcs transfused -Platelet count improved form 3 K -> 11 K dropped to 2 K no bleeding episode received 2 units of platelet tx D/w with [place] hematology -pt is completely transfusion dependent recommend continue platelet tx till 10 K to prevent spontaneous bleeding very poor prognosis pt is scheduled to follow up at [facility] on 08/20/17 for second opinion for her tx of refractory Myelodysplastic syndrome PNEUMONIA -Patient with SOB, fatigue, nasal congestion -CXR with developing interstitial infiltrate in left lung base. Small pleural effusion in R lung (improved from last admission) -Broad coverage abx -Vancomycin /Cefepime -Cont home inhalers -Blood cultures ordered Hypertension: -Normotensive -Continue home dose Metoprolol and PRN Clonidine Paroxysmal atrial fibrillation: -Asymptomatic -Continue Metoprolol -No anticoagulation 2/2 thrombocytopenia -Monitor on tele Chronic diastolic CHF: -Dry on exam, will hold daily lasix -No signs of fluid overload Hypothyroidism: -Cont home dose levothyroxine DNI DISPOSITION PT/OT EVAL prior to discharge active with [facility] daughter updated at bedside Medicine follow up with Dr Umana
--- NOTE | 2017-08-16 14:08 | NUR ---
A: Daughter called unit requesting update since she left at 1230. I explained to daughter that I had no update, that since she left she has been checked at least every 15 minutes and was doing fine. Daughter asked this RN to leave charge desk to check if her eyes were shut. This RN explained that I could not leave the desk to check for her eyes being shut because I was the only person at the desk and had a few other tasks to complete but assured daughter that patient is comfortable and doing fine.
--- NOTE | 2017-08-16 14:35 | NUR ---
JYOTHI screened pt for length of stay, refer to linked note for full assessment and recommendations. Addendum: 08/16/17 at [address] Amended: Links added.
--- NOTE | 2017-08-16 15:00 | NUR ---
ID NOTE- PT CONTINUES TO BE CONFUSED. [place]. PT TAKEN OFF 1 TO1 WITH NURSING AND MADE Q 15 MIN CHECKS. MEDICATED FOR PAIN THIS SHIFT. OOB TO CHAIR AND BR WITH [employer]. BP LOW IN AM BUT WNL BY AFTERNOON. PT DENIES ANY SYMPTOMS. DC PLANS PER SOC SERV WHEN ABLE. PT CARED FOR BY DAUGHTER AT HOME.
[2017-08-16 15:04] VITALS: BP 142/68; PULSE 83; TEMP 36.4; O2SAT 94
[2017-08-16 20:31] VITALS: BP 138/68; PULSE 78
--- NOTE | 2017-08-17 04:39 | NUR ---
A: Pt's daughter called in at this time for an update. Informed her that pt has been sleeping comfortably since I came on at 2300 and has not had any issues. Will continue to monitor.
[2017-08-17] MEDS: TRAMADOL HCL 50 MG TAB PO PRN ×3 (05:26→17:11)
[2017-08-17] MEDS: CEFEPIME IV 2,000 MG in SYRINGE 7.5 ML IV SCH (05:26)
[2017-08-17] MEDS: LEVOTHYROXINE 75 MCG TAB PO SCH (05:27)
[2017-08-17 05:39] VITALS: BP 144/82
[2017-08-17 06:52] LABS: CALCIUM 8.9 mg/dl (8.5-10.1); CREATININE 0.55 mg/dl (0.60-1.20); POTASSIUM 3.9 mmol/L (3.5-5.1)
[2017-08-17 06:59] LABS: HEMOGLOBIN 8.2 g/dL (12.0-16.0); LYMPH % 95.5 %; LYMPH ABS # 0.64 K/uL (1.2-3.4); MEAN CELL VOLUME 79.3 fL (80-100); MEAN CORPUSCULAR HEMOGLOBIN 28.3 pg (25-34); MEAN CORPUSCULAR HGB CONC 35.7 g/dl (32-36); MEAN PLATELET VOLUME 9.1 fL (7.4-10.4); MONO ABS # 0.02 K/uL (0.11-0.59); NEUT % 1.5 %; NEUT ABS # 0.01 K/uL (1.4-6.5); PLATELET COUNT 4 K/uL (130-400); RED CELL DISTRIBUTION WIDTH CV 12.7 % (11.5-14.5); RED CELL DISTRIBUTION WIDTH SD 36.9 fL (36.4-46.3); WHITE BLOOD COUNT 0.67 K/uL (4.8-10.8)
[2017-08-17 07:43] VITALS: BP 138/70; PULSE 69; TEMP 36.6; O2SAT 97
--- NOTE | 2017-08-17 07:55 | NUR ---
A: Daughter called in for update, informed daughter that patient had a good night, VSS, no events. Daugther asked that patient have an Xray of LLE r/t swelling. Daughter stated that patient might be discharged to home today. This RN assured Daughter that I would speak with Dr. Garcia and obtain xray this morning.
[2017-08-17] MEDS: POTASSIUM CHLORIDE 20 MEQ TABCR PO SCH (08:00)
[2017-08-17] MEDS: CEROVITE ADV FORMULA TAB PO SCH (08:00)
[2017-08-17] MEDS: CHOLECALCIFEROL 400 INTER.UNIT TAB PO SCH (08:09)
[2017-08-17] MEDS: DOCUSATE SODIUM 100 MG CAP PO SCH (08:09)
[2017-08-17] MEDS: SENNA 8.6 MG TAB PO SCH (08:09)
[2017-08-17] MEDS: AMLODIPINE BESYLATE 5 MG TAB PO SCH (08:09)
[2017-08-17] MEDS: MAGNESIUM OXIDE 400 MG TAB PO SCH (08:10)
[2017-08-17] MEDS: THIAMINE HCL 100 MG TAB PO SCH (08:10)
[2017-08-17] MEDS: METOPROLOL SUCC 50MG EXT REL TAB PO SCH (08:10)
[2017-08-17] MEDS: POLYETHYLENE (MIRALAX) 17 GM PACK PO SCH (08:11)
[2017-08-17] MEDS: CARBAMIDE PEROXIDE 6.5% 15 ML BTL OT SCH (08:11)
[2017-08-17] MEDS: SODIUM CHLORIDE 0.9% 10ML FLUSH IV SCH ×2 (08:11→14:20)
[2017-08-17] MEDS: LEValbuterol HFA 15GM INHALER INH SCH (08:11)
[2017-08-17] MEDS ORDERED: LORATADINE 10 MG TAB PO ONE (08:15)
[2017-08-17] MEDS: ALPRAZOLAM 0.5 MG TAB PO SCH (08:15)
--- NOTE | 2017-08-17 09:00 | NUR ---
A: Daughter called asking for update. Concerned that patient has not called her. Explained to Daughter that at this time patient patient has IV Team, and nursing at bedside to hang platelets, as well as Xray waiting to take an Xray of LLE. Daughter verbalized understand, I explained that this RN will have patient call as soon as procedures are completed. Daughter abruptly hung up on this RN.
[2017-08-17 09:34] VITALS: BP 158/78; PULSE 76; TEMP 36.2
--- NOTE | 2017-08-17 09:38 | DIAGNOSTIC IMAGING REPORT ---
L TIBIA/FIBULA 2 VIEWS ROUTINE CLINICAL HISTORY: Left lower extremity pain COMPARISON: None. DISCUSSION: No fractures are visualized. No destructive lesions are delineated. The bones are mildly osteopenic. There are no suspicious areas of periostitis. IMPRESSION: No significant bony abnormalities. Electronically signed by: Claudio Crareon M.D. 08/17/2017 9:37 AM Dictated Date/Time: 08/17/2017 9:36 AM
--- NOTE | 2017-08-17 09:54 | Progress Note ---
Subjective Date of Service: Aug 17, 2017. Subjective Pt evaluation today including: conversation w/ patient, physical exam, lab review, review of studies, review of inpatient medication list Saw/examined the patient in room 406 She's doing okay, somewhat anxious, hard of hearing No pain, no other issues to note Problem List Medical Problems: (1) Abnormal LFTs Status: Acute (2) Dehydration Status: Acute (3) Ear canal abrasion Status: Acute (4) Hyponatremia Status: Acute (5) Influenza A Status: Acute (6) Low back pain Status: Acute (7) Lumbar spine strain Status: Acute (8) Nasal bleeding Status: Acute (9) Neutropenia Status: Acute (10) Neutropenic fever Status: Acute (11) Neutropenic fever Status: Acute (12) Pancytopenia Status: Acute (13) Pneumonia Status: Acute (14) Rib contusion Status: Acute (15) Thrombocytopenia Status: Acute (16) Thrombocytopenia Status: Acute (17) Thrombocytopenia Status: Acute Medications Current Inpatient Medications Medications (Trade) Dose Ordered Sig/Giuseppe Route Start Time Stop Time Status Last Admin Dose Admin Ondansetron HCl (Zofran Inj) 4 mg Q6H PRN IV 08/08/17 14:00 09/07/17 13:59 08/12/17 02:48 4 MG Cholecalciferol (Vitamin D Tab) 400 inter.unit DAILY PO 08/09/17 08:00 09/08/17 07:59 08/17/17 08:09 400 INTER.UNIT Dicyclomine HCl (Bentyl Cap) 10 mg QID PRN PO 08/08/17 15:45 09/07/17 15:44 Docusate Sodium (coLACE CAP) 100 mg BID PRN PO 08/08/17 15:45 09/07/17 15:44 08/11/17 07:58 100 MG Levalbuterol (Xopenex Hfa Inhaler) 1 puffs BID INH 08/08/17 20:00 09/07/17 19:59 08/17/17 08:11 1 PUFFS Levothyroxine Sodium (Synthroid Tab) 75 mcg DAILYBB PO 08/09/17 06:00 09/08/17 06:29 08/17/17 05:27 75 MCG Magnesium Oxide (Mag-Ox Tab) 400 mg BID PO 08/08/17 20:00 09/07/17 19:59 12/24/17 08:10 400 MG Metoprolol Succinate (Toprol Xl Tab) 50 mg BID PO 08/08/17 20:00 09/07/17 19:59 08/17/17 08:10 50 MG Multivitamins/ Minerals (Multivitamin W/ Minerals Tab) 1 tab DAILY PO 08/09/17 08:00 09/08/17 07:59 08/16/17 08:12 1 TAB Potassium Chloride (Klor-Con Tab) 20 meq DAILY PO 08/09/17 08:00 09/08/17 07:59 08/16/17 08:11 20 MEQ Sodium Chloride (Sodium Chloride 0.9% 10 ml Flush) 10 ml TID IV 08/08/17 20:00 09/07/17 19:59 08/17/17 08:11 10 ML Thiamine HCl (Vitamin B-1 Tab) 100 mg DAILY PO 08/09/17 08:00 09/08/17 07:59 08/17/17 08:10 100 MG Pantoprazole Sodium (Protonix Tab) 40 mg DAILY PRN PO 08/08/17 15:45 09/07/17 15:44 08/10/17 10:04 40 MG Cefepime HCl (Consult) 1 ea UD PRN N/A 08/08/17 16:15 09/07/17 16:14 Clonidine HCl (Catapres Tab) 0.1 mg Q6 PRN PO 08/08/17 19:15 09/07/17 19:14 08/16/17 00:33 0.1 MG Acetaminophen (Tylenol Tab) 650 mg Q4H PRN PO 08/09/17 18:30 09/08/17 18:29 08/15/17 10:33 650 MG Albuterol/ Ipratropium (Duoneb) 3 ml Q2H PRN INH 08/10/17 19:45 09/09/17 19:44 Amlodipine Besylate (Norvasc Tab) 5 mg QAM PO 08/12/17 09:00 09/11/17 08:59 08/17/17 08:09 5 MG Polyethylene (Miralax Powder Packet) 17 gm BID PO 08/12/17 09:00 09/09/17 16:59 08/17/17 08:11 17 GM Docusate Sodium (coLACE CAP) 100 mg BID PO 08/12/17 09:00 09/11/17 08:59 08/17/17 08:09 100 MG Senna (Senokot Tab) 8.6 mg QAM PO 08/12/17 09:00 18 08:59 08/17/17 08:09 8.6 MG Tramadol HCl (Ultram Tab) hold for sedation/ confusion pain not relieved... Q6 PRN PO 08/12/17 00:00 09/07/17 17:59 08/17/17 05:26 50 MG Cefepime HCl 2000 mg/Syringe 20 ml @ 5 mls/min Q12H IV 08/13/17 16:00 08/17/17 15:59 08/17/17 05:26 5 MLS/MIN Alprazolam (Xanax Tab) 1 mg BID PO 08/13/17 15:30 09/07/17 19:59 08/17/17 08:15 1 MG Carbamide Peroxide (Earwax Removal Soln) 2 drops BID OT 08/15/17 17:30 08/18/17 13:44 08/17/17 08:11 2 DROPS Objective Vital Signs Date Time Temp Pulse Resp B/P (MAP) Pulse Ox O2 Delivery O2 Flow Rate FiO2 08/17/17 09:34 36.2 76 18 158/78 08/17/17 07:43 36.6 69 20 138/70 (92) 97 Room Air 08/17/17 05:39 144/82 (102) 08/16/17 23:51 Room Air 08/16/17 20:31 78 138/68 (91) 08/16/17 20:20 Room Air 08/16/17 17:30 Room Air 08/16/17 15:04 36.4 83 18 142/68 (92) 94 Room Air 08/16/17 12:42 150/60 (90) 08/16/17 11:56 Room Air Physical Exam General Appearance: + mild distress (secondary to anxiety) Respiratory/Chest: lungs clear, normal breath sounds, no respiratory distress, no accessory muscle use Cardiovascular: regular rate, rhythm, no edema, no murmur Neurologic/Psychiatric: no motor/sensory deficits, alert, normal mood/affect Laboratory Results Last 24 Hours Test 08/16/17 12:55 08/17/17 05:36 Hemoglobin 8.8 g/dL 8.2 g/dL Hematocrit 23.8 % 23.0 % White Blood Count 0.67 K/uL Red Blood Count 2.90 M/uL Mean Corpuscular Volume 79.3 fL Mean Corpuscular Hemoglobin 28.3 pg Mean Corpuscular Hemoglobin Concent 35.7 g/dl Platelet Count 4 K/uL Mean Platelet Volume 9.1 fL Neutrophils (%) (Auto) 1.5 % Lymphocytes (%) (Auto) 95.5 % Monocytes (%) (Auto) 3.0 % Eosinophils (%) (Auto) 0.0 % Basophils (%) (Auto) 0.0 % Neutrophils # (Auto) 0.01 K/uL Lymphocytes # (Auto) 0.64 K/uL Monocytes # (Auto) 0.02 K/uL Eosinophils # (Auto) 0.00 K/uL Basophils # (Auto) 0.00 K/uL RDW Standard Deviation 36.9 fL RDW Coefficient of Variation 12.7 % Immature Granulocyte % (Auto) 0.0 % Immature Granulocyte # (Auto) 0.00 K/uL Sodium Level 133 mmol/L Potassium Level 3.9 mmol/L Chloride Level 98 mmol/L Carbon Dioxide Level 31 mmol/L Anion Gap 4.0 mmol/L Blood Urea Nitrogen 19 mg/dl Creatinine 0.55 mg/dl Est Creatinine Clear Calc Drug Dose 68.9 ml/min Estimated GFR () 98.4 Estimated GFR (Non- 84.9 BUN/Creatinine Ratio 35.2 Random Glucose 123 mg/dl Calcium Level 8.9 mg/dl Assessment and Plan This is an 87yo F with complicated past medical hx of aplastic anemia ; secondary to myelodysplastic syndrome , diastolic CHF, A Fib, HTN, recurrent UTIs -presented with subjective fever , urinary symptom Altered Mental Status 08/07 plan for transfusion of platelets today with Claritin continue Xanax continue Cefepime until d/c plan to d/c home today if patient can ambulate well 08/16 she is feeling much better continue Xanax 1mg BID continue Cefepime 08/15 giving Xanax 1mg BID; occasionally needing 0.5mg in the afternoon Head CT was negative, ammonia level is not high cultures pending continue Cefepime 08/14 possibly metabolic encephalopathy will check a repeat head CT recheck cultures check an ammonia level continue Xanax BID; benzo withdrawal? RECURRENT UTI/PSEUDOMONAS INFECTION 08/14 will continue Cefepime recheck blood cultures + UA and urine culture 08/13 appreciate ID input continue current medications for now Cefepime for 7 total days Daughter insists this should be for 14 days 08/12 continue current IV abx. appreciate ID input monitor cultures PICC line in place 08/11 -Present on admission, h/o recurrent UTIs Urine culture 06/2017 -Citrobacter /Klebsiella -Most recent urine culture Early July: grew pseudomonas and Enterococcus faecium -Completed 7d course of Cefepime and 3 days of IV Vanc in last admission -urine culture 08/08/17 -gram negative bacilli /Pseudomonas -on IV cefepime and vancomycin --ID consulted , appreciate input Daughter insists pt should be discharged at home with iV Abx ( has PICC line already ) she is convinced that pt's previous UTI was not adequately treated as IV Abx was not continued at home Pancytopenia/severe thrombocytopenia: 08/16 WBC is at baseline, around 0.79 today H/H repeated this afternoon - shows Hgb is 8.8 platelets are >18 Plan is to ambulate the patient in the hallways if pain controlled, and mentally improved, discharge in 1-2 days 08/15 given another transfusion of pRBCs this AM; Lasix 10mg afterwards will transfuse one unit of platelets with Claritin prior to the platelet transfusion 08/14 platelets at around 11k, which is closer to baseline 08/13 transfusing one unit platelets monitor platelets 08/12 appreciate Hem/Onc input platelets and WBC stable neutropenic precautions thrombocytopenia monitor poor prognosis plan for [place] f/u next week -2/2 Hypoplastic Bone Marrow, MDS -Hgb of 9 today after 1 u prbcs transfused -Platelet count improved form 3 K -> 11 K dropped to 2 K no bleeding episode received 2 units of platelet tx D/w with [place] hematology -pt is completely transfusion dependent recommend continue platelet tx till 10 K to prevent spontaneous bleeding very poor prognosis pt is scheduled to follow up at [facility] on 08/20/17 for second opinion for her tx of refractory Myelodysplastic syndrome PNEUMONIA -Patient with SOB, fatigue, nasal congestion -CXR with developing interstitial infiltrate in left lung base. Small pleural effusion in R lung (improved from last admission) -Broad coverage abx -Vancomycin /Cefepime -Cont home inhalers -Blood cultures ordered Hypertension: -Normotensive -Continue home dose Metoprolol and PRN Clonidine Paroxysmal atrial fibrillation: -Asymptomatic -Continue Metoprolol -No anticoagulation 2/2 thrombocytopenia -Monitor on tele Chronic diastolic CHF: -Dry on exam, will hold daily lasix -No signs of fluid overload Hypothyroidism: -Cont home dose levothyroxine DNI DISPOSITION PT/OT EVAL prior to discharge active with [facility] daughter updated at bedside Medicine follow up with Dr Umana
--- NOTE | 2017-08-17 10:15 | NUR ---
A: Daughter called, upset. Patient called her by phone and said that noone was coming to help her and that she needed to go to the bathroom. This RN was sitting next to the call alas system and noted that patients callbell was on for 45 seconds at the time this was stated to me. Daughter stated "I am worried about her and now I can't go to [facility] because I have to be there". This RN attempted to explain that I would go into the room to help the patient, however daughter abruptly hung up on this RN.
--- NOTE | 2017-08-17 10:35 | NUR ---
A: Daughter called by patient, this RN was at bedside. Patient stated she was cold and needed water. provided new ice water and blankets to patient. Upon reentry to room daughter requested to speak to me. Daughter stated that patient needed to use the bathroom, This RN assured daughter that I would tend to the patients needs at this time, this RN encouraged daughter to go to [facility] and get things in order for patient to be discharged and to take her time. Daughter thanked this RN and appologized for hanging up the phone and for getting upset. Patient taken to bathroom by this RN and Pat RN. Patient encouraged to ambulate and be oob to chair for lunch.
--- NOTE | 2017-08-17 12:55 | NUR ---
A: Daughter called in, left room approx. 20 minutes ago. Daughter asked that Dr. Garcia call and speak with her. I explained that I would speak with Dr. Garcia and let him know. Daughter states she was going to go food shopping and then come back to the hospital.
[2017-08-17 15:37] LABS: HEMATOCRIT 22.7 % (37-47); HEMOGLOBIN 8.3 g/dL (12.0-16.0); MEAN CELL VOLUME 79.4 fL (80-100); MEAN CORPUSCULAR HGB CONC 36.6 g/dl (32-36); MEAN PLATELET VOLUME 8.4 fL (7.4-10.4); PLATELET COUNT 38 K/uL (130-400); RED CELL DISTRIBUTION WIDTH CV 12.7 % (11.5-14.5); WHITE BLOOD COUNT 0.75 K/uL (4.8-10.8)
[2017-08-17 15:59] LABS: LYMPH ABS # 0.69 K/uL (1.2-3.4); MONO % 1.3 %; MONO ABS # 0.01 K/uL (0.11-0.59); NEUT % 6.7 %; NEUT ABS # 0.05 K/uL (1.4-6.5)
--- NOTE | 2017-08-17 16:00 | NUR ---
A: Called from main hospital switchboard. Patients daughter called switchboard and requested Dr. Garcia be paged overhead to come see the patient. [facility] recently with results. Dr. Garcia notified at [phone], he will be up to see patient as soon as possible.
[2017-08-17] MEDS ORDERED: CARB1SOL9 OT (16:26)
--- NOTE | 2017-08-17 16:28 | Discharge Instructions ---
Discharge Instructions Date of Service Aug 17, 2017. Admission Reason for Admission: Pancytopenia, Uti Discharge Discharge Diagnosis / Problem: Aplastic Anemia, Pancytopenia, UTI Discharge Goals Goal(s): Decrease discomfort, Improve function, Diagnostic testing, Therapeutic intervention Activity Recommendations Activity Limitations: resume your previous activity . Instructions / Follow-Up Instructions / Follow-Up Please follow-up with your primary care physician You should follow-up with [facility] for further management of aplastic anemia Current Hospital Diet Patient's current hospital diet: AHA Diet (Heart Healthy) Discharge Diet Recommended Diet: AHA Diet (Heart Healthy) Pending Studies Studies pending at discharge: no Laboratory Results Hemoglobin A1c Test 07/25/17 07:59 Range/Units Estimated Average Glucose 131 mg/dl Hemoglobin A1c 6.2 H 4.5-5.6 % Medical Emergencies . Who to Call and When: Medical Emergencies: If at any time you feel your situation is an emergency, please call 911 immediately. . Non-Emergent Contact Non-Emergency issues call your: Primary Care Provider . . "Provider Documentation" section prepared by Luanne Garcia. . VTE Core Measure Inpt VTE Proph given/why not?: SCD's
--- NOTE | 2017-08-17 16:34 | Discharge Summary ---
Discharge Summary Date of Service Aug 17, 2017. Discharge Summary Admission Date: Aug 08, 2017 at 13:59 Discharge Date: Aug 17, 2017 Discharge Disposition: Home with services Principal Diagnosis: Aplastic Anemia Thrombocytopenia UTI Medication Reconciliation New Medications: Carbamide Peroxide (Otic) (Eq Ear Wax Removal Aid) 6.5 % Amber 2 DROPS OT BID for 7 Days, #1 BTL Continued Medications: Acetaminophen (Tylenol) 500 Mg Tab 500 MG PO Q6 PRN for Pain Alprazolam (Xanax) 1 Mg Tab 1 MG PO BID Cholecalciferol (Vitamin D 400 Iu) 400 Unit Cap 400 INTER.UNIT PO DAILY, CAP Clotrimazole (Mycelex) 10 Mg Tro 10 MG MT UD 5 TIMES DAILY X14 DAYS Cranberry (Vaccinium Macrocarp (Cranberry) 125 Mg Tab 1 TAB PO DAILY Cyclosporine (Ophth) (Restasis) 0.05 % Emu 1 DROP OPB DAILY, #60 Dicyclomine Hcl (Bentyl) 10 Mg Cap 10 MG PO QID PRN for abdominal pain, CAP Docusate Sodium (Docusate Sodium) 100 Mg Cap 100 MG PO BID PRN for Constipation Esomeprazole Magnesium (Nexium) 40 Mg Capcr 40 MG PO DAILY PRN for Heartburn TAKE 40MG DAILY ONE HOUR BEFORE FIRST MEAL OF THE DAY Furosemide (Furosemide) 20 Mg Tab 20 MG PO Q2D@0900 for 30 Days, #15 TAB 1 Refill Levalbuterol Tartrate (Levalbuterol Tartrate Hfa) 45 Mcg/Act Aer 1 PUFF PO BID Levothyroxine Sodium (Levothyroxine Sodium) 75 Mcg Tab 75 MCG PO QPM Magnesium Oxide (Mag-Ox) 400 Mg Tab 400 MG PO BID Metoprolol Succinate (Metoprolol Succinate ER) 50 Mg Tabcr 50 MG PO BID Multivitamins/Minerals (Mvi With Minerals) Tab 1 TAB PO DAILY Polyethylene Glycol 3350 (Polyethylene Glycol 3350) 1 Pow Pow 17 GM PO DAILY DISSOLVE IN 8 OZ LIQUID DAILY. Potassium Ext Rel (Klor-Con) 20 Meq Tabcr 20 MEQ PO DAILY, TAB Sodium Chloride Flush (Normal Saline Flush) 0.9 % Inj 10 ML IV. 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 Earlier this week, patient was seen by Dr. Umana for most recent hospital follow and labwork was obtained. Patient was given 1 unit prbcs yesterday in the hope that she would feel well enough to go to hematology appt in [place] today for a second opinion (already followed closely by Dr. Miles in [place]). Unfortunately, patient started to experience worsening fatigue, dizziness and urinary symptoms yesterday so daughter brought her to [facility] ED for further evaluation. States that patient had a low grade fever yesterday. Patient has been admitted multiple times this fall for neutropenic fever and recurrent UTIs, most recently from 07/24-07/31. Most recent urine culture grew pseudomonas and enterococcus and was treated with 7 days of cefepime and 3 days of vancomycin. Blood culture was negative. Course was complicated by significant pancytopenia with severe thrombocytopenia. Received transfusions of prbcs and platelets during admission. The hospitalist discussed the case [place] gas meter reader (Dr. Miles), who recommended discontinuing Neupogen due to lack of response. Additionally, it was recommended to hold Promacta in the setting of elevated LFTs. Currently endorses nasal congestion, SOB, dizziness and fatigue. Denies chills, sore throat, sinus pain, chest pain, abd pain, nausea, vomiting, LE swelling. No evidence of active bleeding. Physical Exam (per Admitting): General Appearance: + mild distress, + pertinent finding (Chronically ill appearing, pale, breathing comfortably on NC O2) Head: normocephalic, atraumatic Eyes: normal inspection, PERRL, sclerae normal ENT: hearing grossly normal, pharynx normal (dry mucous membranes ), + nasal congestion Neck: supple, no JVD, trachea midline Respiratory/Chest: chest non-tender, normal breath sounds, no respiratory distress, no accessory muscle use, + crackles (Bibasilar crackles. Otherwise clear) Cardiovascular: no murmur, normal peripheral pulses, + irregularly irregular , + pertinent finding (no LE edema) Abdomen/GI: non tender, soft, no organomegaly Back: normal inspection Extremities/Musculoskelatal: normal inspection, no calf tenderness, no pedal edema Neurologic/Psych: no motor/sensory deficits, alert, normal mood/affect, oriented x 3 Skin: normal color, warm/dry Hospital Course This is an 87yo F with complicated past medical hx of aplastic anemia ; secondary to myelodysplastic syndrome , diastolic CHF, A Fib, HTN, recurrent UTIs -presented with subjective fever , urinary symptom Altered Mental Status 08/07 plan for transfusion of platelets today with Claritin continue Xanax continue Cefepime until d/c plan to d/c home today if patient can ambulate well 08/16 she is feeling much better continue Xanax 1mg BID continue Cefepime 08/15 giving Xanax 1mg BID; occasionally needing 0.5mg in the afternoon Head CT was negative, ammonia level is not high cultures pending continue Cefepime 08/14 possibly metabolic encephalopathy will check a repeat head CT recheck cultures check an ammonia level continue Xanax BID; benzo withdrawal? RECURRENT UTI/PSEUDOMONAS INFECTION 08/14 will continue Cefepime recheck blood cultures + UA and urine culture 08/13 appreciate ID input continue current medications for now Cefepime for 7 total days Daughter insists this should be for 14 days 08/12 continue current IV abx. appreciate ID input monitor cultures PICC line in place 08/11 -Present on admission, h/o recurrent UTIs Urine culture 06/2017 -Citrobacter /Klebsiella -Most recent urine culture Early July: grew pseudomonas and Enterococcus faecium -Completed 7d course of Cefepime and 3 days of IV Vanc in last admission -urine culture 08/08/17 -gram negative bacilli /Pseudomonas -on IV cefepime and vancomycin --ID consulted , appreciate input Daughter insists pt should be discharged at home with iV Abx ( has PICC line already ) she is convinced that pt's previous UTI was not adequately treated as IV Abx was not continued at home Pancytopenia/severe thrombocytopenia: 08/16 WBC is at baseline, around 0.79 today H/H repeated this afternoon - shows Hgb is 8.8 platelets are >18 Plan is to ambulate the patient in the hallways if pain controlled, and mentally improved, discharge in 1-2 days 08/15 given another transfusion of pRBCs this AM; Lasix 10mg afterwards will transfuse one unit of platelets with Claritin prior to the platelet transfusion 08/14 platelets at around 11k, which is closer to baseline 08/13 transfusing one unit platelets monitor platelets 08/12 appreciate Hem/Onc input platelets and WBC stable neutropenic precautions thrombocytopenia monitor poor prognosis plan for Roseann f/u next week -2/2 Hypoplastic Bone Marrow, MDS -Hgb of 9 today after 1 u prbcs transfused -Platelet count improved form 3 K -> 11 K dropped to 2 K no bleeding episode received 2 units of platelet tx D/w with [place] hematology -pt is completely transfusion dependent recommend continue platelet tx till 10 K to prevent spontaneous bleeding very poor prognosis pt is scheduled to follow up at [facility] on 08/20/17 for second opinion for her tx of refractory Myelodysplastic syndrome PNEUMONIA -Patient with SOB, fatigue, nasal congestion -CXR with developing interstitial infiltrate in left lung base. Small pleural effusion in R lung (improved from last admission) -Broad coverage abx -Vancomycin /Cefepime -Cont home inhalers -Blood cultures ordered Hypertension: -Normotensive -Continue home dose Metoprolol and PRN Clonidine Paroxysmal atrial fibrillation: -Asymptomatic -Continue Metoprolol -No anticoagulation 2/2 thrombocytopenia -Monitor on tele Chronic diastolic CHF: -Dry on exam, will hold daily lasix -No signs of fluid overload Hypothyroidism: -Cont home dose levothyroxine DNI DISPOSITION PT/OT EVAL prior to discharge active with [facility] daughter updated at bedside Medicine follow up with Dr Umana Total time spent on discharge = 50 minutes This includes examination of the patient, discharge planning, medication reconciliation, and communication with other providers. Discharge Instructions Please follow-up with your primary care physician You should follow-up with [facility] for further management of aplastic anemia
[2017-08-17 16:35] VITALS: BP 158/78; PULSE 76; TEMP 36.2; O2SAT 97
--- NOTE | 2017-08-17 17:28 | NUR ---
NURSE NOTE: DISCHARGE APPROX 1715 - WRITTEN DISCHARGE INSTRUCTIONS PROVIDED - DAUGHTER SIGNED AND AT BEDSIDE ASSISTS WITH PERSONAL BELONGINGS BEING COLLECTED - DISCUSSED D/C INSTRUCTIONS WITH DAUGHTER - ENCOURAGED QUESTIONS - D/C IN WHEEL CHAIR WITH [facility] [facility] INST[employer]ER - PT CONFUSED - CHILKAT - HEAR AIDES IN EARS - RA SATS WNL - LUNGS DIMINISHED - BS+ - VIT PRIOR TO D/C - WEARS DEPENDS - PICC LINE (2 LUMEN) IN - IV TEAM FLUSHED WITH NSS AND CHANGED DRESSING PRIOR TO LEAVING - PT WEARING HARLEY STOCKINGS (PERSONAL) DAUGHTER DRESSED PT - COAT ON - WRM BLANKETS - SENT INHALER AND EAR DROPS WITH DAUGHTER -
--- NOTE | 2017-08-19 08:06 | NUR ---
Case Management: This pt had been on medical floor and transferred to [facility]. Pt discharged on 08/17. Pt was being followed by [facility]. Faxed copy of discharge instructions to [facility].
[2017-08-22] MEDS ORDERED: CEFD1CAP14 PO (09:24)
== END 2017-08-17 17:15 | disposition home health service (06) | DRG 193 ==
LOC: EDBD 09:12 → C.EDB 09:13 → UNDOADMIN 13:59 → C.4E 13:59 → ENRESERV 14:21 → C.2T 22:00 → C.4E 22:00 → ENRESERV 08-13 16:46 → C.MS2W 08-13 17:58 → C.4E 08-15 17:51
PROVIDERS: ADMIT Family Medicine; ATTEND Family Medicine
DX: J18.9 Pneumonia, unspecified organism (principal); G93.41 Metabolic encephalopathy; I50.32 Chronic diastolic (congestive) heart failure; N39.0 Urinary tract infection, site not specified; D61.818 Other pancytopenia; D46.9 Myelodysplastic syndrome, unspecified; I48.0 Paroxysmal atrial fibrillation; J44.9 Chronic obstructive pulmonary disease, unspecified; I11.0 Hypertensive heart disease with heart failure; E03.9 Hypothyroidism, unspecified; I25.10 Atherosclerotic heart disease of native coronary artery without angina pectoris; B96.5 Pseudomonas (aeruginosa) (mallei) (pseudomallei) as the cause of diseases classified elsewhere; Z79.899 Other long term (current) drug therapy; Z91.041 Radiographic dye allergy status; Z88.1 Allergy status to other antibiotic agents; Z88.2 Allergy status to sulfonamides; Z88.6 Allergy status to analgesic agent

== ENCOUNTER 2017-09-07 17:32 | Observation (INO) | payer OTHER, BC ==
[~2017-09-07] VITALS: Ht 162.6 cm; Wt 66.7 kg
[~2017-09-07 17:32] MED LIST changes: -ALPR-411 PO; -CHOL400T PO; -CIPR-255 PO; -FURO-85 PO; -MELATAB2 PO; -MULT15TA2 PO
--- NOTE | 2017-09-07 18:13 | EMERGENCY ROOM VISIT NOTE ---
History Report prepared by Larry: Bebeto Tovar Under the Supervision of: Dr. Bernard Cohen M.D. First contact with patient: 17:43 Chief Complaint: ABNORMAL LABS Stated Complaint: LOW PLATELET AND LOW BLOOD History of Present Illness The patient is a 87 year old female who presents to the Emergency Room with complaints of low platelet and blood counts prior to arrival. Patient is present with her daughter. Patient states that she at our hospital earlier today for blood work. She states when she got home from her visit, she became dyspneic going up the stairs. She states that her baseline is not usually dyspneic going up stairs. She states that her doctor then called and told her that her blood count was low. Patient has associated symptoms of worsening dizziness. She denies chest pain, fever, vomiting, melena, or hematochezia. She states she has been at [facility] in [place] recently for bladder infections. Daughter adds that four days ago the patient had a thoracentesis procedure done on her right lung. She states she is currently taking Cipro. Patient adds that she has a PICC line. I spoke with the patient's manager therapy-oncologist from [facility] in [place]. She recommended giving the patient blood and platelets if her counts are actually as low as stated. Source of History: patient, family (Mother) Onset: Prior to arrival Position: other (Global) Modifying Factors (Relieving): other (None) Associated Symptoms: No fevers, No chest pain, No vomiting, No hematochezia Note: Patient has dizziness. Review of Systems See HPI for pertinent positives & negatives. A total of 10 systems reviewed and were otherwise negative. Past Medical & Surgical Medical Problems: (1) Anemia (2) Atrial fibrillation (3) Complicated UTI (urinary tract infection) (4) COPD (chronic obstructive pulmonary disease) (5) Coronary Atherosclerosis Of [place]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 (6) Hypertension Nos (7) Hypothyroidism Nos (8) ITP (idiopathic thrombocytopenic purpura) (9) Myalgia and myositis (10) Osteoporosis Nos (11) Pancytopenia (12) Premature atrial contractions (13) Pulmonary nodules (14) Sepsis (15) UTI (urinary tract infection) Surgical Problems: (1) History of cataract surgery (2) S/P hernia repair (3) S/P hysterectomy (4) S/p repair of cystocele (5) S/P tonsillectomy and adenoidectomy Family History Asthma DAUGHTER Social History Smoking Status: Never Smoker Alcohol Use: none Drug Use: none Marital Status: single Housing Status: lives with family Occupation Status: retired Current/Historical Medications Scheduled Alprazolam (Xanax), 1 MG PO BID Carbamide Peroxide (Otic) (Eq Ear Wax Removal Aid), 2 DROPS OT BID Cefdinir (Omnicef), 300 MG PO DAILY Cholecalciferol (Vitamin D 400 Iu), 400 INTER.UNIT PO DAILY Clotrimazole (Mycelex), 10 MG MT UD Cranberry (Vaccinium Macrocarp (Cranberry), 1 TAB PO DAILY Cyclosporine (Ophth) (Restasis), 1 DROP OPB DAILY Furosemide (Furosemide), 20 MG PO Q2D@0900 Levalbuterol Tartrate (Levalbuterol Tartrate Hfa), 1 PUFF PO BID Levothyroxine Sodium (Levothyroxine Sodium), 75 MCG PO QPM Magnesium Oxide (Mag-Ox), 400 MG PO BID Metoprolol Succinate (Metoprolol Succinate ER), 50 MG PO BID Multivitamins/Minerals (Mvi With Minerals), 1 TAB PO DAILY Polyethylene Glycol 3350 (Polyethylene Glycol 3350), 17 GM PO DAILY Potassium Ext Rel (Klor-Con), 20 MEQ PO DAILY Sodium Chloride Flush (Normal Saline Flush), 10 ML IV. TID Thiamine Hcl (Vitamin B-1), 100 MG PO DAILY Tramadol (Ultram), 50 MG PO Q6 [Multivital], 1 TAB PO DAILY Scheduled PRN Acetaminophen (Tylenol), 500 MG PO Q6 PRN for Pain Dicyclomine Hcl (Bentyl), 10 MG PO QID PRN for abdominal pain Docusate Sodium (Docusate Sodium), 100 MG PO BID PRN for Constipation Esomeprazole Magnesium (Nexium), 40 MG PO DAILY PRN for Heartburn Allergies Coded Allergies: Iodinated Diagnostic Agents (Verified Allergy, Intermediate, HIVES WITH IVP DYE, 08/21/17) Sulfa Antibiotics (Verified Allergy, Intermediate, RASH, 08/21/17) Amoxicillin (Verified Allergy, Mild, RASH, Zosyn tolerated [id number] ADM, 08/21/17) Clavulanic Acid (Verified Allergy, Mild, RASH, Zosyn tolerated [id number] ADM, 08/21/17) Diphenhydramine (Verified Allergy, Unknown, 0, 08/21/17) sick Codeine (Verified Adverse Reaction, Intermediate, NAUSEA/VOMITING, ) Morphine (Verified Adverse Reaction, Intermediate, NAUSEA/VOMITING, ) Oxycodone (Verified Adverse Reaction, Intermediate, NAUSEA/VOMITING, 08/21) Rofecoxib (Verified Adverse Reaction, Intermediate, PALPITATIONS, 08/21/17 ) Morphine and Related (Verified Adverse Reaction, Mild, GI SYMPTOMS, ) Physical Exam Vital Signs Date Time Temp Pulse Resp B/P (MAP) Pulse Ox O2 Delivery O2 Flow Rate FiO2 09/07/17 19:39 36.7 73 17 190/82 98 09/07/17 17:40 36.2 65 16 161/57 95 Room Air Physical Exam GENERAL: Patient is in no acute distress. HEENT: No acute trauma, normocephalic atraumatic, mucous membranes moist, no nasal congestion, no scleral icterus. NECK: No stridor, no adenopathy, no meningismus, trachea is midline. LUNGS: Clear to auscultation bilaterally, no wheeze, no rhonchi, breath sounds equal. HEART: 2/6 systolic murmur with regular rate and rhythm CHEST: Right posterior chest is bandaged consistent with the recent thoracentesis ABDOMEN: Soft, nontender, bowel sounds positive, no hernias, no peritonitis. EXTREMITIES: No cyanosis, mild bilateral pedal edema, full range of motion of all the joints without pain or difficulty, no signs for acute trauma. NEUROLOGIC: Oriented x 3, no acute motor or sensory deficits, no focal weakness. SKIN: Pale, no rash, no jaundice, no diaphoresis. Medical Decision & Procedures Laboratory Results 09/07/17 18:20 Red Blood Count 2.59, Mean Corpuscular Volume 76.8, Mean Corpuscular Hemoglobin 27.8, Mean Corpuscular Hemoglobin Concent 36.2, Neutrophils (%) (Auto) 2.8, Lymphocytes (%) (Auto) 97.2, Monocytes (%) (Auto) 0.0, Eosinophils (%) (Auto) 0.0, Basophils (%) (Auto) 0.0, Neutrophils # (Auto) 0.02, Lymphocytes # (Auto) 0.69, Monocytes # (Auto) 0.00, Eosinophils # (Auto) 0.00, Basophils # (Auto) 0.00 09/07/17 18:20 Test 09/07/17 18:20 White Blood Count 0.71 K/uL (4.8-10.8) Red Blood Count 2.59 M/uL (4.2-5.4) Hemoglobin 7.2 g/dL (12.0-16.0) Hematocrit 19.9 % (37-47) Mean Corpuscular Volume 76.8 fL (80-100) Mean Corpuscular Hemoglobin 27.8 pg (25-34) Mean Corpuscular Hemoglobin Concent 36.2 g/dl (32-36) Platelet Count 2 K/uL (130-400) Neutrophils (%) (Auto) 2.8 % Lymphocytes (%) (Auto) 97.2 % Monocytes (%) (Auto) 0.0 % Eosinophils (%) (Auto) 0.0 % Basophils (%) (Auto) 0.0 % Neutrophils # (Auto) 0.02 K/uL (1.4-6.5) Lymphocytes # (Auto) 0.69 K/uL (1.2-3.4) Monocytes # (Auto) 0.00 K/uL (0.11-0.59) Eosinophils # (Auto) 0.00 K/uL (0-0.5) Basophils # (Auto) 0.00 K/uL (0-0.2) RDW Standard Deviation 35.0 fL (36.4-46.3) RDW Coefficient of Variation 12.4 % (11.5-14.5) Immature Granulocyte % (Auto) 0.0 % Immature Granulocyte # (Auto) 0.00 K/uL (0.00-0.02) Anion Gap 8.0 mmol/L (3-11) Est Creatinine Clear Calc Drug Dose 65.6 ml/min Estimated GFR () 96.7 Estimated GFR (Non- 83.5 BUN/Creatinine Ratio 30.6 (10-20) Calcium Level 8.8 mg/dl (8.5-10.1) Troponin I < 0.015 ng/ml (0-0.045) Laboratory results reviewed by me. ECG Indication: SOB/dyspnea Rate (beats per minute): 72 Rhythm: normal sinus Findings: LBBB, no acute ischemic change ED Course 1744: The patient was evaluated in room B5. A complete history and physical exam was performed. 1929: Upon reexamination the patient will be further evaluated. I discussed results and treatment plan with the patient. She verbalizes agreement and understanding. I [place] [facility] [place] discussed the patient's results and findings. The patient will be evaluated by Dr. Zamorano for further management. Medical Decision Differential Diagnosis: Anemia, thrombocytopenia, cardiac ischemia, pneumonia, CHF The patient presents with a reported low hemoglobin and platelet count. I did review the records and she was pancytopenic with a very low hemoglobin in the range of 6, her platelet count was only 2. Repeat laboratory testing here in the ER demonstrates neutropenia which is baseline for her. Her hemoglobin was around 7, low. Her platelet count was confirmed low at 2. No significant electrolyte abnormality or kidney failure. EKG showed a sinus rhythm, no acute ischemia. Cardiac enzyme testing 1 was not consistent with acute cardiac injury. The patient is in need of packed red blood cells and platelets, both need to be irradiated. An order of platelets and a unit of packed red blood cells were written to be transfused and started while in the ER. I discussed my findings with the patient, she did consent to the blood transfusion. I talked with case management and the on-call hospitalist. She will require an overnight stay at least 2 complete the transfusions. Medication Reconcilliation Current Medication List: was personally reviewed by me Blood Pressure Screening Patient's blood pressure: Elevated blood pressure Blood pressure disposition: Referred to PCP Consults Time Called: 1805 Consulting Physician: Dr. Zamorano - [facility] [place] Returned Call: [id number] Discussed the patient's case. The patient will be evaluated for further management. Impression Primary Impression: Anemia Additional Impressions: Thrombocytopenia Neutropenia Shortness of breath Scribe Attestation The scribe's documentation has been prepared under my direction and personally reviewed by me in its entirety. I confirm that the note above accurately reflects all work, treatment, procedures, and medical decision making performed by me. Departure Information Dispostion Being Evaluated By Hospitalist Referrals No Doctor, Assigned (PCP) Forms HOME CARE DOCUMENTATION FORM, IMPORTANT VISIT INFORMATION, WORK / SCHOOL INSTRUCTIONS Patient Instructions My [facility] Problem Qualifiers
[2017-09-07 18:49] LABS: BLOOD UREA NITROGEN 18 mg/dl (7-18); CALCIUM 8.8 mg/dl (8.5-10.1); CARBON DIOXIDE 28 mmol/L (21-32); CREATININE 0.58 mg/dl (0.60-1.20); GLUCOSE 136 mg/dl (70-99); POTASSIUM 3.9 mmol/L (3.5-5.1); SODIUM 131 mmol/L (136-145)
[2017-09-07 18:50] LABS: HEMATOCRIT 19.9 % (37-47); HEMOGLOBIN 7.2 g/dL (12.0-16.0); MEAN CELL VOLUME 76.8 fL (80-100); MEAN CORPUSCULAR HEMOGLOBIN 27.8 pg (25-34); MEAN CORPUSCULAR HGB CONC 36.2 g/dl (32-36); PLATELET COUNT 2 K/uL (130-400); RED CELL DISTRIBUTION WIDTH CV 12.4 % (11.5-14.5); WHITE BLOOD COUNT 0.71 K/uL (4.8-10.8)
[2017-09-07 18:59] LABS: LYMPH % 97.2 %; LYMPH ABS # 0.69 K/uL (1.2-3.4); NEUT % 2.8 %; NEUT ABS # 0.02 K/uL (1.4-6.5)
[2017-09-07 19:39] VITALS: BP 190/82; PULSE 73; TEMP 36.7; O2SAT 98
[2017-09-07 19:45] VITALS: BP 170/68; PULSE 71; TEMP 36.7; O2SAT 97
[2017-09-07] MEDS ORDERED: CIPR-255 PO (19:59)
[2017-09-07] MEDS ORDERED: MULT15TA2 PO (19:59)
[2017-09-07] MEDS ORDERED: CHOL400T PO (19:59)
[2017-09-07] MEDS ORDERED: FURO-85 PO (19:59)
[2017-09-07] MEDS ORDERED: ALPR-411 PO ×2 (19:59)
[2017-09-07 20:00] VITALS: BP 162/66; PULSE 74; TEMP 36.7; O2SAT 95
[2017-09-07] MEDS ORDERED: ACETAMINOPHEN 325 MG TAB PO PRN (20:00)
[2017-09-07] MEDS ORDERED: ACETAMINOPHEN 325 MG TAB PO ONE (20:00)
[2017-09-07] MEDS ORDERED: POLYETHYLENE (MIRALAX) 17 GM PACK PO PRN (20:00)
[2017-09-07] MEDS ORDERED: ONDANSETRON INJ 2 MG/ML 2 ML VIAL IV PRN (20:00)
[2017-09-07 20:15] VITALS: BP 173/77; PULSE 73; TEMP 36.4; O2SAT 96
[2017-09-07] MEDS ORDERED: DICYCLOMINE HCL 10 MG CAP PO PRN (20:30)
[2017-09-07] MEDS ORDERED: LEValbuterol HFA 15GM INHALER INH PRN (20:30)
[2017-09-07] MEDS ORDERED: DOCUSATE SODIUM 100 MG CAP PO PRN (20:30)
[2017-09-07] MEDS ORDERED: FUROSEMIDE 20 MG TAB PO PRN (20:30)
--- NOTE | 2017-09-07 20:37 | History and Physical ---
History & Physical Date & Time of Service: Sep 07, 2017 at 19:56 Chief Complaint: Low Platelet And Low Blood Primary Care Physician: Dionisio Umana M.D. History of Present Illness Source: patient, family, clinic records, hospital records 87 yo F presents without symptoms because of low blood and platelet counts on outside labwork recently performed. She was found to have WBC 0.6, H/H 7.1/20 and PLT 34 on 09/04/17. She then had repeat bloodwork earlier today revealing WBC 0.63, H/H 6.9/19 and PLT 2 and she was advised to go to the ER for a blood transfusion and platelet transfusion per Dr. Louis. Additionally, her [place] [employer] called Dr. Cohen in the ER and gave him initial instructions on what transfusions to give which have been ordered and started. The patient is otherwise doing well and reports feeling well since being discharged from [place] where she was admitted for febrile neutropenia from 08/26-09/03/17. She is ambulating at baseline and tolerating PO. She denies bleeding. She denies any UTI symptoms at this time and is continuing on her Cipro q12 that was started at discharge. Of note, per ID consult in [place], this is not a chronic prophylaxis. She did mention that she had some momentary shortness of breath while going up some steps earlier but this has now resolved. Daughter was present and proceeded with a very tangential conversation that was difficult to follow, but ultimately culminating in both mother and daughter satisfied with the plan for overnight. Daughter was also very specific about making an outpatient doctor's appointment with dr. Umana (PCP). I explained that we would try our best to accommodate this but could not make any promises at this time. Past Medical/Surgical History Medical Problems: (1) Anemia Status: Chronic (2) Atrial fibrillation Status: Chronic (3) COPD (chronic obstructive pulmonary disease) Status: Chronic (4) Coronary Atherosclerosis Of [place]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 Status: Chronic (5) Hypertension Nos Status: Chronic (6) Hypothyroidism Nos Status: Chronic (7) ITP (idiopathic thrombocytopenic purpura) Status: Chronic (8) Myalgia and myositis Status: Chronic (9) Osteoporosis Nos Status: Chronic (10) Premature atrial contractions Status: Chronic (11) Pulmonary nodules Status: Chronic Surgical Problems: (1) History of cataract surgery Status: Chronic (2) S/P hernia repair Status: Chronic (3) S/P hysterectomy Status: Chronic (4) S/p repair of cystocele Status: Chronic (5) S/P tonsillectomy and adenoidectomy Status: Chronic Family History Asthma DAUGHTER Social History Smoking Status: Never Smoker Smokeless Tobacco Use: No Alcohol Use: none Drug Use: none Marital Status: single Housing status: lives with family Occupational Status: retired Immunizations History of Influenza Vaccine: No Influenza Vaccine Date: Jun 04, 2016 History of Tetanus Vaccine?: Yes Tetanus Immunization Date: Feb 08, 2015 History of Pneumococcal: Yes Pneumococcal Date: Jul 20, 1996 History of Hepatitis B Vaccine: No Multi-Drug Resistant Organisms History of MDRO: Yes Type of MDRO: MRSA Allergies Coded Allergies: Iodinated Diagnostic Agents (Verified Allergy, Intermediate, HIVES WITH IVP DYE, 08/21/17) Sulfa Antibiotics (Verified Allergy, Intermediate, RASH, 08/21/17) Amoxicillin (Verified Allergy, Mild, RASH, Zosyn tolerated [id number] ADM, 08/21/17) Clavulanic Acid (Verified Allergy, Mild, RASH, Zosyn tolerated [id number] ADM, 08/21/17) Diphenhydramine (Verified Allergy, Unknown, 0, 08/21/17) sick Codeine (Verified Adverse Reaction, Intermediate, NAUSEA/VOMITING, ) Morphine (Verified Adverse Reaction, Intermediate, NAUSEA/VOMITING, ) Oxycodone (Verified Adverse Reaction, Intermediate, NAUSEA/VOMITING, 08/21) Rofecoxib (Verified Adverse Reaction, Intermediate, PALPITATIONS, 08/21/17 ) Morphine and Related (Verified Adverse Reaction, Mild, GI SYMPTOMS, ) Home Medications Scheduled Alprazolam (Xanax), 0.5 MG PO QAM Alprazolam (Xanax), 1 MG PO HS Carbamide Peroxide (Otic) (Eq Ear Wax Removal Aid), 2 DROPS OT BID Cholecalciferol (Vitamin D), 400 MG PO DAILY Ciprofloxacin Hcl (Cipro), 500 MG PO Q12 Cranberry (Vaccinium Macrocarp (Cranberry), 1 TAB PO DAILY Cyclosporine (Ophth) (Restasis), 1 DROP OPB BID Esomeprazole Magnesium (Nexium), 40 MG PO DAILY Levalbuterol Tartrate (Levalbuterol Tartrate Hfa), 1 PUFF PO BID Levothyroxine Sodium (Levothyroxine Sodium), 75 MCG PO QPM Magnesium Oxide (Mag-Ox), 400 MG PO BID Metoprolol Succinate (Metoprolol Succinate ER), 50 MG PO BID Multiple Vitamins W/ Minerals (Ocuvite Eye + Multi), 1 TAB PO BID Polyethylene Glycol 3350 (Polyethylene Glycol 3350), 17 GM PO DAILY Potassium Ext Rel (Klor-Con), 20 MEQ PO DAILY Thiamine Hcl (Vitamin B-1), 100 MG PO DAILY Tramadol (Ultram), 50 MG PO Q6 [Multivital], 1 TAB PO DAILY Scheduled PRN Acetaminophen (Tylenol), 500 MG PO Q6 PRN for Pain Dicyclomine Hcl (Bentyl), 10 MG PO QID PRN for abdominal pain Docusate Sodium (Docusate Sodium), 100 MG PO BID PRN for Constipation Furosemide (Lasix), 10-20 MG PO DAILY PRN for WATER RETENTION Review of Systems At least ten systems were reviewed and negative except as indicated in HPI. Physical Exam Vital Signs Date Time Temp Pulse Resp B/P (MAP) Pulse Ox O2 Delivery O2 Flow Rate FiO2 09/07/17 19:43 72 09/07/17 19:39 36.7 73 17 190/82 98 09/07/17 17:40 36.2 65 16 161/57 95 Room Air General Appearance: WD/WN, no apparent distress, + pertinent finding (no respiratory distress or conversational dyspnea. ) Head: normocephalic, atraumatic Eyes: normal inspection, PERRL, sclerae normal ENT: normal ENT inspection, hearing grossly normal Neck: no adenopathy, trachea midline Respiratory/Chest: lungs clear, normal breath sounds, no respiratory distress, no accessory muscle use Cardiovascular: regular rate, rhythm, no edema, no gallop, no JVD, no murmur, normal peripheral pulses Abdomen/GI: normal bowel sounds, non tender, soft Back: normal inspection Extremities/Musculoskelatal: no pedal edema, normal range of motion, + swelling (LLE with small raised swelling on anterior leg with some ecchymosis-reported recent trauma) Neurologic/Psych: free lance model II-XII nml as tested, no motor/sensory deficits, alert, normal mood/affect, oriented x 3 Skin: normal color, warm/dry, + pertinent finding (wound as abov.e ) Diagnostics Laboratory Results 09/07/17 18:20 Red Blood Count 2.59, Mean Corpuscular Volume 76.8, Mean Corpuscular Hemoglobin 27.8, Mean Corpuscular Hemoglobin Concent 36.2, Neutrophils (%) (Auto) 2.8, Lymphocytes (%) (Auto) 97.2, Monocytes (%) (Auto) 0.0, Eosinophils (%) (Auto) 0.0, Basophils (%) (Auto) 0.0, Neutrophils # (Auto) 0.02, Lymphocytes # (Auto) 0.69, Monocytes # (Auto) 0.00, Eosinophils # (Auto) 0.00, Basophils # (Auto) 0.00 09/07/17 18:20 Test 09/07/17 18:20 09/07/17 19:45 09/07/17 19:47 White Blood Count 0.71 K/uL (4.8-10.8) Red Blood Count 2.59 M/uL (4.2-5.4) Hemoglobin 7.2 g/dL (12.0-16.0) Hematocrit 19.9 % (37-47) Mean Corpuscular Volume 76.8 fL (80-100) Mean Corpuscular Hemoglobin 27.8 pg (25-34) Mean Corpuscular Hemoglobin Concent 36.2 g/dl (32-36) Platelet Count 2 K/uL (130-400) Neutrophils (%) (Auto) 2.8 % Lymphocytes (%) (Auto) 97.2 % Monocytes (%) (Auto) 0.0 % Eosinophils (%) (Auto) 0.0 % Basophils (%) (Auto) 0.0 % Neutrophils # (Auto) 0.02 K/uL (1.4-6.5) Lymphocytes # (Auto) 0.69 K/uL (1.2-3.4) Monocytes # (Auto) 0.00 K/uL (0.11-0.59) Eosinophils # (Auto) 0.00 K/uL (0-0.5) Basophils # (Auto) 0.00 K/uL (0-0.2) RDW Standard Deviation 35.0 fL (36.4-46.3) RDW Coefficient of Variation 12.4 % (11.5-14.5) Immature Granulocyte % (Auto) 0.0 % Immature Granulocyte # (Auto) 0.00 K/uL (0.00-0.02) Anion Gap 8.0 mmol/L (3-11) Est Creatinine Clear Calc Drug Dose 65.6 ml/min Estimated GFR () 96.7 Estimated GFR (Non- 83.5 BUN/Creatinine Ratio 30.6 (10-20) Calcium Level 8.8 mg/dl (8.5-10.1) Troponin I < 0.015 ng/ml (0-0.045) Urine Color YELLOW Urine Appearance CLEAR (CLEAR) Urine pH 7.5 (4.5-7.5) Urine Specific [place] 1.010 (1.000-1.030) Urine Protein TRACE (NEG) Urine Glucose (UA) NEG (NEG) Urine Ketones NEG (NEG) Urine Occult Blood NEG (NEG) Urine Nitrite NEG (NEG) Urine Bilirubin NEG (NEG) Urine Urobilinogen NEG (NEG) Urine Leukocyte Esterase SMALL (NEG) Urine WBC (Auto) 5-10 /hpf (0-5) Urine RBC (Auto) 0-4 /hpf (0-4) Urine Hyaline Casts (Auto) 1-5 /lpf (0-5) Urine Epithelial Cells (Auto) >30 /lpf (0-5) Urine Bacteria (Auto) NEG (NEG) Urine Renal Epithelial Cells 10-20 /lpf (0-5) Results Past 24 Hours Test 09/07/17 18:20 09/07/17 19:47 Range/Units White Blood Count 0.71 4.8-10.8 K/uL Red Blood Count 2.59 4.2-5.4 M/uL Hemoglobin 7.2 12.0-16.0 g/dL Hematocrit 19.9 37-47 % Mean Corpuscular Volume 76.8 80-100 fL Mean Corpuscular Hemoglobin 27.8 25-34 pg Mean Corpuscular Hemoglobin Concent 36.2 32-36 g/dl Platelet Count 2 130-400 K/uL Neutrophils (%) (Auto) 2.8 % Lymphocytes (%) (Auto) 97.2 % Monocytes (%) (Auto) 0.0 % Eosinophils (%) (Auto) 0.0 % Basophils (%) (Auto) 0.0 % Neutrophils # (Auto) 0.02 1.4-6.5 K/uL Lymphocytes # (Auto) 0.69 1.2-3.4 K/uL Monocytes # (Auto) 0.00 0.11-0.59 K/uL Eosinophils # (Auto) 0.00 0-0.5 K/uL Basophils # (Auto) 0.00 0-0.2 K/uL RDW Standard Deviation 35.0 36.4-46.3 fL RDW Coefficient of Variation 12.4 11.5-14.5 % Immature Granulocyte % (Auto) 0.0 % Immature Granulocyte # (Auto) 0.00 0.00-0.02 K/uL Sodium Level 131 136-145 mmol/L Potassium Level 3.9 3.5-5.1 mmol/L Chloride Level 95 98-107 mmol/L Carbon Dioxide Level 28 21-32 mmol/L Anion Gap 8.0 3-11 mmol/L Blood Urea Nitrogen 18 7-18 mg/dl Creatinine 0.58 0.60-1.20 mg/dl Est Creatinine Clear Calc Drug Dose 65.6 ml/min Estimated GFR () 96.7 Estimated GFR (Non- 83.5 BUN/Creatinine Ratio 30.6 10-20 Random Glucose 136 70-99 mg/dl Calcium Level 8.8 8.5-10.1 mg/dl Troponin I < 0.015 0-0.045 ng/ml EKG SR 72, LBBB, no changes from prior EKG on file. 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 1. Pancytopenia- 2/2 MDS, chronic. Pt denies any bleeding. Current plan is to transfuse her 1 pack platelets and 2 units of blood overnight and then reassess. Premedicate with Tylenol and Claritin and give Lasix between units. Hematology was consulted. Pt currently afebrile and overall asymptomatic. 2. Pleural effusion s/p recent thoracentesis on 09/01 while hospitalized in [place]. 1 L was removed and patient is doing well 3. Anxiety-Xanax per home regimen 4. UTI-recently diagnosed with a UTI 2/2 Pseudomonas and is finishing up her course of Cipro which ends tomorrow. OF note, per ID consult while hospitalized in [place], chronic prophylaxis will be considered but should not be undertaken at this time despite known chronic UTIs. She is currently asymptomatic from this standpoint and doing well. DVT proph-contraindicated Full Code as confirmed with she and her daughter on admission tonight Dispo-to Med/Surg. I did call the clinical coord to request patient moving to the 4th floor as requested per daughter. Rhonda Zamorano, [facility] Level of Care Med/Surg Resuscitation Status FULL RESUSCITATION VTE Prophylaxis VTE Risk Assessment Done? Y/N: Yes Risk Level: Moderate Given or contraindicated: Contraindicated Additional Copies To Dionisio Umana M.D.
[2017-09-07] MEDS ORDERED: HydrALAZINE HCL 20 MG/ML VIAL IV. PRN (20:45)
[2017-09-07] MEDS: METOPROLOL SUCC 50MG EXT REL TAB PO SCH (21:00)
[2017-09-07] MEDS: CIPROFLOXACIN 500 MG TAB PO SCH (21:00)
[2017-09-07] MEDS: CARBAMIDE PEROXIDE 6.5% 15 ML BTL OT SCH (21:00)
[2017-09-07] MEDS: MAGNESIUM OXIDE 400 MG TAB PO SCH (21:00)
[2017-09-07] MEDS ORDERED: IV FLUIDS COMPLETED PRN (21:00)
[2017-09-07] MEDS ORDERED: ALPRAZOLAM 0.5 MG TAB PO SCH (21:00)
[2017-09-07] MEDS ORDERED: LORATADINE 10 MG TAB PO ONE (21:30)
[2017-09-07] MEDS: CEROVITE ADV FORMULA TAB PO SCH (21:30)
[2017-09-07] MEDS ORDERED: FUROSEMIDE INJ 20 MG in SYRINGE 0 ML IV SCH (22:00)
[2017-09-07] MEDS ORDERED: MELATAB2 PO (22:13)
[2017-09-07 22:15] LABS: INR 1.1 (0.9-1.1)
[2017-09-07 22:42] VITALS: BP 142/89; PULSE 79; TEMP 36.6; O2SAT 97; Ht 162.6 cm; Wt 66.7 kg
[2017-09-07 23:51] VITALS: BP 151/72; PULSE 76; TEMP 36.7; O2SAT 98
[2017-09-08] VITALS (11 sets, daily range): BP systolic 155–191; BP diastolic 69–95; PULSE 63–75; TEMP 36.5–37.2; O2SAT 93–99
[2017-09-08] MEDS ORDERED: RESTASIS~ORDER AWAITING ACTION SCH
[2017-09-08] MEDS: TRAMADOL HCL 50 MG TAB PO SCH ×2 (00:06→06:00)
[2017-09-08 01:28] LABS: HEMATOCRIT 16.5 % (37-47); MEAN CORPUSCULAR HEMOGLOBIN 27.6 pg (25-34); MEAN CORPUSCULAR HGB CONC 36.4 g/dl (32-36); MEAN PLATELET VOLUME 7.5 fL (7.4-10.4); PLATELET COUNT 28 K/uL (130-400); RED CELL DISTRIBUTION WIDTH CV 12.4 % (11.5-14.5); RED CELL DISTRIBUTION WIDTH SD 34.7 fL (36.4-46.3); WHITE BLOOD COUNT 0.57 K/uL (4.8-10.8)
[2017-09-08 06:12] LABS: HEMOGLOBIN 7.7 g/dL (12.0-16.0); MEAN CELL VOLUME 76.4 fL (80-100); MEAN CORPUSCULAR HEMOGLOBIN 26.7 pg (25-34); MEAN PLATELET VOLUME 8.6 fL (7.4-10.4); PLATELET COUNT 26 K/uL (130-400); RED CELL DISTRIBUTION WIDTH CV 12.5 % (11.5-14.5); RED CELL DISTRIBUTION WIDTH SD 34.9 fL (36.4-46.3)
[2017-09-08 06:16] LABS: LYMPH % 96.7 %; LYMPH ABS # 0.58 K/uL (1.2-3.4); NEUT % 3.3 %; NEUT ABS # 0.02 K/uL (1.4-6.5)
[2017-09-08] MEDS ORDERED: LEVOTHYROXINE 75 MCG TAB PO SCH (06:30)
[2017-09-08] MEDS: CIPROFLOXACIN 500 MG TAB PO SCH (07:44)
[2017-09-08] MEDS: CEROVITE ADV FORMULA TAB PO SCH (07:44)
[2017-09-08] MEDS: METOPROLOL SUCC 50MG EXT REL TAB PO SCH (07:45)
[2017-09-08] MEDS: MAGNESIUM OXIDE 400 MG TAB PO SCH (07:45)
[2017-09-08] MEDS: CARBAMIDE PEROXIDE 6.5% 15 ML BTL OT SCH (07:46)
[2017-09-08] MEDS ORDERED: MULTIVITAMIN TAB PO SCH (08:00)
[2017-09-08] MEDS ORDERED: PANTOprazole SOD 40 MG TAB PO SCH (08:00)
[2017-09-08] MEDS ORDERED: ALPRAZOLAM 0.5 MG TAB PO SCH (08:00)
[2017-09-08] MEDS ORDERED: THIAMINE HCL 100 MG TAB PO SCH (08:00)
[2017-09-08] MEDS ORDERED: NON-FORMULARY MEDICATION (Cranberry (Vaccinium Macrocarp (Cranberry) 1 TAB) PO SCH (08:00)
[2017-09-08] MEDS ORDERED: CHOLECALCIFEROL 400 INTER.UNIT TAB PO SCH (08:00)
[2017-09-08] MEDS ORDERED: LORATADINE 10 MG TAB PO ONE (10:15)
--- NOTE | 2017-09-08 11:21 | Progress Note ---
Subjective Date of Service: Sep 08, 2017. Subjective Pt evaluation today including: conversation w/ patient, conversation w/ family , physical exam, lab review, review of studies, review of inpatient medication list Saw/examined the patient in room 421 Daughter in the room with her; heavily involved in patient care. States that the patient is doing great. Patient tells me she feels well. Eager to get home. Problem List Medical Problems: (1) Abnormal LFTs Status: Acute (2) Anemia Status: Chronic (3) Dehydration Status: Acute (4) Ear canal abrasion Status: Acute (5) Hyponatremia Status: Acute (6) Influenza A Status: Acute (7) Low back pain Status: Acute (8) Lumbar spine strain Status: Acute (9) Nasal bleeding Status: Acute (10) Neutropenia Status: Acute (11) Neutropenia Status: Acute (12) Neutropenic fever Status: Acute (13) Neutropenic fever Status: Acute (14) Pancytopenia Status: Acute (15) Pneumonia Status: Acute (16) Rib contusion Status: Acute (17) Shortness of breath Status: Acute (18) Thrombocytopenia Status: Acute (19) Thrombocytopenia Status: Acute (20) Thrombocytopenia Status: Acute (21) Thrombocytopenia Status: Acute Review of Systems Constitutional: + weakness, No fever, No chills Respiratory: No cough, No sputum, No shortness of breath Cardiac: No chest pain Abdomen: No pain, No nausea, No vomiting, No diarrhea Female : No dysuria, No urinary frequency Medications Current Inpatient Medications Medications (Trade) Dose Ordered Sig/Giuseppe Route Start Time Stop Time Status Last Admin Dose Admin Acetaminophen (Tylenol Tab) 650 mg Q4H PRN PO 09/07/17 20:00 10/07/17 19:59 09/08/17 10:53 650 MG Polyethylene (Miralax Powder Packet) 17 gm DAILY PRN PO 09/07/17 20:00 10/07/17 19:59 Ondansetron HCl (Zofran Inj) 4 mg Q6H PRN IV 09/07/17 20:00 10/07/17 19:59 Alprazolam (Xanax Tab) 0.5 mg QAM PO 09/08/17 08:00 10/08/17 08:59 09/08/17 07:46 0.5 MG Alprazolam (Xanax Tab) 1 mg HS PO 09/07/17 21:00 10/07/17 20:59 09/07/17 21:39 0.5 MG Carbamide Peroxide (Earwax Removal Soln) 2 drops BID OT 09/07/17 21:00 09/11/17 20:59 09/08/17 07:46 2 DROPS Cholecalciferol (Vitamin D Tab) 400 inter.unit DAILY PO 09/08/17 08:00 10/08/17 08:59 09/08/17 07:44 400 INTER.UNIT Ciprofloxacin (Cipro Tab) 500 mg Q12 PO 09/07/17 21:00 09/08/17 20:59 09/08/17 07:44 500 MG Dicyclomine HCl (Bentyl Cap) 10 mg QID PRN PO 09/07/17 20:30 10/07/17 20:29 Docusate Sodium (coLACE CAP) 100 mg BID PRN PO 09/07/17 20:30 10/07/17 20:29 Furosemide (Lasix Tab) 10 mg DAILY PRN PO 09/07/17 20:30 10/07/17 20:29 Levalbuterol (Xopenex Hfa Inhaler) 2 puffs BID PRN INH 09/07/17 20:30 10/07/17 20:29 Levothyroxine Sodium (Synthroid Tab) 75 mcg DAILYBB PO 09/08/17 06:30 10/08/17 06:29 09/08/17 06:02 75 MCG Magnesium Oxide (Mag-Ox Tab) 400 mg BID PO 09/07/17 21:00 10/07/17 20:59 09/08/17 07:45 400 MG Metoprolol Succinate (Toprol Xl Tab) 50 mg BID PO 09/07/17 21:00 10/07/17 20:59 09/08/17 07:45 50 MG Multivitamins/ Minerals (Multivitamin W/ Minerals Tab) 1 tab BID PO 09/07/17 21:00 10/07/17 20:59 09/08/17 07:44 1 TAB Thiamine HCl (Vitamin B-1 Tab) 100 mg DAILY PO 09/08/17 08:00 10/08/17 08:59 09/08/17 07:45 100 MG Tramadol HCl (Ultram Tab) 50 mg Q6 PO 09/08/17 00:00 10/08/17 00:00 09/08/17 00:06 50 MG Miscellaneous Information (Order Awaiting Action) 1 ea QS N/A 09/08/17 00:00 10/08/17 00:00 Multivitamins (Multivitamin Tab) 1 tab DAILY PO 09/08/17 08:00 10/08/17 08:59 09/08/17 07:45 1 TAB Pantoprazole Sodium (Protonix Tab) 40 mg QAM PO 09/08/17 08:00 10/08/17 08:59 09/08/17 07:45 40 MG Hydralazine HCl (HydrALAZINE INJ) 10 mg Q6H PRN IV. 09/07/17 20:45 10/07/17 20:44 Miscellaneous (Iv Fluids Completed) 1 ea PRN PRN N/A 09/07/17 21:00 09/07/18 20:59 Objective Vital Signs Date Time Temp Pulse Resp B/P (MAP) Pulse Ox O2 Delivery O2 Flow Rate FiO2 09/08/17 11:08 36.5 63 18 99 Room Air 09/08/17 10:59 36.5 63 18 176/70 99 09/08/17 08:00 98 Room Air 0.0 09/08/17 07:10 37.0 67 16 191/95 (127) 98 09/08/17 04:00 37.0 66 16 168/72 96 09/08/17 03:00 36.5 68 17 155/69 95 09/08/17 02:00 36.9 67 16 158/78 94 09/08/17 01:30 36.9 69 17 166/72 96 09/08/17 01:16 36.9 74 16 185/79 94 0.0 09/08/17 00:45 36.8 75 20 176/77 93 09/08/17 00:10 Room Air 09/07/17 23:51 36.7 76 18 151/72 (98) 98 Room Air 09/07/17 22:42 36.6 79 18 142/89 97 Room Air 09/07/17 20:44 81 22 173/77 96 Room Air 09/07/17 20:15 36.4 73 20 173/77 96 09/07/17 20:00 36.7 74 22 162/66 95 09/07/17 19:45 36.7 71 18 170/68 97 09/07/17 19:43 72 09/07/17 19:40 74 20 169/69 98 Room Air 09/07/17 19:39 36.7 73 17 190/82 98 09/07/17 17:40 36.2 65 16 161/57 95 Room Air Physical Exam General Appearance: no apparent distress Respiratory/Chest: lungs clear, normal breath sounds, no respiratory distress, no accessory muscle use Cardiovascular: regular rate, rhythm, no edema, no murmur Extremities: normal inspection, no pedal edema, + pertinent finding (LLE - erythema, improving, no edema) Neurologic/Psychiatric: no motor/sensory deficits, alert, normal mood/affect Laboratory Results Last 24 Hours Test 09/07/17 18:20 09/07/17 19:45 09/07/17 21:54 09/08/17 00:48 White Blood Count 0.71 K/uL 0.57 K/uL Red Blood Count 2.59 M/uL 2.17 M/uL Hemoglobin 7.2 g/dL 6.0 g/dL Hematocrit 19.9 % 16.5 % Mean Corpuscular Volume 76.8 fL 76.0 fL Mean Corpuscular Hemoglobin 27.8 pg 27.6 pg Mean Corpuscular Hemoglobin Concent 36.2 g/dl 36.4 g/dl Platelet Count 2 K/uL 28 K/uL Neutrophils (%) (Auto) 2.8 % Lymphocytes (%) (Auto) 97.2 % Monocytes (%) (Auto) 0.0 % Eosinophils (%) (Auto) 0.0 % Basophils (%) (Auto) 0.0 % Neutrophils # (Auto) 0.02 K/uL Lymphocytes # (Auto) 0.69 K/uL Monocytes # (Auto) 0.00 K/uL Eosinophils # (Auto) 0.00 K/uL Basophils # (Auto) 0.00 K/uL RDW Standard Deviation 35.0 fL 34.7 fL RDW Coefficient of Variation 12.4 % 12.4 % Immature Granulocyte % (Auto) 0.0 % Immature Granulocyte # (Auto) 0.00 K/uL Sodium Level 131 mmol/L Potassium Level 3.9 mmol/L Chloride Level 95 mmol/L Carbon Dioxide Level 28 mmol/L Anion Gap 8.0 mmol/L Blood Urea Nitrogen 18 mg/dl Creatinine 0.58 mg/dl Est Creatinine Clear Calc Drug Dose 65.6 ml/min Estimated GFR () 96.7 Estimated GFR (Non- 83.5 BUN/Creatinine Ratio 30.6 Random Glucose 136 mg/dl Calcium Level 8.8 mg/dl Troponin I < 0.015 ng/ml Urine Color YELLOW Urine Appearance CLEAR Urine pH 7.5 Urine Specific [place] 1.010 Urine Protein TRACE Urine Glucose (UA) NEG Urine Ketones NEG Urine Occult Blood NEG Urine Nitrite NEG Urine Bilirubin NEG Urine Urobilinogen NEG Urine Leukocyte Esterase SMALL Urine WBC (Auto) 5-10 /hpf Urine RBC (Auto) 0-4 /hpf Urine Hyaline Casts (Auto) 1-5 /lpf Urine Epithelial Cells (Auto) >30 /lpf Urine Bacteria (Auto) NEG Urine Renal Epithelial Cells 10-20 /lpf Prothrombin Time 12.0 SECONDS Prothromb Time International Ratio 1.1 Mean Platelet Volume 7.5 fL Test 09/08/17 05:35 White Blood Count 0.60 K/uL Red Blood Count 2.88 M/uL Hemoglobin 7.7 g/dL Hematocrit 22.0 % Mean Corpuscular Volume 76.4 fL Mean Corpuscular Hemoglobin 26.7 pg Mean Corpuscular Hemoglobin Concent 35.0 g/dl Platelet Count 26 K/uL Mean Platelet Volume 8.6 fL Neutrophils (%) (Auto) 3.3 % Lymphocytes (%) (Auto) 96.7 % Monocytes (%) (Auto) 0.0 % Eosinophils (%) (Auto) 0.0 % Basophils (%) (Auto) 0.0 % Neutrophils # (Auto) 0.02 K/uL Lymphocytes # (Auto) 0.58 K/uL Monocytes # (Auto) 0.00 K/uL Eosinophils # (Auto) 0.00 K/uL Basophils # (Auto) 0.00 K/uL RDW Standard Deviation 34.9 fL RDW Coefficient of Variation 12.5 % Immature Granulocyte % (Auto) 0.0 % Immature Granulocyte # (Auto) 0.00 K/uL Platelet Estimate DECREASED Red Blood Cell Morphology Unremarkable Assessment and Plan This is an 87 yo F with a PMH of 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 Fib , COPD, CAD, HTN - presents secondary to low blood counts and for transfusion Pancytopenia secondary to MDS patient is doing well clinically Hgb up to 7.7 after one unit of pRBCs platelets up to 26k will transfuse a second unit of pRBC and then d/c home patient's daughter very involved and not agreeable to second unit of pRBC outpatient PCP follow-up at 5PM on 09/08 and ENT f/u on 09/10 Recurrent UTIs was seen by ID at [place] currently on Cipro - which we can continue at home as per ID instructions should follow-up with urology Pleural Effusion s/p R thoracentesis patient with multiple transfusions also has chronic diastolic CHF daughter reluctant to give Lasix daily for now, continue every other day; should f/u with PCP Anxiety continue Xanax BID dosing as per home regimen DVT ppx SCDs FULL CODE
--- NOTE | 2017-09-08 11:24 | Discharge Instructions ---
Discharge Instructions Date of Service Sep 08, 2017. Admission Reason for Admission: Pancytopenia Discharge Discharge Diagnosis / Problem: Pancytopenia (low platelets, low hemoglobin) Discharge Goals Goal(s): Decrease discomfort, Improve function, Diagnostic testing, Therapeutic intervention Activity Recommendations Activity Limitations: resume your previous activity . Instructions / Follow-Up Instructions / Follow-Up Please follow-up with Dr. Umana on 09/08/2017 at 5PM Current Hospital Diet Patient's current hospital diet: AHA Diet (Heart Healthy) Discharge Diet Recommended Diet: AHA Diet (Heart Healthy) Pending Studies Studies pending at discharge: no Laboratory Results Hemoglobin A1c Test 07/25/17 07:59 Range/Units Estimated Average Glucose 131 mg/dl Hemoglobin A1c 6.2 H 4.5-5.6 % Medical Emergencies . Who to Call and When: Medical Emergencies: If at any time you feel your situation is an emergency, please call 911 immediately. . Non-Emergent Contact Non-Emergency issues call your: Primary Care Provider . . "Provider Documentation" section prepared by Luanne Garcia. . VTE Core Measure Inpt VTE Proph given/why not?: Contraindicated
--- NOTE | 2017-09-08 11:26 | Discharge Summary ---
Discharge Summary Date of Service Sep 08, 2017. Discharge Summary Admission Date: Sep 07, 2017 at 19:36 Discharge Date: Sep 08, 2017 Discharge Disposition: Home Principal Diagnosis: Pancytopenia Aplastic Anemia Thrombocytopenia - requiring transfusion Anemia - requiring transfusion Medication Reconciliation Continued Medications: Acetaminophen (Tylenol) 500 Mg Tab 500 MG PO Q6 PRN for Pain (DO NOT EXCEED 3GM/24HRS OF ALL ACETAMINOPHEN PRODUCTS COMBINED) Alprazolam (Xanax) 0.5 Mg Tab 0.5 MG PO QAM, TAB Alprazolam (Xanax) 0.5 Mg Tab 1 MG PO HS, TAB Carbamide Peroxide (Otic) (Eq Ear Wax Removal Aid) 6.5 % Amber 2 DROPS OT BID for 7 Days, #1 BTL Cholecalciferol (Vitamin D) 400 Unit Tab 400 MG PO DAILY Ciprofloxacin Hcl (Cipro) 500 Mg Tab 500 MG PO Q12, TAB last day of course is 09/08/17 Cranberry (Vaccinium Macrocarp (Cranberry) 125 Mg Tab 1 TAB PO DAILY Cyclosporine (Ophth) (Restasis) 0.05 % Emu 1 DROP OPB BID Dicyclomine Hcl (Bentyl) 10 Mg Cap 10 MG PO QID PRN for abdominal pain, CAP Docusate Sodium (Docusate Sodium) 100 Mg Cap 100 MG PO BID PRN for Constipation Esomeprazole Magnesium (Nexium) 40 Mg Capcr 40 MG PO DAILY TAKE 40MG DAILY ONE HOUR BEFORE FIRST MEAL OF THE DAY Furosemide (Lasix) 20 Mg Tab 10-20 MG PO DAILY PRN for WATER RETENTION, TAB Levalbuterol Tartrate (Levalbuterol Tartrate Hfa) 45 Mcg/Act Aer 1 PUFF PO BID Levothyroxine Sodium (Levothyroxine Sodium) 75 Mcg Tab 75 MCG PO QPM Magnesium Oxide (Mag-Ox) 400 Mg Tab 400 MG PO BID Melatonin (Melatonin Maximum Strengt) 5 Mg Tab 1 TAB PO HS for 30 Days, #30 TAB Metoprolol Succinate (Metoprolol Succinate ER) 50 Mg Tabcr 50 MG PO BID Multiple Vitamins W/ Minerals (Ocuvite Eye + Multi) 1 Tab Tab 1 TAB PO BID Polyethylene Glycol 3350 (Polyethylene Glycol 3350) 1 Pow Pow 17 GM PO DAILY DISSOLVE IN 8 OZ LIQUID DAILY. Potassium Ext Rel (Klor-Con) 20 Meq Tabcr 20 MEQ PO DAILY, TAB Thiamine Hcl (Vitamin B-1) 100 Mg Tab 100 MG PO DAILY, TAB Tramadol (Ultram) 50 Mg Tab 50 MG PO Q6 MAX 8 TABLETS PER DAY [Multivital] () 1 TAB PO DAILY Admission Information HPI (per Admitting provider): 87 yo F presents without symptoms because of low blood and platelet counts on outside labwork recently performed. She was found to have WBC 0.6, H/H 7.1/20 and PLT 34 on 09/04/17. She then had repeat bloodwork earlier today revealing WBC 0.63, H/H 6.9/19 and PLT 2 and she was advised to go to the ER for a blood transfusion and platelet transfusion per Dr. Louis. Additionally, her [place] Chief Business Officer called Dr. Cohen in the ER and gave him initial instructions on what transfusions to give which have been ordered and started. The patient is otherwise doing well and reports feeling well since being discharged from [place] where she was admitted for febrile neutropenia from 08/26-09/03/17. She is ambulating at baseline and tolerating PO. She denies bleeding. She denies any UTI symptoms at this time and is continuing on her Cipro q12 that was started at discharge. Of note, per ID consult in [place], this is not a chronic prophylaxis. She did mention that she had some momentary shortness of breath while going up some steps earlier but this has now resolved. Daughter was present and proceeded with a very tangential conversation that was difficult to follow, but ultimately culminating in both mother and daughter satisfied with the plan for overnight. Daughter was also very specific about making an outpatient doctor's appointment with dr. Umana (PCP). I explained that we would try our best to accommodate this but could not make any promises at this time. Physical Exam (per Admitting): General Appearance: WD/WN, no apparent distress, + pertinent finding (no respiratory distress or conversational dyspnea. ) Head: normocephalic, atraumatic Eyes: normal inspection, PERRL, sclerae normal ENT: normal ENT inspection, hearing grossly normal Neck: no adenopathy, trachea midline Respiratory/Chest: lungs clear, normal breath sounds, no respiratory distress, no accessory muscle use Cardiovascular: regular rate, rhythm, no edema, no gallop, no JVD, no murmur , normal peripheral pulses Abdomen/GI: normal bowel sounds, non tender, soft Back: normal inspection Extremities/Musculoskelatal: no pedal edema, normal range of motion, + swelling (LLE with small raised swelling on anterior leg with some ecchymosis- reported recent trauma) Neurologic/Psych: 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 Fib , COPD, CAD, HTN - presents secondary to low blood counts and for transfusion Pancytopenia secondary to MDS patient is doing well clinically Hgb up to 7.7 after one unit of pRBCs platelets up to 26k will transfuse a second unit of pRBC and then d/c home patient's daughter very involved and not agreeable to second unit of pRBC outpatient PCP follow-up at 5PM on 09/08 and ENT f/u on 09/10 Recurrent UTIs was seen by ID at [place] currently on Cipro - which we can continue at home as per ID instructions should follow-up with urology Pleural Effusion s/p R thoracentesis patient with multiple transfusions also has chronic diastolic CHF daughter reluctant to give Lasix daily for now, continue every other day; should f/u with PCP Anxiety continue Xanax BID dosing as per home regimen DVT ppx SCDs FULL CODE Total time spent on discharge = 45 minutes This includes examination of the patient, discharge planning, medication reconciliation, and communication with other providers. Discharge Instructions Please follow-up with Dr. Umana on 09/08/2017 at 5PM
== END 2017-09-08 13:22 | disposition home or self-care (01) ==
LOC: C.EDB 17:33 → C.4E 19:36 → ENRESERV 19:53 → EDBEDREQ 20:22
PROVIDERS: ADMIT Hospitalist; ATTEND Family Medicine
DX: D61.818 Other pancytopenia (principal); D69.6 Thrombocytopenia, unspecified; I48.91 Unspecified atrial fibrillation; J44.9 Chronic obstructive pulmonary disease, unspecified; I25.10 Atherosclerotic heart disease of native coronary artery without angina pectoris; I10 Essential (primary) hypertension; E03.9 Hypothyroidism, unspecified; Z98.49 Cataract extraction status, unspecified eye; Z90.710 Acquired absence of both cervix and uterus; Z90.89 Acquired absence of other organs; Z82.5 Family history of asthma and other chronic lower respiratory diseases; Z79.899 Other long term (current) drug therapy; Z88.1 Allergy status to other antibiotic agents; Z88.5 Allergy status to narcotic agent; Z88.2 Allergy status to sulfonamides

== ENCOUNTER → 2017-09-07 | Outpatient (CLI) | payer OTHER, BC ==
[~2017-09-07] MED LIST changes: +ALPR-411 PO; +CARB1SOL9 OT; +CEFD1CAP14 PO; +CHOL400T PO; +CIPR-255 PO; +CLOT10TR2 MT; +FURO-85 PO; +MELATAB2 PO; -MULT-190 PO; +MULT-513 PO; +MULT15TA2 PO; +MULTIVITAL PO; -MULTTAB58 PO; -NYSS5 PO; -POTA-639 PO; +POTA20TA16 PO; -THIA100T10 PO; +THIA100T11 PO
[2017-09-07 16:33] LABS: MEAN CORPUSCULAR HGB CONC 36.5 g/dl (32-36); PLATELET COUNT 2 K/uL (130-400)
[2017-09-07 16:34] LABS: HEMATOCRIT 18.9 % (37-47); HEMOGLOBIN 6.9 g/dL (12.0-16.0); MEAN CELL VOLUME 76.5 fL (80-100); MEAN CORPUSCULAR HEMOGLOBIN 27.9 pg (25-34); RED CELL DISTRIBUTION WIDTH CV 12.5 % (11.5-14.5); RED CELL DISTRIBUTION WIDTH SD 35.2 fL (36.4-46.3); WHITE BLOOD COUNT 0.63 K/uL (4.8-10.8)
== END | disposition home or self-care (01) ==
LOC: C.LAB 15:22
PROVIDERS: ATTEND Internal Medicine Hematology
DX: D61.818 Other pancytopenia (principal)